=== PATIENT | male | born 1995 | race Caucasian/White ===

== ENCOUNTER 2020-08-20 22:21 | Outpatient (CLI) | payer OTHER | END 2020-08-20 22:22 | disposition EMS.NT | LOC: EMS 22:21 | PROVIDERS: ATTEND Surgery | DX: R06.02 Shortness of breath (principal) ==

== ENCOUNTER 2020-08-20 23:36 | Inpatient (IN) | payer OTHER ==
--- NOTE | 2020-08-20 23:47 | ED Physician Documentation ---
History of Present Illness - Stated complaint Stated Complaint: SOA,VOMITING - History obtained from History obtained from: Patient - Additonal information Additional information: Patient is a 24-year-old male brought in by his father after he is been complaining of weakness and breathing fast and anxiety. The patient reports that he thinks he has anxiety. He also reports that he is a daily heavy drinker and stopped drinking alcohol 2 days ago. He also reports that he uses marijuana multiple times daily. He also complains that he has had a spontaneous pneumothorax on the left as well as the right and describes chest tube decompres hernan with pleurodesis at [facility] last year. Patient reports that he is a student at [employer] in [place] but since COVID he is return home and is been living at for the last 6 months. He also thinks that he might possibly have diabetes but he is not sure.He denies fevers or abdominal pain or headache or cough but reports dry heaving and noticed that his been breathing fast. Review of Systems Constitutional: reports: Reviewed and negative Eyes: reports: Reviewed and negative Ears: reports: Reviewed and negative Nose: reports: Reviewed and negative Throat: reports: Reviewed and negative Cardiac: reports: Reviewed and negative Respiratory: reports: Dyspnea GI: reports: Nausea, Vomiting : reports: Reviewed and negative Skin: reports: Reviewed and negative Musculoskeletal: reports: Reviewed and negative Neurologic: reports: Generalized weakness Psychiatric: reports: Reviewed and negative Endocrine: reports: Reviewed and negative Immunocompromised: reports: Reviewed and negative PD PAST MEDICAL HISTORY - Allergies Allergies/Adverse Reactions: Allergies Allergy/AdvReac Type Severity Reaction Status Date / Time No Known Drug Allergies Allergy Verified 08/20/20 23:52 PD ED PE NORMAL - General General: Other (This is a sick and ill appearing 24-year-old male who has obvious supply chain coordinator small breathing he is awake he is alert he is oriented he does appear to be anxious as well.) - HEENT HEENT: Atraumatic, PERRL, EOMI, Ears normal, Pharynx benign, Dentition benign, Other (Dry mucous membranes noted) - Neck Neck: Supple, no meningeal sign, No bony TTP, No adenopathy, Thyroid normal, No JVD - Cardiac Cardiac: Other (Tachycardic and regular rhythm no murmurs rubs or gallops) - Respiratory Respiratory: Other (Tachypneic with supply chain coordinator small breathing no use of accessory muscles trachea midline breath sounds are present in bilateral lung smith throughout) - Abdomen Abdomen: Normal bowel sounds, Soft, Non tender, Non distended, No organomegaly, Other (Abdominal striae noted) - Male Male : Deferred - Rectal Rectal: Deferred - Back Back: No CVA TTP, No spinal TTP - Derm Derm: Normal color, Warm and dry, No rash - Neuro Neuro: Alert and oriented X 3, respiratory equipment assistant 2-12 intact, No motor deficit, No sensory deficit, Normal speech - Psych Psych: Other (Anxious appearing) Results - Vitals Vitals: Vital Signs - 24 hr 08/20/20 08/21/20 23:40 00:40 Temperature 36.3 C L Heart Rate 96 113 H Respiratory 32 H 30 H Rate Blood Pressure 151/102 H 157/103 H O2 Saturation 100 100 Oxygen O2 Source Room air - EKG (time done) 00:13 Rate: Other (no stemi) - Labs Labs: Laboratory Tests 08/21/20 08/21/20 08/21/20 00:10 00:10 00:10 WBC 34.4 H RBC 4.85 Hgb 15.6 Hct 48.2 MCV 99.4 H MCH 32.2 H MCHC 32.4 RDW 12.0 Plt Count 370 MPV 9.9 Neut # (Auto) Not Reportable Lymph # (Auto) Not Reportable [place] # (Auto) Not Reportable Eos # (Auto) Not Reportable Baso # (Auto) Not Reportable Absolute Nucleated RBC Not Reportable Total Counted 100 Band Neuts % (Manual) 3 Abnorm Lymph % (Manual) 0 Metamyelocytes % 1 H Myelocytes % 10 H Nucleated RBC % Not Reportable Neutrophils # (Manual) 19.3 H Lymphocytes # (Manual) 6.5 H Monocytes # (Manual) 4.5 H Eosinophils # (Manual) 0.0 Basophils # (Manual) 0.3 H Differential Comment MANUAL DIFFERENTIAL WBC Morphology NORMAL APPEARANCE Platelet Estimate NORMAL (130-450,000) Platelet Morphology NORMAL APPEARANCE RBC Morph Micro Appear NORMAL APPEARANCE PT 11.3 INR 1.0 APTT 37.1 H VBG pH VBG pCO2 VBG pO2 VBG HCO3 VBG Total CO2 VBG O2 Saturation VBG Base Excess Sodium 130 L Potassium 4.1 Chloride 97 L Carbon Dioxide < 6 L* Anion Gap 30.0 H BUN 14 Creatinine 1.1 Estimated GFR (MDRD) 82 L Glucose 600 H* Lactic Acid Calcium 8.3 L Phosphorus Magnesium 2.4 Total Bilirubin 1.7 H AST 19 ALT 26 Alkaline Phosphatase 114 Total Creatine Kinase 33 Troponin I High Sens Total Protein 8.9 H Albumin 5.0 Globulin 3.9 Albumin/Globulin Ratio 1.3 Lipase 71 H TSH Urine Color Urine Clarity Urine pH Ur Specific [place] Urine Protein Urine Glucose (UA) Urine Ketones Urine Occult Blood Urine Nitrite Urine Bilirubin Urine Urobilinogen Ur Leukocyte Esterase Urine RBC Urine WBC Ur Squamous Epith Cells Urine Bacteria Urine Casts Ur Microscopic Review Urine Culture Comments Salicylates 6.3 Urine Opiates Screen Ur Oxycodone Screen Urine Methadone Screen Ur Propoxyphene Screen Acetaminophen < 10 L Ur Barbiturates Screen Ur Tricyclics Screen Ur Phencyclidine Scrn Ur Amphetamine Screen U Methamphetamines Scrn U Benzodiazepines Scrn Urine Cocaine Screen U Cannabinoids Screen Ethyl Alcohol < 5.0 Serum Ketones 08/21/20 08/21/20 08/21/20 00:10 00:10 00:10 WBC RBC Hgb Hct MCV MCH MCHC RDW Plt Count MPV Neut # (Auto) Lymph # (Auto) [place] # (Auto) Eos # (Auto) Baso # (Auto) Absolute Nucleated RBC Total Counted Band Neuts % (Manual) Abnorm Lymph % (Manual) Metamyelocytes % Myelocytes % Nucleated RBC % Neutrophils # (Manual) Lymphocytes # (Manual) Monocytes # (Manual) Eosinophils # (Manual) Basophils # (Manual) Differential Comment WBC Morphology Platelet Estimate Platelet Morphology RBC Morph Micro Appear PT INR APTT VBG pH VBG pCO2 VBG pO2 VBG HCO3 VBG Total CO2 VBG O2 Saturation VBG Base Excess Sodium Potassium Chloride Carbon Dioxide Anion Gap BUN Creatinine Estimated GFR (MDRD) Glucose Lactic Acid 2.9 H Calcium Phosphorus Magnesium Total Bilirubin AST ALT Alkaline Phosphatase Total Creatine Kinase Troponin I High Sens 10.1 Total Protein Albumin Globulin Albumin/Globulin Ratio Lipase TSH 1.16 Urine Color Urine Clarity Urine pH Ur Specific [place] Urine Protein Urine Glucose (UA) Urine Ketones Urine Occult Blood Urine Nitrite Urine Bilirubin Urine Urobilinogen Ur Leukocyte Esterase Urine RBC Urine WBC Ur Squamous Epith Cells Urine Bacteria Urine Casts Ur Microscopic Review Urine Culture Comments Salicylates Urine Opiates Screen Ur Oxycodone Screen Urine Methadone Screen Ur Propoxyphene Screen Acetaminophen Ur Barbiturates Screen Ur Tricyclics Screen Ur Phencyclidine Scrn Ur Amphetamine Screen U Methamphetamines Scrn U Benzodiazepines Scrn Urine Cocaine Screen U Cannabinoids Screen Ethyl Alcohol Serum Ketones 08/21/20 08/21/20 08/21/20 00:10 00:10 00:50 WBC RBC Hgb Hct MCV MCH MCHC RDW Plt Count MPV Neut # (Auto) Lymph # (Auto) [place] # (Auto) Eos # (Auto) Baso # (Auto) Absolute Nucleated RBC Total Counted Band Neuts % (Manual) Abnorm Lymph % (Manual) Metamyelocytes % Myelocytes % Nucleated RBC % Neutrophils # (Manual) Lymphocytes # (Manual) Monocytes # (Manual) Eosinophils # (Manual) Basophils # (Manual) Differential Comment WBC Morphology Platelet Estimate Platelet Morphology RBC Morph Micro Appear PT INR APTT VBG pH 6.725 L VBG pCO2 19.7 L VBG pO2 94.5 H VBG HCO3 2.5 L VBG Total CO2 3.1 L VBG O2 Saturation 95.2 H VBG Base Excess -33.2 L Sodium Potassium Chloride Carbon Dioxide Anion Gap BUN Creatinine Estimated GFR (MDRD) Glucose Lactic Acid Calcium Phosphorus 5.8 H Magnesium Total Bilirubin AST ALT Alkaline Phosphatase Total Creatine Kinase Troponin I High Sens Total Protein Albumin Globulin Albumin/Globulin Ratio Lipase TSH Urine Color YELLOW Urine Clarity CLEAR Urine pH 5.0 Ur Specific [place] >=1.030 H Urine Protein 30 H Urine Glucose (UA) >=1000 H Urine Ketones >=80 H Urine Occult Blood MODERATE H Urine Nitrite NEGATIVE Urine Bilirubin NEGATIVE Urine Urobilinogen 0.2 (NORMAL) Ur Leukocyte Esterase NEGATIVE Urine RBC 6-10 H Urine WBC 0-3 Ur Squamous Epith Cells NONE SEEN Urine Bacteria Rare Urine Casts 3-5 Fine Granular Ur Microscopic Review INDICATED Urine Culture Comments NOT INDICATED Salicylates Urine Opiates Screen NEGATIVE Ur Oxycodone Screen NEGATIVE Urine Methadone Screen NEGATIVE Ur Propoxyphene Screen NEGATIVE Acetaminophen Ur Barbiturates Screen NEGATIVE Ur Tricyclics Screen NEGATIVE Ur Phencyclidine Scrn NEGATIVE Ur Amphetamine Screen NEGATIVE U Methamphetamines Scrn NEGATIVE U Benzodiazepines Scrn NEGATIVE Urine Cocaine Screen NEGATIVE U Cannabinoids Screen POSITIVE H Ethyl Alcohol Serum Ketones SMALL H PD MEDICAL DECISION MAKING - ED course Complexity details: reviewed old records, reviewed results, re-evaluated patient, considered differential, d/w patient, d/w family, d/w moving consultant (tt dr. seay, who agreed to admit this patient to the ICU. ), other ED course: 24-year-old male who appears to have new onset diabetic ketoacidosis he has no fever but he is tachypneic with a leukocytosis. 2 L of IV fluids were ordered for him as well as Lactate, blood cultures, IV Rocephin. His initial potassium came back at 4.1.2 L of IV fluids were ordered initially as well as 20 mEq of potassium. Case was discussed with the hospitalist Dr. seay. CT the head CT of the chest and abdomen and pelvis shows no acute process.Patient will be admitted to the ICU. - Consults Consults: Discussed case with (hospitalist. dr. seay who will admit patient to the icu.) - Critical Care Time(min): 30 Time Includes: Direct patient care, Review records, Reassess patient, Document care, Coordinate care, Medical consult, Family consult for tx dec Procedures included in critical care time: Peripheral IV Procedures excluded from critical care time: EKG Departure - Departure Disposition: 66 [facility] DC/Xfer Clinical Impression: DKA (diabetic ketoacidoses) Qualifiers: Diabetes mellitus type: other specified (including FRANKIE) Diabetes mellitus complication detail: without coma Qualified Code(s): E13.10 - Other specified diabetes mellitus with ketoacidosis without coma Condition: Critical Discharge Date/Time: 08/21/20 02:44
[2020-08-21] MEDS ORDERED: LORazepam 2 MG/ML VIAL IVP STA (00:02)
[2020-08-21] MEDS ORDERED: SODIUM CHLORIDE 0.9% 1,000 ML IV STA ×3 (00:02→01:17)
[2020-08-21 00:21] LABS: BASOPHILS % (AUTO) 1.4 %; EOSINOPHILS % (AUTO) 0.3 %; HGB - HEMOGLOBIN 15.6 g/dL (14.0-18.0); LYMPHOCYTES % (AUTO) 10.4 %; MEAN CORPUSCULAR HEMOGLOBIN 32.2 pg (27.0-31.0); MEAN CORPUSCULAR HGB CONC 32.4 g/dL (32.0-36.0); MEAN CORPUSCULAR VOLUME 99.4 fL (80.0-94.0); MEAN PLATELET VOLUME 9.9 fL (7.4-11.4); MONOCYTES % (AUTO) 13.1 %; NEUTROPHILS % (AUTO) 66.7 %; PLT - PLATELET COUNT 370 10^3/uL (130-450); RED BLOOD COUNT 4.85 10^6/uL (4.70-6.10); WHITE BLOOD COUNT 34.4 x10^3/uL (4.8-10.8)
[2020-08-21 00:25] LABS: ABNORMAL LYMPHS % (MANUAL) 0 %; PT - PROTHROMBIN TIME 11.3 secs (9.9-12.6)
[2020-08-21] MEDS ORDERED: cefTRIAXone 1 GM VIAL IVP STA (00:30)
[2020-08-21 00:33] LABS: PARTIAL THROMBOPLASTIN TIME 37.1 secs (24.9-33.3)
[2020-08-21 00:34] LABS: ACETAMINOPHEN < 10 ug/mL (10-30); ALBUMIN/GLOBULIN RATIO 1.3 (1.0-2.2); ALKALINE PHOSPHATASE 114 IU/L (42-121); ALT ALANINE AMINOTRANSFERASE 26 IU/L (10-60); AST ASPARTATE AMINOTRANSFERASE 19 IU/L (10-42); BILIRUBIN,TOTAL 1.7 mg/dL (0.2-1.0); BUN - BLOOD UREA NITROGEN 14 mg/dL (6-20); CALCIUM 8.3 mg/dL (8.5-10.3); CHLORIDE 97 mmol/L (101-111); CK- CREATINE KINASE 33 IU/L (22-269); CREATININE 1.1 mg/dL (0.6-1.2); LIPASE 71 U/L (22-51); MAGNESIUM 2.4 mg/dL (1.7-2.8); SALICYLATE 6.3 mg/dL; SODIUM 130 mmol/L (135-145); TOTAL PROTEIN 8.9 g/dL (6.7-8.2)
[2020-08-21 00:36] LABS: CARBON DIOXIDE - CO2 < 6 mmol/L (21-32); GLUCOSE 600 mg/dL (70-100)
[2020-08-21 00:37] LABS: MUDS CUTOFF CONCENTRATIONS CUTOFF CONC BELOW:
[2020-08-21 00:40] LABS: BILIRUBIN,URINE NEGATIVE (NEGATIVE); GLUCOSE, URINE (UA) >=1000 mg/dL (NEGATIVE); KETONES,URINE (UA) >=80 mg/dL (NEGATIVE); LEUKOCYTE ESTERASE, URINE NEGATIVE (NEGATIVE); NITRITE,URINE NEGATIVE (NEGATIVE); OCCULT BLOOD,URINE MODERATE (NEGATIVE); PROTEIN,URINE 30 mg/dL (NEGATIVE); UROBILINOGEN,URINE 0.2 (NORMAL) E.U./dL (NORMAL)
[2020-08-21 00:44] LABS: BAND NEUTROPHILS % (MANUAL) 3 %; BASOPHILS # (MANUAL) 0.3 10^3/uL (0-0.1); BASOPHILS % (MANUAL) 1 %; LYMPHOCYTES # (MANUAL) 6.5 10^3/uL (1.5-3.5); LYMPHOCYTES % (MANUAL) 19 %; METAMYELOCYTES % (MANUAL) 1 %; MONOCYTES # (MANUAL) 4.5 10^3/uL (0.0-1.0); MYELOCYTES % (MANUAL) 10 %; RBC MORPHOLOGY (MULTIPLE) NORMAL APPEARANCE (NORMAL)
[2020-08-21 00:45] LABS: DIFFERENTIAL COMMENT MANUAL DIFFERENTIAL; PLATELET ESTIMATE, MANUAL NORMAL (130-450,000) (NORMAL); PLATELET MORPHOLOGY NORMAL APPEARANCE (NORMAL)
[2020-08-21 00:49] LABS: BACTERIA,URINE Rare /HPF (None Seen); CLARITY,URINE CLEAR (CLEAR); SQUAMOUS EPITHELIAL CELL,UR NONE SEEN (<= Few)
[2020-08-21] MEDS ORDERED: INSULIN REGULAR HUMAN 100 UNIT in SODIUM CHLORIDE 0.9% 100ML 99 ML IV STA (00:49)
[2020-08-21 00:50] LABS: CASTS, URINE 3-5 Fine Granular /LPF
[2020-08-21] MEDS ORDERED: POTASSIUM CHLOR 20 MEQ/100 ML 20 MEQ/100 ML BAG IV ONE ×7 (00:50→22:58)
[2020-08-21 00:52] LABS: AMPHETAMINE SCREEN,URINE NEGATIVE (NEGATIVE); BENZODIAZEPINES SCREEN, URINE NEGATIVE (NEGATIVE); COCAINE SCREEN URINE NEGATIVE (NEGATIVE); METHADONE SCREEN, URINE NEGATIVE (NEGATIVE); METHAMPHETAMINES SCREEN, URINE NEGATIVE (NEGATIVE); OPIATE SCREEN, URINE NEGATIVE (NEGATIVE); OXYCODONE SCREEN, URINE NEGATIVE (NEGATIVE); PROPOXYPHENE SCREEN, URINE NEGATIVE (NEGATIVE); TRICYCLIC ANTIDEPRESSANT,URINE NEGATIVE (NEGATIVE)
[2020-08-21 00:54] LABS: KETONES, SERUM (ACETEST) SMALL (NEGATIVE)
[2020-08-21 00:55] LABS: PHOSPHORUS 5.8 mg/dL (2.5-4.6)
[2020-08-21 00:56] LABS: VBG PCO2 19.7 mmHg (41-51); VBG PH 6.725 (7.31-7.41)
[2020-08-21 00:57] LABS: VBG BASE EXCESS -33.2 mmol/L (-2 - +2); VBG PO2 94.5 mmHg (25-47); VBG TOTAL CO2 3.1 mmol/L (24-29)
[2020-08-21] MEDS ORDERED: ONDANSETRON 4 MG/2 ML VIAL IVP PRN (01:07)
[2020-08-21] MEDS ORDERED: ACETAMINOPHEN 325 MG TABLET PO PRN (01:07)
[2020-08-21] MEDS ORDERED: INSULIN REGULAR HUMAN 100 UNIT/1 ML 10 ML MDV ONE (01:11)
[2020-08-21] MEDS ORDERED: IOVERSOL 320 100 ML VIAL IVP ONE ×2 (01:12→02:29)
--- NOTE | 2020-08-21 01:22 | HISTORY & PHYSICAL EXAMINATION ---
Chief Complaint - Chief Complaint Chief Complaint: Dyspnea, anxious History of Present Illness - Admitted From Admitted From:: [facility] ED - History Obtained From Records Reviewed: Yes History obtained from: Patient, father and ED physician - History of Present Illness HPI Comment/Other: Patient is a 25-year-old male who was brought to the ED by his father after he complained of breathing too fast and anxiety. He is not a very good historian. It is reported that he drinks heavily daily and stopped drinking 2 days ago. In the ED work-up included a CBC which showed a white blood cell count of 34. He had a VBG done which showed a pH of 6.7. He was also found to have a blood glucose of 600 anion gap of 30 and a bicarb of less than 6. On further questioning he reports that he was diagnosed with diabetes this year. He saw a physician by name Dr. Guerrero at [facility] in [facility]. He his not on insulin or any other medications.He has a remote history of a spontaneous pneumothorax for which he had chest tubes placed at [facility] last year. He is a student at [employer] in [place] but returned home due to the COVID pandemic. He has been living at home for the last 6 months.. At bedside the patient is tachypneic with Kussmaul respirations. He readily awakes to tactile verbal stimuli but also readily falls back to sleep. His toxicology was negative except for cannabinoids. His u rine was negative for infection but positive for glucose and ketones. Imaging included CT of the head, chest, abdomen and pelvis which were all negative. History - Past Medical History Endocrine/Autoimmune: reports: Type 1 diabetes - Past Surgical History General: reports: Other (Continues pneumothorax with chest tube placement) - Family & Social History Family History Comment/Other: Patient's father denies any family history of significant medical conditions. Social History Notes: Patient drinks alcohol daily. It is reported that he is a heavy drinker. He smokes marijuana. He denies use of tobacco products. - POLST Patient has POLST: No POLST Status: Full Code Meds/Allgy - Allergies Allergies/Adverse Reactions: Allergies Allergy/AdvReac Type Severity Reaction Status Date / Time No Known Drug Allergies Allergy Verified 08/20/20 23:52 Review of Systems - Constitutional Constitutional: reports: Fatigue, Chills, Weakness. denies: Fever - Eyes Eyes: denies: Pain - Ears, Nose & Throat Ears, Nose & Throat: denies: Ear pain - Cardiovascular Cariovascular: reports: Palpitations. denies: Irregular heart rate, Chest pain, Lightheadedness, Syncope, Exertional dyspnea - Respiratory Respiratory: denies: Cough, Sputum production, Wheezing, SOB at rest, SOB with exertion - Gastrointestinal Gastrointestinal: reports: Nausea, Vomiting. denies: Abdominal pain, Abdominal distention, Constipation - Genitourinary Genitourinary: denies: Dysuria, Frequency, Urgency, Hematuria - Musculoskeletal Musculoskeletal: denies: Muscle pain, Back pain, Muscle aches, Stiffness - Integumentary Integumentary: denies: Rash, Pruritis, Lesions - Neurological Neurological: denies: General weakness, Focal weakness, Headache, Dizziness - Psychiatric Psychiatric: denies: Depression - Hematologic/Lymphatic Hematologic/Lymphatic: denies: Anemia, Bruising, Petechiae Prior Level of Functionality: Patient is independent of activities of daily living Exam - Vital Signs Vital Signs: Vital Signs x48h Temp Pulse Resp BP Pulse Ox 08/21/20 00:40 113 H 30 H 157/103 H 100 08/20/20 23:40 36.3 C L 96 32 H 151/102 H 100 - Physical Exam General Appearance: positive: Mild distress, Moderate distress, Lethargic Eyes Bilateral: positive: PERRL, EOMI ENT: positive: Dry mucous membranes, Other (Poor dentition) Neck: positive: No JVD, Trachea midline Respiratory: positive: Chest non-tender, No respiratory distress, Breath sounds nml. negative: Wheezes, Rales, Rhonchi Cardiovascular: positive: No murmur, Tachycardia Abdomen: positive: Non-tender, No organomegaly, Nml bowel sounds, No distention. negative: Guarding, Rebound Skin: positive: No rash, Other (Lower extremities appear slightly mottled and are cold to touch) Extremities: positive: Non-tender, Full ROM, Nml appearance, No pedal edema Neurologic/Psychiatric: positive: Other (Lethargic) Conclusion/Plan - Problem List (1) DKA (diabetic ketoacidoses) Conclusion/Plan: Patient reports that he was diagnosed with diabetes this year. However he is not on insulin. His father reports that the patient never had DKA as a minor. There is no family history of diabetes on either side of his family. Patient was placed on the DKA protocol. Insulin drip started. Accu-Cheks every 1 hour. Patient received 3 L of normal saline in the ED. Will administer a fourth bolus of normal saline. Patient's bicarb is less than 6. pH is 6.8 on ABG. Consequently bicarb drip was started. Qualifiers: Diabetes mellitus type: other specified (including FRANKIE) Diabetes mellitus complication detail: without coma Qualified Code(s): E13.10 - Other specified diabetes mellitus with ketoacidosis without coma (2) SIRS (systemic inflammatory response syndrome) Conclusion/Plan: Patient had a white blood cell count of 34. Lactic acid 2.9. Patient was tachy pneic with respiratory rate as high as 35. However work-up has included CT of the head, chest, abdomen, pelvis and urine analysis which have all been negative for infection. There is no sign of erythema or open wounds on the patient's body. Blood cultures were drawn. Patient was initially given Rocephin in the ED. Antibiotics were broadened to vancomycin and Zosyn. We will continue to monitor and treat accordingly. (3) Alcohol abuse Conclusion/Plan: Will place patient on CIWA protocol. - Lab Results Fish Bones: 08/21/20 06:29 08/22/20 00:30 Core Measures - Anticipated LOS I expect patient to be DC'd or transferred within 96 hours.: Yes - DVT/VTE - Prophylaxis VTE/DVT Device ordered at admit?: Yes VTE/DVT Prophylaxis med ordered at admit?: Yes
[2020-08-21] MEDS ORDERED: SODIUM CHLORIDE 0.9% 1,000 ML IV SCH ×2 (02:00)
[2020-08-21] MEDS ORDERED: PIPERACILLIN/TAZOBACTAM 3.375 GM in SODIUM CHLORIDE 0.9% MINIBAG 100 ML IV ONE (02:00)
[2020-08-21] MEDS ORDERED: VANCOMYCIN INJ 1.25 GM in SODIUM CHLORIDE 0.9% 250 ML IV SCH (02:00)
[2020-08-21] MEDS: INSULIN REGULAR HUMAN 100 UNIT in SODIUM CHLORIDE 0.9% 100ML 99 ML IV SCH ×3 (03:00→18:11)
[2020-08-21 03:55] LABS: BUN - BLOOD UREA NITROGEN 13 mg/dL (6-20); CALCIUM 7.7 mg/dL (8.5-10.3); CHLORIDE 111 mmol/L (101-111); CREATININE 0.9 mg/dL (0.6-1.2); GLUCOSE 255 mg/dL (70-100); SODIUM 138 mmol/L (135-145)
[2020-08-21 03:56] LABS: CARBON DIOXIDE - CO2 < 6 mmol/L (21-32)
[2020-08-21] MEDS ORDERED: SODIUM BICARBONATE 150 MEQ in DEXTROSE 5% 1,000 ML IV SCH (04:00)
[2020-08-21] MEDS ORDERED: SODIUM CHLORIDE 0.9% 1,000 ML IV ONE (04:11)
[2020-08-21 04:35] LABS: ABG BASE EXCESS -31.3 mmol/L (-2.0-3.0); ABG HCO3 2.2 mmol/L (22.0-26.0); ABG PCO2 14 mmHg (34-45); ABG PH 6.82 (7.35-7.45); ABG PO2 126 mmHg (80-100); ABG TCO2 2.6 MMOL/L (21.0-29.0)
[2020-08-21 04:36] LABS: ABG FRACTION OF INSPIRED O2 0.21; ABG OXYGEN SATURATION 98 % (94-98); ALLEN TEST POSITIVE
[2020-08-21] MEDS ORDERED: MAGNESIUM SULFATE 2 GRAM 2 GM/50 ML BAG IV ONE ×2 (04:37→23:00)
[2020-08-21] MEDS ORDERED: SODIUM BICARBONATE 8.4% 50 MEQ/50 ML VIAL ONE (04:38)
[2020-08-21] MEDS ORDERED: DEXTROSE 5% 1,000 ML IV ONE (04:42)
[2020-08-21] MEDS ORDERED: DEXTROSE 5%-0.45% NACL 1,000 ML IV SCH (05:00)
[2020-08-21] MEDS ORDERED: DEXTROSE 5%-0.9% NACL 1,000 ML IV SCH (05:00)
[2020-08-21] MEDS: LORazepam 2 MG/ML VIAL IVP PRN ×2 (05:05→06:46)
[2020-08-21] MEDS ORDERED: PIPERACILLIN/TAZOBACTAM 3.375 GM in SODIUM CHLORIDE 0.9% MINIBAG 100 ML IV SCH (06:00)
[2020-08-21 06:40] LABS: BASOPHILS % (AUTO) 0.8 %; HGB - HEMOGLOBIN 14.7 g/dL (14.0-18.0); LYMPHOCYTES % (AUTO) 12.1 %; MEAN CORPUSCULAR HEMOGLOBIN 32.5 pg (27.0-31.0); MEAN CORPUSCULAR HGB CONC 33.5 g/dL (32.0-36.0); MEAN CORPUSCULAR VOLUME 97.1 fL (80.0-94.0); MEAN PLATELET VOLUME 9.9 fL (7.4-11.4); MONOCYTES % (AUTO) 9.9 %; PLT - PLATELET COUNT 241 10^3/uL (130-450); RED BLOOD COUNT 4.52 10^6/uL (4.70-6.10); WHITE BLOOD COUNT 24.6 x10^3/uL (4.8-10.8)
[2020-08-21] MEDS: SODIUM CHLORIDE FLUSH 0.9% 10 ML SYRINGE IVP PRN ×5 (06:47→21:56)
[2020-08-21 06:54] LABS: BUN - BLOOD UREA NITROGEN 12 mg/dL (6-20); CALCIUM 7.9 mg/dL (8.5-10.3); CHLORIDE 113 mmol/L (101-111); GLUCOSE 124 mg/dL (70-100); SODIUM 139 mmol/L (135-145)
[2020-08-21 06:57] LABS: CARBON DIOXIDE - CO2 < 6 mmol/L (21-32)
--- NOTE | 2020-08-21 07:01 | XRAY Report ---
PROCEDURE: Chest 1 View X-Ray INDICATIONS: sob TECHNIQUE: One view of the chest was acquired. COMPARISON: None FINDINGS: Surgical changes and devices: None. Lungs and pleura: No pleural effusions or pneumothorax. Lungs are clear. Mediastinum: Mediastinal contours appear normal. Heart size is normal. Bones and chest wall: No suspicious bony lesions. Overlying soft tissues appear unremarkable. IMPRESSION: No acute cardiopulmonary disease process. Reviewed by: Amanda Pimentel MD, PhD on 08/21/2020 6:59 AM PDT Approved by: Amanda Pimentel MD, PhD on 08/21/2020 6:59 AM PDT Station ID: [id number]
[2020-08-21 07:02] LABS: KETONES, SERUM (ACETEST) SMALL (NEGATIVE)
--- NOTE | 2020-08-21 07:04 | CT Report ---
PROCEDURE: HEAD WO INDICATIONS: Acute altered mental status. TECHNIQUE: Noncontrast 4.5 mm thick angled axial sections acquired from the foramen magnum to the vertex. For r adiation dose reduction, the following was used: automated exposure control, adjustment of mA and/or kV according to patient size. COMPARISON: None. FINDINGS: Image quality: Limited by motion artifact. CSF spaces: Basal cisterns are patent. No extra-axial fluid collections. Ventricles are normal in size and shape. Brain: No midline shift. No intracranial masses or hemorrhage. Gutierres-white matter interface is norm al. Skull and face: Calvarium and visualized facial bones are intact, without suspicious lesions. Sinuses: Visualized sinuses and mastoids are clear. IMPRESSION: No acute intracranial disease process. Reviewed by: Amanda Pimentel MD, PhD on 08/21/2020 7:03 AM PDT Approved by: Amanda Pimentel MD, PhD on 08/21/2020 7:03 AM PDT Station ID: [id number]
[2020-08-21 07:14] LABS: ABNORMAL LYMPHS % (MANUAL) 0 %
[2020-08-21 07:17] LABS: BAND NEUTROPHILS % (MANUAL) 16 %; LYMPHOCYTES # (MANUAL) 4.4 10^3/uL (1.5-3.5); LYMPHOCYTES % (MANUAL) 12 %; MYELOCYTES % (MANUAL) 3 %
[2020-08-21] MEDS: DEXTROSE 5%-0.45% NACL 1,000 ML IV SCH ×2 (07:22→11:36)
[2020-08-21] MEDS: POTASSIUM CHLOR 10 MEQ/100 ML 10 MEQ/100 ML BAG IV SCH ×4 (08:30→11:38)
--- NOTE | 2020-08-21 08:38 | CT Report ---
PROCEDURE: CHEST W INDICATIONS: SOB CONTRAST: IV CONTRAST: Optiray 320 ml: 100 PO CONTRAST: *NO PO CONTRAST TECHNIQUE: After the administration of intravenous contrast, 5 mm thick sections acquired from the pulmonary api kaci to the posterior costophrenic angles. 7 mm thick coronal MIP reformats were acquired. For radia tion dose reduction, the following was used: automated exposure control, adjustment of mA and/or kV according to patient size. COMPARISON: None. FINDINGS: Image quality: Suboptimal with respiratory motion artifact. Lungs and pleura: Small focus of groundglass opacity in the anteromedial left lower lobe between the hilum and descending aorta. Groundglass opacity in the lung bases posteriorly, likely atelectatic alt sharon acute airspace infiltrate would appear similar. No pleural effusion or other significant pleura l abnormality. Mediastinum: Heart size is normal. No pericardial effusion. No mediastinal or hilar adenopathy by size criteria. Thoracic aorta and central pulmonary arteries are normal in size. Esophagus is main l in caliber. No hiatal hernia. Bones and chest wall: No suspicious bony lesions. No vertebral body compression fractures. No axil moira or supraclavicular adenopathy by size criteria. Abdomen: Visualized upper abdominal solid organs appear normal. Upper abdominal bowel loops are nor mal in caliber. IMPRESSION: Limited exam due to greater by patient respiratory motion artifact. Less opacity in the lower lobes w hich may be atelectatic although an acute airspace infiltrate due to viral or other atypical infectio us/inflammatory process but appear similar. Follow-up to resolution should be considered. No signific ant change from preliminary report. Reviewed by: Tin Anderson MD on 08/21/2020 8:36 AM PDT Approved by: Tin Anderson MD on 08/21/2020 8:36 AM PDT Station ID: [id number]
--- NOTE | 2020-08-21 08:40 | CT Report ---
PROCEDURE: Abdomen/Pelvis W INDICATIONS: Abdominal pain CONTRAST: IV CONTRAST: Optiray 320 ml: 100 PO CONTRAST: *NO PO CONTRAST TECHNIQUE: After the administration of intravenous contrast, 5 mm thick sections acquired from the diaphragms to the symphysis. 5 mm thick coronal and sagittal reformats were acquired. For radiation dose reducti on, the following was used: automated exposure control, adjustment of mA and/or kV according to claudia ent size. COMPARISON: None. FINDINGS: Image quality: Excellent. ABDOMEN: Lung bases: Lung bases are clear. Heart size is normal. Solid organs: The liver is enlarged with diffuse moderate hypoattenuation of the liver parenchyma. Sp sammy this normal in size and enhancement. Gallbladder is normal. Biliary system is non dilated. Pa ncreas enhances normally. No adrenal nodules. Kidneys demonstrate normal size and enhancement, with out hydronephrosis. Peritoneum and bowel: Bowel loops demonstrate normal wall thickness and caliber. No free fluid or a ir. Nodes and vessels: No retroperitoneal or mesenteric adenopathy by size criteria. Aorta and inferior vena cava are normal in size. Miscellaneous: No ventral hernias. PELVIS: Genitourinary: Bladder wall thickness is normal. Miscellaneous: No inguinal hernias or adenopathy. Bones: No suspicious bony lesions. No vertebral body compression fractures. IMPRESSION: 1. Hepatomegaly with diffuse hypoattenuation of the liver. This may simply represent diffuse hepatic steatosis although acute hepatic parenchymal edema appear similar (for example due to viral or steato hepatitis). Clinical correlation will be needed. Reviewed by: Tin Anderson MD on 08/21/2020 8:39 AM PDT Approved by: Tin Anderson MD on 08/21/2020 8:39 AM PDT Station ID: [id number]
[2020-08-21] MEDS ORDERED: MULTIVITAMIN 10 ML, THIAMINE INJ 100 MG, FOLIC ACID INJ 1 MG in SODIUM CHLORIDE 0.9% 1,... IV SCH (09:00)
[2020-08-21] MEDS: THIAMINE 100 MG TABLET PO SCH (10:27)
[2020-08-21] MEDS: SODIUM CHLORIDE FLUSH 0.9% 10 ML SYRINGE IVP SCH ×2 (10:29→17:02)
[2020-08-21] MEDS: ENOXAPARIN 40 MG/0.4 ML SYRINGE SUBQ SCH (10:31)
[2020-08-21] MEDS ORDERED: MIDAZOLAM 2 MG/2 ML VIAL ONE (10:44)
[2020-08-21 10:50] LABS: HEMOGLOBIN A1c% 11.7 % (4.27-6.07)
[2020-08-21 11:09] LABS: BUN - BLOOD UREA NITROGEN 12 mg/dL (6-20); CHLORIDE 108 mmol/L (101-111); CREATININE 1.1 mg/dL (0.6-1.2); GLUCOSE 242 mg/dL (70-100); MAGNESIUM 2.1 mg/dL (1.7-2.8); PHOSPHORUS 1.4 mg/dL (2.5-4.6); SODIUM 136 mmol/L (135-145)
[2020-08-21 11:11] LABS: CARBON DIOXIDE - CO2 < 6 mmol/L (21-32)
--- NOTE | 2020-08-21 11:33 | XRAY Report ---
PROCEDURE: Chest for Line Placement INDICATIONS: Central line placement TECHNIQUE: One view of the chest was acquired. COMPARISON: 08/21/2020 at 1205 hours. FINDINGS: Surgical changes and devices: Central venous line projects the distal SVC via right IJ approach. Mult iple sutures in the apex of the right lung are stable. Lungs and pleura: No pleural effusions or pneumothorax. Lungs are clear. Mediastinum: Mediastinal contours appear normal. Heart size is normal. Bones and chest wall: No suspicious bony lesions. Overlying soft tissues appear unremarkable. IMPRESSION: Central venous line projects the distal SVC. Reviewed by: Amanda Pimentel MD, PhD on 08/21/2020 11:32 AM PDT Approved by: Amanda Pimentel MD, PhD on 08/21/2020 11:32 AM PDT Station ID: [id number]
--- NOTE | 2020-08-21 11:33 | ANESTHESIA PROCEDURE NOTE ---
Anesth Central Line Template - Central Line Central Line Preparation: Consent Obtained, Time out completed, Ultrasound used, Sterile prep and drape Central line location: Right IJ Central line type: Triple lumen Central line catheter tip site resides: Superior vena cava (SVC) Central line aftercare: Chlorhexidine disc placed, Secured, Placement confirmed, No pneumothorax, No complications, Bundle checklist complete, Pt tolerated well Other Info/Details: Called for Central line placement. Full sterile gown/gloves, mask, and sterile drape utilized. Right neck prepped with chlorhexadine. Timeout completed. Skin was localized with 4ml of 1% lidocaine. Right IJ accessed with 18 G needle under ultrasound guidance and wire advanced with ease. A triple lumen central line was placed over the wire and wire was removed. Line sutured in place and secured with tegraderm. Chest x-ray shows tip in cavoatrial junction. Patient tolerated well.
[2020-08-21] MEDS: PIPERACILLIN/TAZOBACTAM 3.375 GM in SODIUM CHLORIDE 0.9% MINIBAG 100 ML IV SCH ×2 (12:17→20:13)
[2020-08-21] MEDS ORDERED: POTASSIUM PHOSPHATE 21 MMOL in SODIUM CHLORIDE 0.9% 250 ML IV ONE (12:30)
[2020-08-21 14:18] LABS: CALCIUM 7.5 mg/dL (8.5-10.3); CREATININE 0.9 mg/dL (0.6-1.2); MAGNESIUM 1.8 mg/dL (1.7-2.8); PHOSPHORUS 1.2 mg/dL (2.5-4.6)
[2020-08-21] MEDS: POTASSIUM CHLORIDE INJ 40 MEQ in DEXTROSE 5%-0.45% NACL 980 ML IV SCH ×2 (14:21→19:24)
[2020-08-21 14:53] LABS: CALCIUM 7.6 mg/dL (8.5-10.3)
[2020-08-21 15:59] LABS: VBG PH 7.204 (7.31-7.41)
[2020-08-21] MEDS ORDERED: VANCOMYCIN IV SCH (17:00)
[2020-08-21] MEDS ORDERED: SODIUM CHLORIDE 0.9% IV SCH (17:00)
[2020-08-21] MEDS: VANCOMYCIN INJ 1 GM, VANCOMYCIN INJ 500 MG in SODIUM CHLORIDE 0.9% 500 ML IV SCH (17:51)
[2020-08-21 18:31] LABS: BUN - BLOOD UREA NITROGEN 9 mg/dL (6-20); CALCIUM 7.7 mg/dL (8.5-10.3); CARBON DIOXIDE - CO2 13 mmol/L (21-32); CHLORIDE 114 mmol/L (101-111); CREATININE 0.8 mg/dL (0.6-1.2); GLUCOSE 156 mg/dL (70-100); MAGNESIUM 1.7 mg/dL (1.7-2.8); SODIUM 136 mmol/L (135-145)
[2020-08-21 18:34] LABS: PHOSPHORUS < 1.0 mg/dL (2.5-4.6)
[2020-08-21] MEDS: POTASSIUM PHOSPHATE 15 MMOL in SODIUM CHLORIDE 0.9% 250 ML IV SCH (20:11)
[2020-08-21] MEDS ORDERED: POTASSIUM CHLOR 10 MEQ/100 ML 10 MEQ/100 ML BAG IV ONE (20:34)
[2020-08-21] MEDS: SODIUM CHLORIDE 0.9% 500 ML IV PRN (21:12)
[2020-08-21 22:35] LABS: CALCIUM 7.9 mg/dL (8.5-10.3); CREATININE 0.8 mg/dL (0.6-1.2); MAGNESIUM 1.6 mg/dL (1.7-2.8)
[2020-08-22] MEDS: POTASSIUM PHOSPHATE 15 MMOL in SODIUM CHLORIDE 0.9% 250 ML IV SCH (00:14)
[2020-08-22] MEDS: POTASSIUM CHLORIDE INJ 40 MEQ in DEXTROSE 5%-0.45% NACL 980 ML IV SCH ×4 (00:30→20:55)
[2020-08-22] MEDS: SODIUM CHLORIDE FLUSH 0.9% 10 ML SYRINGE IVP PRN ×10 (00:30→23:14)
[2020-08-22] MEDS: SODIUM CHLORIDE FLUSH 0.9% 10 ML SYRINGE IVP SCH ×5 (01:17→23:14)
[2020-08-22] MEDS ORDERED: POTASSIUM CHLOR 10 MEQ/100 ML 10 MEQ/100 ML BAG IV ONE ×2 (01:21→21:30)
[2020-08-22] MEDS ORDERED: POTASSIUM CHLOR 20 MEQ/100 ML 20 MEQ/100 ML BAG IV ONE ×2 (03:55→06:05)
[2020-08-22] MEDS: PIPERACILLIN/TAZOBACTAM 3.375 GM in SODIUM CHLORIDE 0.9% MINIBAG 100 ML IV SCH (04:17)
[2020-08-22] MEDS: VANCOMYCIN INJ 1 GM, VANCOMYCIN INJ 500 MG in SODIUM CHLORIDE 0.9% 500 ML IV SCH (04:22)
[2020-08-22 05:40] LABS: BASOPHILS % (AUTO) 0.4 %; EOSINOPHILS % (AUTO) 0.1 %; HGB - HEMOGLOBIN 12.6 g/dL (14.0-18.0); LYMPHOCYTES # (AUTO) 1.1 10^3/uL (1.5-3.5); LYMPHOCYTES % (AUTO) 12.6 %; MEAN CORPUSCULAR HEMOGLOBIN 32.8 pg (27.0-31.0); MEAN CORPUSCULAR HGB CONC 36.3 g/dL (32.0-36.0); MEAN CORPUSCULAR VOLUME 90.4 fL (80.0-94.0); MEAN PLATELET VOLUME 9.1 fL (7.4-11.4); MONOCYTES # (AUTO) 1.1 10^3/uL (0.0-1.0); MONOCYTES % (AUTO) 13.4 %; NEUTROPHILS # (AUTO) 6.1 10^3/uL (1.5-6.6); NEUTROPHILS % (AUTO) 72.3 %; PLT - PLATELET COUNT 154 10^3/uL (130-450); RED BLOOD COUNT 3.84 10^6/uL (4.70-6.10); RED CELL DISTRIBUTION WIDTH 12.4 % (12.0-15.0); WHITE BLOOD COUNT 8.5 x10^3/uL (4.8-10.8)
[2020-08-22 05:46] LABS: ABG BASE EXCESS -15.6 mmol/L (-2.0-3.0); ABG HCO3 8.7 mmol/L (22.0-26.0); ABG OXYGEN SATURATION 98 % (94-98); ABG PH 7.28 (7.35-7.45); ABG PO2 112 mmHg (80-100); ALLEN TEST POSITIVE
[2020-08-22 05:47] LABS: ABG FRACTION OF INSPIRED O2 0.21
[2020-08-22 05:48] LABS: ABG PCO2 19 mmHg (34-45); ABG TCO2 9.3 MMOL/L (21.0-29.0)
[2020-08-22 06:00] LABS: CALCIUM 8.1 mg/dL (8.5-10.3); CREATININE 0.8 mg/dL (0.6-1.2); MAGNESIUM 2.1 mg/dL (1.7-2.8); PHOSPHORUS 1.4 mg/dL (2.5-4.6)
[2020-08-22] MEDS ORDERED: POTASSIUM CHLORIDE 20 MEQ TABLET PO STA (06:47)
[2020-08-22] MEDS: ONDANSETRON 4 MG/2 ML VIAL IVP PRN ×2 (07:05→14:00)
--- NOTE | 2020-08-22 07:45 | PROVIDER PROGRESS NOTE ---
Subjective - Prog Note Date Prog Note Date: 08/22/20 - Subjective Subjective: Reports feeling better today. Reports no nausea. Denies any dyspnea, chest pain, abdominal pain. Current Medications - Current Medications Current Medications: Active Medications Acetaminophen (Tylenol) 650 mg PO Q4HR PRN PRN Reason: Pain 1 to 4 Enoxaparin Sodium (Lovenox) 40 mg SUBQ DAILY [facility] Last Admin: 08/21/20 10:31 Dose: 40 mg Documented by: Heparin Sodium (Beef Lung) () 30 - 50 unit IVP PRN PRN PRN Reason: Central Line Protocol (<24 hr) Multivitamins 10 ml/ Thiamine HCl 100 mg/ Folic Acid 1 mg/Sodium Chloride 1,011.2 mls @ 100 mls/hr IV DAILY [facility] Last Infusion: 08/21/20 21:44 Dose: Infused Documented by: Insulin Human Regular 100 unit (/ Sodium Chloride) 100 mls @ 6 mls/hr IV .[id number] [facility]; Protocol Last Titration: 08/22/20 08:35 Dose: 10 unit/hr, 10 mls/hr Documented by: Sodium Chloride (Normal Saline 0.9%) 500 mls @ 0 mls/hr IV Q24H PRN PRN Reason: TKO RATE Last Admin: 08/21/20 21:12 Dose: 20 mls/hr Documented by: Potassium Phosphate 21 mmol/ (Sodium Chloride) 257 mls @ 64 mls/hr IV ONCE ONE; Protocol Stop: 08/22/20 12:00 Last Admin: 08/22/20 09:09 Dose: 64 mls/hr Documented by: Potassium Chloride/Sodium Chloride (Normal Saline 0.9% W/20 Meq Kcl) 1,000 mls @ 150 mls/hr IV .[id number] [facility] Last Admin: 08/22/20 09:11 Dose: 150 mls/hr Documented by: Lorazepam (Ativan Inj (Vial)) 1 mg IVP Q30M PRN; Protocol PRN Reason: CIWA >8 Last Admin: 08/21/20 06:46 Dose: 1 mg Documented by: Ondansetron HCl (Zofran Inj) 4 mg IVP Q4HR PRN PRN Reason: Nausea / Vomiting Last Admin: 08/22/20 07:05 Dose: 4 mg Documented by: Sodium Chloride (Normal Saline Flush 0.9%) 10 ml IVP 0100,0900,1700 [facility] Last Admin: 08/22/20 01:17 Dose: 10 ml Documented by: Sodium Chloride (Normal Saline Flush 0.9%) 10 ml IVP PRN PRN PRN Reason: NEEDED PER PROVIDER ORDERS Last Admin: 08/22/20 05:22 Dose: 10 ml Documented by: Sodium Chloride (Normal Saline Flush 0.9%) 20 ml IVP PRN PRN PRN Reason: After Blood Draw Last Admin: 08/22/20 05:22 Dose: 20 ml Documented by: Thiamine HCl (Vitamin B-1) 100 mg PO DAILY [facility] Last Admin: 08/21/20 10:27 Dose: Not Given Documented by: Objective - Vital Signs/Intake & Output Reviewed Vital Signs: Yes Vital Signs: Vital Signs Pulse Resp BP Pulse Ox 08/22/20 07:00 110 H 30 H 141/87 H 98 08/22/20 05:00 110 H 27 H 130/87 H 100 Intake & Output: Intake & Output 08/19/20 08/20/20 08/21/20 08/22/20 23:59 23:59 23:59 23:59 Intake Total 29716.034 4196.533 Output Total 5875 2325 Balance 6772.034 1871.533 - Objective General Appearance: positive: No acute distress, Alert Eyes Bilateral: positive: Normal inspection, Conjunctivae nml ENT: positive: ENT inspection nml Neck: positive: Nml inspection Respiratory: positive: No respiratory distress, Other (He is tachypneic but not in distress.). negative: Wheezes, Rales Cardiovascular: positive: Tachycardia. negative: Regular rate & rhythm, Irregularly irregular, Bradycardia, Systolic murmur Abdomen: positive: Non-tender, No distention. negative: Tenderness, Guarding, Rebound Skin: positive: No rash, Warm, Dry Extremities: positive: Full ROM, No pedal edema Neurologic/Psychiatric: positive: Oriented x3, Motor nml. negative: Disoriented to person, Disoriented to place, Disoriented to time - Lab Results Fish Bones: 08/22/20 05:27 08/22/20 16:11 Other Labs: Lab Results x24hrs 08/22/20 08/22/20 08/22/20 Range/Units 06:12 05:33 05:30 WBC (4.8-10.8) x10^3/uL RBC (4.70-6.10) 10^6/uL Hgb (14.0-18.0) g/dL Hct (42.0-52.0) % MCV (80.0-94.0) fL MCH (27.0-31.0) pg MCHC (32.0-36.0) g/dL RDW (12.0-15.0) % Plt Count (130-450) 10^3/uL MPV (7.4-11.4) fL Neut # (Auto) (1.5-6.6) 10^3/uL Lymph # (Auto) (1.5-3.5) 10^3/uL [place] # (Auto) (0.0-1.0) 10^3/uL Eos # (Auto) (0.0-0.7) 10^3/uL Baso # (Auto) (0.0-0.1) 10^3/uL Absolute Nucleated RBC x10^3/uL Nucleated RBC % /100WBC Bld Gas Analysis Time 0547 Sample Site RIGHT RADIAL ABG pH 7.28 L (7.35-7.45) ABG pCO2 19 L* (34-45) mmHg ABG pO2 112 H (80-100) mmHg ABG HCO3 8.7 L (22.0-26.0) mmol/L ABG Total CO2 9.3 L* (21.0-29.0) MMOL/L ABG O2 Saturation 98 (94-98) % ABG Base Excess -15.6 L (-2.0-3.0) mmol/L Rusty Test POSITIVE VBG pH (7.31-7.41) Ionized Calcium (1.15-1.33) mmol/L O2 Delivery Device RA FiO2 0.21 Sodium (135-145) mmol/L Potassium (3.5-5.0) mmol/L Chloride (101-111) mmol/L Carbon Dioxide (21-32) mmol/L Anion Gap (6-13) BUN (6-20) mg/dL Creatinine (0.6-1.2) mg/dL Estimated GFR (MDRD) (>89) Glucose (70-100) mg/dL POC Whole Bld Glucose 206 H 210 H (70 - 100) mg/dL Estimat Average Glucose (70-100) mg/dL Hemoglobin A1c % (4.27-6.07) % Calcium (8.5-10.3) mg/dL Phosphorus (2.5-4.6) mg/dL Magnesium (1.7-2.8) mg/dL Albumin (3.2-5.5) g/dL Nasal Screen MRSA (PCR) (NEGATIVE) 08/22/20 08/22/20 08/22/20 Range/Units 05:27 05:27 04:02 WBC 8.5 (4.8-10.8) x10^3/uL RBC 3.84 L (4.70-6.10) 10^6/uL Hgb 12.6 L (14.0-18.0) g/dL Hct 34.7 L (42.0-52.0) % MCV 90.4 (80.0-94.0) fL MCH 32.8 H (27.0-31.0) pg MCHC 36.3 H (32.0-36.0) g/dL RDW 12.4 (12.0-15.0) % Plt Count 154 (130-450) 10^3/uL MPV 9.1 (7.4-11.4) fL Neut # (Auto) 6.1 (1.5-6.6) 10^3/uL Lymph # (Auto) 1.1 L (1.5-3.5) 10^3/uL [place] # (Auto) 1.1 H (0.0-1.0) 10^3/uL Eos # (Auto) 0.0 (0.0-0.7) 10^3/uL Baso # (Auto) 0.0 (0.0-0.1) 10^3/uL Absolute Nucleated RBC 0.00 x10^3/uL Nucleated RBC % 0.0 /100WBC Bld Gas Analysis Time Sample Site ABG pH (7.35-7.45) ABG pCO2 (34-45) mmHg ABG pO2 (80-100) mmHg ABG HCO3 (22.0-26.0) mmol/L ABG Total CO2 (21.0-29.0) MMOL/L ABG O2 Saturation (94-98) % ABG Base Excess (-2.0-3.0) mmol/L Rusty Test VBG pH (7.31-7.41) Ionized Calcium (1.15-1.33) mmol/L O2 Delivery Device FiO2 Sodium 136 (135-145) mmol/L Potassium 3.2 L (3.5-5.0) mmol/L Chloride 110 (101-111) mmol/L Carbon Dioxide 10 L* (21-32) mmol/L Anion Gap 16.0 H (6-13) BUN 6 (6-20) mg/dL Creatinine 0.8 (0.6-1.2) mg/dL Estimated GFR (MDRD) 119 (>89) Glucose 228 H (70-100) mg/dL POC Whole Bld Glucose 197 H (70 - 100) mg/dL Estimat Average Glucose (70-100) mg/dL Hemoglobin A1c % (4.27-6.07) % Calcium 8.1 L (8.5-10.3) mg/dL Phosphorus 1.4 L (2.5-4.6) mg/dL Magnesium 2.1 (1.7-2.8) mg/dL Albumin (3.2-5.5) g/dL Nasal Screen MRSA (PCR) (NEGATIVE) 08/22/20 08/22/20 08/22/20 Range/Units 03:18 03:18 02:12 WBC (4.8-10.8) x10^3/uL RBC (4.70-6.10) 10^6/uL Hgb (14.0-18.0) g/dL Hct (42.0-52.0) % MCV (80.0-94.0) fL MCH (27.0-31.0) pg MCHC (32.0-36.0) g/dL RDW (12.0-15.0) % Plt Count (130-450) 10^3/uL MPV (7.4-11.4) fL Neut # (Auto) (1.5-6.6) 10^3/uL Lymph # (Auto) (1.5-3.5) 10^3/uL [place] # (Auto) (0.0-1.0) 10^3/uL Eos # (Auto) (0.0-0.7) 10^3/uL Baso # (Auto) (0.0-0.1) 10^3/uL Absolute Nucleated RBC x10^3/uL Nucleated RBC % /100WBC Bld Gas Analysis Time Sample Site ABG pH (7.35-7.45) ABG pCO2 (34-45) mmHg ABG pO2 (80-100) mmHg ABG HCO3 (22.0-26.0) mmol/L ABG Total CO2 (21.0-29.0) MMOL/L ABG O2 Saturation (94-98) % ABG Base Excess (-2.0-3.0) mmol/L Rusty Test VBG pH (7.31-7.41) Ionized Calcium (1.15-1.33) mmol/L O2 Delivery Device FiO2 Sodium (135-145) mmol/L Potassium 3.0 L (3.5-5.0) mmol/L Chloride (101-111) mmol/L Carbon Dioxide (21-32) mmol/L Anion Gap (6-13) BUN (6-20) mg/dL Creatinine (0.6-1.2) mg/dL Estimated GFR (MDRD) (>89) Glucose (70-100) mg/dL POC Whole Bld Glucose 219 H 239 H (70 - 100) mg/dL Estimat Average Glucose (70-100) mg/dL Hemoglobin A1c % (4.27-6.07) % Calcium (8.5-10.3) mg/dL Phosphorus (2.5-4.6) mg/dL Magnesium (1.7-2.8) mg/dL Albumin (3.2-5.5) g/dL Nasal Screen MRSA (PCR) (NEGATIVE) 08/22/20 08/22/20 08/22/20 Range/Units 02:11 02:11 01:11 WBC (4.8-10.8) x10^3/uL RBC (4.70-6.10) 10^6/uL Hgb (14.0-18.0) g/dL Hct (42.0-52.0) % MCV (80.0-94.0) fL MCH (27.0-31.0) pg MCHC (32.0-36.0) g/dL RDW (12.0-15.0) % Plt Count (130-450) 10^3/uL MPV (7.4-11.4) fL Neut # (Auto) (1.5-6.6) 10^3/uL Lymph # (Auto) (1.5-3.5) 10^3/uL [place] # (Auto) (0.0-1.0) 10^3/uL Eos # (Auto) (0.0-0.7) 10^3/uL Baso # (Auto) (0.0-0.1) 10^3/uL Absolute Nucleated RBC x10^3/uL Nucleated RBC % /100WBC Bld Gas Analysis Time Sample Site ABG pH (7.35-7.45) ABG pCO2 (34-45) mmHg ABG pO2 (80-100) mmHg ABG HCO3 (22.0-26.0) mmol/L ABG Total CO2 (21.0-29.0) MMOL/L ABG O2 Saturation (94-98) % ABG Base Excess (-2.0-3.0) mmol/L Rusty Test VBG pH (7.31-7.41) Ionized Calcium (1.15-1.33) mmol/L O2 Delivery Device FiO2 Sodium (135-145) mmol/L Potassium (3.5-5.0) mmol/L Chloride (101-111) mmol/L Carbon Dioxide (21-32) mmol/L Anion Gap (6-13) BUN (6-20) mg/dL Creatinine (0.6-1.2) mg/dL Estimated GFR (MDRD) (>89) Glucose (70-100) mg/dL POC Whole Bld Glucose 240 H (70 - 100) mg/dL Estimat Average Glucose (70-100) mg/dL Hemoglobin A1c % (4.27-6.07) % Calcium (8.5-10.3) mg/dL Phosphorus 1.8 L (2.5-4.6) mg/dL Magnesium 2.4 (1.7-2.8) mg/dL Albumin (3.2-5.5) g/dL Nasal Screen MRSA (PCR) (NEGATIVE) 08/22/20 08/22/20 08/21/20 Range/Units 00:30 00:12 22:56 WBC (4.8-10.8) x10^3/uL RBC (4.70-6.10) 10^6/uL Hgb (14.0-18.0) g/dL Hct (42.0-52.0) % MCV (80.0-94.0) fL MCH (27.0-31.0) pg MCHC (32.0-36.0) g/dL RDW (12.0-15.0) % Plt Count (130-450) 10^3/uL MPV (7.4-11.4) fL Neut # (Auto) (1.5-6.6) 10^3/uL Lymph # (Auto) (1.5-3.5) 10^3/uL [place] # (Auto) (0.0-1.0) 10^3/uL Eos # (Auto) (0.0-0.7) 10^3/uL Baso # (Auto) (0.0-0.1) 10^3/uL Absolute Nucleated RBC x10^3/uL Nucleated RBC % /100WBC Bld Gas Analysis Time Sample Site ABG pH (7.35-7.45) ABG pCO2 (34-45) mmHg ABG pO2 (80-100) mmHg ABG HCO3 (22.0-26.0) mmol/L ABG Total CO2 (21.0-29.0) MMOL/L ABG O2 Saturation (94-98) % ABG Base Excess (-2.0-3.0) mmol/L Rusty Test VBG pH (7.31-7.41) Ionized Calcium (1.15-1.33) mmol/L O2 Delivery Device FiO2 Sodium (135-145) mmol/L Potassium 3.6 (3.5-5.0) mmol/L Chloride (101-111) mmol/L Carbon Dioxide (21-32) mmol/L Anion Gap (6-13) BUN (6-20) mg/dL Creatinine (0.6-1.2) mg/dL Estimated GFR (MDRD) (>89) Glucose 241 H (70-100) mg/dL POC Whole Bld Glucose 217 H 194 H (70 - 100) mg/dL Estimat Average Glucose (70-100) mg/dL Hemoglobin A1c % (4.27-6.07) % Calcium (8.5-10.3) mg/dL Phosphorus (2.5-4.6) mg/dL Magnesium (1.7-2.8) mg/dL Albumin (3.2-5.5) g/dL Nasal Screen MRSA (PCR) (NEGATIVE) 08/21/20 08/21/20 08/21/20 Range/Units 22:00 21:57 20:59 WBC (4.8-10.8) x10^3/uL RBC (4.70-6.10) 10^6/uL Hgb (14.0-18.0) g/dL Hct (42.0-52.0) % MCV (80.0-94.0) fL MCH (27.0-31.0) pg MCHC (32.0-36.0) g/dL RDW (12.0-15.0) % Plt Count (130-450) 10^3/uL MPV (7.4-11.4) fL Neut # (Auto) (1.5-6.6) 10^3/uL Lymph # (Auto) (1.5-3.5) 10^3/uL [place] # (Auto) (0.0-1.0) 10^3/uL Eos # (Auto) (0.0-0.7) 10^3/uL Baso # (Auto) (0.0-0.1) 10^3/uL Absolute Nucleated RBC x10^3/uL Nucleated RBC % /100WBC Bld Gas Analysis Time Sample Site ABG pH (7.35-7.45) ABG pCO2 (34-45) mmHg ABG pO2 (80-100) mmHg ABG HCO3 (22.0-26.0) mmol/L ABG Total CO2 (21.0-29.0) MMOL/L ABG O2 Saturation (94-98) % ABG Base Excess (-2.0-3.0) mmol/L Rusty Test VBG pH (7.31-7.41) Ionized Calcium (1.15-1.33) mmol/L O2 Delivery Device FiO2 Sodium 137 (135-145) mmol/L Potassium 3.0 L (3.5-5.0) mmol/L Chloride 112 H (101-111) mmol/L Carbon Dioxide 10 L* (21-32) mmol/L Anion Gap 15.0 H (6-13) BUN 8 (6-20) mg/dL Creatinine 0.8 (0.6-1.2) mg/dL Estimated GFR (MDRD) 119 (>89) Glucose 207 H (70-100) mg/dL POC Whole Bld Glucose 195 H 196 H (70 - 100) mg/dL Estimat Average Glucose (70-100) mg/dL Hemoglobin A1c % (4.27-6.07) % Calcium 7.9 L (8.5-10.3) mg/dL Phosphorus 1.0 L* (2.5-4.6) mg/dL Magnesium 1.6 L (1.7-2.8) mg/dL Albumin (3.2-5.5) g/dL Nasal Screen MRSA (PCR) (NEGATIVE) 08/21/20 08/21/20 08/21/20 Range/Units 19:45 19:43 18:00 WBC (4.8-10.8) x10^3/uL RBC (4.70-6.10) 10^6/uL Hgb (14.0-18.0) g/dL Hct (42.0-52.0) % MCV (80.0-94.0) fL MCH (27.0-31.0) pg MCHC (32.0-36.0) g/dL RDW (12.0-15.0) % Plt Count (130-450) 10^3/uL MPV (7.4-11.4) fL Neut # (Auto) (1.5-6.6) 10^3/uL Lymph # (Auto) (1.5-3.5) 10^3/uL [place] # (Auto) (0.0-1.0) 10^3/uL Eos # (Auto) (0.0-0.7) 10^3/uL Baso # (Auto) (0.0-0.1) 10^3/uL Absolute Nucleated RBC x10^3/uL Nucleated RBC % /100WBC Bld Gas Analysis Time Sample Site ABG pH (7.35-7.45) ABG pCO2 (34-45) mmHg ABG pO2 (80-100) mmHg ABG HCO3 (22.0-26.0) mmol/L ABG Total CO2 (21.0-29.0) MMOL/L ABG O2 Saturation (94-98) % ABG Base Excess (-2.0-3.0) mmol/L Rusty Test VBG pH (7.31-7.41) Ionized Calcium (1.15-1.33) mmol/L O2 Delivery Device FiO2 Sodium 136 (135-145) mmol/L Potassium 3.4 L 3.0 L (3.5-5.0) mmol/L Chloride 114 H (101-111) mmol/L Carbon Dioxide 13 L (21-32) mmol/L Anion Gap 9.0 (6-13) BUN 9 (6-20) mg/dL Creatinine 0.8 (0.6-1.2) mg/dL Estimated GFR (MDRD) 119 (>89) Glucose 156 H (70-100) mg/dL POC Whole Bld Glucose 154 H (70 - 100) mg/dL Estimat Average Glucose (70-100) mg/dL Hemoglobin A1c % (4.27-6.07) % Calcium 7.7 L (8.5-10.3) mg/dL Phosphorus < 1.0 L* (2.5-4.6) mg/dL Magnesium 1.7 (1.7-2.8) mg/dL Albumin (3.2-5.5) g/dL Nasal Screen MRSA (PCR) (NEGATIVE) 08/21/20 08/21/20 08/21/20 Range/Units 17:43 17:00 16:48 WBC (4.8-10.8) x10^3/uL RBC (4.70-6.10) 10^6/uL Hgb (14.0-18.0) g/dL Hct (42.0-52.0) % MCV (80.0-94.0) fL MCH (27.0-31.0) pg MCHC (32.0-36.0) g/dL RDW (12.0-15.0) % Plt Count (130-450) 10^3/uL MPV (7.4-11.4) fL Neut # (Auto) (1.5-6.6) 10^3/uL Lymph # (Auto) (1.5-3.5) 10^3/uL [place] # (Auto) (0.0-1.0) 10^3/uL Eos # (Auto) (0.0-0.7) 10^3/uL Baso # (Auto) (0.0-0.1) 10^3/uL Absolute Nucleated RBC x10^3/uL Nucleated RBC % /100WBC Bld Gas Analysis Time Sample Site ABG pH (7.35-7.45) ABG pCO2 (34-45) mmHg ABG pO2 (80-100) mmHg ABG HCO3 (22.0-26.0) mmol/L ABG Total CO2 (21.0-29.0) MMOL/L ABG O2 Saturation (94-98) % ABG Base Excess (-2.0-3.0) mmol/L Rusty Test VBG pH (7.31-7.41) Ionized Calcium (1.15-1.33) mmol/L O2 Delivery Device FiO2 Sodium (135-145) mmol/L Potassium 2.8 L (3.5-5.0) mmol/L Chloride (101-111) mmol/L Carbon Dioxide (21-32) mmol/L Anion Gap (6-13) BUN (6-20) mg/dL Creatinine (0.6-1.2) mg/dL Estimated GFR (MDRD) (>89) Glucose (70-100) mg/dL POC Whole Bld Glucose 141 H 154 H (70 - 100) mg/dL Estimat Average Glucose (70-100) mg/dL Hemoglobin A1c % (4.27-6.07) % Calcium (8.5-10.3) mg/dL Phosphorus (2.5-4.6) mg/dL Magnesium (1.7-2.8) mg/dL Albumin (3.2-5.5) g/dL Nasal Screen MRSA (PCR) (NEGATIVE) 08/21/20 08/21/20 08/21/20 Range/Units 16:00 15:39 14:33 WBC (4.8-10.8) x10^3/uL RBC (4.70-6.10) 10^6/uL Hgb (14.0-18.0) g/dL Hct (42.0-52.0) % MCV (80.0-94.0) fL MCH (27.0-31.0) pg MCHC (32.0-36.0) g/dL RDW (12.0-15.0) % Plt Count (130-450) 10^3/uL MPV (7.4-11.4) fL Neut # (Auto) (1.5-6.6) 10^3/uL Lymph # (Auto) (1.5-3.5) 10^3/uL [place] # (Auto) (0.0-1.0) 10^3/uL Eos # (Auto) (0.0-0.7) 10^3/uL Baso # (Auto) (0.0-0.1) 10^3/uL Absolute Nucleated RBC x10^3/uL Nucleated RBC % /100WBC Bld Gas Analysis Time Sample Site ABG pH (7.35-7.45) ABG pCO2 (34-45) mmHg ABG pO2 (80-100) mmHg ABG HCO3 (22.0-26.0) mmol/L ABG Total CO2 (21.0-29.0) MMOL/L ABG O2 Saturation (94-98) % ABG Base Excess (-2.0-3.0) mmol/L Rusty Test VBG pH (7.31-7.41) Ionized Calcium (1.15-1.33) mmol/L O2 Delivery Device FiO2 Sodium (135-145) mmol/L Potassium 3.0 L (3.5-5.0) mmol/L Chloride (101-111) mmol/L Carbon Dioxide (21-32) mmol/L Anion Gap (6-13) BUN (6-20) mg/dL Creatinine (0.6-1.2) mg/dL Estimated GFR (MDRD) (>89) Glucose (70-100) mg/dL POC Whole Bld Glucose 194 H 183 H (70 - 100) mg/dL Estimat Average Glucose (70-100) mg/dL Hemoglobin A1c % (4.27-6.07) % Calcium (8.5-10.3) mg/dL Phosphorus (2.5-4.6) mg/dL Magnesium (1.7-2.8) mg/dL Albumin (3.2-5.5) g/dL Nasal Screen MRSA (PCR) (NEGATIVE) 08/21/20 08/21/20 08/21/20 Range/Units 14:25 14:25 13:50 WBC (4.8-10.8) x10^3/uL RBC (4.70-6.10) 10^6/uL Hgb (14.0-18.0) g/dL Hct (42.0-52.0) % MCV (80.0-94.0) fL MCH (27.0-31.0) pg MCHC (32.0-36.0) g/dL RDW (12.0-15.0) % Plt Count (130-450) 10^3/uL MPV (7.4-11.4) fL Neut # (Auto) (1.5-6.6) 10^3/uL Lymph # (Auto) (1.5-3.5) 10^3/uL [place] # (Auto) (0.0-1.0) 10^3/uL Eos # (Auto) (0.0-0.7) 10^3/uL Baso # (Auto) (0.0-0.1) 10^3/uL Absolute Nucleated RBC x10^3/uL Nucleated RBC % /100WBC Bld Gas Analysis Time Sample Site ABG pH (7.35-7.45) ABG pCO2 (34-45) mmHg ABG pO2 (80-100) mmHg ABG HCO3 (22.0-26.0) mmol/L ABG Total CO2 (21.0-29.0) MMOL/L ABG O2 Saturation (94-98) % ABG Base Excess (-2.0-3.0) mmol/L Rusty Test VBG pH 7.204 L (7.31-7.41) Ionized Calcium 1.13 L YES (1.15-1.33) mmol/L O2 Delivery Device FiO2 Sodium 134 L (135-145) mmol/L Potassium 2.9 L (3.5-5.0) mmol/L Chloride 110 (101-111) mmol/L Carbon Dioxide 9 L* (21-32) mmol/L Anion Gap 15.0 H (6-13) BUN 10 (6-20) mg/dL Creatinine 0.9 (0.6-1.2) mg/dL Estimated GFR (MDRD) 104 (>89) Glucose 206 H (70-100) mg/dL POC Whole Bld Glucose (70 - 100) mg/dL Estimat Average Glucose (70-100) mg/dL Hemoglobin A1c % (4.27-6.07) % Calcium 7.6 L 7.5 L (8.5-10.3) mg/dL Phosphorus 1.2 L (2.5-4.6) mg/dL Magnesium 1.8 (1.7-2.8) mg/dL Albumin (3.2-5.5) g/dL Nasal Screen MRSA (PCR) (NEGATIVE) 08/21/20 08/21/20 08/21/20 Range/Units 13:37 12:50 12:30 WBC (4.8-10.8) x10^3/uL RBC (4.70-6.10) 10^6/uL Hgb (14.0-18.0) g/dL Hct (42.0-52.0) % MCV (80.0-94.0) fL MCH (27.0-31.0) pg MCHC (32.0-36.0) g/dL RDW (12.0-15.0) % Plt Count (130-450) 10^3/uL MPV (7.4-11.4) fL Neut # (Auto) (1.5-6.6) 10^3/uL Lymph # (Auto) (1.5-3.5) 10^3/uL [place]ne # (Auto) (0.0-1.0) 10^3/uL Eos # (Auto) (0.0-0.7) 10^3/uL Baso # (Auto) (0.0-0.1) 10^3/uL Absolute Nucleated RBC x10^3/uL Nucleated RBC % /100WBC Bld Gas Analysis Time Sample Site ABG pH (7.35-7.45) ABG pCO2 (34-45) mmHg ABG pO2 (80-100) mmHg ABG HCO3 (22.0-26.0) mmol/L ABG Total CO2 (21.0-29.0) MMOL/L ABG O2 Saturation (94-98) % ABG Base Excess (-2.0-3.0) mmol/L Rusty Test VBG pH (7.31-7.41) Ionized Calcium (1.15-1.33) mmol/L O2 Delivery Device FiO2 Sodium (135-145) mmol/L Potassium 2.9 L (3.5-5.0) mmol/L Chloride (101-111) mmol/L Carbon Dioxide (21-32) mmol/L Anion Gap (6-13) BUN (6-20) mg/dL Creatinine (0.6-1.2) mg/dL Estimated GFR (MDRD) (>89) Glucose (70-100) mg/dL POC Whole Bld Glucose 188 H 192 H (70 - 100) mg/dL Estimat Average Glucose (70-100) mg/dL Hemoglobin A1c % (4.27-6.07) % Calcium (8.5-10.3) mg/dL Phosphorus (2.5-4.6) mg/dL Magnesium (1.7-2.8) mg/dL Albumin (3.2-5.5) g/dL Nasal Screen MRSA (PCR) (NEGATIVE) 08/21/20 08/21/20 08/21/20 Range/Units 11:30 11:30 11:28 WBC (4.8-10.8) x10^3/uL RBC (4.70-6.10) 10^6/uL Hgb (14.0-18.0) g/dL Hct (42.0-52.0) % MCV (80.0-94.0) fL MCH (27.0-31.0) pg MCHC (32.0-36.0) g/dL RDW (12.0-15.0) % Plt Count (130-450) 10^3/uL MPV (7.4-11.4) fL Neut # (Auto) (1.5-6.6) 10^3/uL Lymph # (Auto) (1.5-3.5) 10^3/uL [place] # (Auto) (0.0-1.0) 10^3/uL Eos # (Auto) (0.0-0.7) 10^3/uL Baso # (Auto) (0.0-0.1) 10^3/uL Absolute Nucleated RBC x10^3/uL Nucleated RBC % /100WBC Bld Gas Analysis Time Sample Site ABG pH (7.35-7.45) ABG pCO2 (34-45) mmHg ABG pO2 (80-100) mmHg ABG HCO3 (22.0-26.0) mmol/L ABG Total CO2 (21.0-29.0) MMOL/L ABG O2 Saturation (94-98) % ABG Base Excess (-2.0-3.0) mmol/L Rusty Test VBG pH (7.31-7.41) Ionized Calcium (1.15-1.33) mmol/L O2 Delivery Device FiO2 Sodium (135-145) mmol/L Potassium 2.8 L (3.5-5.0) mmol/L Chloride (101-111) mmol/L Carbon Dioxide (21-32) mmol/L Anion Gap (6-13) BUN (6-20) mg/dL Creatinine (0.6-1.2) mg/dL Estimated GFR (MDRD) (>89) Glucose (70-100) mg/dL POC Whole Bld Glucose 209 H (70 - 100) mg/dL Estimat Average Glucose (70-100) mg/dL Hemoglobin A1c % (4.27-6.07) % Calcium (8.5-10.3) mg/dL Phosphorus (2.5-4.6) mg/dL Magnesium (1.7-2.8) mg/dL Albumin 3.6 (3.2-5.5) g/dL Nasal Screen MRSA (PCR) (NEGATIVE) 08/21/20 08/21/20 08/21/20 Range/Units 10:25 10:20 09:27 WBC (4.8-10.8) x10^3/uL RBC (4.70-6.10) 10^6/uL Hgb (14.0-18.0) g/dL Hct (42.0-52.0) % MCV (80.0-94.0) fL MCH (27.0-31.0) pg MCHC (32.0-36.0) g/dL RDW (12.0-15.0) % Plt Count (130-450) 10^3/uL MPV (7.4-11.4) fL Neut # (Auto) (1.5-6.6) 10^3/uL Lymph # (Auto) (1.5-3.5) 10^3/uL [place] # (Auto) (0.0-1.0) 10^3/uL Eos # (Auto) (0.0-0.7) 10^3/uL Baso # (Auto) (0.0-0.1) 10^3/uL Absolute Nucleated RBC x10^3/uL Nucleated RBC % /100WBC Bld Gas Analysis Time Sample Site ABG pH (7.35-7.45) ABG pCO2 (34-45) mmHg ABG pO2 (80-100) mmHg ABG HCO3 (22.0-26.0) mmol/L ABG Total CO2 (21.0-29.0) MMOL/L ABG O2 Saturation (94-98) % ABG Base Excess (-2.0-3.0) mmol/L Rusty Test VBG pH (7.31-7.41) Ionized Calcium (1.15-1.33) mmol/L O2 Delivery Device FiO2 Sodium 136 (135-145) mmol/L Potassium 3.2 L 3.3 L (3.5-5.0) mmol/L Chloride 108 (101-111) mmol/L Carbon Dioxide < 6 L* (21-32) mmol/L Anion Gap 22.0 H (6-13) BUN 12 (6-20) mg/dL Creatinine 1.1 (0.6-1.2) mg/dL Estimated GFR (MDRD) 82 L (>89) Glucose 242 H (70-100) mg/dL POC Whole Bld Glucose 243 H (70 - 100) mg/dL Estimat Average Glucose (70-100) mg/dL Hemoglobin A1c % (4.27-6.07) % Calcium 8.0 L (8.5-10.3) mg/dL Phosphorus 1.4 L (2.5-4.6) mg/dL Magnesium 2.1 (1.7-2.8) mg/dL Albumin (3.2-5.5) g/dL Nasal Screen MRSA (PCR) (NEGATIVE) 08/21/20 08/21/20 08/21/20 Range/Units 09:10 08:02 06:29 WBC (4.8-10.8) x10^3/uL RBC (4.70-6.10) 10^6/uL Hgb (14.0-18.0) g/dL Hct (42.0-52.0) % MCV (80.0-94.0) fL MCH (27.0-31.0) pg MCHC (32.0-36.0) g/dL RDW (12.0-15.0) % Plt Count (130-450) 10^3/uL MPV (7.4-11.4) fL Neut # (Auto) (1.5-6.6) 10^3/uL Lymph # (Auto) (1.5-3.5) 10^3/uL [place] # (Auto) (0.0-1.0) 10^3/uL Eos # (Auto) (0.0-0.7) 10^3/uL Baso # (Auto) (0.0-0.1) 10^3/uL Absolute Nucleated RBC x10^3/uL Nucleated RBC % /100WBC Bld Gas Analysis Time Sample Site ABG pH (7.35-7.45) ABG pCO2 (34-45) mmHg ABG pO2 (80-100) mmHg ABG HCO3 (22.0-26.0) mmol/L ABG Total CO2 (21.0-29.0) MMOL/L ABG O2 Saturation (94-98) % ABG Base Excess (-2.0-3.0) mmol/L Rusty Test VBG pH (7.31-7.41) Ionized Calcium (1.15-1.33) mmol/L O2 Delivery Device FiO2 Sodium (135-145) mmol/L Potassium (3.5-5.0) mmol/L Chloride (101-111) mmol/L Carbon Dioxide (21-32) mmol/L Anion Gap (6-13) BUN (6-20) mg/dL Creatinine (0.6-1.2) mg/dL Estimated GFR (MDRD) (>89) Glucose (70-100) mg/dL POC Whole Bld Glucose 235 H 192 H (70 - 100) mg/dL Estimat Average Glucose (70-100) mg/dL Hemoglobin A1c % (4.27-6.07) % Calcium (8.5-10.3) mg/dL Phosphorus (2.5-4.6) mg/dL Magnesium 1.8 (1.7-2.8) mg/dL Albumin (3.2-5.5) g/dL Nasal Screen MRSA (PCR) (NEGATIVE) 08/21/20 08/21/20 Range/Units 03:27 03:10 WBC (4.8-10.8) x10^3/uL RBC (4.70-6.10) 10^6/uL Hgb (14.0-18.0) g/dL Hct (42.0-52.0) % MCV (80.0-94.0) fL MCH (27.0-31.0) pg MCHC (32.0-36.0) g/dL RDW (12.0-15.0) % Plt Count (130-450) 10^3/uL MPV (7.4-11.4) fL Neut # (Auto) (1.5-6.6) 10^3/uL Lymph # (Auto) (1.5-3.5) 10^3/uL [place] # (Auto) (0.0-1.0) 10^3/uL Eos # (Auto) (0.0-0.7) 10^3/uL Baso # (Auto) (0.0-0.1) 10^3/uL Absolute Nucleated RBC x10^3/uL Nucleated RBC % /100WBC Bld Gas Analysis Time Sample Site ABG pH (7.35-7.45) ABG pCO2 (34-45) mmHg ABG pO2 (80-100) mmHg ABG HCO3 (22.0-26.0) mmol/L ABG Total CO2 (21.0-29.0) MMOL/L ABG O2 Saturation (94-98) % ABG Base Excess (-2.0-3.0) mmol/L Rusty Test VBG pH (7.31-7.41) Ionized Calcium (1.15-1.33) mmol/L O2 Delivery Device FiO2 Sodium (135-145) mmol/L Potassium (3.5-5.0) mmol/L Chloride (101-111) mmol/L Carbon Dioxide (21-32) mmol/L Anion Gap (6-13) BUN (6-20) mg/dL Creatinine (0.6-1.2) mg/dL Estimated GFR (MDRD) (>89) Glucose (70-100) mg/dL POC Whole Bld Glucose (70 - 100) mg/dL Estimat Average Glucose 289 H (70-100) mg/dL Hemoglobin A1c % 11.7 H (4.27-6.07) % Calcium (8.5-10.3) mg/dL Phosphorus (2.5-4.6) mg/dL Magnesium (1.7-2.8) mg/dL Albumin (3.2-5.5) g/dL Nasal Screen MRSA (PCR) NEGATIVE (NEGATIVE) - Diagnostic Imaging Diagnostic Imaging Results: positive: Final report reviewed Assessment/Plan - Problem List (1) DKA (diabetic ketoacidoses) Impression: He had clinically improved yesterday and started on a clear liquid diet but this morning his anion gap is increasing his bicarbonate is decreasing once again. His blood glucose is greater than 250. We will continue him on the IV insulin with a DKA protocol. We will discontinue dextrose infusion and start him back on normal saline with potassium. We will make him n.p.o. again except for sips of water. Once his blood glucose less than 200 we will start him back on the D5 infusion until his anion gap is closed. Then we will start him on a diet as tolerated. We will continue to check labs every 4 hours and continue with aggressive electrolyte replacement. Qualifiers: Diabetes mellitus type: other specified (including FRANKIE) Diabetes mellitus complication detail: without coma Qualified Code(s): E13.10 - Other specified diabetes mellitus with ketoacidosis without coma (2) Diabetes mellitus treated with insulin Impression: Suspect that he is likely a type I diabetic. We will check a TSH and lipid panel as well. Discussed with the family and the patient and he will need to be discharged on insulin. We will have the school vocational educator see him. Also d iscussed with the family he will need close outpatient follow-up and may benefit from an endocrinology consult. (3) Leukocytosis Impression: Size resolved. This was likely reactive in nature. There has been no obvious source of infection. We will discontinue antibiotics and monitor his white count. (4) Alcohol abuse Impression: Continue multivitamin and folate. He has not shown evidence of withdrawal but we will continue to monitor.
[2020-08-22] MEDS ORDERED: POTASSIUM PHOSPHATE 21 MMOL in SODIUM CHLORIDE 0.9% 250 ML IV ONE ×2 (08:00→21:32)
[2020-08-22 08:10] LABS: CALCIUM 7.9 mg/dL (8.5-10.3); CREATININE 0.7 mg/dL (0.6-1.2); MAGNESIUM 1.9 mg/dL (1.7-2.8); PHOSPHORUS 1.6 mg/dL (2.5-4.6)
[2020-08-22] MEDS ORDERED: NS W/20 MEQ KCL 1,000 ML IV SCH (09:00)
[2020-08-22] MEDS: ENOXAPARIN 40 MG/0.4 ML SYRINGE SUBQ SCH (11:39)
--- NOTE | 2020-08-22 12:52 | PHARMACY PROGRESS NOTE ---
- Best Possible Medication History Admit Date and Time: 08/21/20 0107 Processed by: Pharmacy Medication History completed: Yes Patient Interview: Completed Secondary Source(s): Physician records (PATIENT INTERVIED BY CIRCUIT BREAKER ASSEMBLER. PATIENT CONFIRMS HE DOES NOT TAKE HOME MEDICATIONS ), Pharmacy records, Insurance records As the person ultimately responsible for medication therapy, providers are able to order a medication from an existing home medication list in [facility] via the "Reconcile Routine" prior to Confirmation of that medication by support services tech. Such practice is discouraged except when the physician, in their clinical judgme nt, deems that a medical need exists for a medication without regard to previous use.
[2020-08-22 13:32] LABS: BUN - BLOOD UREA NITROGEN < 5 mg/dL (6-20); CALCIUM 8.1 mg/dL (8.5-10.3); CARBON DIOXIDE - CO2 15 mmol/L (21-32); CHLORIDE 112 mmol/L (101-111); CREATININE 0.7 mg/dL (0.6-1.2); GLUCOSE 71 mg/dL (70-100); MAGNESIUM 1.9 mg/dL (1.7-2.8); PHOSPHORUS 1.6 mg/dL (2.5-4.6); SODIUM 141 mmol/L (135-145)
[2020-08-22] MEDS ORDERED: POTASSIUM CHLORIDE 20 MEQ TABLET PO ONE (13:38)
[2020-08-22] MEDS: POTASSIUM CHLOR 20 MEQ/100 ML 20 MEQ/100 ML BAG IV SCH ×4 (13:57→17:22)
[2020-08-22] MEDS: THIAMINE 100 MG TABLET PO SCH (14:01)
[2020-08-22] MEDS ORDERED: POTASSIUM PHOSPHATE 15 MMOL in SODIUM CHLORIDE 0.9% 250 ML IV ONE (14:12)
[2020-08-22 16:30] LABS: BUN - BLOOD UREA NITROGEN < 5 mg/dL (6-20); CALCIUM 8.2 mg/dL (8.5-10.3); CHLORIDE 106 mmol/L (101-111); CREATININE 0.7 mg/dL (0.6-1.2); GLUCOSE 217 mg/dL (70-100); MAGNESIUM 1.7 mg/dL (1.7-2.8); PHOSPHORUS 2.8 mg/dL (2.5-4.6); SODIUM 133 mmol/L (135-145)
[2020-08-22] MEDS: INSULIN REGULAR HUMAN 100 UNIT in SODIUM CHLORIDE 0.9% 100ML 99 ML IV SCH (16:30)
[2020-08-22 16:32] LABS: CARBON DIOXIDE - CO2 9 mmol/L (21-32)
[2020-08-22] MEDS ORDERED: MAGNESIUM SULFATE 2 GRAM 2 GM/50 ML BAG IV ONE (16:43)
[2020-08-22] MEDS: MULTIVITAMIN TABLET PO SCH (18:18)
[2020-08-22 21:21] LABS: BUN - BLOOD UREA NITROGEN < 5 mg/dL (6-20); CALCIUM 8.4 mg/dL (8.5-10.3); CARBON DIOXIDE - CO2 19 mmol/L (21-32); CHLORIDE 107 mmol/L (101-111); CREATININE 0.7 mg/dL (0.6-1.2); GLUCOSE 160 mg/dL (70-100); MAGNESIUM 2.2 mg/dL (1.7-2.8); PHOSPHORUS 1.5 mg/dL (2.5-4.6); SODIUM 138 mmol/L (135-145)
[2020-08-23] MEDS: SODIUM CHLORIDE FLUSH 0.9% 10 ML SYRINGE IVP PRN ×4 (01:04→05:00)
[2020-08-23 01:27] LABS: MAGNESIUM 2.1 mg/dL (1.7-2.8); PHOSPHORUS 2.9 mg/dL (2.5-4.6)
[2020-08-23] MEDS: INSULIN REGULAR HUMAN 100 UNIT in SODIUM CHLORIDE 0.9% 100ML 99 ML IV SCH (04:05)
[2020-08-23 05:17] LABS: BASOPHILS % (AUTO) 0.5 %; EOSINOPHILS # (AUTO) 0.1 10^3/uL (0.0-0.7); EOSINOPHILS % (AUTO) 1.1 %; HGB - HEMOGLOBIN 12.5 g/dL (14.0-18.0); LYMPHOCYTES # (AUTO) 1.4 10^3/uL (1.5-3.5); LYMPHOCYTES % (AUTO) 24.1 %; MEAN CORPUSCULAR VOLUME 88.7 fL (80.0-94.0); MONOCYTES # (AUTO) 0.8 10^3/uL (0.0-1.0); MONOCYTES % (AUTO) 13.5 %; NEUTROPHILS # (AUTO) 3.4 10^3/uL (1.5-6.6); NEUTROPHILS % (AUTO) 60.1 %; PLT - PLATELET COUNT 148 10^3/uL (130-450); RED BLOOD COUNT 3.91 10^6/uL (4.70-6.10); RED CELL DISTRIBUTION WIDTH 12.3 % (12.0-15.0); WHITE BLOOD COUNT 5.7 x10^3/uL (4.8-10.8)
[2020-08-23 05:28] LABS: BUN - BLOOD UREA NITROGEN < 5 mg/dL (6-20); CALCIUM 8.7 mg/dL (8.5-10.3); CARBON DIOXIDE - CO2 23 mmol/L (21-32); CHLORIDE 105 mmol/L (101-111); CREATININE 0.5 mg/dL (0.6-1.2); GLUCOSE 143 mg/dL (70-100); SODIUM 137 mmol/L (135-145)
[2020-08-23] MEDS ORDERED: POTASSIUM CHLOR 10 MEQ/100 ML 10 MEQ/100 ML BAG IV ONE (05:38)
[2020-08-23 05:46] LABS: CHOL/HDL RATIO 3.1 (<5.0); CHOLESTEROL 129 mg/dL; HDL CHOLESTEROL 41 mg/dL; LDL CHOLESTEROL,CALCULATED 78 mg/dL; LDL/HDL RATIO 1.9 (<3.6); VLDL CHOLESTEROL 10 mg/dL
[2020-08-23 06:03] LABS: PHOSPHORUS 1.7 mg/dL (2.5-4.6)
[2020-08-23] MEDS: POTASSIUM CHLORIDE INJ 40 MEQ in DEXTROSE 5%-0.45% NACL 980 ML IV SCH (06:11)
[2020-08-23] MEDS: SODIUM CHLORIDE 0.9% 500 ML IV PRN (06:57)
[2020-08-23] MEDS: NEUTRA-PHOS 250 MG TABLET PO SCH ×2 (07:20→08:52)
[2020-08-23] MEDS: MULTIVITAMIN TABLET PO SCH (08:52)
[2020-08-23] MEDS: THIAMINE 100 MG TABLET PO SCH (08:52)
[2020-08-23] MEDS: INSULIN GLARGINE 300 UNIT/3 ML PEN SUBQ SCH (09:11)
[2020-08-23] MEDS: ENOXAPARIN 40 MG/0.4 ML SYRINGE SUBQ SCH (09:20)
[2020-08-23] MEDS: INSULIN ASPART 300 UNIT/3 ML PEN SUBQ SCH ×5 (09:32→20:57)
[2020-08-23] MEDS: SODIUM CHLORIDE FLUSH 0.9% 10 ML SYRINGE IVP SCH ×2 (09:46→20:10)
--- NOTE | 2020-08-23 11:23 | PROVIDER PROGRESS NOTE ---
Subjective - Prog Note Date Prog Note Date: 08/23/20 - Subjective Subjective: Reports feeling quite well today. He is happy that he is now able to eat. Reports no nausea or vomiting. Denies any abdominal pain. Current Medications - Current Medications Current Medications: Active Medications Acetaminophen (Tylenol) 650 mg PO Q4HR PRN PRN Reason: Pain 1 to 4 Enoxaparin Sodium (Lovenox) 40 mg SUBQ DAILY [facility] Last Admin: 08/23/20 09:20 Dose: 40 mg Documented by: Heparin Sodium (Beef Lung) () 30 - 50 unit IVP PRN PRN PRN Reason: Central Line Protocol (<24 hr) Sodium Chloride (Normal Saline 0.9%) 500 mls @ 0 mls/hr IV Q24H PRN PRN Reason: TKO RATE Last Infusion: 08/23/20 09:30 Dose: 0 mls/hr Documented by: Insulin Aspart (Novolog) 5 unit SUBQ TIDWM [facility] Last Admin: 08/23/20 09:32 Dose: 5 unit Documented by: Insulin Glargine (Lantus Solostar) 17 unit SUBQ DAILY [facility] Last Admin: 08/23/20 09:11 Dose: 17 unit Documented by: Lorazepam (Ativan Inj (Vial)) 1 mg IVP Q30M PRN; Protocol PRN Reason: CIWA >8 Last Admin: 08/21/20 06:46 Dose: 1 mg Documented by: Multivitamins (Theragran) 1 tab PO DAILYWM [facility] Last Admin: 08/23/20 08:52 Dose: 1 tab Documented by: Ondansetron HCl (Zofran Inj) 4 mg IVP Q4HR PRN PRN Reason: Nausea / Vomiting Last Admin: 08/22/20 14:00 Dose: 4 mg Documented by: Sodium Chloride (Normal Saline Flush 0.9%) 10 ml IVP 0100,0900,1700 [facility] Last Admin: 08/23/20 09:46 Dose: 10 ml Documented by: Sodium Chloride (Normal Saline Flush 0.9%) 10 ml IVP PRN PRN PRN Reason: NEEDED PER PROVIDER ORDERS Last Admin: 08/23/20 05:00 Dose: 10 ml Documented by: Sodium Chloride (Normal Saline Flush 0.9%) 20 ml IVP PRN PRN PRN Reason: After Blood Draw Last Admin: 08/23/20 05:00 Dose: 20 ml Documented by: Thiamine HCl (Vitamin B-1) 100 mg PO DAILY [facility] Last Admin: 08/23/20 08:52 Dose: 100 mg Documented by: No Known Home Medications 08/22/20 Objective - Vital Signs/Intake & Output Reviewed Vital Signs: Yes Vital Signs: Vital Signs x48h Temp Pulse Resp BP Pulse Ox 08/23/20 09:00 95 25 H 128/83 H 100 08/23/20 07:00 93 22 142/85 H 08/23/20 05:00 36.2 C L 97 23 116/76 100 Intake & Output: Intake & Output 08/20/20 08/21/20 08/22/20 08/23/20 23:59 23:59 23:59 23:59 Intake Total 87834.034 7741.584 2696.783 Output Total 5882 7025 1750 Balance 6772.034 716.584 946.783 - Objective General Appearance: positive: No acute distress, Alert Eyes Bilateral: positive: Conjunctivae nml ENT: positive: ENT inspection nml Neck: positive: Nml inspection Respiratory: positive: No respiratory distress. negative: Wheezes, Rales Cardiovascular: positive: Tachycardia. negative: Irregularly irregular, Bradycardia, Systolic murmur Abdomen: positive: Non-tender, No distention. negative: Tenderness, Guarding, Rebound Skin: positive: Warm, Dry Extremities: positive: Full ROM, No pedal edema Neurologic/Psychiatric: positive: Oriented x3, Motor nml - Lab Results Fish Bones: 08/23/20 05:00 08/23/20 05:00 Other Labs: Lab Results x24hrs 08/23/20 08/23/20 08/23/20 Range/Units 09:14 07:00 06:08 WBC (4.8-10.8) x10^3/uL RBC (4.70-6.10) 10^6/uL Hgb (14.0-18.0) g/dL Hct (42.0-52.0) % MCV (80.0-94.0) fL MCH (27.0-31.0) pg MCHC (32.0-36.0) g/dL RDW (12.0-15.0) % Plt Count (130-450) 10^3/uL MPV (7.4-11.4) fL Neut # (Auto) (1.5-6.6) 10^3/uL Lymph # (Auto) (1.5-3.5) 10^3/uL [place] # (Auto) (0.0-1.0) 10^3/uL Eos # (Auto) (0.0-0.7) 10^3/uL Baso # (Auto) (0.0-0.1) 10^3/uL Absolute Nucleated RBC x10^3/uL Nucleated RBC % /100WBC Sodium (135-145) mmol/L Potassium (3.5-5.0) mmol/L Chloride (101-111) mmol/L Carbon Dioxide (21-32) mmol/L Anion Gap (6-13) BUN (6-20) mg/dL Creatinine (0.6-1.2) mg/dL Estimated GFR (MDRD) (>89) Glucose (70-100) mg/dL POC Whole Bld Glucose 248 H 118 H 130 H (70 - 100) mg/dL Calcium (8.5-10.3) mg/dL Phosphorus (2.5-4.6) mg/dL Magnesium (1.7-2.8) mg/dL Triglycerides ( - 149) mg/dL Cholesterol ( - 199) mg/dL LDL Cholesterol, Calc ( - 129) mg/dL VLDL Cholesterol mg/dL HDL Cholesterol (60 - ) mg/dL LDL/HDL Ratio (<3.6) Cholesterol/HDL Ratio (<5.0) 08/23/20 08/23/20 08/23/20 Range/Units 05:05 05:00 05:00 WBC (4.8-10.8) x10^3/uL RBC (4.70-6.10) 10^6/uL Hgb (14.0-18.0) g/dL Hct (42.0-52.0) % MCV (80.0-94.0) fL MCH (27.0-31.0) pg MCHC (32.0-36.0) g/dL RDW (12.0-15.0) % Plt Count (130-450) 10^3/uL MPV (7.4-11.4) fL Neut # (Auto) (1.5-6.6) 10^3/uL Lymph # (Auto) (1.5-3.5) 10^3/uL [place] # (Auto) (0.0-1.0) 10^3/uL Eos # (Auto) (0.0-0.7) 10^3/uL Baso # (Auto) (0.0-0.1) 10^3/uL Absolute Nucleated RBC x10^3/uL Nucleated RBC % /100WBC Sodium (135-145) mmol/L Potassium (3.5-5.0) mmol/L Chloride (101-111) mmol/L Carbon Dioxide (21-32) mmol/L Anion Gap (6-13) BUN (6-20) mg/dL Creatinine (0.6-1.2) mg/dL Estimated GFR (MDRD) (>89) Glucose (70-100) mg/dL POC Whole Bld Glucose 131 H (70 - 100) mg/dL Calcium (8.5-10.3) mg/dL Phosphorus 1.7 L (2.5-4.6) mg/dL Magnesium 2.0 (1.7-2.8) mg/dL Triglycerides 50 ( - 149) mg/dL Cholesterol 129 ( - 199) mg/dL LDL Cholesterol, Calc 78 ( - 129) mg/dL VLDL Cholesterol 10 mg/dL HDL Cholesterol 41 L (60 - ) mg/dL LDL/HDL Ratio 1.9 (<3.6) Cholesterol/HDL Ratio 3.1 (<5.0) 08/23/20 08/23/20 08/23/20 Range/Units 05:00 05:00 04:03 WBC 5.7 (4.8-10.8) x10^3/uL RBC 3.91 L (4.70-6.10) 10^6/uL Hgb 12.5 L (14.0-18.0) g/dL Hct 34.7 L (42.0-52.0) % MCV 88.7 (80.0-94.0) fL MCH 32.0 H (27.0-31.0) pg MCHC 36.0 (32.0-36.0) g/dL RDW 12.3 (12.0-15.0) % Plt Count 148 (130-450) 10^3/uL MPV 9.0 (7.4-11.4) fL Neut # (Auto) 3.4 (1.5-6.6) 10^3/uL Lymph # (Auto) 1.4 L (1.5-3.5) 10^3/uL [place] # (Auto) 0.8 (0.0-1.0) 10^3/uL Eos # (Auto) 0.1 (0.0-0.7) 10^3/uL Baso # (Auto) 0.0 (0.0-0.1) 10^3/uL Absolute Nucleated RBC 0.00 x10^3/uL Nucleated RBC % 0.0 /100WBC Sodium 137 (135-145) mmol/L Potassium 3.4 L (3.5-5.0) mmol/L Chloride 105 (101-111) mmol/L Carbon Dioxide 23 (21-32) mmol/L Anion Gap 9.0 (6-13) BUN < 5 L (6-20) mg/dL Creatinine 0.5 L (0.6-1.2) mg/dL Estimated GFR (MDRD) 204 (>89) Glucose 143 H (70-100) mg/dL POC Whole Bld Glucose 161 H (70 - 100) mg/dL Calcium 8.7 (8.5-10.3) mg/dL Phosphorus (2.5-4.6) mg/dL Magnesium (1.7-2.8) mg/dL Triglycerides ( - 149) mg/dL Cholesterol ( - 199) mg/dL LDL Cholesterol, Calc ( - 129) mg/dL VLDL Cholesterol mg/dL HDL Cholesterol (60 - ) mg/dL LDL/HDL Ratio (<3.6) Cholesterol/HDL Ratio (<5.0) 08/23/20 08/23/20 08/23/20 Range/Units 03:04 01:56 01:07 WBC (4.8-10.8) x10^3/uL RBC (4.70-6.10) 10^6/uL Hgb (14.0-18.0) g/dL Hct (42.0-52.0) % MCV (80.0-94.0) fL MCH (27.0-31.0) pg MCHC (32.0-36.0) g/dL RDW (12.0-15.0) % Plt Count (130-450) 10^3/uL MPV (7.4-11.4) fL Neut # (Auto) (1.5-6.6) 10^3/uL Lymph # (Auto) (1.5-3.5) 10^3/uL [place] # (Auto) (0.0-1.0) 10^3/uL Eos # (Auto) (0.0-0.7) 10^3/uL Baso # (Auto) (0.0-0.1) 10^3/uL Absolute Nucleated RBC x10^3/uL Nucleated RBC % /100WBC Sodium (135-145) mmol/L Potassium (3.5-5.0) mmol/L Chloride (101-111) mmol/L Carbon Dioxide (21-32) mmol/L Anion Gap (6-13) BUN (6-20) mg/dL Creatinine (0.6-1.2) mg/dL Estimated GFR (MDRD) (>89) Glucose (70-100) mg/dL POC Whole Bld Glucose 176 H 181 H 188 H (70 - 100) mg/dL Calcium (8.5-10.3) mg/dL Phosphorus (2.5-4.6) mg/dL Magnesium (1.7-2.8) mg/dL Triglycerides ( - 149) mg/dL Cholesterol ( - 199) mg/dL LDL Cholesterol, Calc ( - 129) mg/dL VLDL Cholesterol mg/dL HDL Cholesterol (60 - ) mg/dL LDL/HDL Ratio (<3.6) Cholesterol/HDL Ratio (<5.0) 08/23/20 08/22/20 08/22/20 Range/Units 01:04 23:18 23:15 WBC (4.8-10.8) x10^3/uL RBC (4.70-6.10) 10^6/uL Hgb (14.0-18.0) g/dL Hct (42.0-52.0) % MCV (80.0-94.0) fL MCH (27.0-31.0) pg MCHC (32.0-36.0) g/dL RDW (12.0-15.0) % Plt Count (130-450) 10^3/uL MPV (7.4-11.4) fL Neut # (Auto) (1.5-6.6) 10^3/uL Lymph # (Auto) (1.5-3.5) 10^3/uL [place] # (Auto) (0.0-1.0) 10^3/uL Eos # (Auto) (0.0-0.7) 10^3/uL Baso # (Auto) (0.0-0.1) 10^3/uL Absolute Nucleated RBC x10^3/uL Nucleated RBC % /100WBC Sodium (135-145) mmol/L Potassium 4.2 (3.5-5.0) mmol/L Chloride (101-111) mmol/L Carbon Dioxide (21-32) mmol/L Anion Gap (6-13) BUN (6-20) mg/dL Creatinine (0.6-1.2) mg/dL Estimated GFR (MDRD) (>89) Glucose (70-100) mg/dL POC Whole Bld Glucose 180 H (70 - 100) mg/dL Calcium (8.5-10.3) mg/dL Phosphorus 2.9 (2.5-4.6) mg/dL Magnesium 2.1 (1.7-2.8) mg/dL Triglycerides ( - 149) mg/dL Cholesterol ( - 199) mg/dL LDL Cholesterol, Calc ( - 129) mg/dL VLDL Cholesterol mg/dL HDL Cholesterol (60 - ) mg/dL LDL/HDL Ratio (<3.6) Cholesterol/HDL Ratio (<5.0) 08/22/20 08/22/20 08/22/20 Range/Units 21:00 21:00 20:00 WBC (4.8-10.8) x10^3/uL RBC (4.70-6.10) 10^6/uL Hgb (14.0-18.0) g/dL Hct (42.0-52.0) % MCV (80.0-94.0) fL MCH (27.0-31.0) pg MCHC (32.0-36.0) g/dL RDW (12.0-15.0) % Plt Count (130-450) 10^3/uL MPV (7.4-11.4) fL Neut # (Auto) (1.5-6.6) 10^3/uL Lymph # (Auto) (1.5-3.5) 10^3/uL [place] # (Auto) (0.0-1.0) 10^3/uL Eos # (Auto) (0.0-0.7) 10^3/uL Baso # (Auto) (0.0-0.1) 10^3/uL Absolute Nucleated RBC x10^3/uL Nucleated RBC % /100WBC Sodium 138 (135-145) mmol/L Potassium 3.3 L (3.5-5.0) mmol/L Chloride 107 (101-111) mmol/L Carbon Dioxide 19 L (21-32) mmol/L Anion Gap 12.0 (6-13) BUN < 5 L (6-20) mg/dL Creatinine 0.7 (0.6-1.2) mg/dL Estimated GFR (MDRD) 139 (>89) Glucose 160 H (70-100) mg/dL POC Whole Bld Glucose 149 H 170 H (70 - 100) mg/dL Calcium 8.4 L (8.5-10.3) mg/dL Phosphorus 1.5 L (2.5-4.6) mg/dL Magnesium 2.2 (1.7-2.8) mg/dL Triglycerides ( - 149) mg/dL Cholesterol ( - 199) mg/dL LDL Cholesterol, Calc ( - 129) mg/dL VLDL Cholesterol mg/dL HDL Cholesterol (60 - ) mg/dL LDL/HDL Ratio (<3.6) Cholesterol/HDL Ratio (<5.0) 08/22/20 08/22/20 08/22/20 Range/Units 18:56 17:59 17:08 WBC (4.8-10.8) x10^3/uL RBC (4.70-6.10) 10^6/uL Hgb (14.0-18.0) g/dL Hct (42.0-52.0) % MCV (80.0-94.0) fL MCH (27.0-31.0) pg MCHC (32.0-36.0) g/dL RDW (12.0-15.0) % Plt Count (130-450) 10^3/uL MPV (7.4-11.4) fL Neut # (Auto) (1.5-6.6) 10^3/uL Lymph # (Auto) (1.5-3.5) 10^3/uL [place] # (Auto) (0.0-1.0) 10^3/uL Eos # (Auto) (0.0-0.7) 10^3/uL Baso # (Auto) (0.0-0.1) 10^3/uL Absolute Nucleated RBC x10^3/uL Nucleated RBC % /100WBC Sodium (135-145) mmol/L Potassium (3.5-5.0) mmol/L Chloride (101-111) mmol/L Carbon Dioxide (21-32) mmol/L Anion Gap (6-13) BUN (6-20) mg/dL Creatinine (0.6-1.2) mg/dL Estimated GFR (MDRD) (>89) Glucose (70-100) mg/dL POC Whole Bld Glucose 185 H 199 H 213 H (70 - 100) mg/dL Calcium (8.5-10.3) mg/dL Phosphorus (2.5-4.6) mg/dL Magnesium (1.7-2.8) mg/dL Triglycerides ( - 149) mg/dL Cholesterol ( - 199) mg/dL LDL Cholesterol, Calc ( - 129) mg/dL VLDL Cholesterol mg/dL HDL Cholesterol (60 - ) mg/dL LDL/HDL Ratio (<3.6) Cholesterol/HDL Ratio (<5.0) 08/22/20 08/22/20 08/22/20 Range/Units 16:11 16:06 15:02 WBC (4.8-10.8) x10^3/uL RBC (4.70-6.10) 10^6/uL Hgb (14.0-18.0) g/dL Hct (42.0-52.0) % MCV (80.0-94.0) fL MCH (27.0-31.0) pg MCHC (32.0-36.0) g/dL RDW (12.0-15.0) % Plt Count (130-450) 10^3/uL MPV (7.4-11.4) fL Neut # (Auto) (1.5-6.6) 10^3/uL Lymph # (Auto) (1.5-3.5) 10^3/uL [place] # (Auto) (0.0-1.0) 10^3/uL Eos # (Auto) (0.0-0.7) 10^3/uL Baso # (Auto) (0.0-0.1) 10^3/uL Absolute Nucleated RBC x10^3/uL Nucleated RBC % /100WBC Sodium 133 L (135-145) mmol/L Potassium 4.2 (3.5-5.0) mmol/L Chloride 106 (101-111) mmol/L Carbon Dioxide 9 L* (21-32) mmol/L Anion Gap 18.0 H (6-13) BUN < 5 L (6-20) mg/dL Creatinine 0.7 (0.6-1.2) mg/dL Estimated GFR (MDRD) 139 (>89) Glucose 217 H (70-100) mg/dL POC Whole Bld Glucose 196 H 179 H (70 - 100) mg/dL Calcium 8.2 L (8.5-10.3) mg/dL Phosphorus 2.8 (2.5-4.6) mg/dL Magnesium 1.7 (1.7-2.8) mg/dL Triglycerides ( - 149) mg/dL Cholesterol ( - 199) mg/dL LDL Cholesterol, Calc ( - 129) mg/dL VLDL Cholesterol mg/dL HDL Cholesterol (60 - ) mg/dL LDL/HDL Ratio (<3.6) Cholesterol/HDL Ratio (<5.0) 08/22/20 08/22/20 08/22/20 Range/Units 14:05 13:08 12:45 WBC (4.8-10.8) x10^3/uL RBC (4.70-6.10) 10^6/uL Hgb (14.0-18.0) g/dL Hct (42.0-52.0) % MCV (80.0-94.0) fL MCH (27.0-31.0) pg MCHC (32.0-36.0) g/dL RDW (12.0-15.0) % Plt Count (130-450) 10^3/uL MPV (7.4-11.4) fL Neut # (Auto) (1.5-6.6) 10^3/uL Lymph # (Auto) (1.5-3.5) 10^3/uL [place] # (Auto) (0.0-1.0) 10^3/uL Eos # (Auto) (0.0-0.7) 10^3/uL Baso # (Auto) (0.0-0.1) 10^3/uL Absolute Nucleated RBC x10^3/uL Nucleated RBC % /100WBC Sodium (135-145) mmol/L Potassium (3.5-5.0) mmol/L Chloride (101-111) mmol/L Carbon Dioxide (21-32) mmol/L Anion Gap (6-13) BUN (6-20) mg/dL Creatinine (0.6-1.2) mg/dL Estimated GFR (MDRD) (>89) Glucose (70-100) mg/dL POC Whole Bld Glucose 156 H 92 61 L (70 - 100) mg/dL Calcium (8.5-10.3) mg/dL Phosphorus (2.5-4.6) mg/dL Magnesium (1.7-2.8) mg/dL Triglycerides ( - 149) mg/dL Cholesterol ( - 199) mg/dL LDL Cholesterol, Calc ( - 129) mg/dL VLDL Cholesterol mg/dL HDL Cholesterol (60 - ) mg/dL LDL/HDL Ratio (<3.6) Cholesterol/HDL Ratio (<5.0) 08/22/20 08/22/20 Range/Units 12:45 11:34 WBC (4.8-10.8) x10^3/uL RBC (4.70-6.10) 10^6/uL Hgb (14.0-18.0) g/dL Hct (42.0-52.0) % MCV (80.0-94.0) fL MCH (27.0-31.0) pg MCHC (32.0-36.0) g/dL RDW (12.0-15.0) % Plt Count (130-450) 10^3/uL MPV (7.4-11.4) fL Neut # (Auto) (1.5-6.6) 10^3/uL Lymph # (Auto) (1.5-3.5) 10^3/uL [place] # (Auto) (0.0-1.0) 10^3/uL Eos # (Auto) (0.0-0.7) 10^3/uL Baso # (Auto) (0.0-0.1) 10^3/uL Absolute Nucleated RBC x10^3/uL Nucleated RBC % /100WBC Sodium 141 (135-145) mmol/L Potassium 2.8 L (3.5-5.0) mmol/L Chloride 112 H (101-111) mmol/L Carbon Dioxide 15 L (21-32) mmol/L Anion Gap 14.0 H (6-13) BUN < 5 L (6-20) mg/dL Creatinine 0.7 (0.6-1.2) mg/dL Estimated GFR (MDRD) 139 (>89) Glucose 71 (70-100) mg/dL POC Whole Bld Glucose 95 (70 - 100) mg/dL Calcium 8.1 L (8.5-10.3) mg/dL Phosphorus 1.6 L (2.5-4.6) mg/dL Magnesium 1.9 (1.7-2.8) mg/dL Triglycerides ( - 149) mg/dL Cholesterol ( - 199) mg/dL LDL Cholesterol, Calc ( - 129) mg/dL VLDL Cholesterol mg/dL HDL Cholesterol (60 - ) mg/dL LDL/HDL Ratio (<3.6) Cholesterol/HDL Ratio (<5.0) ABX Reporting Has patient been on IV antibiotics over the past 48 hours?: No Assessment/Plan - Problem List (1) Diabetes mellitus treated with insulin Impression: He is likely a type I diabetic. Fortunately, his DKA has now resolved. We will start him on a carb controlled diet. We will discontinue the IV insulin and start him on subcutaneous insulin. We will use 0.5 units/kg. We will start him on 17 units of Lantus in the morning and 5 units of NovoLog with meals plus low- dose sliding scale. He is already been evaluated by nurse informatics educator. He will be seen by the dietitian today. We will hope to discharge him tomorrow with outpatient follow-up. (2) DKA (diabetic ketoacidoses) Impression: This has resolved. His bicarbonate is now within normal limits and anion gap has closed. We will transition him to subcutaneous insulins continue the IV insulin. We will start him on a carb controlled diet. Qualifiers: Diabetes mellitus type: other specified (including FRANKIE) Diabetes mellitus complication detail: without coma Qualified Code(s): E13.10 - Other specified diabetes mellitus with ketoacidosis without coma (3) Leukocytosis Impression: This has resolved. This was likely reactive in nature. There has been no evidence of infection. (4) Alcohol abuse Impression: He has not shown evidence of withdrawal during this hospitalization. We will continue oral multivitamin and thiamine.
[2020-08-23] MEDS ORDERED: INSULIN GLARGINE 300 UNIT/3 ML PEN SUBQ SCH (12:00)
[2020-08-24] MEDS: SODIUM CHLORIDE FLUSH 0.9% 10 ML SYRINGE IVP SCH ×2 (04:39→09:17)
[2020-08-24 05:48] LABS: BASOPHILS % (AUTO) 1.2 %; EOSINOPHILS # (AUTO) 0.1 10^3/uL (0.0-0.7); HGB - HEMOGLOBIN 12.4 g/dL (14.0-18.0); LYMPHOCYTES # (AUTO) 1.5 10^3/uL (1.5-3.5); LYMPHOCYTES % (AUTO) 44.5 %; MEAN CORPUSCULAR HGB CONC 35.3 g/dL (32.0-36.0); MEAN CORPUSCULAR VOLUME 90.7 fL (80.0-94.0); MEAN PLATELET VOLUME 9.9 fL (7.4-11.4); MONOCYTES # (AUTO) 0.4 10^3/uL (0.0-1.0); MONOCYTES % (AUTO) 12.7 %; NEUTROPHILS # (AUTO) 1.4 10^3/uL (1.5-6.6); PLT - PLATELET COUNT 169 10^3/uL (130-450); RED BLOOD COUNT 3.87 10^6/uL (4.70-6.10); RED CELL DISTRIBUTION WIDTH 12.1 % (12.0-15.0); WHITE BLOOD COUNT 3.5 x10^3/uL (4.8-10.8)
[2020-08-24 05:51] LABS: CALCIUM 8.8 mg/dL (8.5-10.3); CREATININE 0.6 mg/dL (0.6-1.2)
--- NOTE | 2020-08-24 08:01 | Discharge Plan ---
Discharge Plan Problem Reviewed?: Yes Disposition: Home, Self Care Condition: Stable Prescriptions: Insulin Lispro [Humalog Kwikpen U-100] 7 unit SUBQ TIDWM #5 each Insulin Degludec [Tresiba Flextouch U-100] 17 unit SUBQ DAILY #5 each Diet: Diabetic Activity Restrictions: No Restrictions Shower Restrictions: No Driving Restrictions: No Instruction Topics: Diabetes Type 1 Coping, Diabetes Type 1 Health Concerns: You were admitted to the hospital because you had diabetic ketoacidosis. This occurs due to elevated glucose which can cause buildup of acid in your body. This happened because you are likely a type I diabetic. You were treated with insulin and IV fluids with improvement in your symptoms. Plan of Treatment: You will need to take the insulin as prescribed. Please take the Tresiba insulin 17 units every morning. This is a long acting insulin which will cover you throughout the day. Please take the Humalog 7 units with every meal. This is a short acting insulin and works much quicker. You should only take this when you are eating. Do not take this if you do not have a meal as this can cause you to have a low blood sugar. Please check your blood sugar in the morning and with meals as well as at night. Please contact your primary care provider or sports apparel internship if your blood glucose is elevated above 200 as you would need adjustment of your insulin dose. Please keep a daily log of your blood glucose as this can help assist your providers and adjusting your insulin. Care Goals: Please keep an eye out for symptoms of low blood glucose. The symptoms can include tremors, anxiety, sweating, numbness, weakness, dizziness and confusion. If you have any of these symptoms he should immediately check your blood glucose. If your blood glucose is less than 70 you should immediately drink some juice and have some food to help increase your blood glucose. Given your blood sugars have been high for quite some time, you may even develop such symptoms if your blood glucose is in the low normal range. Assessment: The patient and family expressed understanding of the treatment plan. Additional Instructions or Follow Up instructions: Please follow-up with your primary care provider in about 1 week. It is also recommended that you see an sports apparel internship. No Smoking: If you smoke, Please STOP! Call for help.
[2020-08-24] MEDS: INSULIN ASPART 300 UNIT/3 ML PEN SUBQ SCH ×4 (08:46→12:03)
[2020-08-24] MEDS: INSULIN GLARGINE 300 UNIT/3 ML PEN SUBQ SCH (08:47)
[2020-08-24] MEDS: THIAMINE 100 MG TABLET PO SCH (08:48)
[2020-08-24] MEDS: MULTIVITAMIN TABLET PO SCH (08:48)
[2020-08-24] MEDS: ENOXAPARIN 40 MG/0.4 ML SYRINGE SUBQ SCH (08:49)
--- NOTE | 2020-08-24 11:02 | DISCHARGE SUMMARY ---
"Discharge Summary Admit Date: 08/20/20 Discharge Date: 08/24/20 Discharging Provider: Mk Acosta Primary Care Provider: [facility] Code Status: Attempt Resuscitation Condition at Discharge: Stable Discharge Disposition: 01 Home, Self Care - DIAGNOSES Admission Diagnoses: Diabetic ketoacidosis SIRS Alcohol abuse Discharge Diagnoses with Status of Each Condition: Diabetes mellitus treated with insulin - stable. Diabetic ketoacidosis - resolved. Leukocytosis - resolved. Alcohol abuse - stable. - HPI History of Present Illness: H&P per Dr. Coreas: Patient is a 25-year-old male who was brought to the ED by his father after he complained of breathing too fast and anxiety. He is not a very good historian. It is reported that he drinks heavily daily and stopped drinking 2 days ago. In the ED work-up included a CBC which showed a white blood cell count of 34. He had a VBG done which showed a pH of 6.7. He was also found to have a blood glucose of 600 anion gap of 30 and a bicarb of less than 6. On further questioning he reports that he was diagnosed with diabetes this year. He saw a physician by name Dr. Guerrero at [facility] in [facility]. He his not on insulin or any other medications.He has a remote history of a spontaneous pneumothorax for which he had chest tubes placed at [facility] last year. He is a student at [employer] in [place] but returned home due to the COVID pandemic. He has been living at home for the last 6 months.. At bedside the patient is tachypneic with Kussmaul respirations. He readily awakes to tactile verbal stimuli but also readily falls back to sleep. His toxicology was negative except for cannabinoids. His urine was negative for infection but positive for glucose and ketones. Imaging included CT of the head, chest, abdomen and pelvis which were all negative. - CONSULTS | PROCEDURES Consultations: Facility Worker, Dietian Procedures: Right IJ central line was placed by anesthesia on August 21. - HOSPITAL COURSE Hospital Course: The patient was admitted to the intensive care unit for severe diabetic ketoacidosis. His pH was 6.7 on admission. He was treated with multiple liters of IV fluids and IV insulin. He was also started on empiric IV antibiotics with Zosyn and vancomycin given his significantly elevated white count. There is no obvious source of infection as chest x-ray, urinalysis, CT of the abdomen pelvis were unremarkable. His white count improved throughout the hospitalization and the antibiotics were discontinued. It was felt that this leukocytosis was likely reactive in nature. He required to be in intensive care unit for 2 days for IV insulin as his anion gap was slow to close. On hospital day 3, he was transitioned to subcutaneous insulin that was weight-based. He was started on 17 units of Lantus in the morning along with 6 units of NovoLog with meals. He was seen by hand i blocker as well as a dietitian. The plan was for him to see an landscape nurseryman next week if this would be approved by his insurance otherwise he will follow-up with the [facility] and his primary care provider and an endocrinology referral will be placed at that time. He was discharged on 17 units of Tresiba in the morning and 7 units of Humalog with meals. We discussed the importance of compliance with the insulin given he is likely a type I diabetic. We did not obtain work-up for type 1 diabetes as the hand i blocker informed us that the landscape nurseryman he likely will be seeing will obtain those labs. His TSH and lipid panel were all unremarkable. He did not go through alcohol withdrawal during this hospitalization. He was counseled on the importance of alcohol cessation. - ALLERGIES Allergies/Adverse Reactions: Allergies Allergy/AdvReac Type Severity Reaction Status Date / Time No Known Drug Allergies Allergy Verified 08/20/20 23:52 - MEDICATIONS Home Medications: Ambulatory Orders Medication Instructions Recorded Confirmed Insulin Degludec [Tresiba 17 unit SUBQ DAILY #5 each 08/24/20 Flextouch U-100] Insulin Lispro [Humalog Kwikpen 7 unit SUBQ TIDWM #5 each 08/24/20 U-100] - PHYSICAL EXAM AT DISCHARGE General Appearance: positive: No acute distress, Alert Eyes Bilateral: positive: Normal inspection, Conjunctivae nml ENT: positive: ENT inspection nml Neck: positive: Nml inspection Respiratory: positive: No respiratory distress. negative: Rales Cardiovascular: positive: Regular rate & rhythm, No murmur. negative: Irregularly irregular, Tachycardia, Bradycardia, Systolic murmur Abdomen: positive: Non-tender, No distention. negative: Tenderness, Guarding, Rebound Skin: positive: No rash, Warm, Dry Extremities: positive: Full ROM Neurologic/Psychiatric: positive: Oriented x3, Motor nml. negative: Disoriented to person, Disoriented to place, Disoriented to time Physical Exam Other/Comments: Vital Signs - 24 hr 08/23/20 08/24/20 08/24/20 23:00 09:24 13:56 Temperature 36.8 C 36.9 C 37.1 C Heart Rate [ 110 H 103 H Brachial] Heart Rate [ 92 Monitoring electrodes] Respiratory 20 18 20 Rate Blood Pressure 143/94 H 132/89 H 125/76 [Right Brachial artery] O2 Saturation 98 98 97 Oxygen O2 Source Room air - LABS Result Diagrams: 08/24/20 04:30 08/24/20 04:30 Other Lab Results: Laboratory Results - last 24 hr 08/23/20 08/23/20 08/24/20 20:28 22:29 04:30 WBC 3.5 L RBC 3.87 L Hgb 12.4 L Hct 35.1 L MCV 90.7 MCH 32.0 H MCHC 35.3 RDW 12.1 Plt Count 169 MPV 9.9 Neut # (Auto) 1.4 L Lymph # (Auto) 1.5 [place] # (Auto) 0.4 Eos # (Auto) 0.1 Baso # (Auto) 0.0 Absolute Nucleated RBC 0.00 Nucleated RBC % 0.0 Sodium Potassium Chloride Carbon Dioxide Anion Gap BUN Creatinine Estimated GFR (MDRD) Glucose POC Whole Bld Glucose 167 H 197 H Calcium 08/24/20 08/24/20 08/24/20 04:30 07:53 11:34 WBC RBC Hgb Hct MCV MCH MCHC RDW Plt Count MPV Neut # (Auto) Lymph # (Auto) [place] # (Auto) Eos # (Auto) Baso # (Auto) Absolute Nucleated RBC Nucleated RBC % Sodium 141 Potassium 3.6 Chloride 103 Carbon Dioxide 25 Anion Gap 13.0 BUN 10 Creatinine 0.6 Estimated GFR (MDRD) 166 Glucose 246 H POC Whole Bld Glucose 220 H 172 H Calcium 8.8 - DIAGNOSTIC IMAGING Diagnostic Imaging Results: Final report reviewed - FOLLOW UP Follow Up: He was asked to follow-up with his primary care provider in 1 week. associate artistic director has arranged an appointment with landscape nurseryman if this will be covered by his insurance. If not, he will see an landscape nurseryman once he is referred by his primary care provider. - TIME SPENT Time Spent in Discharge (Minutes): 36"
[2020-08-24 13:58] VITALS: BP 125/76
== END 2020-08-24 14:30 | disposition home or self-care (01) | DRG 639 ==
LOC: ED 23:36 → ICU 08-21 01:07
PROVIDERS: ADMIT Internal Medicine; ATTEND Internal Medicine
PROC: 02HV33Z Insertion of Infusion Device into Superior Vena Cava, Percutaneous Approach (ICD-10-PCS; principal; 2020-08-21)
DX: E10.10 Type 1 diabetes mellitus with ketoacidosis without coma (principal); F10.10 Alcohol abuse, uncomplicated; D70.8 Other neutropenia; Z72.89 Other problems related to lifestyle
CPT/HCPCS: 36415; 36600; 70450; 71045; 71260; 74177; 80048; 80053; 80061; 80306; 80307; 80320; 80329; 81001; 82009; 82040; 82310; 82330; 82550; 82803; 82947; 83036; 83605; 83690; 83735; 84100; 84132; 84443; 84484; 85025; 85610; 85730; 87040; 87150; 93005; 96361; 96374; 96375; 99285; 99291; A9270; J1650; J1815; J2060; J3370; J3411; Q9967; 80202; 81003; 83721; 87086

== ENCOUNTER 2022-11-20 19:12 | Emergency (ER) | payer OTHER ==
[2022-11-20] MEDS ORDERED: ONDANSETRON 4 MG/2 ML VIAL IVP STA ×2 (19:38→23:16)
[2022-11-20] MEDS ORDERED: SODIUM CHLORIDE 0.9% 1,000 ML IV STA (19:38)
[2022-11-20 19:47] LABS: BASOPHILS # (AUTO) 0.1 10^3/uL (0.0-0.1); BASOPHILS % (AUTO) 1.2 %; EOSINOPHILS % (AUTO) 0.2 %; HCT - HEMATOCRIT 54.6 % (42.0-52.0); HGB - HEMOGLOBIN 17.9 g/dL (14.0-18.0); LYMPHOCYTES # (AUTO) 1.1 10^3/uL (1.5-3.5); LYMPHOCYTES % (AUTO) 16.2 %; MEAN CORPUSCULAR HEMOGLOBIN 32.1 pg (27.0-31.0); MEAN CORPUSCULAR HGB CONC 32.8 g/dL (32.0-36.0); MEAN CORPUSCULAR VOLUME 97.8 fL (80.0-94.0); MEAN PLATELET VOLUME 9.5 fL (7.4-11.4); MONOCYTES # (AUTO) 0.4 10^3/uL (0.0-1.0); NEUTROPHILS # (AUTO) 4.9 10^3/uL (1.5-6.6); NEUTROPHILS % (AUTO) 75.3 %; PLT - PLATELET COUNT 280 10^3/uL (130-450); RED BLOOD COUNT 5.58 10^6/uL (4.70-6.10); WHITE BLOOD COUNT 6.5 x10^3/uL (4.8-10.8)
[2022-11-20] MEDS ORDERED: LORazepam 2 MG/ML VIAL IVP STA (20:01)
--- NOTE | 2022-11-20 20:04 | ED Physician Documentation ---
History of Present Illness - Stated complaint Stated Complaint: NAUSEA,SOA - Chief complaint Chief Complaint: Abd Pain - History obtained from History obtained from: Patient - Additonal information Additional information: The patient comes to the emergency department chief complaint of nausea, vomiting, and "feeling like I am in DKA". Patient states that symptoms started yesterday and felt a little bit better after drink some alcohol. However, symptoms recurred in the pre fabricator and has not been able to hold anything down today. The patient states he is an insulin-dependent diabetic and has had DKA in number of times before. The patient states that he has been breathing in and out deeply, but also feels anxious to. However, he states he does not feel as though he is withdrawing from alcohol. The patient states his blood sugars have been in the mid 200s at home. No other complaints at this time. He states his only other medical problem has been a spontaneous pneumothorax some years back. The patient does state that he drinks about 6 drinks per day, whether beer or otherwise. Review of Systems Ten Systems: 10 systems reviewed and negative Constitutional: reports: Reviewed and negative Eyes: reports: Reviewed and negative Ears: reports: Reviewed and negative Nose: reports: Reviewed and negative Throat: reports: Reviewed and negative Cardiac: reports: Reviewed and negative Respiratory: reports: Reviewed and negative GI: reports: Nausea, Vomiting : reports: Reviewed and negative Skin: reports: Reviewed and negative Musculoskeletal: reports: Reviewed and negative Neurologic: reports: Reviewed and negative Psychiatric: reports: Reviewed and negative Endocrine: reports: Reviewed and negative Immunocompromised: reports: Reviewed and negative PD PAST MEDICAL HISTORY - Past Medical History Endocrine/Autoimmune: Type 1 diabetes - Past Surgical History General: Other (Continues pneumothorax with chest tube placement) - Present Medications Home Medications: Ambulatory Orders Medication Instructions Recorded Confirmed Insulin Degludec [Tresiba 17 unit SUBQ DAILY #5 each 08/24/20 Flextouch U-100] Insulin Lispro [Humalog Kwikpen 7 unit SUBQ TIDWM #5 each 08/24/20 U-100] - Allergies Allergies/Adverse Reactions: Allergies Allergy/AdvReac Type Severity Reaction Status Date / Time No Known Drug Allergies Allergy Verified 11/20/22 19:29 - Social History Does the pt smoke?: No Smoking Status: Never smoker - POLST Patient has POLST: No POLST Status: Full Code PD ED PE NORMAL - Vitals Vital signs reviewed: Yes - General General: Alert and oriented X 3, No acute distress, Well developed/nourished - HEENT HEENT: Atraumatic, PERRL, EOMI, Moist mucous membranes - Neck Neck: Supple, no meningeal sign - Cardiac Cardiac: RRR, No murmur, Strong equal pulses - Respiratory Respiratory: No respiratory distress, Clear bilaterally, Other (Kussmaul respirations, though patient is able to speak despite the rapid deep breaths.) - Abdomen Abdomen: Soft, Non tender, Non distended - Derm Derm: Normal color, Warm and dry, No rash - Extremities Extremities: No deformity, No edema - Neuro Neuro: Alert and oriented X 3, sleep technician 2-12 intact, No motor deficit, No sensory deficit, Normal speech - Psych Psych: Normal mood, Normal affect Results - Vitals Vitals: Vital Signs - 24 hr 11/20/22 11/20/22 11/20/22 19:22 21:28 23:00 Temperature 36.3 C L Heart Rate 118 H 110 H 107 H Respiratory 34 H 18 18 Rate Blood Pressure 157/112 H 138/98 H 134/77 H O2 Saturation 100 100 100 11/21/22 11/21/22 11/21/22 01:00 03:00 05:00 Temperature Heart Rate 110 H 115 H 108 H Respiratory 20 21 13 Rate Blood Pressure 145/97 H 137/97 H 130/81 H O2 Saturation 100 100 98 Oxygen O2 Source Room air - Labs Labs: Laboratory Tests 11/20/22 11/20/22 11/20/22 19:27 19:43 19:43 WBC 6.5 RBC 5.58 Hgb 17.9 Hct 54.6 H MCV 97.8 H MCH 32.1 H MCHC 32.8 RDW 12.0 Plt Count 280 MPV 9.5 Neut # (Auto) 4.9 Lymph # (Auto) 1.1 L [place] # (Auto) 0.4 Eos # (Auto) 0.0 Baso # (Auto) 0.1 Absolute Nucleated RBC 0.00 Nucleated RBC % 0.0 VBG pH VBG pCO2 VBG pO2 VBG HCO3 VBG Total CO2 VBG O2 Saturation VBG Base Excess Sodium 136 Potassium 3.1 L Chloride 100 L Carbon Dioxide 8 L* Anion Gap 28.0 H BUN 13 Creatinine 0.9 Estimated GFR (MDRD) 102 Glucose 224 H POC Whole Bld Glucose 236 H Calcium 9.0 Magnesium Total Bilirubin 1.7 H AST 61 H ALT 77 H Alkaline Phosphatase 115 Total Protein 10.3 H Albumin 5.6 H Globulin 4.7 H Albumin/Globulin Ratio 1.2 Lipase 74 H Urine Color Urine Clarity Urine pH Ur Specific [place] Urine Protein Urine Glucose (UA) Urine Ketones Urine Occult Blood Urine Nitrite Urine Bilirubin Urine Urobilinogen Ur Leukocyte Esterase Urine RBC Urine WBC Ur Squamous Epith Cells Urine Bacteria Ur Microscopic Review Urine Culture Comments Urine HCG, Qual Nasal Adenovirus (PCR) Nasal B. parapertussis DNA (PCR) Nasal Coronavir 229E PCR Nasal Coronavir HKU1 PCR Nasal Coronavir NL63 PCR Nasal Coronavir OC43 PCR Nasal Enterovir/Rhinovir PCR Nasal Influenza B PCR Nasal Influenza A PCR Nasal Parainfluen 1 PCR Nasal Parainfluen 2 PCR Nasal Parainfluen 3 PCR Nasal Parainfluen 4 PCR Nasal RSV (PCR) Nasal B.pertussis DNA PCR Nasal C.pneumoniae (PCR) Ney Human Metapneumo PCR Nasal M.pneumoniae (PCR) Nasal SARS-CoV-2 (PCR) Serum Ketones SMALL H 11/20/22 11/20/22 11/20/22 19:45 21:39 21:39 WBC RBC Hgb Hct MCV MCH MCHC RDW Plt Count MPV Neut # (Auto) Lymph # (Auto) [place] # (Auto) Eos # (Auto) Baso # (Auto) Absolute Nucleated RBC Nucleated RBC % VBG pH 7.066 L 7.080 L VBG pCO2 25.4 L 20.0 L VBG pO2 23.8 L 51.5 H VBG HCO3 7.1 L 5.8 L VBG Total CO2 7.9 L 6.4 L VBG O2 Saturation 46.1 L 84.2 H VBG Base Excess -21.5 L -22.3 L Sodium 136 Potassium 3.4 L Chloride 105 Carbon Dioxide 6 L* Anion Gap 25.0 H BUN 12 Creatinine 0.8 Estimated GFR (MDRD) 117 Glucose 197 H POC Whole Bld Glucose Calcium 8.0 L Magnesium 2.1 Total Bilirubin AST ALT Alkaline Phosphatase Total Protein Albumin Globulin Albumin/Globulin Ratio Lipase Urine Color Urine Clarity Urine pH Ur Specific [place] Urine Protein Urine Glucose (UA) Urine Ketones Urine Occult Blood Urine Nitrite Urine Bilirubin Urine Urobilinogen Ur Leukocyte Esterase Urine RBC Urine WBC Ur Squamous Epith Cells Urine Bacteria Ur Microscopic Review Urine Culture Comments Urine HCG, Qual Nasal Adenovirus (PCR) Nasal B. parapertussis DNA (PCR) Nasal Coronavir 229E PCR Nasal Coronavir HKU1 PCR Nasal Coronavir NL63 PCR Nasal Coronavir OC43 PCR Nasal Enterovir/Rhinovir PCR Nasal Influenza B PCR Nasal Influenza A PCR Nasal Parainfluen 1 PCR Nasal Parainfluen 2 PCR Nasal Parainfluen 3 PCR Nasal Parainfluen 4 PCR Nasal RSV (PCR) Nasal B.pertussis DNA PCR Nasal C.pneumoniae (PCR) Ney Human Metapneumo PCR Nasal M.pneumoniae (PCR) Nasal SARS-CoV-2 (PCR) Serum Ketones 11/20/22 11/20/22 11/20/22 21:50 21:54 23:15 WBC RBC Hgb Hct MCV MCH MCHC RDW Plt Count MPV Neut # (Auto) Lymph # (Auto) [place] # (Auto) Eos # (Auto) Baso # (Auto) Absolute Nucleated RBC Nucleated RBC % VBG pH VBG pCO2 VBG pO2 VBG HCO3 VBG Total CO2 VBG O2 Saturation VBG Base Excess Sodium 138 Potassium 3.6 Chloride 107 Carbon Dioxide < 6 L* Anion Gap 25.0 H BUN 11 Creatinine 0.9 Estimated GFR (MDRD) 102 Glucose 194 H POC Whole Bld Glucose 197 H Calcium 8.1 L Magnesium 2.2 Total Bilirubin AST ALT Alkaline Phosphatase Total Protein Albumin Globulin Albumin/Globulin Ratio Lipase Urine Color YELLOW Urine Clarity CLEAR Urine pH 6.0 Ur Specific [place] >=1.030 H Urine Protein 30 H Urine Glucose (UA) 250 H Urine Ketones >=80 H Urine Occult Blood TRACE-INTA Urine Nitrite NEGATIVE Urine Bilirubin NEGATIVE Urine Urobilinogen 0.2 (NORMAL) Ur Leukocyte Esterase NEGATIVE Urine RBC 0-5 Urine WBC 0-3 Ur Squamous Epith Cells RARE Squamous Urine Bacteria None Seen Ur Microscopic Review INDICATED Urine Culture Comments NOT INDICATED Urine HCG, Qual Cancelled Nasal Adenovirus (PCR) Nasal B. parapertussis DNA (PCR) Nasal Coronavir 229E PCR Nasal Coronavir HKU1 PCR Nasal Coronavir NL63 PCR Nasal Coronavir OC43 PCR Nasal Enterovir/Rhinovir PCR Nasal Influenza B PCR Nasal Influenza A PCR Nasal Parainfluen 1 PCR Nasal Parainfluen 2 PCR Nasal Parainfluen 3 PCR Nasal Parainfluen 4 PCR Nasal RSV (PCR) Nasal B.pertussis DNA PCR Nasal C.pneumoniae (PCR) Ney Human Metapneumo PCR Nasal M.pneumoniae (PCR) Nasal SARS-CoV-2 (PCR) Serum Ketones 11/21/22 11/21/22 11/21/22 00:31 00:31 01:19 WBC RBC Hgb Hct MCV MCH MCHC RDW Plt Count MPV Neut # (Auto) Lymph # (Auto) [place] # (Auto) Eos # (Auto) Baso # (Auto) Absolute Nucleated RBC Nucleated RBC % VBG pH VBG pCO2 VBG pO2 VBG HCO3 VBG Total CO2 VBG O2 Saturation VBG Base Excess Sodium 137 Potassium 3.1 L Chloride 108 Carbon Dioxide < 6 L* Anion Gap 23.0 H BUN 11 Creatinine 0.9 Estimated GFR (MDRD) 102 Glucose 198 H POC Whole Bld Glucose 215 H Calcium 8.2 L Magnesium 2.1 Total Bilirubin AST ALT Alkaline Phosphatase Total Protein Albumin Globulin Albumin/Globulin Ratio Lipase Urine Color Urine Clarity Urine pH Ur Specific [place] Urine Protein Urine Glucose (UA) Urine Ketones Urine Occult Blood Urine Nitrite Urine Bilirubin Urine Urobilinogen Ur Leukocyte Esterase Urine RBC Urine WBC Ur Squamous Epith Cells Urine Bacteria Ur Microscopic Review Urine Culture Comments Urine HCG, Qual Nasal Adenovirus (PCR) NOT DETECTED Nasal B. parapertussis DNA (PCR) NOT DETECTED Nasal Coronavir 229E PCR NOT DETECTED Nasal Coronavir HKU1 PCR NOT DETECTED Nasal Coronavir NL63 PCR NOT DETECTED Nasal Coronavir OC43 PCR NOT DETECTED Nasal Enterovir/Rhinovir PCR NOT DETECTED Nasal Influenza B PCR NOT DETECTED Nasal Influenza A PCR NOT DETECTED Nasal Parainfluen 1 PCR NOT DETECTED Nasal Parainfluen 2 PCR NOT DETECTED Nasal Parainfluen 3 PCR NOT DETECTED Nasal Parainfluen 4 PCR NOT DETECTED Nasal RSV (PCR) NOT DETECTED Nasal B.pertussis DNA PCR NOT DETECTED Nasal C.pneumoniae (PCR) NOT DETECTED Ney Human Metapneumo PCR NOT DETECTED Nasal M.pneumoniae (PCR) NOT DETECTED Nasal SARS-CoV-2 (PCR) NOT DETECTED Serum Ketones 11/21/22 11/21/22 11/21/22 01:43 02:54 04:15 WBC RBC Hgb Hct MCV MCH MCHC RDW Plt Count MPV Neut # (Auto) Lymph # (Auto) [place] # (Auto) Eos # (Auto) Baso # (Auto) Absolute Nucleated RBC Nucleated RBC % VBG pH VBG pCO2 VBG pO2 VBG HCO3 VBG Total CO2 VBG O2 Saturation VBG Base Excess Sodium Potassium Chloride Carbon Dioxide Anion Gap BUN Creatinine Estimated GFR (MDRD) Glucose POC Whole Bld Glucose 154 H 182 H 105 H Calcium Magnesium Total Bilirubin AST ALT Alkaline Phosphatase Total Protein Albumin Globulin Albumin/Globulin Ratio Lipase Urine Color Urine Clarity Urine pH Ur Specific [place] Urine Protein Urine Glucose (UA) Urine Ketones Urine Occult Blood Urine Nitrite Urine Bilirubin Urine Urobilinogen Ur Leukocyte Esterase Urine RBC Urine WBC Ur Squamous Epith Cells Urine Bacteria Ur Microscopic Review Urine Culture Comments Urine HCG, Qual Nasal Adenovirus (PCR) Nasal B. parapertussis DNA (PCR) Nasal Coronavir 229E PCR Nasal Coronavir HKU1 PCR Nasal Coronavir NL63 PCR Nasal Coronavir OC43 PCR Nasal Enterovir/Rhinovir PCR Nasal Influenza B PCR Nasal Influenza A PCR Nasal Parainfluen 1 PCR Nasal Parainfluen 2 PCR Nasal Parainfluen 3 PCR Nasal Parainfluen 4 PCR Nasal RSV (PCR) Nasal B.pertussis DNA PCR Nasal C.pneumoniae (PCR) Ney Human Metapneumo PCR Nasal M.pneumoniae (PCR) Nasal SARS-CoV-2 (PCR) Serum Ketones 11/21/22 11/21/22 11/21/22 04:50 04:50 05:25 WBC 8.0 RBC 4.79 Hgb 15.4 Hct 46.3 MCV 96.7 H MCH 32.2 H MCHC 33.3 RDW 11.9 L Plt Count 215 MPV 9.7 Neut # (Auto) 5.8 Lymph # (Auto) 1.4 L [place] # (Auto) 0.6 Eos # (Auto) 0.0 Baso # (Auto) 0.0 Absolute Nucleated RBC 0.00 Nucleated RBC % 0.0 VBG pH VBG pCO2 VBG pO2 VBG HCO3 VBG Total CO2 VBG O2 Saturation VBG Base Excess Sodium 138 Potassium 2.7 L Chloride 110 Carbon Dioxide 9 L* Anion Gap 19.0 H BUN 12 Creatinine 0.8 Estimated GFR (MDRD) 117 Glucose 91 POC Whole Bld Glucose 87 Calcium 8.6 Magnesium Total Bilirubin AST ALT Alkaline Phosphatase Total Protein Albumin Globulin Albumin/Globulin Ratio Lipase Urine Color Urine Clarity Urine pH Ur Specific [place] Urine Protein Urine Glucose (UA) Urine Ketones Urine Occult Blood Urine Nitrite Urine Bilirubin Urine Urobilinogen Ur Leukocyte Esterase Urine RBC Urine WBC Ur Squamous Epith Cells Urine Bacteria Ur Microscopic Review Urine Culture Comments Urine HCG, Qual Nasal Adenovirus (PCR) Nasal B. parapertussis DNA (PCR) Nasal Coronavir 229E PCR Nasal Coronavir HKU1 PCR Nasal Coronavir NL63 PCR Nasal Coronavir OC43 PCR Nasal Enterovir/Rhinovir PCR Nasal Influenza B PCR Nasal Influenza A PCR Nasal Parainfluen 1 PCR Nasal Parainfluen 2 PCR Nasal Parainfluen 3 PCR Nasal Parainfluen 4 PCR Nasal RSV (PCR) Nasal B.pertussis DNA PCR Nasal C.pneumoniae (PCR) Ney Human Metapneumo PCR Nasal M.pneumoniae (PCR) Nasal SARS-CoV-2 (PCR) Serum Ketones 11/21/22 11/21/22 06:00 06:21 WBC RBC Hgb Hct MCV MCH MCHC RDW Plt Count MPV Neut # (Auto) Lymph # (Auto) [place] # (Auto) Eos # (Auto) Baso # (Auto) Absolute Nucleated RBC Nucleated RBC % VBG pH 7.207 L VBG pCO2 23.9 L VBG pO2 143.9 H VBG HCO3 9.3 L VBG Total CO2 10.0 L VBG O2 Saturation 99.0 H VBG Base Excess -16.6 L Sodium Potassium Chloride Carbon Dioxide Anion Gap BUN Creatinine Estimated GFR (MDRD) Glucose POC Whole Bld Glucose 122 H Calcium Magnesium Total Bilirubin AST ALT Alkaline Phosphatase Total Protein Albumin Globulin Albumin/Globulin Ratio Lipase Urine Color Urine Clarity Urine pH Ur Specific [place] Urine Protein Urine Glucose (UA) Urine Ketones Urine Occult Blood Urine Nitrite Urine Bilirubin Urine Urobilinogen Ur Leukocyte Esterase Urine RBC Urine WBC Ur Squamous Epith Cells Urine Bacteria Ur Microscopic Review Urine Culture Comments Urine HCG, Qual Nasal Adenovirus (PCR) Nasal B. parapertussis DNA (PCR) Nasal Coronavir 229E PCR Nasal Coronavir HKU1 PCR Nasal Coronavir NL63 PCR Nasal Coronavir OC43 PCR Nasal Enterovir/Rhinovir PCR Nasal Influenza B PCR Nasal Influenza A PCR Nasal Parainfluen 1 PCR Nasal Parainfluen 2 PCR Nasal Parainfluen 3 PCR Nasal Parainfluen 4 PCR Nasal RSV (PCR) Nasal B.pertussis DNA PCR Nasal C.pneumoniae (PCR) Ney Human Metapneumo PCR Nasal M.pneumoniae (PCR) Nasal SARS-CoV-2 (PCR) Serum Ketones PD Medical Decision Making - ED course Complexity details: reviewed old records, reviewed results, re-evaluated patient, considered differential, d/w patient ED course: The patient was not reporting very high blood sugars at home, certainly not in the range we generally would expect with DKA. He was alert with good mentation, but was tachycardic and BP was elevated. I did work him up with laboratory studies including ABG to further evaluate. He was given a liter 0.9 normal saline initially, as well as Zofran and a milligram of Ativan. Despite a relatively low blood sugar at 2 just over 200, the patient was found to be acidotic and he had an anion gap of 28. He had a small amount of ketones in his blood as well. His pH was 7.06. The patient was started on an insulin drip and over the course the evening, his gap was noted to have significantly narrowed, down to 19. As we did not have ICU beds all night, the patient was kept in the emergency department, pending treatment until Improvement in his numbers, And signed out to the oncoming emergency physician. Ideally, if a bed becomes available, this patient will be admitted, as transfer is highly unlikely given the current situation with hospitals filled beyond capacity throughout the state.
[2022-11-20 20:14] LABS: ALBUMIN 5.6 g/dL (3.2-5.5); ALBUMIN/GLOBULIN RATIO 1.2 (1.0-2.2); ALKALINE PHOSPHATASE 115 IU/L (42-121); ALT ALANINE AMINOTRANSFERASE 77 IU/L (10-60); AST ASPARTATE AMINOTRANSFERASE 61 IU/L (10-42); BILIRUBIN,TOTAL 1.7 mg/dL (0.2-1.0); BUN - BLOOD UREA NITROGEN 13 mg/dL (6-20); CHLORIDE 100 mmol/L (101-111); CREATININE 0.9 mg/dL (0.6-1.2); GFR - MDRD 102 (>89); GLUCOSE 224 mg/dL (70-100); LIPASE 74 U/L (22-51); POTASSIUM 3.1 mmol/L (3.5-5.0); SODIUM 136 mmol/L (135-145); TOTAL PROTEIN 10.3 g/dL (6.7-8.2)
[2022-11-20 20:17] LABS: CARBON DIOXIDE - CO2 8 mmol/L (21-32)
[2022-11-20 20:19] LABS: KETONES, SERUM (ACETEST) SMALL (NEGATIVE)
[2022-11-20] MEDS ORDERED: DEXTROSE 5%-0.45% NACL 1,000 ML IV SCH (21:00)
[2022-11-20 21:21] LABS: VBG HCO3 7.1 mmol/L (23-28); VBG PCO2 25.4 mmHg (41-51); VBG PO2 23.8 mmHg (25-47); VBG TOTAL CO2 7.9 mmol/L (24-29)
[2022-11-20 21:22] LABS: VBG BASE EXCESS -21.5 mmol/L (-2 - +2); VBG OXYGEN SATURATION 46.1 % (60-80)
[2022-11-20 21:23] LABS: VBG PH 7.066 (7.31-7.41)
[2022-11-20 21:46] LABS: VBG BASE EXCESS -22.3 mmol/L (-2 - +2); VBG HCO3 5.8 mmol/L (23-28); VBG OXYGEN SATURATION 84.2 % (60-80); VBG PO2 51.5 mmHg (25-47); VBG TOTAL CO2 6.4 mmol/L (24-29)
[2022-11-20] MEDS ORDERED: INSULIN REGULAR HUMAN 100 UNIT/1 ML 10 ML MDV ONE (21:56)
[2022-11-20 21:57] LABS: BILIRUBIN,URINE NEGATIVE (NEGATIVE); GLUCOSE, URINE (UA) 250 mg/dL (NEGATIVE); KETONES,URINE (UA) >=80 mg/dL (NEGATIVE); LEUKOCYTE ESTERASE, URINE NEGATIVE (NEGATIVE); NITRITE,URINE NEGATIVE (NEGATIVE); OCCULT BLOOD,URINE TRACE-INTA (NEGATIVE); PROTEIN,URINE 30 mg/dL (NEGATIVE); UROBILINOGEN,URINE 0.2 (NORMAL) E.U./dL (NORMAL)
[2022-11-20 21:59] LABS: CLARITY,URINE CLEAR (CLEAR)
[2022-11-20] MEDS ORDERED: POTASSIUM CHLORIDE INJ 40 MEQ in DEXTROSE 5%-0.45% NACL 980 ML IV SCH (22:00)
[2022-11-20 22:03] LABS: CREATININE 0.8 mg/dL (0.6-1.2); MAGNESIUM 2.1 mg/dL (1.7-2.8); POTASSIUM 3.4 mmol/L (3.5-5.0); VBG PH 7.08 (7.31-7.41)
[2022-11-20 22:06] LABS: BACTERIA,URINE None Seen /HPF (None Seen); RBC,URINE 0-5 /HPF (0-5); SQUAMOUS EPITHELIAL CELL,UR RARE Squamous (<= Few); WBC,URINE 0-3 /HPF (0-3)
[2022-11-20] MEDS: D5.45NS W/20 MEQ KCL 1,000 ML IV SCH (23:29)
[2022-11-20] MEDS: INSULIN REGULAR HUMAN 100 UNIT in SODIUM CHLORIDE 0.9% 100ML 99 ML IV SCH (23:32)
[2022-11-20 23:40] LABS: BUN - BLOOD UREA NITROGEN 11 mg/dL (6-20); CALCIUM 8.1 mg/dL (8.5-10.3); CHLORIDE 107 mmol/L (101-111); CREATININE 0.9 mg/dL (0.6-1.2); GFR - MDRD 102 (>89); GLUCOSE 194 mg/dL (70-100); MAGNESIUM 2.2 mg/dL (1.7-2.8); POTASSIUM 3.6 mmol/L (3.5-5.0); SODIUM 138 mmol/L (135-145)
[2022-11-20 23:42] LABS: CARBON DIOXIDE - CO2 < 6 mmol/L (21-32)
[2022-11-21 01:38] LABS: BUN - BLOOD UREA NITROGEN 11 mg/dL (6-20); CALCIUM 8.2 mg/dL (8.5-10.3); CHLORIDE 108 mmol/L (101-111); CREATININE 0.9 mg/dL (0.6-1.2); GFR - MDRD 102 (>89); GLUCOSE 198 mg/dL (70-100); MAGNESIUM 2.1 mg/dL (1.7-2.8); POTASSIUM 3.1 mmol/L (3.5-5.0); SODIUM 137 mmol/L (135-145)
[2022-11-21 01:40] LABS: CARBON DIOXIDE - CO2 < 6 mmol/L (21-32)
[2022-11-21] MEDS ORDERED: LORazepam 2 MG/ML VIAL IVP STA ×2 (01:54→08:34)
[2022-11-21] MEDS ORDERED: DROPERIDOL 5 MG/2 ML VIAL IVP STA ×2 (01:54→07:44)
[2022-11-21] MEDS ORDERED: LIDOCAINE VISCOUS 2% 15 ML UDC MM STA (01:55)
[2022-11-21] MEDS ORDERED: MAG HYDROX/AL HYDROX/SIMETH 30 ML UDC PO STA (01:55)
[2022-11-21 02:10] LABS: B. PARAPERTUSSIS- RESP PCR PAN NOT DETECTED; B. PERTUSSIS- RESP PCR PANEL NOT DETECTED; C. PNEUMONIAE- RESP PCR PANEL NOT DETECTED; CORONAVIRUS 229E-RESP PCR NOT DETECTED; CORONAVIRUS HKU1-RESP PCR NOT DETECTED; CORONAVIRUS NL63-RESP PCR NOT DETECTED; CORONAVIRUS OC43-RESP PCR NOT DETECTED; HUMAN METAPNEUMOVIRUS NOT DETECTED; INFLUENZA A- RESP PCR PANEL NOT DETECTED; INFLUENZA B - RESP PCR PANEL NOT DETECTED; M. PNEUMONIAE- RESP PCR PANEL NOT DETECTED; PARAINFLUENZA VIRUS 1 NOT DETECTED; PARAINFLUENZA VIRUS 2 NOT DETECTED; PARAINFLUENZA VIRUS 3 NOT DETECTED; PARAINFLUENZA VIRUS 4 NOT DETECTED; RHINOVIRUS/ENTEROVIRUS NOT DETECTED; RSV- RESP PCR PANEL NOT DETECTED; SARS-CoV-2 -RESP PCR PANEL NOT DETECTED
[2022-11-21] MEDS ORDERED: D5.45NS W/20 MEQ KCL 1,000 ML IV STA (04:37)
[2022-11-21 05:00] LABS: BASOPHILS % (AUTO) 0.5 %; HCT - HEMATOCRIT 46.3 % (42.0-52.0); HGB - HEMOGLOBIN 15.4 g/dL (14.0-18.0); LYMPHOCYTES # (AUTO) 1.4 10^3/uL (1.5-3.5); LYMPHOCYTES % (AUTO) 17.9 %; MEAN CORPUSCULAR HEMOGLOBIN 32.2 pg (27.0-31.0); MEAN CORPUSCULAR HGB CONC 33.3 g/dL (32.0-36.0); MEAN CORPUSCULAR VOLUME 96.7 fL (80.0-94.0); MEAN PLATELET VOLUME 9.7 fL (7.4-11.4); MONOCYTES # (AUTO) 0.6 10^3/uL (0.0-1.0); MONOCYTES % (AUTO) 7.7 %; NEUTROPHILS # (AUTO) 5.8 10^3/uL (1.5-6.6); NEUTROPHILS % (AUTO) 72.9 %; PLT - PLATELET COUNT 215 10^3/uL (130-450); RED BLOOD COUNT 4.79 10^6/uL (4.70-6.10); RED CELL DISTRIBUTION WIDTH 11.9 % (12.0-15.0)
[2022-11-21 05:12] LABS: CALCIUM 8.6 mg/dL (8.5-10.3); CREATININE 0.8 mg/dL (0.6-1.2); POTASSIUM 2.7 mmol/L (3.5-5.0)
[2022-11-21 06:12] LABS: VBG BASE EXCESS -16.6 mmol/L (-2 - +2); VBG HCO3 9.3 mmol/L (23-28); VBG PCO2 23.9 mmHg (41-51); VBG PH 7.207 (7.31-7.41); VBG PO2 143.9 mmHg (25-47)
[2022-11-21] MEDS: D5.45NS W/20 MEQ KCL 1,000 ML IV SCH ×4 (07:39→21:08)
[2022-11-21] MEDS ORDERED: FAMOTIDINE 20 MG/2 ML VIAL IVP STA (08:34)
--- NOTE | 2022-11-21 08:41 | ED Physician Documentation ---
ED Addendum - Addendum Addendum: 11/21/22 08:36 Patient seen this morning. Is awake alert and conversant. He does complain of some anxiety and also nausea. His labs this morning had shown an improvement in his pH now up to 7.2. Blood sugars had run a little bit low so the insulin drip was stopped briefly and now is resumed. He maintains on a D5 half-normal infusion as well. This has potassium in it. Lungs are clear. Abdomen is soft. He is awake and conversant. We will continue with the current therapies and recheck labs at 10 AM. Fingerstick blood sugar every hour. We can add famotidine for presumed some irritated stomach with the vomiting. He states he drinks 3-6 drinks daily and denies any binge drinking prior to the DKA episode. However there could be some element of alcohol withdrawal and even consider a combination of DKA with alcoholic ketoacidosis since his blood sugars were relatively lower. He is not in any of the newer insulin medications SGLT2 ("flozins") that might cause DKA at lower sugar levels.
[2022-11-21 10:11] LABS: VBG BASE EXCESS -24.9 mmol/L (-2 - +2); VBG HCO3 4.1 mmol/L (23-28); VBG OXYGEN SATURATION 91.6 % (60-80); VBG PCO2 16.1 mmHg (41-51); VBG PO2 64.3 mmHg (25-47); VBG TOTAL CO2 4.6 mmol/L (24-29)
[2022-11-21 10:12] LABS: VBG PH 7.027 (7.31-7.41)
[2022-11-21 10:42] LABS: BUN - BLOOD UREA NITROGEN 12 mg/dL (6-20); CALCIUM 8.4 mg/dL (8.5-10.3); CHLORIDE 107 mmol/L (101-111); CREATININE 0.8 mg/dL (0.6-1.2); GFR - MDRD 117 (>89); GLUCOSE 253 mg/dL (70-100); MAGNESIUM 2.1 mg/dL (1.7-2.8); POTASSIUM 3.1 mmol/L (3.5-5.0); SODIUM 136 mmol/L (135-145)
[2022-11-21 10:43] LABS: CARBON DIOXIDE - CO2 < 6 mmol/L (21-32)
[2022-11-21] MEDS: INSULIN REGULAR HUMAN 100 UNIT in SODIUM CHLORIDE 0.9% 100ML 99 ML IV SCH (11:30)
[2022-11-21] MEDS ORDERED: SODIUM CHLORIDE 0.9% 1,000 ML IV STA ×2 (12:00→13:12)
[2022-11-21 15:00] LABS: VBG BASE EXCESS 16.2 mmol/L (-2 - +2); VBG HCO3 10.5 mmol/L (23-28); VBG PCO2 28.3 mmHg (41-51); VBG PO2 36.6 mmHg (25-47); VBG TOTAL CO2 11.4 mmol/L (24-29)
[2022-11-21 15:01] LABS: VBG OXYGEN SATURATION 79.9 % (60-80)
[2022-11-21 15:04] LABS: VBG PH 7.189 (7.31-7.41)
[2022-11-21 15:09] LABS: CALCIUM 7.8 mg/dL (8.5-10.3); CREATININE 0.8 mg/dL (0.6-1.2); MAGNESIUM 1.8 mg/dL (1.7-2.8)
[2022-11-21] MEDS ORDERED: ONDANSETRON 4 MG/2 ML VIAL IVP PRN (17:33)
[2022-11-21] MEDS ORDERED: ACETAMINOPHEN 500 MG TABLET PO PRN (17:33)
[2022-11-21 18:03] LABS: VBG HCO3 13.6 mmol/L (23-28); VBG PH 7.259 (7.31-7.41); VBG PO2 37.2 mmHg (25-47)
[2022-11-21 18:04] LABS: VBG BASE EXCESS -12.2 mmol/L (-2 - +2); VBG OXYGEN SATURATION 82.5 % (60-80); VBG TOTAL CO2 14.5 mmol/L (24-29)
[2022-11-21 18:09] LABS: CALCIUM 7.9 mg/dL (8.5-10.3); CREATININE 0.6 mg/dL (0.6-1.2); POTASSIUM 3.1 mmol/L (3.5-5.0)
[2022-11-21] MEDS ORDERED: POTASSIUM CHLOR 10 MEQ/100 ML 10 MEQ/100 ML BAG IV STA (18:25)
[2022-11-21] MEDS ORDERED: LORazepam 1 MG TABLET PO PRN (19:51)
[2022-11-21] MEDS ORDERED: INSULIN GLARGINE-YFGN 300 UNIT/3 ML PEN SUBQ STA (19:51)
--- NOTE | 2022-11-21 19:53 | ED Physician Documentation ---
ED Addendum - Addendum Addendum: 11/21/22 19:53 He is feeling a lot better than this morning. His labs are starting to normalize significantly, the gap is closed. He is receiving supplemental potassium. His bicarb is going up. He ate dinner tonight and did not require any nausea medicine. I have ordered a half dose of his long-acting insulin for tonight, with the hope that may be overnight the drip can be tapered off and then he can go back to his usual routine in the morning and may be discharged midday tomorrow.
[2022-11-21] MEDS: FAMOTIDINE 20 MG/2 ML VIAL IVP SCH ×2 (20:35→20:56)
[2022-11-21 23:52] LABS: VBG BASE EXCESS -8.8 mmol/L (-2 - +2); VBG OXYGEN SATURATION 95.4 % (60-80); VBG PCO2 27.2 mmHg (41-51); VBG PH 7.36 (7.31-7.41); VBG PO2 65.8 mmHg (25-47); VBG TOTAL CO2 15.9 mmol/L (24-29)
[2022-11-22] MEDS ORDERED: INSULIN REGULAR HUMAN 100 UNIT/1 ML 10 ML MDV ONE (01:24)
[2022-11-22] MEDS: D5.45NS W/20 MEQ KCL 1,000 ML IV SCH ×4 (01:50→12:32)
[2022-11-22] MEDS: INSULIN REGULAR HUMAN 100 UNIT in SODIUM CHLORIDE 0.9% 100ML 99 ML IV SCH ×2 (02:09→10:56)
[2022-11-22] MEDS ORDERED: INSULIN REGULAR HUMAN 100 UNIT/1 ML 10 ML MDV SUBQ STA ×2 (04:26→10:38)
[2022-11-22 05:02] LABS: BASOPHILS % (AUTO) 0.7 %; EOSINOPHILS % (AUTO) 0.7 %; HCT - HEMATOCRIT 37.7 % (42.0-52.0); HGB - HEMOGLOBIN 12.8 g/dL (14.0-18.0); LYMPHOCYTES % (AUTO) 21.1 %; MEAN CORPUSCULAR HEMOGLOBIN 32.4 pg (27.0-31.0); MEAN CORPUSCULAR VOLUME 95.4 fL (80.0-94.0); MEAN PLATELET VOLUME 9.3 fL (7.4-11.4); MONOCYTES # (AUTO) 0.4 10^3/uL (0.0-1.0); MONOCYTES % (AUTO) 9.1 %; NEUTROPHILS # (AUTO) 3.1 10^3/uL (1.5-6.6); NEUTROPHILS % (AUTO) 67.7 %; PLT - PLATELET COUNT 158 10^3/uL (130-450); RED BLOOD COUNT 3.95 10^6/uL (4.70-6.10); WHITE BLOOD COUNT 4.5 x10^3/uL (4.8-10.8)
[2022-11-22 05:08] LABS: CALCIUM 7.9 mg/dL (8.5-10.3); CREATININE 0.7 mg/dL (0.6-1.2)
[2022-11-22] MEDS ORDERED: PANTOPRAZOLE 40 MG TABLET PO SCH (07:00)
[2022-11-22 07:36] LABS: VBG HCO3 14.3 mmol/L (23-28); VBG PCO2 26.9 mmHg (41-51); VBG PH 7.342 (7.31-7.41); VBG PO2 127.4 mmHg (25-47); VBG TOTAL CO2 15.1 mmol/L (24-29)
[2022-11-22 07:37] LABS: VBG BASE EXCESS -9.8 mmol/L (-2 - +2); VBG OXYGEN SATURATION 98.7 % (60-80)
[2022-11-22 07:55] LABS: ALBUMIN 3.4 g/dL (3.2-5.5); ALBUMIN/GLOBULIN RATIO 1.3 (1.0-2.2); BILIRUBIN,TOTAL 1.7 mg/dL (0.2-1.0); CALCIUM 7.9 mg/dL (8.5-10.3); CREATININE 0.7 mg/dL (0.6-1.2); POTASSIUM 2.7 mmol/L (3.5-5.0); TOTAL PROTEIN 6.1 g/dL (6.7-8.2)
[2022-11-22] MEDS ORDERED: POTASSIUM CHLOR 10 MEQ/100 ML 10 MEQ/100 ML BAG IV STA ×2 (08:14)
[2022-11-22] MEDS ORDERED: LACTATED RINGERS 1,000 ML IV STA (08:14)
[2022-11-22] MEDS: INSULIN LISPRO 300 UNIT/3 ML PEN SUBQ SCH ×2 (08:55→12:08)
[2022-11-22 08:59] LABS: MAGNESIUM 1.9 mg/dL (1.7-2.8)
[2022-11-22] MEDS ORDERED: INSULIN GLARGINE-YFGN 300 UNIT/3 ML PEN SUBQ SCH (09:00)
[2022-11-22] MEDS: FAMOTIDINE 20 MG/2 ML VIAL IVP SCH (09:13)
[2022-11-22] MEDS ORDERED: SODIUM PHOSPHATE 15 MMOL in SODIUM CHLORIDE 0.9% 250 ML IV ONE (10:38)
[2022-11-22] MEDS ORDERED: LORazepam 1 MG TABLET PO STA ×2 (11:38→14:50)
[2022-11-22] MEDS ORDERED: NEUTRA-PHOS 250 MG TABLET PO SCH (12:00)
--- NOTE | 2022-11-22 12:36 | Ultrasound Report ---
PROCEDURE: Abdomen Limited INDICATIONS: elevated lipase TECHNIQUE: Real-time focused scanning was performed of the abdomen, with image documentation. COMPARISON: None FINDINGS: Liver: Liver shows diffusely increased echogenicity without focal mass lesion. No intrahepatic duct al dilation. Liver is enlarged at 21.3 cm. No focal mass lesion Gallbladder: Sonolucent without cholelithiasis. No gallbladder wall thickening. No pericholecystic fluid or Hough's sign. Contracted. Common Bile Duct: 3.5 mm. Pancreas: There is a suggestion of a focal hypoechoic focus in the head of the pancreas measuring ap proximately 2 x 2.2 cm in diameter Right Kidney: Appropriate in size and echotexture. No evidence of hydronephrosis. No shadowing calc vu. No solid or cystic mass lesion. IMPRESSION: 1. Suggestion of focal hypoechogenicity in the pancreatic head may be artifactual, however, consider follow-up contrast CT abdomen pelvis with thin sections through the pancreas to exclude mass lesion 2. Hepatic fatty infiltration Reviewed by: Alverto Artis MD on 11/22/2022 11:34 AM [facility] Approved by: Alverto Artis MD on 11/22/2022 11:34 AM [facility] Station ID: [id number]
[2022-11-22] MEDS ORDERED: ADENOSINE 6 MG/2 ML VIAL IVP STA (13:21)
--- NOTE | 2022-11-22 13:23 | ED Physician Documentation ---
ED Addendum - Addendum Addendum: 11/22/22 13:22 At approximately 1 PM he went into rapid narrow complex rhythm. He was relatively asymptomatic with it. It was exquisitely regular with a heart rate of about 150. I attempted a vagal maneuver with no change. Subsequently did an EKG which is as follows,: Twelve-lead EKG done at 1310 hrs. discloses a narrow complex exquisitely regular tachycardia. The computer reads as sinus tachycardia but I think it safe to treat it is more of a nonspecific SVT. He did have a prolonged QTC at 517 with some very mild lateral ST depression. 6 mg of IV adenosine was ordered for both diagnosis and therapy 11/22/22 13:31 The adenosine did nothing, he says he is just very anxious waiting for the ultrasound results. The ultrasound was done because of the elevated lipase and there is a potential pancreatic head lesion. Discussed need for follow-up for this, but probably can be done as an outpatient.
[2022-11-22] MEDS ORDERED: LORazepam 2 MG/ML VIAL IVP STA (13:30)
[2022-11-22 13:43] LABS: ALBUMIN 3.6 g/dL (3.2-5.5); ALBUMIN/GLOBULIN RATIO 1.3 (1.0-2.2); BILIRUBIN,TOTAL 1.5 mg/dL (0.2-1.0); CALCIUM 8.4 mg/dL (8.5-10.3); CREATININE 0.7 mg/dL (0.6-1.2); POTASSIUM 3.1 mmol/L (3.5-5.0); TOTAL PROTEIN 6.3 g/dL (6.7-8.2)
[2022-11-22 14:12] VITALS: BP 108/84
--- NOTE | 2022-11-22 14:38 | ED Physician Documentation ---
ED Addendum - Addendum Addendum: 11/22/22 14:34 The patient is feeling back to normal through most of the day today. He is not having any nausea. He is not had any vomiting. He has been eating well. He states his mother brought him hamburger that tasted good. He is drinking fluids. He has been on subcutaneous insulin since last night. His sugars are holding well. He had had electrolyte replacements with potassium and phosphorus. Recheck on the labs at 1:00 today was reasonably improved with now potassium of 3.1 and a phosphorus of 1.6. These are still low but improved. Is resting heart rate decreased to approximately 110 with just relaxing and some Ativan. It went back up to 140 as I came in to talk to him. He states he is just feeling anxious. It does seem to be a sinus tachycardia. Consideration could also be some element of withdrawal perhaps as he has been 2 days here in the hospital and states he usually drinks about 6 drinks a day. He does not seem to be shaky. He denies any history of withdrawal. At this point the patient still has some electrolyte abnormalities. His ultrasound showed a suggestion of a hypoechoic area that needs follow-up imaging. This may be just some edema related to mild pancreatitis. Consideration would be that of this as a precipitant for his DKA episode. He is aware of need in the follow-up for that. He feels more relaxed about it. He really would like to be discharged. Clinically he seems well enough I think he can be discharged with electrolyte supplements. He does need a refill for his Lantus insulin pen. He states [facility] did not cover it for the [facility]. We will all try [facility] instead. I will also provide him a p rescription written so he could just go over to the [facility] in [place] if needed. Disposition: The patient discharged home in stable condition Diagnoses: 1. Acute DKA 2. Mild pancreatitis 3. Electrolyte abnormalities
== END 2022-11-22 14:58 | disposition home or self-care (01) ==
LOC: ED 19:12
DX: E10.10 Type 1 diabetes mellitus with ketoacidosis without coma (principal); K85.90 Acute pancreatitis without necrosis or infection, unspecified; E87.6 Hypokalemia; E83.39 Other disorders of phosphorus metabolism; R00.0 Tachycardia, unspecified; F41.9 Anxiety disorder, unspecified; R11.0 Nausea; Z79.4 Long term (current) use of insulin; Z20.822 Contact with and (suspected) exposure to COVID-19
CPT/HCPCS: 36415; 76705; 80048; 80053; 81001; 82009; 82803; 83690; 83735; 84100; 85025; 87633; 93005; 96361; 96365; 96366; 96375; 96376; 99283; 99285; A9270; J0153; J1815; J2060; J7120; J8499; 81003; 81025; 82947; 87086

== ENCOUNTER 2023-05-21 01:10 | Inpatient (IN) | payer OTHER ==
[2023-05-21] MEDS ORDERED: SODIUM CHLORIDE 0.9% 1,000 ML IV STA (01:25)
[2023-05-21] MEDS ORDERED: ONDANSETRON 4 MG/2 ML VIAL IVP STA (01:25)
[2023-05-21 01:32] LABS: BASOPHILS % (AUTO) 1.9 %; EOSINOPHILS % (AUTO) 0.5 %; HCT - HEMATOCRIT 52.6 % (42.0-52.0); HGB - HEMOGLOBIN 17.3 g/dL (14.0-18.0); LYMPHOCYTES % (AUTO) 13.1 %; MEAN CORPUSCULAR HEMOGLOBIN 31.7 pg (27.0-31.0); MEAN CORPUSCULAR HGB CONC 32.9 g/dL (32.0-36.0); MEAN CORPUSCULAR VOLUME 96.3 fL (80.0-94.0); MEAN PLATELET VOLUME 10.1 fL (7.4-11.4); MONOCYTES % (AUTO) 5.9 %; NEUTROPHILS % (AUTO) 73.2 %; PLT - PLATELET COUNT 375 10^3/uL (130-450); RED BLOOD COUNT 5.46 10^6/uL (4.70-6.10); RED CELL DISTRIBUTION WIDTH 12.3 % (12.0-15.0); WHITE BLOOD COUNT 16.3 x10^3/uL (4.8-10.8)
[2023-05-21] MEDS ORDERED: LORazepam 2 MG/ML VIAL IVP STA ×2 (01:34→02:42)
[2023-05-21 01:35] LABS: KETONES, SERUM (ACETEST) SMALL (NEGATIVE)
[2023-05-21 01:39] LABS: ABNORMAL LYMPHS % (MANUAL) 0 %
--- NOTE | 2023-05-21 01:41 | ED Physician Documentation ---
History of Present Illness - Stated complaint Stated Complaint: SOA/NAUSEA - Chief complaint Chief Complaint: General - History obtained from History obtained from: Patient - Additonal information Additional information: The patient comes to the emergency department chief complaint of anxiety, nausea, and breathing hard. He states he had a dental infection that he thinks started a couple of days ago and was started on antibiotics for this. He noticed that after taking his antibiotics The day before yesterday, he woke up the next morning just feeling "sick". He states he developed nausea and began vomiting. His breathing got increasingly deep and fast and he feels like when he has been in DKA previously. Patient also states that he gets anxious when he realizes he is getting sick. The patient has vomited multiple times. He has not measured a fever. He denies any respiratory symptoms otherwise. No other complaints at this time. He is a known type I diabetic. PD PAST MEDICAL HISTORY - Past Medical History Endocrine/Autoimmune: Type 1 diabetes - Past Surgical History General: Other (Continues pneumothorax with chest tube placement) - Present Medications Home Medications: Ambulatory Orders Medication Instructions Recorded Confirmed Insulin Degludec [Tresiba 17 unit SUBQ DAILY #5 each 08/24/20 Flextouch U-100] Insulin Lispro [Humalog Kwikpen 7 unit SUBQ TIDWM #5 each 08/24/20 U-100] Insulin Glargine [Lantus Solostar] 20 unit SQ DAILY #1 pkt 11/22/22 Potassium Phosphate,Monobasic 500 mg PO BID 10 Days #20 tab 11/22/22 [K-Phos Original] - Allergies Allergies/Adverse Reactions: Allergies Allergy/AdvReac Type Severity Reaction Status Date / Time No Known Drug Allergies Allergy Verified 11/20/22 19:29 - Social History Does the pt smoke?: No Smoking Status: Never smoker - POLST Patient has POLST: No POLST Status: Full Code PD ED PE NORMAL - Vitals Vital signs reviewed: Yes - General General: Alert and oriented X 3, Well developed/nourished, Other (The patient appears anxious and is breathing deeply and rapidly.) - HEENT HEENT: Atraumatic, PERRL, EOMI, Moist mucous membranes - Neck Neck: Supple, no meningeal sign - Cardiac Cardiac: RRR, No murmur - Respiratory Respiratory: Clear bilaterally, Other (Tachypnea with deep respirations.) - Abdomen Abdomen: Soft, Non tender, Non distended - Derm Derm: Normal color, Warm and dry, No rash - Extremities Extremities: No deformity, No edema - Neuro Neuro: Alert and oriented X 3, Other (Grossly intact) - Psych Psych: Normal affect, Other (Anxious mood) Results - Vitals Vitals: Vital Signs - 24 hr 05/21/23 05/21/23 01:16 01:19 Temperature 35.7 C L Heart Rate 116 H 116 H Respiratory 27 H 22 Rate Blood Pressure 166/111 H 163/110 H O2 Saturation 100 100 Oxygen O2 Source Room air - Labs Labs: Laboratory Tests 05/21/23 05/21/23 05/21/23 01:17 01:23 01:23 WBC 16.3 H RBC 5.46 Hgb 17.3 Hct 52.6 H MCV 96.3 H MCH 31.7 H MCHC 32.9 RDW 12.3 Plt Count 375 MPV 10.1 Neut # (Auto) Not Reportable Lymph # (Auto) Not Reportable Gibson # (Auto) Not Reportable Eos # (Auto) Not Reportable Baso # (Auto) Not Reportable Absolute Nucleated RBC Not Reportable Total Counted 100 Band Neuts % (Manual) 1 Abnorm Lymph % (Manual) 0 Metamyelocytes % 3 H Myelocytes % 4 H Nucleated RBC % Not Reportable Neutrophils # (Manual) 10.6 H Lymphocytes # (Manual) 3.7 H Monocytes # (Manual) 0.7 Eosinophils # (Manual) 0.0 Basophils # (Manual) 0.2 H Differential Comment MANUAL DIFFERENTIAL WBC Morphology NORMAL APPEARANCE Platelet Estimate NORMAL (130-450,000) Platelet Morphology NORMAL APPEARANCE RBC Morph Micro Appear NORMAL APPEARANCE VBG pH VBG pCO2 VBG pO2 VBG HCO3 VBG Total CO2 VBG O2 Saturation VBG Base Excess Sodium 138 Potassium 4.0 Chloride 102 Carbon Dioxide < 6 L* Anion Gap 30.0 H BUN 13 Creatinine 1.2 Estimated GFR (MDRD) 73 L Glucose 304 H POC Whole Bld Glucose 329 H Calcium 8.9 Total Bilirubin 1.7 H AST 25 ALT 35 Alkaline Phosphatase 116 Total Protein 9.8 H Albumin 5.0 Globulin 4.8 H Albumin/Globulin Ratio 1.0 Lipase 23 Serum Ketones SMALL H 05/21/23 01:35 WBC RBC Hgb Hct MCV MCH MCHC RDW Plt Count MPV Neut # (Auto) Lymph # (Auto) Gibson # (Auto) Eos # (Auto) Baso # (Auto) Absolute Nucleated RBC Total Counted Band Neuts % (Manual) Abnorm Lymph % (Manual) Metamyelocytes % Myelocytes % Nucleated RBC % Neutrophils # (Manual) Lymphocytes # (Manual) Monocytes # (Manual) Eosinophils # (Manual) Basophils # (Manual) Differential Comment WBC Morphology Platelet Estimate Platelet Morphology RBC Morph Micro Appear VBG pH 6.933 L VBG pCO2 19.0 L VBG pO2 59.9 H VBG HCO3 3.9 L VBG Total CO2 4.5 L VBG O2 Saturation 83.1 H VBG Base Excess -27.3 L Sodium Potassium Chloride Carbon Dioxide Anion Gap BUN Creatinine Estimated GFR (MDRD) Glucose POC Whole Bld Glucose Calcium Total Bilirubin AST ALT Alkaline Phosphatase Total Protein Albumin Globulin Albumin/Globulin Ratio Lipase Serum Ketones PD Medical Decision Making - ED course Complexity details: reviewed old records, reviewed results, re-evaluated patient, considered differential, d/w patient ED course: Post was treated symptomatically with IV fluids, Zofran, and Ativan initially. He was worked up with CBC, ER abdominal panel, serum acetone, and venous blood gas. The patient was found to have a blood glucose of 329, which was not terribly high, but his anion gap was 30 and pH on venous blood gas was 6.9. He was started on an insulin drip and after the initial liter of 0.9 normal saline, was switched to D5 half-normal saline, due to his blood sugar being only moderately elevated. I discussed the case with Dr. Escobar, the telehospitalist on-call, and he did agree to admit the patient to his service. Departure - Departure Disposition: [facility] DC/Xfer Clinical Impression: DKA (diabetic ketoacidoses) Qualifiers: Diabetes mellitus type: type 1 Diabetes mellitus complication detail: without coma Qualified Code(s): E10.10 - Type 1 diabetes mellitus with ketoacidosis without coma Condition: Critical
[2023-05-21 01:49] LABS: VBG BASE EXCESS -27.3 mmol/L (-2 - +2); VBG HCO3 3.9 mmol/L (23-28); VBG OXYGEN SATURATION 83.1 % (60-80); VBG PO2 59.9 mmHg (25-47); VBG TOTAL CO2 4.5 mmol/L (24-29)
[2023-05-21 01:50] LABS: ALKALINE PHOSPHATASE 116 IU/L (42-121); ALT ALANINE AMINOTRANSFERASE 35 IU/L (10-60); AST ASPARTATE AMINOTRANSFERASE 25 IU/L (10-42); BILIRUBIN,TOTAL 1.7 mg/dL (0.2-1.0); BUN - BLOOD UREA NITROGEN 13 mg/dL (6-20); CALCIUM 8.9 mg/dL (8.5-10.3); CHLORIDE 102 mmol/L (101-111); CREATININE 1.2 mg/dL (0.6-1.2); GFR - MDRD 73 (>89); GLUCOSE 304 mg/dL (70-100); LIPASE 23 U/L (22-51); SODIUM 138 mmol/L (135-145); TOTAL PROTEIN 9.8 g/dL (6.7-8.2)
[2023-05-21 01:51] LABS: CARBON DIOXIDE - CO2 < 6 mmol/L (21-32)
[2023-05-21 01:51] LABS: VBG PH 6.933 (7.31-7.41)
[2023-05-21 01:55] LABS: BAND NEUTROPHILS % (MANUAL) 1 %; BASOPHILS # (MANUAL) 0.2 10^3/uL (0-0.1); BASOPHILS % (MANUAL) 1 %; LYMPHOCYTES # (MANUAL) 3.7 10^3/uL (1.5-3.5); LYMPHOCYTES % (MANUAL) 23 %; METAMYELOCYTES % (MANUAL) 3 %; MONOCYTES # (MANUAL) 0.7 10^3/uL (0.0-1.0); MYELOCYTES % (MANUAL) 4 %; NEUTROPHILS # (MANUAL) 10.6 10^3/uL (1.5-6.6)
[2023-05-21 01:56] LABS: DIFFERENTIAL COMMENT MANUAL DIFFERENTIAL; PLATELET ESTIMATE, MANUAL NORMAL (130-450,000) (NORMAL); PLATELET MORPHOLOGY NORMAL APPEARANCE (NORMAL); RBC MORPHOLOGY (MULTIPLE) NORMAL APPEARANCE (NORMAL); WBC MORPHOLOGY (MULTIPLE) NORMAL APPEARANCE (NORMAL)
[2023-05-21] MEDS ORDERED: DROPERIDOL 5 MG/2 ML VIAL IVP STA (02:05)
--- OUTSIDE RECORDS SUMMARY | 2023-05-21 02:12 | EXTERNAL MEDICAL SUMMARY RPT | Continuity of Care Document ---
Author Name Unknown Address [address] [place] [address] Phone Organization [facility] Address [address] [place] [address] Phone Care Team Providers Care Maintenance Service Dispatcher Name Role Phone Unavailable Unavailable Unavailable Viviana Betancourt Md Unavailable Unavailable Medications date description facility 2023-05-20 00:00 amoxicillin-pot clavulanate [facility] [place] 2023-05-20 00:00 insulin glargine [facility] [place] 2023-05-20 00:00 amoxicillin-pot clavulanate [facility] [place] 2023-05-20 00:00 insulin glargine [facility] [place] 2023-05-20 00:00 insulin glargine [facility] [place] 2023-05-20 00:00 amoxicillin-pot clavulanate [facility] [place] 2023-05-20 00:00 insulin glargine [facility] [place] 2023-05-20 00:00 amoxicillin-pot clavulanate [facility] [place] Problems date description facility 2023-05-20 00:00 Dental abscess [facility] [place] 2023-05-20 00:00 Periapical abscess without sinu s [facility] [place] Procedures date description facility 2023-05-20 00:00 Visit Code Hold [facility] [place] Social History date description facility 2023-05-20 00:00 Never smoker [facility] [place] Vital Signs date measurement value units 2023-05-20 00:00 BMI 23.17 kg/m2 2023-05-20 00:00 BP_diastolic 94 mmHg 2023-05-20 00:00 BP_systolic 132 mmHg 2023-05-20 00:00 heart_rate 116 /min 2023-05-20 00:00 height_metric 185.42 cm 2023-05-20 00:00 height_standard 73 in 2023-05-20 00:00 respiration_rate 16 /min 2023-05-20 00:00 temperature_metric 36.11 C 2023-05-20 00:00 temperature_standard 97 F 2023-05-20 00:00 weight_metric 79.38 kg 2023-05-20 00:00 weight_standard 175 lb
[2023-05-21] MEDS ORDERED: INSULIN REGULAR HUMAN 300 UNIT/3 ML VIAL IVP ONE (02:27)
[2023-05-21] MEDS ORDERED: ACETAMINOPHEN 325 MG TABLET PO PRN (02:27)
[2023-05-21] MEDS ORDERED: SODIUM CHLORIDE FLUSH 0.9% 10 ML SYRINGE IVP PRN (02:27)
[2023-05-21] MEDS: INSULIN REGULAR IN 0.9 % NS 100 UNIT/100 ML BAG IV STA ×2 (02:38→03:39)
[2023-05-21] MEDS ORDERED: diphenhydrAMINE INJ 50 MG/ML VIAL IVP STA (02:45)
[2023-05-21] MEDS ORDERED: SODIUM BICARBONATE ABBOJECT 50 MEQ/50 ML SYRINGE IVP ONE (03:02)
--- NOTE | 2023-05-21 03:09 | HISTORY & PHYSICAL EXAMINATION ---
Chief Complaint - Chief Complaint Chief Complaint: Pateint woke up in morning just feeling "sick". History of Present Illness - Admitted From Admitted From:: Home - History Obtained From Records Reviewed: Yes History obtained from: ER team and review of records Exam Limitations: Pateint in moderate distress and not participating or answeering questions - History of Present Illness HPI Comment/Other: Mr Snowden comes to the emergency department chief complaint of anxiety, nausea, and breathing hard. He states he had a dental infection that he thinks started a couple of days ago and was started on antibiotics for this. He noticed that after taking his antibiotics The day before yesterday, he woke up the next morning just feeling "sick". He states he developed nausea and began vomiting. His breathing got increasingly deep and fast and he feels like when he has been in DKA previously. Patient also states that he gets anxious when he realizes he is getting sick. The patient has vomited multiple times. He has not measured a fever. He denies any respiratory symptoms otherwise. No other complaints at this time. He is a known type I diabetic. Pateint when seen by me not able to participate in conversation in moderate distress and very sleepy, as per review of records has had DKA multiple times in the past, recently had dental work, is acidotic, although his glucose level is not very high he has a wide anion gap and is in severe acidosis History - Past Medical History Respiratory: reports: Other (Hx of pneumothorax in 2019) Endocrine/Autoimmune: reports: Type 1 diabetes - Past Surgical History General: reports: Other (Continues pneumothorax with chest tube placement) - Family & Social History Family History Comment/Other: Patient's father denies any family history of significant medical conditions. Social History Notes: Patient drinks alcohol daily. It is reported that he is a heavy drinker. He smokes marijuana. He denies use of tobacco products. - POLST Patient has POLST: No POLST Status: Full Code Meds/Allgy - Home Medications Home Medications: Ambulatory Orders Medication Instructions Recorded Confirmed Insulin Degludec [Tresiba 17 unit SUBQ DAILY #5 each 08/24/20 Flextouch U-100] Insulin Lispro [Humalog Kwikpen 7 unit SUBQ TIDWM #5 each 08/24/20 U-100] Insulin Glargine [Lantus Solostar] 20 unit SQ DAILY #1 pkt 11/22/22 Potassium Phosphate,Monobasic 500 mg PO BID 10 Days #20 tab 11/22/22 [K-Phos Original] - Allergies Allergies/Adverse Reactions: Allergies Allergy/AdvReac Type Severity Reaction Status Date / Time No Known Drug Allergies Allergy Verified 11/20/22 19:29 Review of Systems - Constitutional Constitutional: reports: Weakness - Gastrointestinal Gastrointestinal: reports: Nausea, Vomiting - Endocrine Endocrine: reports: Other (DKA symptoms like in past) Prior Level of Functionality: Independent with ADL Exam - Vital Signs Vital Signs: Vital Signs x48h Temp Pulse Resp BP Pulse Ox 05/21/23 01:19 116 H 22 163/110 H 100 05/21/23 01:16 35.7 C L 116 H 27 H 166/111 H 100 - Physical Exam General Appearance: positive: Moderate distress Eyes Bilateral: positive: Normal inspection, PERRL Respiratory: positive: Chest non-tender, Other (Breathing Tachypneic) Cardiovascular: positive: Tachycardia Neurologic/Psychiatric: positive: Other ( very sleepy) Sepsis Event Note (H) - Evaluation Current Stage of Sepsis: Ruled out Conclusion/Plan - Problem List (1) Leukocytosis Conclusion/Plan: Continue empiric Zosyn Follow up cultures Could be reactive from being in DKA repeat CBC in am (2) SIRS (systemic inflammatory response syndrome) Conclusion/Plan: IVF and supportive care, Monitor urine output On IV zosyn (3) DKA (diabetic ketoacidoses) Conclusion/Plan: Patient will be started on DKA protocol Admit to ICU IVF Insulin drip electrolytes to be closely monitored Keep electrolytes optimized Will give 1 amp of Bicarb as VBG shows ph of 6.9 and HCO3 of <6 Monitor strict in and out Switch to D5 1/2 NS with insulin drip once blood sugar close to 250 or less DM education Outpatient referral to Endocrine Qualifiers: Diabetes mellitus type: type 1 Diabetes mellitus complication detail: without coma Qualified Code(s): E10.10 - Type 1 diabetes mellitus with ketoacidosis without coma - Lab Results Fish Bones: 05/21/23 01:23 05/21/23 01:23 - Diagnostic Imaging Results Diagnostic Imaging Results: positive: Prelim report reviewed - EKG Results EKG Interpreted Independently: No
[2023-05-21 03:20] LABS: MUDS CUTOFF CONCENTRATIONS CUTOFF CONC BELOW:
[2023-05-21 03:22] LABS: VBG HCO3 3.3 mmol/L (23-28); VBG OXYGEN SATURATION 92.8 % (60-80); VBG PCO2 18.1 mmHg (41-51); VBG PO2 84.8 mmHg (25-47); VBG TOTAL CO2 3.9 mmol/L (24-29)
[2023-05-21 03:25] LABS: BILIRUBIN,URINE NEGATIVE (NEGATIVE); GLUCOSE, URINE (UA) 500 mg/dL (NEGATIVE); KETONES,URINE (UA) >=80 mg/dL (NEGATIVE); LEUKOCYTE ESTERASE, URINE NEGATIVE (NEGATIVE); NITRITE,URINE NEGATIVE (NEGATIVE); OCCULT BLOOD,URINE SMALL (NEGATIVE); PH,URINE 5.5 PH (5.0-7.5); PROTEIN,URINE 100 mg/dL (NEGATIVE); UROBILINOGEN,URINE 0.2 (NORMAL) E.U./dL (NORMAL)
[2023-05-21 03:30] LABS: BUN - BLOOD UREA NITROGEN 13 mg/dL (6-20); CALCIUM 8.1 mg/dL (8.5-10.3); CHLORIDE 109 mmol/L (101-111); CREATININE 1.1 mg/dL (0.6-1.2); GFR - MDRD 80 (>89); GLUCOSE 291 mg/dL (70-100); MAGNESIUM 2.1 mg/dL (1.7-2.8); POTASSIUM 3.9 mmol/L (3.5-5.0); SODIUM 140 mmol/L (135-145)
[2023-05-21 03:32] LABS: CARBON DIOXIDE - CO2 < 6 mmol/L (21-32); VBG PH 6.882 (7.31-7.41)
[2023-05-21 03:33] LABS: CLARITY,URINE CLEAR (CLEAR)
[2023-05-21 03:38] LABS: AMPHETAMINE SCREEN,URINE NEGATIVE (NEGATIVE); BACTERIA,URINE None Seen /HPF (None Seen); BARBITURATE SCREEN,UR NEGATIVE (NEGATIVE); BENZODIAZEPINES SCREEN, URINE NEGATIVE (NEGATIVE); CASTS, URINE 0-2 Hyaline Casts /LPF; COCAINE SCREEN URINE NEGATIVE (NEGATIVE); METHADONE SCREEN, URINE NEGATIVE (NEGATIVE); METHAMPHETAMINES SCREEN, URINE NEGATIVE (NEGATIVE); OPIATE SCREEN, URINE NEGATIVE (NEGATIVE); OXYCODONE SCREEN, URINE NEGATIVE (NEGATIVE); PROPOXYPHENE SCREEN, URINE NEGATIVE (NEGATIVE); RBC,URINE 0-5 /HPF (0-5); SQUAMOUS EPITHELIAL CELL,UR FEW Squamous (<= Few); THC CANNABINOID SCREEN, URINE POSITIVE (NEGATIVE); TRICYCLIC ANTIDEPRESSANT,URINE NEGATIVE (NEGATIVE); WBC,URINE 0-3 /HPF (0-3)
[2023-05-21] MEDS: SODIUM CHLORIDE 0.9% 1,000 ML IV SCH (03:40)
[2023-05-21] MEDS ORDERED: INSULIN REGULAR IN 0.9 % NS 100 UNIT/100 ML BAG IV SCH ×2 (04:01→15:00)
[2023-05-21] MEDS: DEXTROSE 5%-0.45% NACL 1,000 ML IV SCH ×3 (05:18→20:01)
[2023-05-21] MEDS: POTASSIUM CHLOR 10 MEQ/100 ML 10 MEQ/100 ML BAG IV SCH ×8 (05:19→21:15)
[2023-05-21 05:40] LABS: EOSINOPHILS % (AUTO) 0.1 %; HCT - HEMATOCRIT 48.8 % (42.0-52.0); HGB - HEMOGLOBIN 15.9 g/dL (14.0-18.0); LYMPHOCYTES % (AUTO) 7.6 %; MEAN CORPUSCULAR HEMOGLOBIN 31.8 pg (27.0-31.0); MEAN CORPUSCULAR HGB CONC 32.6 g/dL (32.0-36.0); MEAN CORPUSCULAR VOLUME 97.6 fL (80.0-94.0); MEAN PLATELET VOLUME 9.4 fL (7.4-11.4); MONOCYTES % (AUTO) 7.7 %; NEUTROPHILS % (AUTO) 78.6 %; PLT - PLATELET COUNT 249 10^3/uL (130-450); RED CELL DISTRIBUTION WIDTH 12.4 % (12.0-15.0); WHITE BLOOD COUNT 14.3 x10^3/uL (4.8-10.8)
[2023-05-21 05:43] LABS: CALCIUM, IONIZED 1.21 mmol/L (1.15-1.33)
[2023-05-21 05:45] LABS: ABNORMAL LYMPHS % (MANUAL) 0 %
[2023-05-21 05:54] LABS: CALCIUM 8.3 mg/dL (8.5-10.3); CREATININE 1.1 mg/dL (0.6-1.2); MAGNESIUM 2.1 mg/dL (1.7-2.8); POTASSIUM 3.5 mmol/L (3.5-5.0); VBG PH 7.073 (7.31-7.41)
[2023-05-21 06:02] LABS: BAND NEUTROPHILS % (MANUAL) 7 %; BASOPHILS # (MANUAL) 0.1 10^3/uL (0-0.1); BASOPHILS % (MANUAL) 1 %; LYMPHOCYTES # (MANUAL) 1.3 10^3/uL (1.5-3.5); LYMPHOCYTES % (MANUAL) 9 %; METAMYELOCYTES % (MANUAL) 1 %; MYELOCYTES % (MANUAL) 6 %; NEUTROPHILS # (MANUAL) 10.9 10^3/uL (1.5-6.6)
[2023-05-21 06:03] LABS: DIFFERENTIAL COMMENT MANUAL DIFFERENTIAL; PLATELET ESTIMATE, MANUAL NORMAL (130-450,000) (NORMAL); PLATELET MORPHOLOGY NORMAL APPEARANCE (NORMAL); RBC MORPHOLOGY (MULTIPLE) NORMAL APPEARANCE (NORMAL); WBC MORPHOLOGY (MULTIPLE) NORMAL APPEARANCE (NORMAL)
[2023-05-21] MEDS ORDERED: POTASSIUM PHOSPHATE 15 MMOL in SODIUM CHLORIDE 0.9% 250 ML IV ONE (08:00)
[2023-05-21] MEDS: PIPERACILLIN/TAZOBACTAM 3.375 GM in SODIUM CHLORIDE 0.9% MINIBAG 100 ML IV SCH ×2 (08:29→17:05)
[2023-05-21] MEDS: SODIUM CHLORIDE FLUSH 0.9% 10 ML SYRINGE IVP SCH ×2 (08:31→17:05)
--- NOTE | 2023-05-21 09:56 | XRAY Report ---
PROCEDURE: Chest 1 View X-Ray INDICATIONS: SOB and had recent URI TECHNIQUE: One view of the chest was acquired. COMPARISON: None. FINDINGS: Surgical changes and devices: None. Lungs and pleura: No pleural effusions or pneumothorax. Lungs are clear. Mediastinum: Mediastinal contours appear normal. Heart size is normal. Bones and chest wall: No suspicious bony lesions. Overlying soft tissues appear unremarkable. IMPRESSION: No acute cardiopulmonary process. Reviewed by: Jozef Zamora MD on 05/21/2023 9:55 AM PDT Approved by: Jozef Zamora MD on 05/21/2023 9:55 AM PDT Station ID: [id number]
[2023-05-21 09:59] LABS: KETONES, SERUM (ACETEST) SMALL (NEGATIVE)
[2023-05-21 10:00] LABS: BUN - BLOOD UREA NITROGEN 14 mg/dL (6-20); CALCIUM 8.5 mg/dL (8.5-10.3); CARBON DIOXIDE - CO2 14 mmol/L (21-32); CHLORIDE 114 mmol/L (101-111); CREATININE 0.9 mg/dL (0.6-1.2); GFR - MDRD 101 (>89); GLUCOSE 155 mg/dL (70-100); POTASSIUM 3.7 mmol/L (3.5-5.0); SODIUM 140 mmol/L (135-145)
[2023-05-21 11:31] LABS: ESTIMATED AVERAGE GLUCOSE 266 mg/dL (70-100); HEMOGLOBIN A1c% 10.9 % (4.27-6.07)
--- NOTE | 2023-05-21 13:33 | PHARMACY PROGRESS NOTE ---
- Best Possible Medication History Admit Date and Time: 05/21/23 0229 Processed by: Pharmacy Medication History completed: Yes Patient Interview: Completed Secondary Source(s): Pharmacy records (bd is 1995 in the [facility] system ([id number])) As the person ultimately responsible for medication therapy, providers are able to order a medication from an existing home medication list in [facility] via the "Reconcile Routine" prior to Confirmation of that medication by decision support manager. Such practice is discouraged except when the physician, in their clinical judgment, deems that a medical need exists for a medication without regard to previous use.
[2023-05-21 13:57] LABS: KETONES, SERUM (ACETEST) MODERATE (NEGATIVE)
[2023-05-21 13:58] LABS: BUN - BLOOD UREA NITROGEN 15 mg/dL (6-20); CALCIUM 8.1 mg/dL (8.5-10.3); CHLORIDE 111 mmol/L (101-111); CREATININE 0.7 mg/dL (0.6-1.2); GFR - MDRD 135 (>89); GLUCOSE 194 mg/dL (70-100); POTASSIUM 3.6 mmol/L (3.5-5.0); SODIUM 137 mmol/L (135-145)
[2023-05-21 14:02] LABS: CARBON DIOXIDE - CO2 12 mmol/L (21-32)
[2023-05-21] MEDS ORDERED: POTASSIUM CHLORIDE 20 MEQ TABLET PO ONE (15:02)
[2023-05-21] MEDS ORDERED: INSULIN LISPRO 300 UNIT/3 ML PEN SUBQ SCH (17:00)
[2023-05-21 17:39] LABS: KETONES, SERUM (ACETEST) MODERATE (NEGATIVE)
[2023-05-21 17:40] LABS: BUN - BLOOD UREA NITROGEN 13 mg/dL (6-20); CALCIUM 8.3 mg/dL (8.5-10.3); CARBON DIOXIDE - CO2 16 mmol/L (21-32); CHLORIDE 111 mmol/L (101-111); CREATININE 0.7 mg/dL (0.6-1.2); GFR - MDRD 135 (>89); GLUCOSE 192 mg/dL (70-100); SODIUM 136 mmol/L (135-145)
[2023-05-21] MEDS ORDERED: INSULIN REGULAR HUMAN 100 UNIT in SODIUM CHLORIDE 0.9% 100ML 99 ML IV ONE (18:00)
[2023-05-21 19:43] LABS: MAGNESIUM 1.6 mg/dL (1.7-2.8); PHOSPHORUS 1.3 mg/dL (2.5-4.6)
[2023-05-21] MEDS: LORazepam 1 MG TABLET PO PRN (21:10)
[2023-05-21] MEDS ORDERED: MAGNESIUM OXIDE 400 MG TABLET PO ONE (21:20)
[2023-05-21 21:28] LABS: BUN - BLOOD UREA NITROGEN 13 mg/dL (6-20); CALCIUM 8.1 mg/dL (8.5-10.3); CARBON DIOXIDE - CO2 19 mmol/L (21-32); CHLORIDE 113 mmol/L (101-111); CREATININE 0.6 mg/dL (0.6-1.2); GFR - MDRD 162 (>89); GLUCOSE 125 mg/dL (70-100); KETONES, SERUM (ACETEST) SMALL (NEGATIVE); POTASSIUM 2.9 mmol/L (3.5-5.0); SODIUM 138 mmol/L (135-145)
[2023-05-21] MEDS ORDERED: NEUTRA-PHOS 250 MG TABLET PO SCH (23:00)
[2023-05-21] MEDS ORDERED: NEUTRA-PHOS 250 MG TABLET PO ONE (23:00)
[2023-05-22] MEDS ORDERED: POTASSIUM CHLOR 10 MEQ/100 ML 10 MEQ/100 ML BAG IV ONE ×2 (01:23→23:00)
[2023-05-22] MEDS: SODIUM CHLORIDE FLUSH 0.9% 10 ML SYRINGE IVP SCH ×4 (01:26→20:37)
[2023-05-22] MEDS: PIPERACILLIN/TAZOBACTAM 3.375 GM in SODIUM CHLORIDE 0.9% MINIBAG 100 ML IV SCH ×3 (01:38→16:52)
[2023-05-22] MEDS: LORazepam 1 MG TABLET PO PRN ×4 (01:58→21:17)
[2023-05-22] MEDS: POTASSIUM CHLOR 10 MEQ/100 ML 10 MEQ/100 ML BAG IV SCH ×10 (04:00→23:35)
[2023-05-22 04:11] LABS: CALCIUM, IONIZED 1.11 mmol/L (1.15-1.33); VBG PH 7.319 (7.31-7.41)
[2023-05-22 04:21] LABS: BUN - BLOOD UREA NITROGEN 14 mg/dL (6-20); CALCIUM 7.8 mg/dL (8.5-10.3); CARBON DIOXIDE - CO2 14 mmol/L (21-32); CHLORIDE 109 mmol/L (101-111); CREATININE 0.7 mg/dL (0.6-1.2); GFR - MDRD 135 (>89); GLUCOSE 235 mg/dL (70-100); MAGNESIUM 1.9 mg/dL (1.7-2.8); PHOSPHORUS 2.9 mg/dL (2.5-4.6); POTASSIUM 3.3 mmol/L (3.5-5.0); SODIUM 137 mmol/L (135-145)
[2023-05-22 04:26] LABS: KETONES, SERUM (ACETEST) MODERATE (NEGATIVE)
[2023-05-22 05:49] LABS: CALCIUM, IONIZED 1.13 mmol/L (1.15-1.33); VBG PH 7.309 (7.31-7.41)
[2023-05-22 06:00] LABS: MAGNESIUM 1.9 mg/dL (1.7-2.8); PHOSPHORUS 2.2 mg/dL (2.5-4.6)
[2023-05-22] MEDS: DEXTROSE 5%-0.45% NACL 1,000 ML IV SCH ×2 (06:10→16:08)
[2023-05-22] MEDS: NEUTRA-PHOS 250 MG TABLET PO SCH ×2 (06:45→08:12)
[2023-05-22] MEDS: THIAMINE 100 MG TABLET PO SCH (08:26)
[2023-05-22] MEDS ORDERED: SODIUM CHLORIDE 0.9% 500 ML IV ONE (08:32)
--- NOTE | 2023-05-22 08:39 | PROVIDER PROGRESS NOTE ---
Subjective - Subjective Pt reports feeling: No change (Still mostly sleeping, feels tired, no nausea) Objective - Vital Signs/Intake & Output Vital Signs: Vital Signs Temp Pulse Resp BP Pulse Ox 05/22/23 08:00 36.6 C 75 17 117/81 H 99 05/22/23 07:00 84 20 110/76 99 05/22/23 06:00 95 20 105/66 99 05/22/23 05:00 98 20 111/66 99 Intake & Output: Intake & Output 05/19/23 05/20/23 05/21/23 05/22/23 23:59 23:59 23:59 23:59 Intake Total 6625.072 2345.146 Output Total 1850 1000 Balance 4775.072 1345.146 - Objective General Appearance: positive: No acute distress, Lethargic Eyes Bilateral: positive: Normal inspection, EOMI ENT: positive: No signs of dehydration Neck: positive: Nml inspection, No JVD Respiratory: positive: No respiratory distress, Breath sounds nml Cardiovascular: positive: Regular rate & rhythm, No murmur Abdomen: positive: Non-tender, Nml bowel sounds, No distention Skin: positive: Warm, Dry Extremities: positive: Non-tender, No pedal edema Neurologic/Psychiatric: positive: Oriented x3, Motor nml, Other (Lethargic) - Lab Results Fish Bones: 05/22/23 09:35 05/22/23 09:35 Other Labs: Lab Results x24hrs 05/22/23 05/22/23 05/22/23 Range/Units 08:01 07:31 07:04 VBG pH (7.31-7.41) Ionized Calcium (1.15-1.33) mmol/L Sodium (135-145) mmol/L Potassium (3.5-5.0) mmol/L Chloride (101-111) mmol/L Carbon Dioxide (21-32) mmol/L Anion Gap (6-13) BUN (6-20) mg/dL Creatinine (0.6-1.2) mg/dL Estimated GFR (MDRD) (>89) Glucose (70-100) mg/dL POC Whole Bld Glucose 191 H 214 H (70 - 100) mg/dL Estimat Average Glucose (70-100) mg/dL Hemoglobin A1c % (4.27-6.07) % Calcium (8.5-10.3) mg/dL Phosphorus (2.5-4.6) mg/dL Magnesium (1.7-2.8) mg/dL Serum Ketones MODERATE H (NEGATIVE) 05/22/23 05/22/23 05/22/23 Range/Units 06:08 05:15 05:15 VBG pH 7.309 L (7.31-7.41) Ionized Calcium 1.13 L (1.15-1.33) mmol/L Sodium (135-145) mmol/L Potassium (3.5-5.0) mmol/L Chloride (101-111) mmol/L Carbon Dioxide (21-32) mmol/L Anion Gap (6-13) BUN (6-20) mg/dL Creatinine (0.6-1.2) mg/dL Estimated GFR (MDRD) (>89) Glucose (70-100) mg/dL POC Whole Bld Glucose 219 H (70 - 100) mg/dL Estimat Average Glucose (70-100) mg/dL Hemoglobin A1c % (4.27-6.07) % Calcium (8.5-10.3) mg/dL Phosphorus 2.2 L (2.5-4.6) mg/dL Magnesium 1.9 (1.7-2.8) mg/dL Serum Ketones (NEGATIVE) 05/22/23 05/22/23 05/22/23 Range/Units 05:15 04:57 04:01 VBG pH (7.31-7.41) Ionized Calcium (1.15-1.33) mmol/L Sodium (135-145) mmol/L Potassium (3.5-5.0) mmol/L Chloride (101-111) mmol/L Carbon Dioxide (21-32) mmol/L Anion Gap (6-13) BUN (6-20) mg/dL Creatinine (0.6-1.2) mg/dL Estimated GFR (MDRD) (>89) Glucose (70-100) mg/dL POC Whole Bld Glucose 254 H 228 H (70 - 100) mg/dL Estimat Average Glucose (70-100) mg/dL Hemoglobin A1c % (4.27-6.07) % Calcium (8.5-10.3) mg/dL Phosphorus (2.5-4.6) mg/dL Magnesium (1.7-2.8) mg/dL Serum Ketones MODERATE H (NEGATIVE) 05/22/23 05/22/23 05/22/23 Range/Units 03:30 03:30 01:51 VBG pH 7.319 (7.31-7.41) Ionized Calcium 1.11 L (1.15-1.33) mmol/L Sodium 137 (135-145) mmol/L Potassium 3.3 L (3.5-5.0) mmol/L Chloride 109 (101-111) mmol/L Carbon Dioxide 14 L (21-32) mmol/L Anion Gap 14.0 H (6-13) BUN 14 (6-20) mg/dL Creatinine 0.7 (0.6-1.2) mg/dL Estimated GFR (MDRD) 135 (>89) Glucose 235 H (70-100) mg/dL POC Whole Bld Glucose 159 H (70 - 100) mg/dL Estimat Average Glucose (70-100) mg/dL Hemoglobin A1c % (4.27-6.07) % Calcium 7.8 L (8.5-10.3) mg/dL Phosphorus 2.9 (2.5-4.6) mg/dL Magnesium 1.9 (1.7-2.8) mg/dL Serum Ketones MODERATE H (NEGATIVE) 05/22/23 05/22/23 05/21/23 Range/Units 01:38 01:00 23:56 VBG pH (7.31-7.41) Ionized Calcium (1.15-1.33) mmol/L Sodium (135-145) mmol/L Potassium (3.5-5.0) mmol/L Chloride (101-111) mmol/L Carbon Dioxide (21-32) mmol/L Anion Gap (6-13) BUN (6-20) mg/dL Creatinine (0.6-1.2) mg/dL Estimated GFR (MDRD) (>89) Glucose (70-100) mg/dL POC Whole Bld Glucose 131 H 90 (70 - 100) mg/dL Estimat Average Glucose (70-100) mg/dL Hemoglobin A1c % (4.27-6.07) % Calcium (8.5-10.3) mg/dL Phosphorus (2.5-4.6) mg/dL Magnesium (1.7-2.8) mg/dL Serum Ketones SMALL H (NEGATIVE) 05/21/23 05/21/23 05/21/23 Range/Units 23:49 23:49 22:00 VBG pH (7.31-7.41) Ionized Calcium (1.15-1.33) mmol/L Sodium (135-145) mmol/L Potassium 2.9 L (3.5-5.0) mmol/L Chloride (101-111) mmol/L Carbon Dioxide (21-32) mmol/L Anion Gap (6-13) BUN (6-20) mg/dL Creatinine (0.6-1.2) mg/dL Estimated GFR (MDRD) (>89) Glucose (70-100) mg/dL POC Whole Bld Glucose 112 H (70 - 100) mg/dL Estimat Average Glucose (70-100) mg/dL Hemoglobin A1c % (4.27-6.07) % Calcium (8.5-10.3) mg/dL Phosphorus (2.5-4.6) mg/dL Magnesium (1.7-2.8) mg/dL Serum Ketones SMALL H (NEGATIVE) 05/21/23 05/21/23 05/21/23 Range/Units 21:14 19:59 19:21 VBG pH (7.31-7.41) Ionized Calcium (1.15-1.33) mmol/L Sodium 138 (135-145) mmol/L Potassium 2.9 L (3.5-5.0) mmol/L Chloride 113 H (101-111) mmol/L Carbon Dioxide 19 L (21-32) mmol/L Anion Gap 6.0 (6-13) BUN 13 (6-20) mg/dL Creatinine 0.6 (0.6-1.2) mg/dL Estimated GFR (MDRD) 162 (>89) Glucose 125 H (70-100) mg/dL POC Whole Bld Glucose 146 H (70 - 100) mg/dL Estimat Average Glucose (70-100) mg/dL Hemoglobin A1c % (4.27-6.07) % Calcium 8.1 L (8.5-10.3) mg/dL Phosphorus 1.3 L (2.5-4.6) mg/dL Magnesium 1.6 L (1.7-2.8) mg/dL Serum Ketones SMALL H (NEGATIVE) 05/21/23 05/21/23 05/21/23 Range/Units 19:21 19:12 18:01 VBG pH (7.31-7.41) Ionized Calcium (1.15-1.33) mmol/L Sodium (135-145) mmol/L Potassium (3.5-5.0) mmol/L Chloride (101-111) mmol/L Carbon Dioxide (21-32) mmol/L Anion Gap (6-13) BUN (6-20) mg/dL Creatinine (0.6-1.2) mg/dL Estimated GFR (MDRD) (>89) Glucose (70-100) mg/dL POC Whole Bld Glucose 178 H 225 H (70 - 100) mg/dL Estimat Average Glucose (70-100) mg/dL Hemoglobin A1c % (4.27-6.07) % Calcium (8.5-10.3) mg/dL Phosphorus (2.5-4.6) mg/dL Magnesium (1.7-2.8) mg/dL Serum Ketones SMALL H (NEGATIVE) 05/21/23 05/21/23 05/21/23 Range/Units 17:27 17:06 15:52 VBG pH (7.31-7.41) Ionized Calcium (1.15-1.33) mmol/L Sodium 136 (135-145) mmol/L Potassium 3.0 L (3.5-5.0) mmol/L Chloride 111 (101-111) mmol/L Carbon Dioxide 16 L (21-32) mmol/L Anion Gap 9.0 (6-13) BUN 13 (6-20) mg/dL Creatinine 0.7 (0.6-1.2) mg/dL Estimated GFR (MDRD) 135 (>89) Glucose 192 H (70-100) mg/dL POC Whole Bld Glucose 216 H 232 H (70 - 100) mg/dL Estimat Average Glucose (70-100) mg/dL Hemoglobin A1c % (4.27-6.07) % Calcium 8.3 L (8.5-10.3) mg/dL Phosphorus (2.5-4.6) mg/dL Magnesium (1.7-2.8) mg/dL Serum Ketones MODERATE H (NEGATIVE) 06/05/21/23 05/21/23 Range/Units 15:22 14:59 14:04 VBG pH (7.31-7.41) Ionized Calcium (1.15-1.33) mmol/L Sodium (135-145) mmol/L Potassium (3.5-5.0) mmol/L Chloride (101-111) mmol/L Carbon Dioxide (21-32) mmol/L Anion Gap (6-13) BUN (6-20) mg/dL Creatinine (0.6-1.2) mg/dL Estimated GFR (MDRD) (>89) Glucose (70-100) mg/dL POC Whole Bld Glucose 256 H 204 H (70 - 100) mg/dL Estimat Average Glucose (70-100) mg/dL Hemoglobin A1c % (4.27-6.07) % Calcium (8.5-10.3) mg/dL Phosphorus (2.5-4.6) mg/dL Magnesium (1.7-2.8) mg/dL Serum Ketones MODERATE H (NEGATIVE) 05/21/23 05/21/23 05/21/23 Range/Units 13:37 13:10 11:58 VBG pH (7.31-7.41) Ionized Calcium (1.15-1.33) mmol/L Sodium 137 (135-145) mmol/L Potassium 3.6 (3.5-5.0) mmol/L Chloride 111 (101-111) mmol/L Carbon Dioxide 12 L* (21-32) mmol/L Anion Gap 14.0 H (6-13) BUN 15 (6-20) mg/dL Creatinine 0.7 (0.6-1.2) mg/dL Estimated GFR (MDRD) 135 (>89) Glucose 194 H (70-100) mg/dL POC Whole Bld Glucose 162 H 81 (70 - 100) mg/dL Estimat Average Glucose (70-100) mg/dL Hemoglobin A1c % (4.27-6.07) % Calcium 8.1 L (8.5-10.3) mg/dL Phosphorus (2.5-4.6) mg/dL Magnesium (1.7-2.8) mg/dL Serum Ketones MODERATE H (NEGATIVE) 05/21/23 05/21/23 05/21/23 Range/Units 11:19 10:11 09:43 VBG pH (7.31-7.41) Ionized Calcium (1.15-1.33) mmol/L Sodium 140 (135-145) mmol/L Potassium 3.7 (3.5-5.0) mmol/L Chloride 114 H (101-111) mmol/L Carbon Dioxide 14 L (21-32) mmol/L Anion Gap 12.0 (6-13) BUN 14 (6-20) mg/dL Creatinine 0.9 (0.6-1.2) mg/dL Estimated GFR (MDRD) 101 (>89) Glucose 155 H (70-100) mg/dL POC Whole Bld Glucose 142 H (70 - 100) mg/dL Estimat Average Glucose (70-100) mg/dL Hemoglobin A1c % (4.27-6.07) % Calcium 8.5 (8.5-10.3) mg/dL Phosphorus (2.5-4.6) mg/dL Magnesium (1.7-2.8) mg/dL Serum Ketones SMALL H SMALL H (NEGATIVE) 05/21/23 05/21/23 Range/Units 09:02 05:31 VBG pH (7.31-7.41) Ionized Calcium (1.15-1.33) mmol/L Sodium (135-145) mmol/L Potassium (3.5-5.0) mmol/L Chloride (101-111) mmol/L Carbon Dioxide (21-32) mmol/L Anion Gap (6-13) BUN (6-20) mg/dL Creatinine (0.6-1.2) mg/dL Estimated GFR (MDRD) (>89) Glucose (70-100) mg/dL POC Whole Bld Glucose 178 H (70 - 100) mg/dL Estimat Average Glucose 266 H (70-100) mg/dL Hemoglobin A1c % 10.9 H (4.27-6.07) % Calcium (8.5-10.3) mg/dL Phosphorus (2.5-4.6) mg/dL Magnesium (1.7-2.8) mg/dL Serum Ketones (NEGATIVE) Sepsis Event Note (H) - Evaluation Current Stage of Sepsis: Ruled out Assessment/Plan - Problem List (1) DKA (diabetic ketoacidoses) Impression: All labs were reviewed. He had low serum ketones that have inceased to moderate serum ketones this morning. He has been on IV insulin drip since admission (it was off briefly for 2 hours yesterday when his serum glucose was 80 and at that point D5W was started and then the insulin drip was resumed). He is getting NS at 125 an hour The etiology of going into DKA is not definitely established. He is on empiric IV antibiotics because of his leukocytosis, but he has no fever. A chest x-ray was negative. Plan: We will continue with the IV insulin drip today to treat his DKA. Remain in the ICU Continue with IV D5W to prevent hypoglycemia again Continue with NS at 125 cc an hour. I will also give a saline bolus of 500 cc today. Continue to follow his serum glucose and his serum ketones every 2 hours. The insulin drip will be discontinued when serum ketones are neg. Diabetic diet started since he is not nauseated Qualifiers: Diabetes mellitus type: type 1 Diabetes mellitus complication detail: without coma Qualified Code(s): E10.10 - Type 1 diabetes mellitus with ketoacidosis without coma (2) DM type 1 (diabetes mellitus, type 1) Impression: The details of being a diabetic are not known, he has been too lethargic to get a complete history. He does not even remember who his PCP is that gives him his insulin prescriptions His A1c came back at 10.9 indicating very poor control Plan: As in #1 above (3) Leukocytosis Impression: He has no fever. There are no localizing symptoms. A chest x-ray was negative. He did not have abdominal imaging It is unclear why he has thus white count elevation He was put on empiric Zosyn In review of the admission notes, the patient stated he had a dental infection for which she was on oral antibiotics recently. Plan: Given the elevated bilirubin and history of alcohol abuse, I will order CT imaging of his abdomen/pelvis today. Given the history of recent dental infection, I will order a maxillofacial CT also Remain on empiric antibiotics, adjust based on suspected source Follow WBC daily Unfortunately there were no blood cultures taken at admission to await results Qualifiers: Leukocytosis type: bandemia Qualified Code(s): D72.825 - Bandemia (4) Alcohol abuse Impression: Patient has been somnolent therefore not able to get a detailed history of his alcohol intake but from chart review he has heavy alcohol use. Per his RN, he drinks 10 beers a day At admission he had normal LFTs except elevated bilirubin of 1.7. A CIWA protocol was started. He scored as high as 9 on the CIWA protocol and did need added iv Ativan. Social work met with him and he was not interested in any resources for alcohol abuse cessation Plan: Continue with empiric thiamine, multivitamin. Cont the CIWA protocol and prn Ativan We will follow his LFTs daily.
[2023-05-22 09:13] LABS: ALBUMIN 2.6 g/dL (3.2-5.5); BILIRUBIN,DIRECT 0.1 mg/dL (0.1-0.5); TOTAL PROTEIN 4.8 g/dL (6.7-8.2)
[2023-05-22] MEDS: SODIUM CHLORIDE 0.9% 1,000 ML IV SCH ×2 (09:36→17:23)
[2023-05-22 09:44] LABS: BASOPHILS # (AUTO) 0.1 10^3/uL (0.0-0.1); BASOPHILS % (AUTO) 1.3 %; EOSINOPHILS # (AUTO) 0.1 10^3/uL (0.0-0.7); EOSINOPHILS % (AUTO) 1.1 %; HGB - HEMOGLOBIN 12.1 g/dL (14.0-18.0); LYMPHOCYTES # (AUTO) 1.4 10^3/uL (1.5-3.5); LYMPHOCYTES % (AUTO) 29.6 %; MEAN CORPUSCULAR HEMOGLOBIN 32.4 pg (27.0-31.0); MEAN CORPUSCULAR HGB CONC 35.6 g/dL (32.0-36.0); MEAN CORPUSCULAR VOLUME 91.2 fL (80.0-94.0); MEAN PLATELET VOLUME 9.3 fL (7.4-11.4); MONOCYTES # (AUTO) 0.5 10^3/uL (0.0-1.0); MONOCYTES % (AUTO) 10.4 %; NEUTROPHILS # (AUTO) 2.7 10^3/uL (1.5-6.6); PLT - PLATELET COUNT 177 10^3/uL (130-450); RED BLOOD COUNT 3.73 10^6/uL (4.70-6.10); RED CELL DISTRIBUTION WIDTH 12.2 % (12.0-15.0); WHITE BLOOD COUNT 4.7 x10^3/uL (4.8-10.8)
[2023-05-22 09:50] LABS: CALCIUM 7.5 mg/dL (8.5-10.3); CREATININE 0.6 mg/dL (0.6-1.2); POTASSIUM 2.7 mmol/L (3.5-5.0)
[2023-05-22] MEDS: PRENATAL VITAMIN TABLET PO SCH (11:07)
[2023-05-22 13:42] LABS: CALCIUM, IONIZED 1.1 mmol/L (1.15-1.33); VBG PH 7.35 (7.31-7.41)
[2023-05-22] MEDS: CALCIUM CARBONATE CHEW 500 MG TABLET PO SCH ×2 (14:43→19:04)
[2023-05-22] MEDS ORDERED: iohexoL-300 100 ML VIAL ONE (19:44)
[2023-05-22] MEDS ORDERED: iohexoL-300 100 ML VIAL IVP ONE (20:23)
--- NOTE | 2023-05-22 20:35 | CT Report ---
PROCEDURE: MAXILLOFACIAL W INDICATIONS: Tooth infected,R upper jaw tender, has caused DKA CONTRAST: 100 ML OMNI 300 TECHNIQUE: After the administration of intravenous contrast, 3.0 mm axial sections acquired from the mid-neck to the frontal sinuses, with coronal reformatting. For radiation dose reduction, the following was use d: automated exposure control, adjustment of mA and/or kV according to patient size. COMPARISON: None. FINDINGS: Image quality: Excellent. Soft tissues: No edema, masses, or fluid collections. Borderline enlarged lymph nodes.. Vascular: Visualized vascular structures appear patent throughout. Bony vascular foramina and canal s appear normal. Bones: Facial bones appear intact, without fractures, erosions, or destruction. Visualized portions of the skull base and auditory canals also appear normal. Lucency is present surrounding the fourth and fifth right upper teeth from the front. Lucency is present surrounding the fifth left upper tooth from the front. No surrounding soft tissue abscess. Mild subcutaneous fat stranding. Sinuses: Paranasal sinuses are aerated without fluid levels, mucosal thickening, or mucoceles. Mast oid air cells are aerated. IMPRESSION: Lucency surrounding teeth as described above possibly related to dental disease. No abscess is identi fied. Reviewed by: Gabriela Alfonso MD on 05/22/2023 8:34 PM PDT Approved by: Gabriela Alfonso MD on 05/22/2023 8:34 PM PDT Station ID: [id number]
[2023-05-22] MEDS: INSULIN REGULAR HUMAN 100 UNIT in SODIUM CHLORIDE 0.9% 100ML 99 ML IV SCH (23:33)
[2023-05-22 23:48] LABS: CALCIUM, IONIZED 1.08 mmol/L (1.15-1.33); VBG PH 7.492 (7.31-7.41)
[2023-05-23] MEDS: CALCIUM CARBONATE CHEW 500 MG TABLET PO SCH ×4 (00:34→19:25)
[2023-05-23] MEDS: POTASSIUM CHLOR 10 MEQ/100 ML 10 MEQ/100 ML BAG IV SCH ×12 (00:35→22:05)
[2023-05-23] MEDS: PIPERACILLIN/TAZOBACTAM 3.375 GM in SODIUM CHLORIDE 0.9% MINIBAG 100 ML IV SCH (00:35)
[2023-05-23] MEDS: SODIUM CHLORIDE 0.9% 1,000 ML IV SCH ×4 (02:04→19:28)
[2023-05-23] MEDS: DEXTROSE 5%-0.45% NACL 1,000 ML IV SCH ×3 (03:07→23:09)
[2023-05-23] MEDS: LORazepam 1 MG TABLET PO PRN (04:47)
[2023-05-23 04:49] LABS: BASOPHILS # (AUTO) 0.1 10^3/uL (0.0-0.1); BASOPHILS % (AUTO) 1.5 %; EOSINOPHILS % (AUTO) 0.9 %; HCT - HEMATOCRIT 34.8 % (42.0-52.0); HGB - HEMOGLOBIN 12.3 g/dL (14.0-18.0); LYMPHOCYTES # (AUTO) 1.3 10^3/uL (1.5-3.5); LYMPHOCYTES % (AUTO) 28.7 %; MEAN CORPUSCULAR HGB CONC 35.3 g/dL (32.0-36.0); MEAN CORPUSCULAR VOLUME 90.6 fL (80.0-94.0); MEAN PLATELET VOLUME 9.4 fL (7.4-11.4); MONOCYTES # (AUTO) 0.5 10^3/uL (0.0-1.0); MONOCYTES % (AUTO) 11.7 %; NEUTROPHILS # (AUTO) 2.6 10^3/uL (1.5-6.6); NEUTROPHILS % (AUTO) 56.5 %; PLT - PLATELET COUNT 202 10^3/uL (130-450); RED BLOOD COUNT 3.84 10^6/uL (4.70-6.10); RED CELL DISTRIBUTION WIDTH 12.1 % (12.0-15.0); WHITE BLOOD COUNT 4.5 x10^3/uL (4.8-10.8)
[2023-05-23 05:10] LABS: BUN - BLOOD UREA NITROGEN < 5 mg/dL (6-20); CARBON DIOXIDE - CO2 26 mmol/L (21-32); CHLORIDE 107 mmol/L (101-111); CREATININE 0.5 mg/dL (0.6-1.2); GFR - MDRD 199 (>89); GLUCOSE 116 mg/dL (70-100); MAGNESIUM 1.6 mg/dL (1.7-2.8); PHOSPHORUS 2.6 mg/dL (2.5-4.6); POTASSIUM 2.8 mmol/L (3.5-5.0); SODIUM 139 mmol/L (135-145)
[2023-05-23] MEDS: INSULIN REGULAR HUMAN 100 UNIT in SODIUM CHLORIDE 0.9% 100ML 99 ML IV SCH ×2 (08:00→10:09)
[2023-05-23] MEDS ORDERED: MAGNESIUM SULFATE 2 GRAM 2 GM/50 ML BAG IV ONE (08:00)
--- NOTE | 2023-05-23 08:02 | PROVIDER PROGRESS NOTE ---
Subjective - Subjective Pt reports feeling: Improved (Is more awake and alert. No further high scores on CIWA) Objective - Vital Signs/Intake & Output Reviewed Vital Signs: Yes Vital Signs: Vital Signs Temp Pulse Resp BP Pulse Ox 05/23/23 07:00 76 19 124/81 H 97 05/23/23 06:00 36.8 C 81 25 H 144/98 H 97 05/23/23 05:00 94 15 142/97 H 96 Intake & Output: Intake & Output 05/20/23 05/21/23 05/22/23 05/23/23 23:59 23:59 23:59 23:59 Intake Total 6625.072 8109.026 2418.812 Output Total 1850 5100 2450 Balance 4775.072 3009.026 -31.188 - Objective General Appearance: positive: No acute distress, Alert Eyes Bilateral: positive: Normal inspection, EOMI ENT: positive: ENT inspection nml, No signs of dehydration Neck: positive: Nml inspection, No JVD Respiratory: positive: No respiratory distress, Breath sounds nml Cardiovascular: positive: Regular rate & rhythm, No murmur Abdomen: positive: Non-tender, Nml bowel sounds, No distention Skin: positive: Warm, Dry Extremities: positive: Non-tender, No pedal edema Neurologic/Psychiatric: positive: Oriented x3, Motor nml - Lab Results Fish Bones: 05/23/23 04:26 05/23/23 04:26 Other Labs: Lab Results x24hrs 05/23/23 05/23/23 05/23/23 Range/Units 07:48 06:59 05:56 WBC (4.8-10.8) x10^3/uL RBC (4.70-6.10) 10^6/uL Hgb (14.0-18.0) g/dL Hct (42.0-52.0) % MCV (80.0-94.0) fL MCH (27.0-31.0) pg MCHC (32.0-36.0) g/dL RDW (12.0-15.0) % Plt Count (130-450) 10^3/uL MPV (7.4-11.4) fL Neut # (Auto) (1.5-6.6) 10^3/uL Lymph # (Auto) (1.5-3.5) 10^3/uL Het[place] # (Auto) (0.0-1.0) 10^3/uL Eos # (Auto) (0.0-0.7) 10^3/uL Baso # (Auto) (0.0-0.1) 10^3/uL Absolute Nucleated RBC x10^3/uL Nucleated RBC % /100WBC VBG pH (7.31-7.41) Ionized Calcium (1.15-1.33) mmol/L Sodium (135-145) mmol/L Potassium (3.5-5.0) mmol/L Chloride (101-111) mmol/L Carbon Dioxide (21-32) mmol/L Anion Gap (6-13) BUN (6-20) mg/dL Creatinine (0.6-1.2) mg/dL Estimated GFR (MDRD) (>89) Glucose (70-100) mg/dL POC Whole Bld Glucose 211 H 178 H 162 H (70 - 100) mg/dL Calcium (8.5-10.3) mg/dL Phosphorus (2.5-4.6) mg/dL Magnesium (1.7-2.8) mg/dL Total Bilirubin (0.2-1.0) mg/dL Direct Bilirubin (0.1-0.5) mg/dL AST (10-42) IU/L ALT (10-60) IU/L Alkaline Phosphatase (42-121) IU/L Total Protein (6.7-8.2) g/dL Albumin (3.2-5.5) g/dL Globulin (2.1-4.2) g/dL Serum Ketones (NEGATIVE) 05/23/23 05/23/23 05/23/23 Range/Units 04:26 04:26 04:26 WBC 4.5 L (4.8-10.8) x10^3/uL RBC 3.84 L (4.70-6.10) 10^6/uL Hgb 12.3 L (14.0-18.0) g/dL Hct 34.8 L (42.0-52.0) % MCV 90.6 (80.0-94.0) fL MCH 32.0 H (27.0-31.0) pg MCHC 35.3 (32.0-36.0) g/dL RDW 12.1 (12.0-15.0) % Plt Count 202 (130-450) 10^3/uL MPV 9.4 (7.4-11.4) fL Neut # (Auto) 2.6 (1.5-6.6) 10^3/uL Lymph # (Auto) 1.3 L (1.5-3.5) 10^3/uL Hetting[place] # (Auto) 0.5 (0.0-1.0) 10^3/uL Eos # (Auto) 0.0 (0.0-0.7) 10^3/uL Baso # (Auto) 0.1 (0.0-0.1) 10^3/uL Absolute Nucleated RBC 0.00 x10^3/uL Nucleated RBC % 0.0 /100WBC VBG pH (7.31-7.41) Ionized Calcium (1.15-1.33) mmol/L Sodium 139 (135-145) mmol/L Potassium 2.8 L (3.5-5.0) mmol/L Chloride 107 (101-111) mmol/L Carbon Dioxide 26 (21-32) mmol/L Anion Gap 6.0 (6-13) BUN < 5 L (6-20) mg/dL Creatinine 0.5 L (0.6-1.2) mg/dL Estimated GFR (MDRD) 199 (>89) Glucose 116 H (70-100) mg/dL POC Whole Bld Glucose 109 H (70 - 100) mg/dL Calcium 8.0 L (8.5-10.3) mg/dL Phosphorus 2.6 (2.5-4.6) mg/dL Magnesium 1.6 L (1.7-2.8) mg/dL Total Bilirubin (0.2-1.0) mg/dL Direct Bilirubin (0.1-0.5) mg/dL AST (10-42) IU/L ALT (10-60) IU/L Alkaline Phosphatase (42-121) IU/L Total Protein (6.7-8.2) g/dL Albumin (3.2-5.5) g/dL Globulin (2.1-4.2) g/dL Serum Ketones (NEGATIVE) 05/23/23 05/23/23 05/22/23 Range/Units 03:01 01:58 23:40 WBC (4.8-10.8) x10^3/uL RBC (4.70-6.10) 10^6/uL Hgb (14.0-18.0) g/dL Hct (42.0-52.0) % MCV (80.0-94.0) fL MCH (27.0-31.0) pg MCHC (32.0-36.0) g/dL RDW (12.0-15.0) % Plt Count (130-450) 10^3/uL MPV (7.4-11.4) fL Neut # (Auto) (1.5-6.6) 10^3/uL Lymph # (Auto) (1.5-3.5) 10^3/uL Hettinger # (Auto) (0.0-1.0) 10^3/uL Eos # (Auto) (0.0-0.7) 10^3/uL Baso # (Auto) (0.0-0.1) 10^3/uL Absolute Nucleated RBC x10^3/uL Nucleated RBC % /100WBC VBG pH (7.31-7.41) Ionized Calcium (1.15-1.33) mmol/L Sodium (135-145) mmol/L Potassium (3.5-5.0) mmol/L Chloride (101-111) mmol/L Carbon Dioxide (21-32) mmol/L Anion Gap (6-13) BUN (6-20) mg/dL Creatinine (0.6-1.2) mg/dL Estimated GFR (MDRD) (>89) Glucose (70-100) mg/dL POC Whole Bld Glucose 98 85 126 H (70 - 100) mg/dL Calcium (8.5-10.3) mg/dL Phosphorus (2.5-4.6) mg/dL Magnesium (1.7-2.8) mg/dL Total Bilirubin (0.2-1.0) mg/dL Direct Bilirubin (0.1-0.5) mg/dL AST (10-42) IU/L ALT (10-60) IU/L Alkaline Phosphatase (42-121) IU/L Total Protein (6.7-8.2) g/dL Albumin (3.2-5.5) g/dL Globulin (2.1-4.2) g/dL Serum Ketones (NEGATIVE) 05/22/23 05/22/23 05/22/23 Range/Units 23:40 22:06 21:40 WBC (4.8-10.8) x10^3/uL RBC (4.70-6.10) 10^6/uL Hgb (14.0-18.0) g/dL Hct (42.0-52.0) % MCV (80.0-94.0) fL MCH (27.0-31.0) pg MCHC (32.0-36.0) g/dL RDW (12.0-15.0) % Plt Count (130-450) 10^3/uL MPV (7.4-11.4) fL Neut # (Auto) (1.5-6.6) 10^3/uL Lymph # (Auto) (1.5-3.5) 10^3/uL Hettinger # (Auto) (0.0-1.0) 10^3/uL Eos # (Auto) (0.0-0.7) 10^3/uL Baso # (Auto) (0.0-0.1) 10^3/uL Absolute Nucleated RBC x10^3/uL Nucleated RBC % /100WBC VBG pH 7.492 H (7.31-7.41) Ionized Calcium 1.08 L (1.15-1.33) mmol/L Sodium (135-145) mmol/L Potassium (3.5-5.0) mmol/L Chloride (101-111) mmol/L Carbon Dioxide (21-32) mmol/L Anion Gap (6-13) BUN (6-20) mg/dL Creatinine (0.6-1.2) mg/dL Estimated GFR (MDRD) (>89) Glucose (70-100) mg/dL POC Whole Bld Glucose 176 H (70 - 100) mg/dL Calcium (8.5-10.3) mg/dL Phosphorus (2.5-4.6) mg/dL Magnesium (1.7-2.8) mg/dL Total Bilirubin (0.2-1.0) mg/dL Direct Bilirubin (0.1-0.5) mg/dL AST (10-42) IU/L ALT (10-60) IU/L Alkaline Phosphatase (42-121) IU/L Total Protein (6.7-8.2) g/dL Albumin (3.2-5.5) g/dL Globulin (2.1-4.2) g/dL Serum Ketones SMALL H (NEGATIVE) 05/22/23 05/22/23 05/22/23 Range/Units 21:00 20:15 19:24 WBC (4.8-10.8) x10^3/uL RBC (4.70-6.10) 10^6/uL Hgb (14.0-18.0) g/dL Hct (42.0-52.0) % MCV (80.0-94.0) fL MCH (27.0-31.0) pg MCHC (32.0-36.0) g/dL RDW (12.0-15.0) % Plt Count (130-450) 10^3/uL MPV (7.4-11.4) fL Neut # (Auto) (1.5-6.6) 10^3/uL Lymph # (Auto) (1.5-3.5) 10^3/uL Hettinger # (Auto) (0.0-1.0) 10^3/uL Eos # (Auto) (0.0-0.7) 10^3/uL Baso # (Auto) (0.0-0.1) 10^3/uL Absolute Nucleated RBC x10^3/uL Nucleated RBC % /100WBC VBG pH (7.31-7.41) Ionized Calcium (1.15-1.33) mmol/L Sodium (135-145) mmol/L Potassium 3.2 L (3.5-5.0) mmol/L Chloride (101-111) mmol/L Carbon Dioxide (21-32) mmol/L Anion Gap (6-13) BUN (6-20) mg/dL Creatinine (0.6-1.2) mg/dL Estimated GFR (MDRD) (>89) Glucose (70-100) mg/dL POC Whole Bld Glucose 202 H 215 H (70 - 100) mg/dL Calcium (8.5-10.3) mg/dL Phosphorus (2.5-4.6) mg/dL Magnesium (1.7-2.8) mg/dL Total Bilirubin (0.2-1.0) mg/dL Direct Bilirubin (0.1-0.5) mg/dL AST (10-42) IU/L ALT (10-60) IU/L Alkaline Phosphatase (42-121) IU/L Total Protein (6.7-8.2) g/dL Albumin (3.2-5.5) g/dL Globulin (2.1-4.2) g/dL Serum Ketones (NEGATIVE) 05/22/23 05/22/23 05/22/23 Range/Units 19:24 19:02 18:04 WBC (4.8-10.8) x10^3/uL RBC (4.70-6.10) 10^6/uL Hgb (14.0-18.0) g/dL Hct (42.0-52.0) % MCV (80.0-94.0) fL MCH (27.0-31.0) pg MCHC (32.0-36.0) g/dL RDW (12.0-15.0) % Plt Count (130-450) 10^3/uL MPV (7.4-11.4) fL Neut # (Auto) (1.5-6.6) 10^3/uL Lymph # (Auto) (1.5-3.5) 10^3/uL Hettinger # (Auto) (0.0-1.0) 10^3/uL Eos # (Auto) (0.0-0.7) 10^3/uL Baso # (Auto) (0.0-0.1) 10^3/uL Absolute Nucleated RBC x10^3/uL Nucleated RBC % /100WBC VBG pH (7.31-7.41) Ionized Calcium (1.15-1.33) mmol/L Sodium (135-145) mmol/L Potassium (3.5-5.0) mmol/L Chloride (101-111) mmol/L Carbon Dioxide (21-32) mmol/L Anion Gap (6-13) BUN (6-20) mg/dL Creatinine (0.6-1.2) mg/dL Estimated GFR (MDRD) (>89) Glucose (70-100) mg/dL POC Whole Bld Glucose 212 H 258 H (70 - 100) mg/dL Calcium (8.5-10.3) mg/dL Phosphorus (2.5-4.6) mg/dL Magnesium (1.7-2.8) mg/dL Total Bilirubin (0.2-1.0) mg/dL Direct Bilirubin (0.1-0.5) mg/dL AST (10-42) IU/L ALT (10-60) IU/L Alkaline Phosphatase (42-121) IU/L Total Protein (6.7-8.2) g/dL Albumin (3.2-5.5) g/dL Globulin (2.1-4.2) g/dL Serum Ketones SMALL H (NEGATIVE) 05/22/23 05/22/23 05/22/23 Range/Units 17:28 17:03 16:01 WBC (4.8-10.8) x10^3/uL RBC (4.70-6.10) 10^6/uL Hgb (14.0-18.0) g/dL Hct (42.0-52.0) % MCV (80.0-94.0) fL MCH (27.0-31.0) pg MCHC (32.0-36.0) g/dL RDW (12.0-15.0) % Plt Count (130-450) 10^3/uL MPV (7.4-11.4) fL Neut # (Auto) (1.5-6.6) 10^3/uL Lymph # (Auto) (1.5-3.5) 10^3/uL Hetting[place] # (Auto) (0.0-1.0) 10^3/uL Eos # (Auto) (0.0-0.7) 10^3/uL Baso # (Auto) (0.0-0.1) 10^3/uL Absolute Nucleated RBC x10^3/uL Nucleated RBC % /100WBC VBG pH (7.31-7.41) Ionized Calcium (1.15-1.33) mmol/L Sodium (135-145) mmol/L Potassium (3.5-5.0) mmol/L Chloride (101-111) mmol/L Carbon Dioxide (21-32) mmol/L Anion Gap (6-13) BUN (6-20) mg/dL Creatinine (0.6-1.2) mg/dL Estimated GFR (MDRD) (>89) Glucose (70-100) mg/dL POC Whole Bld Glucose 182 H 208 H (70 - 100) mg/dL Calcium (8.5-10.3) mg/dL Phosphorus (2.5-4.6) mg/dL Magnesium (1.7-2.8) mg/dL Total Bilirubin (0.2-1.0) mg/dL Direct Bilirubin (0.1-0.5) mg/dL AST (10-42) IU/L ALT (10-60) IU/L Alkaline Phosphatase (42-121) IU/L Total Protein (6.7-8.2) g/dL Albumin (3.2-5.5) g/dL Globulin (2.1-4.2) g/dL Serum Ketones SMALL H (NEGATIVE) 05/22/23 05/22/23 05/22/23 Range/Units 15:24 15:10 14:10 WBC (4.8-10.8) x10^3/uL RBC (4.70-6.10) 10^6/uL Hgb (14.0-18.0) g/dL Hct (42.0-52.0) % MCV (80.0-94.0) fL MCH (27.0-31.0) pg MCHC (32.0-36.0) g/dL RDW (12.0-15.0) % Plt Count (130-450) 10^3/uL MPV (7.4-11.4) fL Neut # (Auto) (1.5-6.6) 10^3/uL Lymph # (Auto) (1.5-3.5) 10^3/uL Hetting[place] # (Auto) (0.0-1.0) 10^3/uL Eos # (Auto) (0.0-0.7) 10^3/uL Baso # (Auto) (0.0-0.1) 10^3/uL Absolute Nucleated RBC x10^3/uL Nucleated RBC % /100WBC VBG pH (7.31-7.41) Ionized Calcium (1.15-1.33) mmol/L Sodium (135-145) mmol/L Potassium (3.5-5.0) mmol/L Chloride (101-111) mmol/L Carbon Dioxide (21-32) mmol/L Anion Gap (6-13) BUN (6-20) mg/dL Creatinine (0.6-1.2) mg/dL Estimated GFR (MDRD) (>89) Glucose (70-100) mg/dL POC Whole Bld Glucose 216 H 257 H (70 - 100) mg/dL Calcium (8.5-10.3) mg/dL Phosphorus (2.5-4.6) mg/dL Magnesium (1.7-2.8) mg/dL Total Bilirubin (0.2-1.0) mg/dL Direct Bilirubin (0.1-0.5) mg/dL AST (10-42) IU/L ALT (10-60) IU/L Alkaline Phosphatase (42-121) IU/L Total Protein (6.7-8.2) g/dL Albumin (3.2-5.5) g/dL Globulin (2.1-4.2) g/dL Serum Ketones SMALL H (NEGATIVE) 05/22/23 05/22/23 05/22/23 Range/Units 13:36 13:36 12:57 WBC (4.8-10.8) x10^3/uL RBC (4.70-6.10) 10^6/uL Hgb (14.0-18.0) g/dL Hct (42.0-52.0) % MCV (80.0-94.0) fL MCH (27.0-31.0) pg MCHC (32.0-36.0) g/dL RDW (12.0-15.0) % Plt Count (130-450) 10^3/uL MPV (7.4-11.4) fL Neut # (Auto) (1.5-6.6) 10^3/uL Lymph # (Auto) (1.5-3.5) 10^3/uL Hettinger # (Auto) (0.0-1.0) 10^3/uL Eos # (Auto) (0.0-0.7) 10^3/uL Baso # (Auto) (0.0-0.1) 10^3/uL Absolute Nucleated RBC x10^3/uL Nucleated RBC % /100WBC VBG pH 7.350 (7.31-7.41) Ionized Calcium 1.10 L (1.15-1.33) mmol/L Sodium (135-145) mmol/L Potassium (3.5-5.0) mmol/L Chloride (101-111) mmol/L Carbon Dioxide (21-32) mmol/L Anion Gap (6-13) BUN (6-20) mg/dL Creatinine (0.6-1.2) mg/dL Estimated GFR (MDRD) (>89) Glucose (70-100) mg/dL POC Whole Bld Glucose 226 H (70 - 100) mg/dL Calcium (8.5-10.3) mg/dL Phosphorus (2.5-4.6) mg/dL Magnesium (1.7-2.8) mg/dL Total Bilirubin (0.2-1.0) mg/dL Direct Bilirubin (0.1-0.5) mg/dL AST (10-42) IU/L ALT (10-60) IU/L Alkaline Phosphatase (42-121) IU/L Total Protein (6.7-8.2) g/dL Albumin (3.2-5.5) g/dL Globulin (2.1-4.2) g/dL Serum Ketones SMALL H (NEGATIVE) 05/22/23 05/22/23 05/22/23 Range/Units 12:04 11:29 11:02 WBC (4.8-10.8) x10^3/uL RBC (4.70-6.10) 10^6/uL Hgb (14.0-18.0) g/dL Hct (42.0-52.0) % MCV (80.0-94.0) fL MCH (27.0-31.0) pg MCHC (32.0-36.0) g/dL RDW (12.0-15.0) % Plt Count (130-450) 10^3/uL MPV (7.4-11.4) fL Neut # (Auto) (1.5-6.6) 10^3/uL Lymph # (Auto) (1.5-3.5) 10^3/uL Hetting[place] # (Auto) (0.0-1.0) 10^3/uL Eos # (Auto) (0.0-0.7) 10^3/uL Baso # (Auto) (0.0-0.1) 10^3/uL Absolute Nucleated RBC x10^3/uL Nucleated RBC % /100WBC VBG pH (7.31-7.41) Ionized Calcium (1.15-1.33) mmol/L Sodium (135-145) mmol/L Potassium (3.5-5.0) mmol/L Chloride (101-111) mmol/L Carbon Dioxide (21-32) mmol/L Anion Gap (6-13) BUN (6-20) mg/dL Creatinine (0.6-1.2) mg/dL Estimated GFR (MDRD) (>89) Glucose (70-100) mg/dL POC Whole Bld Glucose 120 H 117 H (70 - 100) mg/dL Calcium (8.5-10.3) mg/dL Phosphorus (2.5-4.6) mg/dL Magnesium (1.7-2.8) mg/dL Total Bilirubin (0.2-1.0) mg/dL Direct Bilirubin (0.1-0.5) mg/dL AST (10-42) IU/L ALT (10-60) IU/L Alkaline Phosphatase (42-121) IU/L Total Protein (6.7-8.2) g/dL Albumin (3.2-5.5) g/dL Globulin (2.1-4.2) g/dL Serum Ketones MODERATE H (NEGATIVE) 05/22/23 05/22/23 05/22/23 Range/Units 10:03 09:35 09:35 WBC 4.7 L (4.8-10.8) x10^3/uL RBC 3.73 L (4.70-6.10) 10^6/uL Hgb 12.1 L (14.0-18.0) g/dL Hct 34.0 L (42.0-52.0) % MCV 91.2 (80.0-94.0) fL MCH 32.4 H (27.0-31.0) pg MCHC 35.6 (32.0-36.0) g/dL RDW 12.2 (12.0-15.0) % Plt Count 177 (130-450) 10^3/uL MPV 9.3 (7.4-11.4) fL Neut # (Auto) 2.7 (1.5-6.6) 10^3/uL Lymph # (Auto) 1.4 L (1.5-3.5) 10^3/uL Hettinger # (Auto) 0.5 (0.0-1.0) 10^3/uL Eos # (Auto) 0.1 (0.0-0.7) 10^3/uL Baso # (Auto) 0.1 (0.0-0.1) 10^3/uL Absolute Nucleated RBC 0.00 x10^3/uL Nucleated RBC % 0.0 /100WBC VBG pH (7.31-7.41) Ionized Calcium (1.15-1.33) mmol/L Sodium 140 (135-145) mmol/L Potassium 2.7 L (3.5-5.0) mmol/L Chloride 112 H (101-111) mmol/L Carbon Dioxide 23 (21-32) mmol/L Anion Gap 5.0 L (6-13) BUN 12 (6-20) mg/dL Creatinine 0.6 (0.6-1.2) mg/dL Estimated GFR (MDRD) 162 (>89) Glucose 154 H (70-100) mg/dL POC Whole Bld Glucose 136 H (70 - 100) mg/dL Calcium 7.5 L (8.5-10.3) mg/dL Phosphorus (2.5-4.6) mg/dL Magnesium (1.7-2.8) mg/dL Total Bilirubin (0.2-1.0) mg/dL Direct Bilirubin (0.1-0.5) mg/dL AST (10-42) IU/L ALT (10-60) IU/L Alkaline Phosphatase (42-121) IU/L Total Protein (6.7-8.2) g/dL Albumin (3.2-5.5) g/dL Globulin (2.1-4.2) g/dL Serum Ketones (NEGATIVE) 05/22/23 05/22/23 05/22/23 Range/Units 09:35 08:57 08:01 WBC (4.8-10.8) x10^3/uL RBC (4.70-6.10) 10^6/uL Hgb (14.0-18.0) g/dL Hct (42.0-52.0) % MCV (80.0-94.0) fL MCH (27.0-31.0) pg MCHC (32.0-36.0) g/dL RDW (12.0-15.0) % Plt Count (130-450) 10^3/uL MPV (7.4-11.4) fL Neut # (Auto) (1.5-6.6) 10^3/uL Lymph # (Auto) (1.5-3.5) 10^3/uL Hettinger # (Auto) (0.0-1.0) 10^3/uL Eos # (Auto) (0.0-0.7) 10^3/uL Baso # (Auto) (0.0-0.1) 10^3/uL Absolute Nucleated RBC x10^3/uL Nucleated RBC % /100WBC VBG pH (7.31-7.41) Ionized Calcium (1.15-1.33) mmol/L Sodium (135-145) mmol/L Potassium (3.5-5.0) mmol/L Chloride (101-111) mmol/L Carbon Dioxide (21-32) mmol/L Anion Gap (6-13) BUN (6-20) mg/dL Creatinine (0.6-1.2) mg/dL Estimated GFR (MDRD) (>89) Glucose (70-100) mg/dL POC Whole Bld Glucose 164 H 191 H (70 - 100) mg/dL Calcium (8.5-10.3) mg/dL Phosphorus (2.5-4.6) mg/dL Magnesium (1.7-2.8) mg/dL Total Bilirubin (0.2-1.0) mg/dL Direct Bilirubin (0.1-0.5) mg/dL AST (10-42) IU/L ALT (10-60) IU/L Alkaline Phosphatase (42-121) IU/L Total Protein (6.7-8.2) g/dL Albumin (3.2-5.5) g/dL Globulin (2.1-4.2) g/dL Serum Ketones MODERATE H (NEGATIVE) 05/22/23 05/22/23 Range/Units 07:31 07:31 WBC (4.8-10.8) x10^3/uL RBC (4.70-6.10) 10^6/uL Hgb (14.0-18.0) g/dL Hct (42.0-52.0) % MCV (80.0-94.0) fL MCH (27.0-31.0) pg MCHC (32.0-36.0) g/dL RDW (12.0-15.0) % Plt Count (130-450) 10^3/uL MPV (7.4-11.4) fL Neut # (Auto) (1.5-6.6) 10^3/uL Lymph # (Auto) (1.5-3.5) 10^3/uL Hettinger # (Auto) (0.0-1.0) 10^3/uL Eos # (Auto) (0.0-0.7) 10^3/uL Baso # (Auto) (0.0-0.1) 10^3/uL Absolute Nucleated RBC x10^3/uL Nucleated RBC % /100WBC VBG pH (7.31-7.41) Ionized Calcium (1.15-1.33) mmol/L Sodium (135-145) mmol/L Potassium (3.5-5.0) mmol/L Chloride (101-111) mmol/L Carbon Dioxide (21-32) mmol/L Anion Gap (6-13) BUN (6-20) mg/dL Creatinine (0.6-1.2) mg/dL Estimated GFR (MDRD) (>89) Glucose (70-100) mg/dL POC Whole Bld Glucose (70 - 100) mg/dL Calcium (8.5-10.3) mg/dL Phosphorus (2.5-4.6) mg/dL Magnesium (1.7-2.8) mg/dL Total Bilirubin 1.0 (0.2-1.0) mg/dL Direct Bilirubin 0.1 (0.1-0.5) mg/dL AST 16 (10-42) IU/L ALT 19 (10-60) IU/L Alkaline Phosphatase 52 (42-121) IU/L Total Protein 4.8 L (6.7-8.2) g/dL Albumin 2.6 L (3.2-5.5) g/dL Globulin 2.2 (2.1-4.2) g/dL Serum Ketones MODERATE H (NEGATIVE) Sepsis Event Note (H) - Evaluation Current Stage of Sepsis: Ruled out Assessment/Plan - Problem List (1) DKA (diabetic ketoacidoses) Impression: All labs were reviewed. He had low serum ketones>> moderate serum ketones yesterday. This morning ketones are small He has been on IV insulin drip since admission (Except stopped briefly when glucose was 80) He was also getting NS at 125 an hour The etiology of going into DKA was not definitely established. He has been on empiric IV Zosyn because of his leukocytosis, WBC of 14 at admission, but the had no fever. And chest x-ray was negative. When he was more alert yesterday 05/22, he described his recent tooth infection and that is there is still pain and even swelling of the upper right jaw over several teeth. He underwent maxillofacial CT yesterday, to eval for abscess. The CT did show 2 or 3 teeth that have lucency around them, indicating an infection. I updated the patient about yesterday's CT results today Plan: We will continue with the IV insulin drip today to treat his DKA. Remain in the ICU Continue with IV D5W to prevent hypoglycemia again Continue with iv NS until serum ketones are neg. Continue to follow his serum glucose and his serum ketones. The insulin drip will be discontinued when serum ketones are neg. Diabetic diet started since he is not nauseated, but soft texture due to dental pain Qualifiers: Diabetes mellitus type: type 1 Diabetes mellitus complication detail: without coma Qualified Code(s): E10.10 - Type 1 diabetes mellitus with ketoacidosis without coma (2) Tooth infection - K04.7 When he was more alert yesterday 05/22, he described his recent tooth infection and that is there is still pain and even swelling at the upper right jaw over several teeth. He underwent maxillofacial CT. The CT does show 2 or 3 teeth that have lucency around them indicating an infection. Patient had just taken 1 day dose of oral antibiotic prescribed by his dentist, when he then developed DKA and presented to the ER. Plan: I will stop the IV Zosyn I will start Augmentin twice daily (3) DM type 1 (diabetes mellitus, type 1) Impression: The details of his Hx of DM Type 1 are not known, he was too lethargic to get a complete history. He did not even remember who his PCP is that gives him his insulin prescriptions His A1c came back at 10.9 indicating very poor control Plan: As in #1 above (4) Alcohol abuse Impression: Patient had been somnolent therefore not able to get a detailed history of his alcohol intake but from chart review he has heavy alcohol use. Per his RN, he drinks 10 beers a day At admission he had normal LFTs except elevated bilirubin of 1.7. A CIWA protocol was started. He scored as high as 9 on the CIWA protocol and did need added iv Ativan. Social work met with him and he was not interested in any resources for alcohol abuse cessation Plan: Continue with empiric thiamine, multivitamin. I will stop the CIWA protocol and prn Ativan today We will follow his LFTs intermittently. (5) Depression On 05/22, in afternoon, he was more alert than earlier this admission. I had a good honest talk with him about his alcohol abuse. He told me he had no interest in stopping drinking because "it was the only thing to live for". He enjoys it. I asked if he is depressed since he is saying it is the only thing to live for and he admitted readily that he is. He then said he used to be on escitalopram and ran out and just did not refill it I started him on escitalopram, he was very interested in this. Plan: Continue escitalopram He also wants to go see a "therapist", which should be done as an outpatient (6) Leukocytosis Impression: RESOLVED on empric Zosyn He had no fever or localizing symptoms at admission. A chest x-ray was negative. He did not have abdominal imaging. It wa unclear why he had elevated white count of 14 at admission. He was put on empiric Zosyn Given the elevated bilirubin and history of alcohol abuse, I considered ordering CT abdomen/pelvis, but his abd exam was benign. In review of the admission notes, the patient stated he had a dental infection for which she was on oral antibiotics recently. Given the history of recent dental infection, I did order a maxillofacial CT and this showed several teeth with infections at the roots. His elev WBC resolved, on empric Zosyn There were no blood cultures taken at admission to await results Plan: As in # 2 Qualifiers: Leukocytosis type: bandemia Qualified Code(s): D72.825 - Bandemia Qualifiers: Diabetes mellitus type: type 1 Diabetes mellitus complication detail: witho ut coma Qualified Code(s): E10.10 - Type 1 diabetes mellitus with ketoacidosis without coma
[2023-05-23] MEDS: SODIUM CHLORIDE FLUSH 0.9% 10 ML SYRINGE IVP SCH ×3 (09:00→21:05)
[2023-05-23 09:11] LABS: CALCIUM, IONIZED 1.08 mmol/L (1.15-1.33); VBG PH 7.399 (7.31-7.41)
[2023-05-23] MEDS: MAGNESIUM OXIDE 400 MG TABLET PO SCH (09:25)
[2023-05-23] MEDS: THIAMINE 100 MG TABLET PO SCH (09:25)
[2023-05-23] MEDS: AMOX/CLAV 875 MG/125 MG TABLET PO SCH ×2 (09:25→21:00)
[2023-05-23] MEDS: PRENATAL VITAMIN TABLET PO SCH (09:25)
[2023-05-23] MEDS: ESCITALOPRAM 10 MG TABLET PO SCH (09:26)
[2023-05-23] MEDS: ONDANSETRON 4 MG/2 ML VIAL IVP PRN ×2 (09:32→21:05)
[2023-05-23 16:50] LABS: MAGNESIUM 1.8 mg/dL (1.7-2.8); POTASSIUM 3.5 mmol/L (3.5-5.0)
[2023-05-23] MEDS ORDERED: MAGNESIUM OXIDE 400 MG TABLET PO ONE (16:57)
[2023-05-23] MEDS ORDERED: ZOLPIDEM 5 MG TABLET PO PRN (22:01)
[2023-05-23 22:19] LABS: CALCIUM, IONIZED 1.15 mmol/L (1.15-1.33); VBG PH 7.517 (7.31-7.41)
[2023-05-24] MEDS: POTASSIUM CHLOR 10 MEQ/100 ML 10 MEQ/100 ML BAG IV SCH ×6 (01:07→09:17)
[2023-05-24] MEDS: INSULIN REGULAR HUMAN 100 UNIT in SODIUM CHLORIDE 0.9% 100ML 99 ML IV SCH (01:43)
[2023-05-24] MEDS: SODIUM CHLORIDE 0.9% 1,000 ML IV SCH (02:19)
[2023-05-24 04:28] LABS: BASOPHILS # (AUTO) 0.1 10^3/uL (0.0-0.1); BASOPHILS % (AUTO) 1.1 %; EOSINOPHILS # (AUTO) 0.1 10^3/uL (0.0-0.7); EOSINOPHILS % (AUTO) 1.3 %; HCT - HEMATOCRIT 36.8 % (42.0-52.0); HGB - HEMOGLOBIN 12.8 g/dL (14.0-18.0); LYMPHOCYTES # (AUTO) 1.7 10^3/uL (1.5-3.5); LYMPHOCYTES % (AUTO) 37.2 %; MEAN CORPUSCULAR HEMOGLOBIN 31.9 pg (27.0-31.0); MEAN CORPUSCULAR HGB CONC 34.8 g/dL (32.0-36.0); MEAN CORPUSCULAR VOLUME 91.8 fL (80.0-94.0); MEAN PLATELET VOLUME 9.2 fL (7.4-11.4); MONOCYTES # (AUTO) 0.5 10^3/uL (0.0-1.0); MONOCYTES % (AUTO) 11.7 %; NEUTROPHILS # (AUTO) 2.2 10^3/uL (1.5-6.6); NEUTROPHILS % (AUTO) 48.3 %; PLT - PLATELET COUNT 216 10^3/uL (130-450); RED BLOOD COUNT 4.01 10^6/uL (4.70-6.10); RED CELL DISTRIBUTION WIDTH 11.9 % (12.0-15.0); WHITE BLOOD COUNT 4.5 x10^3/uL (4.8-10.8)
[2023-05-24 04:35] LABS: CALCIUM, IONIZED 1.1 mmol/L (1.15-1.33); VBG PH 7.451 (7.31-7.41)
[2023-05-24 04:51] LABS: BUN - BLOOD UREA NITROGEN < 5 mg/dL (6-20); CALCIUM 8.2 mg/dL (8.5-10.3); CARBON DIOXIDE - CO2 29 mmol/L (21-32); CHLORIDE 108 mmol/L (101-111); CREATININE 0.4 mg/dL (0.6-1.2); GFR - MDRD 258 (>89); GLUCOSE 104 mg/dL (70-100); MAGNESIUM 1.8 mg/dL (1.7-2.8); PHOSPHORUS 2.6 mg/dL (2.5-4.6); SODIUM 140 mmol/L (135-145)
[2023-05-24] MEDS: CALCIUM CARBONATE CHEW 500 MG TABLET PO SCH ×2 (06:02→09:13)
[2023-05-24] MEDS: ONDANSETRON 4 MG/2 ML VIAL IVP PRN (08:37)
[2023-05-24] MEDS: MAGNESIUM OXIDE 400 MG TABLET PO SCH (08:40)
[2023-05-24] MEDS: AMOX/CLAV 875 MG/125 MG TABLET PO SCH (08:40)
[2023-05-24] MEDS: THIAMINE 100 MG TABLET PO SCH (08:40)
[2023-05-24] MEDS: PRENATAL VITAMIN TABLET PO SCH (08:40)
[2023-05-24] MEDS: ESCITALOPRAM 10 MG TABLET PO SCH (08:41)
[2023-05-24] MEDS: SODIUM CHLORIDE FLUSH 0.9% 10 ML SYRINGE IVP SCH ×2 (08:41→16:59)
[2023-05-24] MEDS ORDERED: SODIUM CHLORIDE 0.9% 1,000 ML IV SCH (08:52)
[2023-05-24] MEDS ORDERED: INSULIN GLARGINE-YFGN 300 UNIT/3 ML PEN SUBQ SCH ×3 (09:28→21:00)
--- NOTE | 2023-05-24 12:39 | Discharge Plan ---
Discharge Plan Problem Reviewed?: Yes Disposition: Home, Self Care Condition: Stable Prescriptions: Amox/Clav 875/125 [Augmentin 875/125 Tab] 1 tab PO BID #10 tab Insulin Glargine,Hum.rec.anlog [Insulin Glargine] 8 - 12 units SUBQ BID #1 each Escitalopram [Lexapro] 10 mg PO DAILY #30 tab Thiamine [Vitamin B-1] 100 mg PO DAILY #30 tab Diet: Diabetic Activity Restrictions: Activity as Tolerated Shower Restrictions: No Driving Restrictions: No Health Concerns: You were hospitalized to treat DKA. You needed to be on an insulin drip for ove r 2 days. The reason for your going into DKA was probably your teeth infections. I restarted you on an oral antibiotic, which should be continue for several more days, or for the duration of time that your Dentist wanted you on an antibiotic, whichever is longer. I ordered this antibiotic for you to take after discharge, it was electronically sent to your [facility] pharmacy in [place]. You are being discharged home today and I recommend that you take long-acting insulin twice a day now: 8 units in the morning and 12 units at night. In addition, take short acting mealtime or sliding scale coverage insulin, if you have done before. Please see your doctor who normally prescribes your insulin and manages your diabetes, for further adjustments. Please see your primary care provider in the next 1 to 2 weeks for a hospital follow-up visit. You should also see your dentist again soon, since several teeth are showing significant root infections. While you were here, I started you on an antidepressant. I have prescribed the Escitalopram electronically to your [facility] pharmacy in [facility] also. This could take 2 to 4 weeks before you feel a difference, but it should help. You c an get refills from your primary care provider. This is a safer way to manage your depression then looking forward to getting drunk on alcohol. Please stop drinking beer so heavily. Plan of Treatment: As above. Care Goals: Improvement in symptoms and stabilization are the goals. Assessment: These instructions are provided for you as reminders. No Smoking: If you smoke, Please STOP! Call for help. Follow-up with: JONATHAN GROVES MD [Primary Care Provider] -
[2023-05-24] MEDS: INSULIN LISPRO 300 UNIT/3 ML PEN SUBQ SCH ×4 (12:44→16:58)
[2023-05-24 16:35] VITALS: BP 122/86
--- NOTE | 2023-05-24 17:02 | DISCHARGE SUMMARY ---
Discharge Summary Admit Date: 05/21/23 Discharge Date: 05/24/23 Discharging Provider: Dr Laila Zavala Primary Care Provider: Dr. Tracy Barboza Condition at Discharge: Stable Discharge Disposition: 01 Home, Self Care - HPI History of Present Illness: The patient comes to the emergency department w/ chief complaint of "anxiety, nausea, and breathing hard". He states he had a dental infection that he thinks started a couple of days ago and was started on antibiotics for this the day before yesterday. He noticed nausea after taking his antibiotics; he woke up the next morning just feeling "sick". He states he developed nausea and began vomiting. His breathing got increasingly deep and fast and he feels like when he has been in DKA previously. Patient also states that he gets anxious when he realizes he is getting sick. The patient has vomited multiple times. He has not measured a fever. He denies any respiratory symptoms otherwise. No other complaints at this time. He is a known type I diabetic. Patient when seen by me, was not able to participate in conversation, as he was in moderate distress and very sleepy. As per review of records has had DKA multiple times in the past, recently had dental work. He is acidotic on labs, although his glucose level is not very high (400's), but he has a wide anion gap and is in severe acidosis. He will be admitted to the ICU and started on a DKA protocol w/ iv Insulin drip. We learned that patient drinks alcohol daily. It is reported that he is a heavy drinker (10 beers a day). He smokes marijuana. He denies use of tobacco products. - HOSPITAL COURSE Hospital Course: (1) DKA (diabetic ketoacidoses) He was put on IV saline and IV insulin drip and his ketones were closely monitored. He was on insulin drip for 3-1/2 days because of his serum ketones did not turn negative until 05/24/23. (2) Tooth infection - K04.7 The etiology of going into DKA was not definitely established at admission, but he was started on empiric IV Zosyn because of his leukocytosis, WBC of 16 at admission. But he had no fever, his chest x-ray and U/A were negative. When he became more alert on 05/22, he described his recent tooth infection and c/o pain and swelling of the upper right jaw over several teeth. He underwent maxillofacial CT and that did show 3 teeth that had lucency around them, indic ating an infection. His IV Zosyn was changed to Augmentin twice daily. He was discharged on Augmentin. He was advised he needs follow-up with his Dentist. (3) DM type 1 (diabetes mellitus, type 1) The details of his Hx of DM Type 1 were not known, because he was too lethargic to get a complete history. He did not even remember who his PCP was that gives him his insulin prescriptions. His A1c came back at 10.9 indicating very poor control. (4) Alcohol abuse We learned he drinks 10 beers a day. At admission he had normal LFTs except elevated bilirubin of 1.7. A CIWA protocol was started. He scored as high as 9 on the CIWA protocol and did need iv Ativan. Social work met with him and he was not interested in any resources for alcohol abuse cessation. He was put on oral Thiamine and discharged on this. (5) Depression On 05/22, he was more alert and we had a good talk about his alcohol abuse. He told me he had no interest in stopping drinking because "it was the only thing to live for". He said he enjoys it. I asked if he is depressed since he is saying it was the only thing to live for, and he admitted readily that he is. He then said he used to be on Escitalopram and ran out and just did not refill it. I re-started him on Escitalopram here and discharged him on this. He was very interested in "seeing a therapist", which should be done as an outpatient. (6) Leukocytosis He had no fever or localizing symptoms at admission. A chest x-ray was negative. He was put on empiric Zosyn. With the elevated bilirubin and history of alcohol abuse, I considered ordering CT abdomen/pelvis, but his abdomen exam was benign. Since he had the recent dental infection, he underwent a maxillofacial CT and this showed 3 teeth with infections at the roots. His elevated WBC resolved, on empric Zosyn, it went from 16>> 14>> 4.7>> was 4.5 at discharge. There were no blood cultures taken at admission to await results - ALLERGIES Allergies/Adverse Reactions: Allergies Allergy/AdvReac Type Severity Reaction Status Date / Time No Known Drug Allergies Allergy Verified 11/20/22 19:29 - MEDICATIONS Home Medications: Ambulatory Orders Medication Instructions Recorded Confirmed Insulin Lispro [Humalog Kwikpen 1 - 10 units SUBQ TIDWM 05/21/23 05/21/23 U-100] Amox/Clav 875/125 [Augmentin 1 tab PO BID #10 tab 05/24/23 875/125 Tab] Escitalopram [Lexapro] 10 mg PO DAILY #30 tab 05/24/23 Insulin Glargine,Hum.rec.anlog 8 - 12 units SUBQ BID #1 each 05/24/23 [Insulin Glargine] [place], Disposable [Needle] 1 each [facility] #100 ea 05/24/23 Thiamine [Vitamin B-1] 100 mg PO DAILY #30 tab 05/24/23 - PHYSICAL EXAM AT DISCHARGE General Appearance: positive: No acute distress, Alert Eyes Bilateral: positive: Normal inspection, EOMI ENT: positive: ENT inspection nml, Other (No further right cheek swelling) Neck: positive: Nml inspection, No JVD Respiratory: positive: No respiratory distress, Breath sounds nml Cardiovascular: positive: Regular rate & rhythm, No murmur Abdomen: positive: Non-tender, Nml bowel sounds, No distention Skin: positive: Warm, Dry Extremities: positive: Non-tender, No pedal edema Neurologic/Psychiatric: positive: Oriented x3, Motor nml, Other (No nystagmus, no tremor.) - LABS Result Diagrams: 05/24/23 04:20 05/24/23 11:44 - DIAGNOSTIC IMAGING Diagnostic Imaging Results: Final report reviewed - SEPSIS Current Stage of Sepsis: Ruled out - FOLLOW UP Follow Up: See PCP in 1 to 2 weeks for hospital follow-up visit. See dentist in 7 to 10 days for a follow-up visit. - TIME SPENT Time Spent in Discharge (Minutes): 45
== END 2023-05-24 18:00 | disposition home or self-care (01) | DRG 638 ==
LOC: ED 01:10 → ICU 02:29
PROVIDERS: ADMIT Internal Medicine; ATTEND Internal Medicine
DX: E10.10 Type 1 diabetes mellitus with ketoacidosis without coma (principal); R65.10 Systemic inflammatory response syndrome (SIRS) of non-infectious origin without acute organ dysfunction; K04.7 Periapical abscess without sinus; F10.10 Alcohol abuse, uncomplicated; F32.A Depression, unspecified; D72.829 Elevated white blood cell count, unspecified; E10.649 Type 1 diabetes mellitus with hypoglycemia without coma; D72.825 Bandemia; Z79.4 Long term (current) use of insulin
CPT/HCPCS: 36415; 70487; 71045; 80048; 80053; 80076; 80306; 81001; 82009; 82330; 82803; 82947; 83036; 83690; 83735; 84100; 84132; 85025; 87150; 96374; 99284; 99285; A9270; J1200; J1815; J2060; J8499; Q9967; 81003; 87086

== ENCOUNTER 2023-07-29 13:41 | Outpatient (CLI) | payer OTHER ==
[2023-07-29 19:40] LABS: BASOPHILS # (AUTO) 0.2 10^3/uL (0.0-0.1); BASOPHILS % (AUTO) 1.5 %; EOSINOPHILS % (AUTO) 0.2 %; HCT - HEMATOCRIT 51.6 % (42.0-52.0); HGB - HEMOGLOBIN 16.6 g/dL (14.0-18.0); LYMPHOCYTES # (AUTO) 1.2 10^3/uL (1.5-3.5); LYMPHOCYTES % (AUTO) 12.2 %; MEAN CORPUSCULAR HGB CONC 32.2 g/dL (32.0-36.0); MEAN CORPUSCULAR VOLUME 99.6 fL (80.0-94.0); MEAN PLATELET VOLUME 9.7 fL (7.4-11.4); MONOCYTES # (AUTO) 0.9 10^3/uL (0.0-1.0); MONOCYTES % (AUTO) 9.1 %; NEUTROPHILS # (AUTO) 7.3 10^3/uL (1.5-6.6); NEUTROPHILS % (AUTO) 73.2 %; PLT - PLATELET COUNT 331 10^3/uL (130-450); RED BLOOD COUNT 5.18 10^6/uL (4.70-6.10); RED CELL DISTRIBUTION WIDTH 11.6 % (12.0-15.0); WHITE BLOOD COUNT 9.9 x10^3/uL (4.8-10.8)
[2023-07-29 19:59] LABS: ALBUMIN 4.9 g/dL (3.2-5.5)
[2023-07-29 20:20] LABS: ALBUMIN/GLOBULIN RATIO 1.3 (1.0-2.2); BILIRUBIN,TOTAL 0.4 mg/dL (0.2-1.0); CALCIUM 9.4 mg/dL (8.5-10.3); CREATININE 0.9 mg/dL (0.6-1.3); POTASSIUM 4.2 mmol/L (3.5-4.5); TOTAL PROTEIN 8.7 g/dL (6.4-8.9)
== END 2023-07-29 13:42 | disposition home or self-care (01) ==
LOC: LAB.S 13:41
PROVIDERS: ATTEND Nurse Practitioner
DX: R11.2 Nausea with vomiting, unspecified (principal)
CPT/HCPCS: 36415; 80053; 85025

== ENCOUNTER 2023-07-29 21:08 | Emergency (ER) | payer OTHER ==
[2023-07-29] MEDS ORDERED: SODIUM CHLORIDE 0.9% 1,000 ML IV STA ×2 (21:22→21:51)
--- OUTSIDE RECORDS SUMMARY | 2023-07-29 21:30 | EXTERNAL MEDICAL SUMMARY RPT | Continuity of Care Document ---
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 Role Phone Unavailable Unavailable Unavailable Brenna Chao Unavailable Unavailable Viviana Betancourt Md Unavailable Unavailable Medications date description facility 2023-07-29 00:00 insulin lispro [facility] [place] 2023-05-20 00:00 amoxicillin-pot clavulanate [facility] [place] 2023-05-20 00:00 amoxicillin-pot clavulanate [facility] [place] 2023-07-29 00:00 amoxicillin-pot clavulanate [facility] [place] 2023-07-29 00:00 insulin glargine [facility] [place] 2023-05-20 00:00 insulin glargine [facility] [place] 2023-05-21 00:00 insulin glargine [facility] [place] 2023-07-29 00:00 insulin glargine [facility] [place] 2023-05-20 00:00 amoxicillin-pot clavulanate [facility] [place] 2023-05-20 00:00 amoxicillin-pot clavulanate [facility] [place] 2023-07-29 00:00 amoxicillin-pot clavulanate [facility] [place] 2023-07-29 00:00 insulin lispro [facility] [place] 2023-07-29 00:00 insulin lispro [facility] [place] 2023-07-29 00:00 pen needle, diabetic [facility] [place] 2023-07-29 00:00 insulin glargine [facility] [place] 2023-05-20 00:00 insulin glargine [facility] [place] 2023-05-21 00:00 insulin glargine [facility] [place] 2023-07-29 00:00 insulin glargine [facility] [place] 2023-07-29 00:00 insulin glargine [facility] [place] 2023-07-29 00:00 insulin lispro [facility] [place] 2023-05-20 00:00 insulin glargine [facility] [place] 2023-05-21 00:00 insulin glargine [facility] [place] 2023-07-29 00:00 insulin glargine [facility] [place] 2023-05-20 00:00 amoxicillin-pot clavulanate [facility] [place] 2023-05-20 00:00 amoxicillin-pot clavulanate [facility] [place] 2023-07-29 00:00 amoxicillin-pot clavulanate [facility] [place] 2023-05-20 00:00 insulin glargine [facility] [place] 2023-05-21 00:00 insulin glargine [facility] [place] 2023-07-29 00:00 insulin glargine [facility] [place] 2023-05-20 00:00 amoxicillin-pot clavulanate [facility] [place] 2023-05-20 00:00 amoxicillin-pot clavulanate [facility] [place] 2023-07-29 00:00 amoxicillin-pot clavulanate [facility] [place] 2023-07-29 00:00 pen needle, diabetic [facility] [place] 2023-07-29 00:00 pen needle, diabetic [facility] [place] Problems date description facility 2023-05-20 00:00 Dental abscess [facility] [place] 2023-05-20 00:00 Dental abscess [facility] [place] 2023-05-20 00:00 Periapical abscess without sinu s [facility] [place] 2023-05-20 00:00 Periapical abscess without sinu s [facility] [place] 2023-07-29 00:00 Nausea and vomiting [facility] [place] 2023-07-29 00:00 Acute upper respirat ory infections of unspecified site [facility] [place] 2023-07-29 00:00 Acute upper respiratory infecti on [facility] [place] 2023-07-29 00:00 Nausea with vomiting [facility] [place] 2023-07-29 00:00 Acute upper respirat ory infection, unspecified [facility] [place] 2023-07-29 00:00 Nausea with vomiting, unspecifi ed [facility] [place] Procedures date description facility 2023-05-20 00:00 Visit Code Hold [facility] [place] 2023-05-20 00:00 Visit Code Hold [facility] [place] 2023-07-29 00:00 Visit Code Hold [facility] [place] Results/Labs test date facility value unit notes Social History date description facility 2023-05-20 00:00 Never smoker [facility] [place] 2023-05-20 00:00 Never smoker [facility] [place] Vital Signs date measurement value units 2023-05-20 [...]
[2023-07-29 21:45] LABS: BASOPHILS % (AUTO) 1.7 %; HCT - HEMATOCRIT 53.7 % (42.0-52.0); HGB - HEMOGLOBIN 17.3 g/dL (14.0-18.0); LYMPHOCYTES % (AUTO) 10.1 %; MEAN CORPUSCULAR HEMOGLOBIN 31.9 pg (27.0-31.0); MEAN CORPUSCULAR HGB CONC 32.2 g/dL (32.0-36.0); MEAN CORPUSCULAR VOLUME 99.1 fL (80.0-94.0); MEAN PLATELET VOLUME 9.4 fL (7.4-11.4); MONOCYTES % (AUTO) 6.5 %; NEUTROPHILS % (AUTO) 75.8 %; PLT - PLATELET COUNT 383 10^3/uL (130-450); RED BLOOD COUNT 5.42 10^6/uL (4.70-6.10); RED CELL DISTRIBUTION WIDTH 11.8 % (12.0-15.0); WHITE BLOOD COUNT 13.7 x10^3/uL (4.8-10.8)
[2023-07-29 21:47] LABS: ABNORMAL LYMPHS % (MANUAL) 0 %; VBG OXYGEN SATURATION 78.3 % (60-80); VBG PCO2 21.3 mmHg (41-51); VBG PO2 46.9 mmHg (25-47); VBG TOTAL CO2 5.7 mmol/L (24-29)
[2023-07-29] MEDS ORDERED: POTASSIUM CHLORIDE 20 MEQ/15 ML UDC PO STA (21:52)
[2023-07-29] MEDS ORDERED: POTASSIUM CHLOR 10 MEQ/100 ML 10 MEQ/100 ML BAG IV STA (21:52)
[2023-07-29] MEDS ORDERED: INSULIN REGULAR HUMAN 300 UNIT/3 ML VIAL IVP STA ×2 (21:53→23:59)
[2023-07-29 21:55] LABS: VBG PH 6.99 (7.31-7.41)
--- NOTE | 2023-07-29 21:57 | ED Physician Documentation ---
History of Present Illness - Stated complaint Stated Complaint: SOA, FATIGUE, NAUSEA - Chief complaint Chief Complaint: General - History obtained from History obtained from: Patient - Additonal information Additional information: 27yM with pmh DM1, p/w nonproductive cough and URI symptoms last week, followed by nbnb n/v and diffuse abdominal pain today. patient states this is similar to prior episodes of DKA. denies diarrhea or fever. Review of Systems Constitutional: reports: Myalgias, Fatigue. denies: Fever Throat: reports: Sore throat Cardiac: denies: Chest pain / pressure Respiratory: denies: Dyspnea GI: reports: Abdominal Pain, Nausea, Vomiting. denies: Diarrhea : denies: Dysuria, Frequency, Hematuria Musculoskeletal: denies: Back pain Neurologic: reports: Generalized weakness PD PAST MEDICAL HISTORY - Past Medical History Cardiovascular: None Respiratory: Other Neuro: None Endocrine/Autoimmune: Type 1 diabetes GI: Pancreatitis : None Psych: None Derm: None - Past Surgical History General: Other - Present Medications Home Medications: Ambulatory Orders Medication Instructions Recorded Confirmed Insulin Lispro [Humalog Kwikpen 1 - 10 units SUBQ TIDWM 05/21/23 05/21/23 U-100] Amox/Clav 875/125 [Augmentin 1 tab PO BID #10 tab 05/24/23 875/125 Tab] Escitalopram [Lexapro] 10 mg PO DAILY #30 tab 05/24/23 Insulin Glargine,Hum.rec.anlog 8 - 12 units SUBQ BID #1 each 05/24/23 [Insulin Glargine] [place], Disposable [Needle] 1 each [facility] #100 ea 05/24/23 Thiamine [Vitamin B-1] 100 mg PO DAILY #30 tab 05/24/23 - Allergies Allergies/Adverse Reactions: Allergies Allergy/AdvReac Type Severity Reaction Status Date / Time No Known Drug Allergies Allergy Verified 07/29/23 21:21 - Social History Does the pt smoke?: No Smoking Status: Never smoker - POLST Patient has POLST: No POLST Status: Full Code PD ED PE NORMAL - Vitals Vital signs reviewed: Yes - General General: Alert and oriented X 3, No acute distress, Well developed/nourished - HEENT HEENT: Atraumatic, PERRL, EOMI, Other (Dry mm) - Neck Neck: Supple, no meningeal sign - Cardiac Cardiac: Other (tachycardic rate, regular rhythm) - Respiratory Respiratory: No respiratory distress, Clear bilaterally - Abdomen Abdomen: Non tender, Non distended - Back Back: No CVA TTP - Derm Derm: Normal color, Warm and dry - Extremities Extremities: No deformity - Neuro Neuro: Alert and oriented X 3, No motor deficit, No sensory deficit - Psych Psych: Other (anxious mood and affect) Results - Vitals Vitals: Vital Signs - 24 hr 07/29/23 07/29/23 07/29/23 21:13 21:50 22:44 Temperature 36.6 C Heart Rate 109 H 105 H 105 H Respiratory 19 28 H 26 H Rate Blood Pressure 154/108 H 140/106 H 159/108 H O2 Saturation 100 98 100 07/30/23 07/30/23 07/30/23 00:00 00:33 00:59 Temperature Heart Rate 111 H 120 H 112 H Respiratory 18 26 H 24 Rate Blood Pressure 143/97 H 133/97 H 133/62 H O2 Saturation 99 97 100 07/30/23 07/30/23 07/30/23 01:55 02:59 03:36 Temperature Heart Rate 103 H 104 H 110 H Respiratory 18 18 22 Rate Blood Pressure 142/100 H 126/75 126/81 H O2 Saturation 100 98 98 07/30/23 07/30/23 07/30/23 04:17 05:52 06:29 Temperature Heart Rate 100 89 62 Respiratory 20 18 18 Rate Blood Pressure 124/75 123/75 115/72 O2 Saturation 98 100 99 07/30/23 07:02 Temperature Heart Rate 91 Respiratory 18 Rate Blood Pressure 113/70 O2 Saturation 99 Oxygen O2 Source Room air - EKG (time done) 2132 EKG releavant findings:: EKG personally interpreted by author of this note. Relevant findings are: Rate: Rate (enter#) (101) Rhythm: Sinus tachycardia Intervals: Normal MT QRS: Normal Ischemia: Normal ST segments - Labs Labs: Laboratory Tests 07/29/23 07/29/23 07/29/23 21:22 21:40 21:40 WBC 13.7 H RBC 5.42 Hgb 17.3 Hct 53.7 H MCV 99.1 H MCH 31.9 H MCHC 32.2 RDW 11.8 L Plt Count 383 MPV 9.4 Neut # (Auto) Not Reportable Lymph # (Auto) Not Reportable [place] # (Auto) Not Reportable Eos # (Auto) Not Reportable Baso # (Auto) Not Reportable Absolute Nucleated RBC Not Reportable Total Counted 100 Band Neuts % (Manual) 4 Abnorm Lymph % (Manual) 0 Metamyelocytes % 1 H Myelocytes % 3 H Nucleated RBC % Not Reportable Neutrophils # (Manual) 11.4 H Lymphocytes # (Manual) 1.4 L Monocytes # (Manual) 0.3 Eosinophils # (Manual) 0.0 Basophils # (Manual) 0.1 Differential Comment MANUAL DIFFERENTIAL Platelet Estimate NORMAL (130-450,000) Platelet Morphology NORMAL APPEARANCE RBC Morph Micro Appear NORMAL APPEARANCE VBG pH VBG pCO2 VBG pO2 VBG HCO3 VBG Total CO2 VBG O2 Saturation VBG Base Excess Sodium 139 Potassium 3.7 Chloride 104 Carbon Dioxide 6 L* Anion Gap 29.0 H BUN 11 Creatinine 1.1 Estimated GFR (MDRD) 80 L Glucose 288 H POC Whole Bld Glucose 297 H Calcium 8.8 Phosphorus 3.9 Magnesium 2.3 Total Bilirubin 1.1 H AST 15 ALT 20 Alkaline Phosphatase 124 H Total Protein 9.2 H Albumin 4.5 Globulin 4.7 H Albumin/Globulin Ratio 1.0 Serum Ketones LARGE H 07/29/23 07/29/23 07/30/23 21:40 23:29 00:23 WBC RBC Hgb Hct MCV MCH MCHC RDW Plt Count MPV Neut # (Auto) Lymph # (Auto) [place] # (Auto) Eos # (Auto) Baso # (Auto) Absolute Nucleated RBC Total Counted Band Neuts % (Manual) Abnorm Lymph % (Manual) Metamyelocytes % Myelocytes % Nucleated RBC % Neutrophils # (Manual) Lymphocytes # (Manual) Monocytes # (Manual) Eosinophils # (Manual) Basophils # (Manual) Differential Comment Platelet Estimate Platelet Morphology RBC Morph Micro Appear VBG pH 6.990 L* VBG pCO2 21.3 L VBG pO2 46.9 VBG HCO3 5.0 L VBG Total CO2 5.7 L VBG O2 Saturation 78.3 VBG Base Excess -25.0 L Sodium Potassium Chloride Carbon Dioxide Anion Gap BUN Creatinine Estimated GFR (MDRD) Glucose POC Whole Bld Glucose 240 H 203 H Calcium Phosphorus Magnesium Total Bilirubin AST ALT Alkaline Phosphatase Total Protein Albumin Globulin Albumin/Globulin Ratio Serum Ketones 07/30/23 07/30/23 07/30/23 00:36 00:36 01:23 WBC RBC Hgb Hct MCV MCH MCHC RDW Plt Count MPV Neut # (Auto) Lymph # (Auto) [place] # (Auto) Eos # (Auto) Baso # (Auto) Absolute Nucleated RBC Total Counted Band Neuts % (Manual) Abnorm Lymph % (Manual) Metamyelocytes % Myelocytes % Nucleated RBC % Neutrophils # (Manual) Lymphocytes # (Manual) Monocytes # (Manual) Eosinophils # (Manual) Basophils # (Manual) Differential Comment Platelet Estimate Platelet Morphology RBC Morph Micro Appear VBG pH 7.025 L* VBG pCO2 22.7 L VBG pO2 31.6 VBG HCO3 5.8 L VBG Total CO2 6.5 L VBG O2 Saturation 62.7 VBG Base Excess -23.6 L Sodium 141 Potassium 4.0 Chloride 112 H Carbon Dioxide 5 L* Anion Gap 24.0 H BUN 10 Creatinine 0.8 Estimated GFR (MDRD) 116 Glucose 189 H POC Whole Bld Glucose 136 H Calcium 8.3 L Phosphorus Magnesium Total Bilirubin AST ALT Alkaline Phosphatase Total Protein Albumin Globulin Albumin/Globulin Ratio Serum Ketones 07/30/23 07/30/23 07/30/23 02:28 02:30 03:28 WBC RBC Hgb Hct MCV MCH MCHC RDW Plt Count MPV Neut # (Auto) Lymph # (Auto) [place] # (Auto) Eos # (Auto) Baso # (Auto) Absolute Nucleated RBC Total Counted Band Neuts % (Manual) Abnorm Lymph % (Manual) Metamyelocytes % Myelocytes % Nucleated RBC % Neutrophils # (Manual) Lymphocytes # (Manual) Monocytes # (Manual) Eosinophils # (Manual) Basophils # (Manual) Differential Comment Platelet Estimate Platelet Morphology RBC Morph Micro Appear VBG pH VBG pCO2 VBG pO2 VBG HCO3 VBG Total CO2 VBG O2 Saturation VBG Base Excess Sodium 136 Potassium 3.8 Chloride 111 Carbon Dioxide 6 L* Anion Gap 19.0 H BUN 9 Creatinine 0.7 Estimated GFR (MDRD) 135 Glucose 175 H POC Whole Bld Glucose 170 H 221 H Calcium 8.1 L Phosphorus 1.0 L* Magnesium 1.6 L Total Bilirubin AST ALT Alkaline Phosphatase Total Protein Albumin Globulin Albumin/Globulin Ratio Serum Ketones 07/30/23 07/30/23 07/30/23 04:45 04:45 04:49 WBC RBC Hgb Hct MCV MCH MCHC RDW Plt Count MPV Neut # (Auto) Lymph # (Auto) [place] # (Auto) Eos # (Auto) Baso # (Auto) Absolute Nucleated RBC Total Counted Band Neuts % (Manual) Abnorm Lymph % (Manual) Metamyelocytes % Myelocytes % Nucleated RBC % Neutrophils # (Manual) Lymphocytes # (Manual) Monocytes # (Manual) Eosinophils # (Manual) Basophils # (Manual) Differential Comment Platelet Estimate Platelet Morphology RBC Morph Micro Appear VBG pH VBG pCO2 VBG pO2 VBG HCO3 VBG Total CO2 VBG O2 Saturation VBG Base Excess Sodium 133 L Potassium 3.9 Chloride 113 H Carbon Dioxide 8 L* Anion Gap 12.0 BUN 9 Creatinine 0.7 Estimated GFR (MDRD) 135 Glucose 271 H POC Whole Bld Glucose 264 H Calcium 7.8 L Phosphorus < 1.0 L* Magnesium 2.3 Total Bilirubin AST ALT Alkaline Phosphatase Total Protein Albumin Globulin Albumin/Globulin Ratio Serum Ketones 07/30/23 07/30/23 07/30/23 05:03 05:29 06:42 WBC RBC Hgb Hct MCV MCH MCHC RDW Plt Count MPV Neut # (Auto) Lymph # (Auto) [place] # (Auto) Eos # (Auto) Baso # (Auto) Absolute Nucleated RBC Total Counted Band Neuts % (Manual) Abnorm Lymph % (Manual) Metamyelocytes % Myelocytes % Nucleated RBC % Neutrophils # (Manual) Lymphocytes # (Manual) Monocytes # (Manual) Eosinophils # (Manual) Basophils # (Manual) Differential Comment Platelet Estimate Platelet Morphology RBC Morph Micro Appear VBG pH 7.210 L VBG pCO2 23.0 L VBG pO2 122.6 H VBG HCO3 9.0 L VBG Total CO2 9.7 L VBG O2 Saturation 98.2 H VBG Base Excess -17.1 L Sodium Potassium Chloride Carbon Dioxide Anion Gap BUN Creatinine Estimated GFR (MDRD) Glucose POC Whole Bld Glucose 250 H 209 H Calcium Phosphorus Magnesium Total Bilirubin AST ALT Alkaline Phosphatase Total Protein Albumin Globulin Albumin/Globulin Ratio Serum Ketones PD Medical Decision Making - ED course ED course: 27yM presents to the ED with n/v and abdominal pain concerning for DKA. initial vbg 6.99 with normal potassium, glucose in 200s, AG 28. No beds available in ICU overnight so we are managing in the ED. CXR showed mild left upper lobe airspace disease concerning for possible pneumonia. rocephin/azithro ordered. RVP pending. DKA improving on repeat labs with AG 12 on most recent labwork. still with some acidosis and persistent low bicarb. plan to endorse to incoming daytime ED MD at 7am shift change. Departure - Departure Clinical Impression: DKA (diabetic ketoacidosis), Nausea and vomiting Condition: Serious Forms: PCP List
[2023-07-29 21:59] LABS: KETONES, SERUM (ACETEST) LARGE (NEGATIVE)
[2023-07-29 22:07] LABS: BAND NEUTROPHILS % (MANUAL) 4 %; BASOPHILS # (MANUAL) 0.1 10^3/uL (0-0.1); BASOPHILS % (MANUAL) 1 %; LYMPHOCYTES # (MANUAL) 1.4 10^3/uL (1.5-3.5); LYMPHOCYTES % (MANUAL) 10 %; METAMYELOCYTES % (MANUAL) 1 %; MONOCYTES # (MANUAL) 0.3 10^3/uL (0.0-1.0); MYELOCYTES % (MANUAL) 3 %; NEUTROPHILS # (MANUAL) 11.4 10^3/uL (1.5-6.6); PLATELET ESTIMATE, MANUAL NORMAL (130-450,000) (NORMAL); PLATELET MORPHOLOGY NORMAL APPEARANCE (NORMAL); RBC MORPHOLOGY (MULTIPLE) NORMAL APPEARANCE (NORMAL)
[2023-07-29 22:08] LABS: DIFFERENTIAL COMMENT MANUAL DIFFERENTIAL
[2023-07-29] MEDS ORDERED: ONDANSETRON 4 MG/2 ML VIAL IVP STA (22:08)
[2023-07-29] MEDS ORDERED: INSULIN REGULAR IN 0.9 % NS 100 UNIT/100 ML BAG IV STA (22:09)
[2023-07-29] MEDS ORDERED: LORazepam 2 MG/ML VIAL IVP STA (22:09)
[2023-07-29 22:15] LABS: ALBUMIN 4.5 g/dL (3.2-5.5); ALKALINE PHOSPHATASE 124 IU/L (42-121); ALT ALANINE AMINOTRANSFERASE 20 IU/L (10-60); AST ASPARTATE AMINOTRANSFERASE 15 IU/L (10-42); BILIRUBIN,TOTAL 1.1 mg/dL (0.2-1.0); BUN - BLOOD UREA NITROGEN 11 mg/dL (6-20); CALCIUM 8.8 mg/dL (8.5-10.3); CHLORIDE 104 mmol/L (101-111); CREATININE 1.1 mg/dL (0.6-1.2); GFR - MDRD 80 (>89); GLUCOSE 288 mg/dL (70-100); MAGNESIUM 2.3 mg/dL (1.7-2.8); PHOSPHORUS 3.9 mg/dL (2.5-4.6); POTASSIUM 3.7 mmol/L (3.5-5.0); SODIUM 139 mmol/L (135-145); TOTAL PROTEIN 9.2 g/dL (6.7-8.2)
[2023-07-29 22:18] LABS: CARBON DIOXIDE - CO2 6 mmol/L (21-32)
[2023-07-30] MEDS ORDERED: BENZOCAINE/MENTHOL LOZENGE MM STA
[2023-07-30 00:39] LABS: VBG HCO3 5.8 mmol/L (23-28); VBG PCO2 22.7 mmHg (41-51); VBG PO2 31.6 mmHg (25-47)
[2023-07-30 00:40] LABS: VBG BASE EXCESS -23.6 mmol/L (-2 - +2); VBG OXYGEN SATURATION 62.7 % (60-80); VBG TOTAL CO2 6.5 mmol/L (24-29)
[2023-07-30 00:42] LABS: VBG PH 7.025 (7.31-7.41)
[2023-07-30] MEDS ORDERED: KETOROLAC 15 MG/ML VIAL IVP STA (00:48)
[2023-07-30] MEDS ORDERED: LORazepam 2 MG/ML VIAL IVP STA (00:48)
[2023-07-30] MEDS ORDERED: ONDANSETRON 4 MG/2 ML VIAL IVP STA (00:49)
[2023-07-30] MEDS ORDERED: guaiFENesin/DEXTROMETHORPHAN 10 ML UDC PO STA (00:50)
[2023-07-30] MEDS ORDERED: POTASSIUM CHLOR 10 MEQ/100 ML 10 MEQ/100 ML BAG IV STA ×4 (00:54→06:59)
[2023-07-30] MEDS ORDERED: SODIUM CHLORIDE 0.9% 1,000 ML IV STA (00:54)
[2023-07-30 00:58] LABS: CALCIUM 8.3 mg/dL (8.5-10.3); CREATININE 0.8 mg/dL (0.6-1.3)
[2023-07-30] MEDS: DEXTROSE 5%-0.45% NACL 1,000 ML IV SCH ×3 (01:47→08:07)
[2023-07-30 02:55] LABS: MAGNESIUM 1.6 mg/dL (1.7-2.3)
[2023-07-30 02:56] LABS: CALCIUM 8.1 mg/dL (8.5-10.3); CREATININE 0.7 mg/dL (0.6-1.3); POTASSIUM 3.8 mmol/L (3.5-4.5)
[2023-07-30] MEDS ORDERED: MAGNESIUM SULFATE 2 GRAM 2 GM/50 ML BAG IV ONE ×2 (03:00→05:48)
[2023-07-30] MEDS ORDERED: POTASSIUM CHLORIDE 20 MEQ/15 ML UDC PO STA ×2 (03:03→05:45)
[2023-07-30] MEDS ORDERED: DEXTROSE 5%-0.9% NACL 1,000 ML IV STA ×2 (03:04→05:46)
[2023-07-30] MEDS: NEUTRA-PHOS 250 MG TABLET PO SCH ×2 (05:00→09:19)
[2023-07-30 05:08] LABS: VBG BASE EXCESS -17.1 mmol/L (-2 - +2); VBG OXYGEN SATURATION 98.2 % (60-80); VBG PH 7.21 (7.31-7.41); VBG PO2 122.6 mmHg (25-47); VBG TOTAL CO2 9.7 mmol/L (24-29)
[2023-07-30 05:29] LABS: MAGNESIUM 2.3 mg/dL (1.7-2.3)
[2023-07-30 05:38] LABS: CALCIUM 7.8 mg/dL (8.5-10.3); CREATININE 0.7 mg/dL (0.6-1.3); PHOSPHORUS < 1.0 mg/dL (2.5-5.0); POTASSIUM 3.9 mmol/L (3.5-4.5)
[2023-07-30] MEDS ORDERED: NEUTRA-PHOS 250 MG TABLET PO STA (05:48)
[2023-07-30] MEDS ORDERED: CALCIUM GLUCONATE IN NS 0.9% 2,000 MG/100 ML BAG IV STA (07:00)
[2023-07-30] MEDS ORDERED: cefTRIAXone 1 GM in SODIUM CHLORIDE 0.9% MINIBAG 100 ML IV STA (07:06)
[2023-07-30] MEDS ORDERED: AZITHROMYCIN INJ 500 MG in SODIUM CHLORIDE 0.9% 250 ML IV STA (07:06)
[2023-07-30] MEDS ORDERED: AZITHROMYCIN 250 MG TABLET PO STA (07:58)
[2023-07-30 08:06] LABS: VBG HCO3 14.7 mmol/L (23-28); VBG PCO2 33.4 mmHg (41-51); VBG PH 7.26 (7.31-7.41); VBG PO2 35.2 mmHg (25-47)
[2023-07-30 08:07] LABS: VBG BASE EXCESS -11.3 mmol/L (-2 - +2); VBG OXYGEN SATURATION 78.4 % (60-80); VBG TOTAL CO2 15.7 mmol/L (24-29)
[2023-07-30 08:37] LABS: BUN - BLOOD UREA NITROGEN 8 mg/dL (6-20); CALCIUM 8.2 mg/dL (8.5-10.3); CARBON DIOXIDE - CO2 14 mmol/L (21-32); CHLORIDE 115 mmol/L (101-111); CREATININE 0.6 mg/dL (0.6-1.3); GFR - MDRD 162 (>89); GLUCOSE 187 mg/dL (74-104); POTASSIUM 3.4 mmol/L (3.5-4.5); SODIUM 137 mmol/L (135-145)
[2023-07-30 08:43] LABS: B. PARAPERTUSSIS- RESP PCR PAN NOT DETECTED; B. PERTUSSIS- RESP PCR PANEL NOT DETECTED; C. PNEUMONIAE- RESP PCR PANEL NOT DETECTED; CORONAVIRUS 229E-RESP PCR NOT DETECTED; CORONAVIRUS HKU1-RESP PCR NOT DETECTED; CORONAVIRUS NL63-RESP PCR NOT DETECTED; CORONAVIRUS OC43-RESP PCR NOT DETECTED; HUMAN METAPNEUMOVIRUS NOT DETECTED; INFLUENZA A- RESP PCR PANEL NOT DETECTED; INFLUENZA B - RESP PCR PANEL NOT DETECTED; M. PNEUMONIAE- RESP PCR PANEL NOT DETECTED; PARAINFLUENZA VIRUS 1 NOT DETECTED; PARAINFLUENZA VIRUS 2 NOT DETECTED; PARAINFLUENZA VIRUS 3 NOT DETECTED; PARAINFLUENZA VIRUS 4 NOT DETECTED; RHINOVIRUS/ENTEROVIRUS NOT DETECTED; RSV- RESP PCR PANEL NOT DETECTED; SARS-CoV-2 -RESP PCR PANEL NOT DETECTED
[2023-07-30 08:46] LABS: PHOSPHORUS < 1.0 mg/dL (2.5-5.0)
--- NOTE | 2023-07-30 08:54 | XRAY Report ---
PROCEDURE: Chest 2 View X-Ray INDICATIONS: cough, uri symptoms TECHNIQUE: 2 views of the chest were acquired. COMPARISON: None. FINDINGS: Surgical changes and devices: None. Lungs and pleura: No pleural effusions or pneumothorax. Lungs are clear. Mediastinum: Mediastinal contours appear normal. Heart size is normal. Bones and chest wall: No suspicious bony lesions. Overlying soft tissues appear unremarkable. IMPRESSION: No acute cardiopulmonary process. Reviewed by: Peña Toussaint on 07/30/2023 8:52 AM PDT Approved by: Peña Toussaint on 07/30/2023 8:52 AM PDT Station ID: [id number]
[2023-07-30 09:26] VITALS: BP 124/68; O2SAT 98
[2023-07-30] MEDS ORDERED: ONDANSETRON ODT 4 MG TABLET TL STA (10:45)
--- NOTE | 2023-08-16 21:41 | ED Physician Documentation ---
ED Addendum - Addendum Addendum: 08/16/23 21:37 The pt was signed out to me at change of shift, pending resolution of DKA and discharge, vs admission. The pt had been quite hyperglycemic upon arrival, and was steadily improving. His anion gap had closed, and he was minimally acidotic. He was overall feeling better. The pt was observed in the ED until resolution of his sx and improvement in the remainder of his findings. His bicarb was still low, but overall, he was otherwise greatly improved, and I felt he was stable for d/c home. We have discussed the usual indications for follow- up and return. Final impression: Diabetic Ketoacidosis Disposition: Home in stable and improved condition.
== END 2023-07-30 11:14 | disposition home or self-care (01) ==
LOC: ED 21:08
DX: E10.10 Type 1 diabetes mellitus with ketoacidosis without coma (principal); Z79.4 Long term (current) use of insulin; R11.2 Nausea with vomiting, unspecified
CPT/HCPCS: 36415; 71046; 80048; 80053; 82009; 82803; 83735; 84100; 85025; 87633; 93005; 96361; 96365; 96366; 96367; 96368; 96375; 96376; 99285; A9270; J1815; J2060; Q0162

== ENCOUNTER 2023-10-28 02:32 | Inpatient (IN) | payer OTHER ==
[2023-10-28] MEDS ORDERED: SODIUM CHLORIDE 0.9% 1,000 ML IV STA ×3 (02:40→03:14)
[2023-10-28 02:51] LABS: VBG BASE EXCESS -18.7 mmol/L (-2 - +2); VBG HCO3 7.3 mmol/L (23-28); VBG OXYGEN SATURATION 97.9 % (60-80); VBG PCO2 20.1 mmHg (41-51); VBG PO2 126.4 mmHg (25-47); VBG TOTAL CO2 7.9 mmol/L (24-29)
[2023-10-28] MEDS ORDERED: ONDANSETRON 4 MG/2 ML VIAL IVP STA (02:51)
[2023-10-28 02:52] LABS: BASOPHILS # (AUTO) 0.1 10^3/uL (0.0-0.1); BASOPHILS % (AUTO) 1.1 %; EOSINOPHILS # (AUTO) 0.1 10^3/uL (0.0-0.7); EOSINOPHILS % (AUTO) 0.4 %; HCT - HEMATOCRIT 48.3 % (42.0-52.0); HGB - HEMOGLOBIN 16.4 g/dL (14.0-18.0); LYMPHOCYTES # (AUTO) 2.3 10^3/uL (1.5-3.5); LYMPHOCYTES % (AUTO) 18.6 %; MEAN CORPUSCULAR HEMOGLOBIN 31.3 pg (27.0-31.0); MEAN CORPUSCULAR VOLUME 92.2 fL (80.0-94.0); MEAN PLATELET VOLUME 10.3 fL (7.4-11.4); MONOCYTES # (AUTO) 0.5 10^3/uL (0.0-1.0); MONOCYTES % (AUTO) 4.4 %; NEUTROPHILS % (AUTO) 73.6 %; PLT - PLATELET COUNT 306 10^3/uL (130-450); RED BLOOD COUNT 5.24 10^6/uL (4.70-6.10); RED CELL DISTRIBUTION WIDTH 11.8 % (12.0-15.0); VBG PH 7.177 (7.31-7.41); WHITE BLOOD COUNT 12.3 x10^3/uL (4.8-10.8)
[2023-10-28] MEDS ORDERED: ONDANSETRON 4 MG/2 ML VIAL ONE (02:54)
[2023-10-28 02:57] LABS: KETONES, SERUM (ACETEST) LARGE (NEGATIVE)
[2023-10-28 03:08] LABS: ALBUMIN 5.4 g/dL (3.2-5.5); LIPASE 11 U/L (11-82); MAGNESIUM 1.8 mg/dL (1.7-2.3); PHOSPHORUS 4.4 mg/dL (2.5-5.0)
[2023-10-28 03:09] LABS: ALBUMIN/GLOBULIN RATIO 1.7 (1.0-2.2); ALKALINE PHOSPHATASE 78 IU/L (42-121); ALT ALANINE AMINOTRANSFERASE 20 IU/L (10-60); AST ASPARTATE AMINOTRANSFERASE 15 IU/L (10-42); BILIRUBIN,TOTAL 0.6 mg/dL (0.2-1.0); BUN - BLOOD UREA NITROGEN 13 mg/dL (6-20); CALCIUM 9.5 mg/dL (8.5-10.3); CARBON DIOXIDE - CO2 6 mmol/L (21-32); CHLORIDE 96 mmol/L (101-111); CREATININE 0.9 mg/dL (0.6-1.3); GFR - MDRD 101 (>89); GLUCOSE 262 mg/dL (74-104); POTASSIUM 3.8 mmol/L (3.5-4.5); SODIUM 135 mmol/L (135-145); TOTAL PROTEIN 8.6 g/dL (6.4-8.9)
[2023-10-28] MEDS ORDERED: LORazepam 2 MG/ML VIAL IVP STA (03:14)
[2023-10-28] MEDS ORDERED: INSULIN REGULAR IN 0.9 % NS 100 UNIT/100 ML BAG IV STA (03:15)
[2023-10-28] MEDS ORDERED: INSULIN REGULAR HUMAN 300 UNIT/3 ML VIAL IVP STA (03:15)
[2023-10-28] MEDS ORDERED: ALBUTEROL NEB 2.5 MG/3 ML INH PRN (03:20)
[2023-10-28] MEDS ORDERED: PROCHLORPERAZINE 10 MG/2 ML VIAL IVP PRN (03:20)
[2023-10-28] MEDS ORDERED: MORPHINE 2 MG/ML CARPUJECT IVP PRN (03:20)
[2023-10-28] MEDS ORDERED: SODIUM CHLORIDE FLUSH 0.9% 10 ML SYRINGE IVP PRN (03:20)
[2023-10-28] MEDS ORDERED: ONDANSETRON 4 MG/2 ML VIAL IVP PRN (03:20)
[2023-10-28] MEDS ORDERED: HYDROcod/ACETAM 5/325 MG TABLET PO PRN (03:20)
[2023-10-28] MEDS ORDERED: PANTOPRAZOLE 40 MG VIAL IVP PRN (03:20)
[2023-10-28] MEDS ORDERED: ACETAMINOPHEN 325 MG TABLET PO PRN (03:20)
--- NOTE | 2023-10-28 03:24 | ED Physician Documentation ---
History of Present Illness - Stated complaint Stated Complaint: SOA/NAUSEA/FATIGUE - Chief complaint Chief Complaint: Abd Pain - History obtained from History obtained from: Patient - Additonal information Additional information: Patient is a 27-year-old insulin-dependent diabetic presenting for evaluation of nausea and vomiting and generalized feeling unwell since this morning. Patient states that he has been rationing his insulin for the last 2 days as he has been running low. He states this feels similar to when he has had DKA in the past. He denies fever, chest pain, recent illness. No dysuria.Reports he feels like he is breathing faster. Review of Systems Constitutional: denies: Fever Cardiac: denies: Chest pain / pressure Respiratory: denies: Cough GI: reports: Nausea, Vomiting. denies: Abdominal Pain : denies: Dysuria PD PAST MEDICAL HISTORY - Past Medical History Cardiovascular: None Respiratory: Other Neuro: None Endocrine/Autoimmune: Type 1 diabetes GI: Pancreatitis : None Psych: None Derm: None - Past Surgical History Past Surgical History: Yes General: Other - Present Medications Home Medications: Ambulatory Orders Medication Instructions Recorded Confirmed Insulin Lispro [Humalog Kwikpen 1 - 10 units SUBQ TIDWM 05/21/23 05/21/23 U-100] Amox/Clav 875/125 [Augmentin 1 tab PO BID #10 tab 05/24/23 875/125 Tab] Escitalopram [Lexapro] 10 mg PO DAILY #30 tab 05/24/23 Insulin Glargine,Hum.rec.anlog 8 - 12 units SUBQ BID #1 each 05/24/23 [Insulin Glargine] [place], Disposable [Needle] 1 each [facility] #100 ea 05/24/23 Thiamine [Vitamin B-1] 100 mg PO DAILY #30 tab 05/24/23 Azithromycin [Zithromax] 0 mg PO DAILY #6 tablet 07/30/23 Calcium Carbonate/Vitamin D3 1 each PO DAILY #20 ea 07/30/23 [Calcium 500 mg Chewable Tablet] Neutra-Phos [K-Phos Neutral] 250 mg PO BIDWM #20 tablet 07/30/23 Ondansetron Odt [Zofran] 4 mg TL Q6H PRN #10 tablet 07/30/23 - Allergies Allergies/Adverse Reactions: Allergies Allergy/AdvReac Type Severity Reaction Status Date / Time No Known Drug Allergies Allergy Verified 07/29/23 21:21 - Social History Does the pt smoke?: No Smoking Status: Never smoker Does the pt drink ETOH?: Yes Does the pt have substance abuse?: Yes - Immunizations Immunizations are current?: Yes - POLST Patient has POLST: No POLST Status: Full Code PD ED PE NORMAL - General General: Alert and oriented X 3, No acute distress, Well developed/nourished - HEENT HEENT: Atraumatic - Neck Neck: Supple, no meningeal sign - Cardiac Cardiac: No murmur (Tachycardic, regular rhythm) - Respiratory Respiratory: No respiratory distress, Clear bilaterally - Abdomen Abdomen: Normal bowel sounds, Soft, Non tender, Non distended - Derm Derm: Warm and dry - Neuro Neuro: Normal speech Results - Vitals Vitals: Vital Signs - 24 hr 10/28/23 10/28/23 02:34 02:57 Temperature 37 C 37 C Heart Rate 112 H 100 Respiratory 20 20 Rate Blood Pressure 147/96 H 134/75 H O2 Saturation 100 96 Oxygen O2 Source Room air - Labs Labs: Laboratory Tests 10/28/23 10/28/23 10/28/23 02:44 02:45 02:45 WBC 12.3 H RBC 5.24 Hgb 16.4 Hct 48.3 MCV 92.2 MCH 31.3 H MCHC 34.0 RDW 11.8 L Plt Count 306 MPV 10.3 Neut # (Auto) 9.0 H Lymph # (Auto) 2.3 [place] # (Auto) 0.5 Eos # (Auto) 0.1 Baso # (Auto) 0.1 Absolute Nucleated RBC 0.00 Nucleated RBC % 0.0 VBG pH VBG pCO2 VBG pO2 VBG HCO3 VBG Total CO2 VBG O2 Saturation VBG Base Excess Sodium 135 Potassium 3.8 Chloride 96 L Carbon Dioxide 6 L* Anion Gap 33.0 H BUN 13 Creatinine 0.9 Estimated GFR (MDRD) 101 Glucose 262 H POC Whole Bld Glucose 286 H Calcium 9.5 Phosphorus 4.4 Magnesium 1.8 Total Bilirubin 0.6 AST 15 ALT 20 Alkaline Phosphatase 78 Total Protein 8.6 Albumin 5.4 Globulin 3.2 Albumin/Globulin Ratio 1.7 Lipase 11 Serum Ketones LARGE H 10/28/23 02:45 WBC RBC Hgb Hct MCV MCH MCHC RDW Plt Count MPV Neut # (Auto) Lymph # (Auto) [place] # (Auto) Eos # (Auto) Baso # (Auto) Absolute Nucleated RBC Nucleated RBC % VBG pH 7.177 L* VBG pCO2 20.1 L VBG pO2 126.4 H VBG HCO3 7.3 L VBG Total CO2 7.9 L VBG O2 Saturation 97.9 H VBG Base Excess -18.7 L Sodium Potassium Chloride Carbon Dioxide Anion Gap BUN Creatinine Estimated GFR (MDRD) Glucose POC Whole Bld Glucose Calcium Phosphorus Magnesium Total Bilirubin AST ALT Alkaline Phosphatase Total Protein Albumin Globulin Albumin/Globulin Ratio Lipase Serum Ketones PD Medical Decision Making - ED course Complexity details: reviewed results, re-evaluated patient, d/w patient ED course: Patient is a 27-year-old male with a history of insulin-dependent diabetes. He is feeling unwell for the last day with nausea vomiting. He has been rationing his insulin for the past 2 days. He is tachycardic. Abdominal exam is benign. Does not appear septic. CBC, chemistry, venous blood glass, ketones were obtained and reviewed and labs are consistent with DKA. Patient was given 2 L of IV fluids and started on an insulin drip. Chest x-ray which I reviewed does not show signs of any consolidation. Patient did be admitted to the ICU. He was given Zofran for nausea and also requested a dose of Ativan to help with his anxiety which he has received here in the past. 0321 - D/W Tele hospitalist who will see the patient and admit to ICU. 0410 - Patient is sleeping. Repeat abdominal exam is benign. Patient to be taken to the ICU here shortly. - Critical Care Time(min): 32 Departure - Departure Disposition: 66 [facility] DC/Xfer Clinical Impression: DKA (diabetic ketoacidoses) Condition: Fair
--- NOTE | 2023-10-28 03:54 | HISTORY & PHYSICAL EXAMINATION ---
Chief Complaint - Chief Complaint Chief Complaint: nausea and vomiting History of Present Illness - Admitted From Admitted From:: ED - History Obtained From Records Reviewed: EMR History obtained from: Patient Exam Limitations: Tele medicine - History of Present Illness HPI Comment/Other: 27M c insulin dependent DM on insulin p/w nausea and vomiting and mild abdominal pain. He has been rationing his insulin. He started to feel ill yesterday am. He went to work and sxs progressed. He has had DKA prior and knows the sxs. He knew he was in DKA and hence came into the ED. No fever. No sore throat. No cough. No chest pain. No n/v/d. History - Past Medical History Cardiovascular: reports: None Respiratory: reports: Other Neuro: reports: None Endocrine/Autoimmune: reports: Type 1 diabetes GI: reports: Pancreatitis : reports: None Psych: reports: None Derm: reports: None - Past Surgical History General: reports: Other - Family & Social History Family History Comment/Other: Patient's father denies any family history of significant medical conditions. Social History Notes: Patient drinks alcohol daily. It is reported that he is a heavy drinker. He smokes marijuana. He denies use of tobacco products. - POLST Patient has POLST: No POLST Status: Full Code Meds/Allgy - Home Medications Home Medications: Ambulatory Orders Medication Instructions Recorded Confirmed Insulin Lispro [Humalog Kwikpen 1 - 10 units SUBQ TIDWM 05/21/23 05/21/23 U-100] Amox/Clav 875/125 [Augmentin 1 tab PO BID #10 tab 05/24/23 875/125 Tab] Escitalopram [Lexapro] 10 mg PO DAILY #30 tab 05/24/23 Insulin Glargine,Hum.rec.anlog 8 - 12 units SUBQ BID #1 each 05/24/23 [Insulin Glargine] [place], Disposable [Needle] 1 each [facility] #100 ea 05/24/23 Thiamine [Vitamin B-1] 100 mg PO DAILY #30 tab 05/24/23 Azithromycin [Zithromax] 0 mg PO DAILY #6 tablet 07/30/23 Calcium Carbonate/Vitamin D3 1 each PO DAILY #20 ea 07/30/23 [Calcium 500 mg Chewable Tablet] Neutra-Phos [K-Phos Neutral] 250 mg PO BIDWM #20 tablet 07/30/23 Ondansetron Odt [Zofran] 4 mg TL Q6H PRN #10 tablet 07/30/23 - Allergies Allergies/Adverse Reactions: Allergies Allergy/AdvReac Type Severity Reaction Status Date / Time No Known Drug Allergies Allergy Verified 07/29/23 21:21 Review of Systems - Other Findings Other Findings: negative unless mentioned different in HPI Exam - Vital Signs Reviewed Vital Signs: Yes Vital Signs: Vital Signs x48h Temp Pulse Resp BP Pulse Ox 10/28/23 02:57 37 C 100 20 134/75 H 96 10/28/23 02:34 37 C 112 H 20 147/96 H 100 - Physical Exam General Appearance: positive: No acute distress Eyes Bilateral: positive: Normal inspection ENT: positive: ENT inspection nml Neck: positive: Nml inspection Back: positive: Nml inspection Skin: positive: Color nml Extremities: positive: Nml appearance Neurologic/Psychiatric: positive: Oriented x3, CN's nml (2-12), Mood/affect nml Conclusion/Plan - Problem List (1) DKA (diabetic ketoacidoses) Conclusion/Plan: DKA 2/2 insufficient insulin. no signs of infection. continue with insulin gtt. iv fluids. monitor c routine BMP and replete electrolytes (2) Diabetes mellitus treated with insulin Conclusion/Plan: treating DM with insulin gtt for now with plan to transition back onto home antoinette men. monitor BG c repeat vital check - Lab Results Fish Bones: 10/28/23 02:45 10/28/23 02:45 Core Measures - Anticipated LOS I expect patient to be DC'd or transferred within 96 hours.: No - Issues Hospital Issues and Management Plan: The patient consented to receive this telemedicine service, which I performed via live two-way audiovisual equipment. The patient is at ([facility]) and I am physically in [facility]. A nurse assisted me in the visit. - DVT/VTE - Prophylaxis VTE/DVT Device ordered at admit?: Yes Telemedicine Consult Details - Provider Location & Consult Time Telemedicine consultation conducted via videoconferencing?: Yes List names and roles of persons who participated in consult:: ED staff and patient Telemedicine provider location:: [facility] Time Telemedicine consult began:: 03:18 Time Telemedicine consult completed:: 04:25
[2023-10-28] MEDS: SODIUM CHLORIDE 0.9% 1,000 ML IV SCH ×3 (03:57→22:15)
[2023-10-28 05:30] LABS: BASOPHILS # (AUTO) 0.1 10^3/uL (0.0-0.1); BASOPHILS % (AUTO) 0.4 %; EOSINOPHILS % (AUTO) 0.1 %; HGB - HEMOGLOBIN 14.7 g/dL (14.0-18.0); LYMPHOCYTES % (AUTO) 7.6 %; MEAN CORPUSCULAR HEMOGLOBIN 31.1 pg (27.0-31.0); MEAN CORPUSCULAR HGB CONC 33.4 g/dL (32.0-36.0); MEAN CORPUSCULAR VOLUME 93.2 fL (80.0-94.0); MONOCYTES # (AUTO) 0.8 10^3/uL (0.0-1.0); MONOCYTES % (AUTO) 5.7 %; NEUTROPHILS # (AUTO) 11.4 10^3/uL (1.5-6.6); NEUTROPHILS % (AUTO) 84.9 %; PLT - PLATELET COUNT 233 10^3/uL (130-450); RED BLOOD COUNT 4.72 10^6/uL (4.70-6.10); RED CELL DISTRIBUTION WIDTH 11.6 % (12.0-15.0); WHITE BLOOD COUNT 13.4 x10^3/uL (4.8-10.8)
[2023-10-28] MEDS: DEXTROSE 5%-0.9% NACL 1,000 ML IV SCH ×3 (05:44→20:31)
[2023-10-28 05:57] LABS: MUDS CUTOFF CONCENTRATIONS CUTOFF CONC BELOW:
[2023-10-28 05:59] LABS: BILIRUBIN,URINE NEGATIVE (NEGATIVE); GLUCOSE, URINE (UA) 250 mg/dL (NEGATIVE); KETONES,URINE (UA) >=80 mg/dL (NEGATIVE); LEUKOCYTE ESTERASE, URINE NEGATIVE (NEGATIVE); NITRITE,URINE NEGATIVE (NEGATIVE); OCCULT BLOOD,URINE NEGATIVE (NEGATIVE); PROTEIN,URINE 30 mg/dL (NEGATIVE); UROBILINOGEN,URINE 0.2 (NORMAL) E.U./dL (NORMAL)
[2023-10-28 06:03] LABS: CLARITY,URINE CLEAR (CLEAR)
[2023-10-28 06:06] LABS: BACTERIA,URINE None Seen /HPF (None Seen); RBC,URINE 0-5 /HPF (0-5); SPERM,URINE PRESENT; SQUAMOUS EPITHELIAL CELL,UR NONE SEEN (<= Few); WBC,URINE 0-3 /HPF (0-3)
[2023-10-28 06:07] LABS: AMPHETAMINE SCREEN,URINE NEGATIVE (NEGATIVE); BARBITURATE SCREEN,UR NEGATIVE (NEGATIVE); BENZODIAZEPINES SCREEN, URINE NEGATIVE (NEGATIVE); COCAINE SCREEN URINE NEGATIVE (NEGATIVE); METHADONE SCREEN, URINE NEGATIVE (NEGATIVE); METHAMPHETAMINES SCREEN, URINE NEGATIVE (NEGATIVE); OPIATE SCREEN, URINE NEGATIVE (NEGATIVE); OXYCODONE SCREEN, URINE NEGATIVE (NEGATIVE); PROPOXYPHENE SCREEN, URINE NEGATIVE (NEGATIVE); THC CANNABINOID SCREEN, URINE POSITIVE (NEGATIVE); TRICYCLIC ANTIDEPRESSANT,URINE NEGATIVE (NEGATIVE)
[2023-10-28 07:34] LABS: CALCIUM 7.9 mg/dL (8.5-10.3); CREATININE 0.7 mg/dL (0.6-1.3); MAGNESIUM 1.6 mg/dL (1.7-2.3); PHOSPHORUS 2.4 mg/dL (2.5-5.0); POTASSIUM 3.8 mmol/L (3.5-4.5)
[2023-10-28] MEDS ORDERED: MAGNESIUM OXIDE 400 MG TABLET PO ONE (07:42)
[2023-10-28] MEDS ORDERED: POTASSIUM CHLOR 10 MEQ/100 ML 10 MEQ/100 ML BAG IV ONE ×7 (07:46→23:05)
--- NOTE | 2023-10-28 08:20 | XRAY Report ---
PROCEDURE: Chest 1 View X-Ray INDICATIONS: SOA TECHNIQUE: One view of the chest was acquired. COMPARISON: 07/30/2023. FINDINGS: Surgical changes and devices: None. Lungs and pleura: No pleural effusions or pneumothorax. Lungs are clear. Mediastinum: Mediastinal contours appear normal. Heart size is normal. Bones and chest wall: No suspicious bony lesions. Overlying soft tissues appear unremarkable. IMPRESSION: No acute cardiopulmonary process. Reviewed by: Jozef Zamora MD on 10/28/2023 8:18 AM [facility] Approved by: Jozef Zamora MD on 10/28/2023 8:18 AM [facility] Station ID: [id number]
[2023-10-28] MEDS: NEUTRA-PHOS 250 MG TABLET PO SCH ×2 (08:50→10:26)
[2023-10-28 09:13] LABS: CALCIUM, IONIZED 1.12 mmol/L (1.15-1.33); VBG PH 7.082 (7.31-7.41)
[2023-10-28] MEDS: SODIUM CHLORIDE FLUSH 0.9% 10 ML SYRINGE IVP SCH ×2 (09:17→17:08)
[2023-10-28 09:26] LABS: CALCIUM 7.9 mg/dL (8.5-10.3); CREATININE 0.8 mg/dL (0.6-1.3); POTASSIUM 4.4 mmol/L (3.5-4.5)
[2023-10-28] MEDS ORDERED: LORazepam 1 MG TABLET PO PRN (09:45)
--- NOTE | 2023-10-28 09:49 | PROVIDER PROGRESS NOTE ---
Assessment/Plan - Problem List (1) DKA (diabetic ketoacidoses) Qualifiers: Diabetes mellitus type: type 1 Assessment/Plan: [place] from [facility] and setting up a PCP. He has not been taking his insulin regularly. Patient does not show neurological deficits on exam which decreases the likelihood of metabolic encephalopathy or cerebral edema. He voices no abdominal pain or diarrhea. PE shows no pain with palpations which decreases the likelihood acidosis from gastroenteritis. He vitals show decreased tachycardia, decreased tachypnea, and he voices no nausea or vomiting. This decreases the differential likelihood of alcoholic ketoacidosis. Glucose lvl 262> 60> 211> 110 indicates improvement from hyperglycemic state Anion Gap 33> 21> 24> 13 indicates improvement in blood acidosis CO2 6>10> 7> 14 indicates improvement in blood acidosis DKA most likely due to insufficient insulin as shown in his glucose level and history. Plan Continue with insulin IV Continue iv fluids and electrolyte replenishment. Routine BMP and blood gas monitor Social work will contact [facility] about medication access and PCP arrangement. (2) Diabetes mellitus treated with insulin Conclusion/Plan: treating DM as listed above and transition back onto home regimen during disch arge. (3) Alcohol abuse Conclusion/Plan: Self reports drinking 8 cans of beer a day which indicates alcohol abuse Nursing currently reports CIWA score of 3 which indicating low withdrawal symptoms Plan Monitor for alcohol withdrawal symptoms and initiate Librium DICKSON and Lorazepam PRN when symptoms occur. - Current Meds Current Meds: Current Medications Generic Name Dose Route Start Last Admin Trade Name Freq PRN Reason Stop Dose Admin Insulin Human Regular 100 unit in 100 mls @ 8.4 mls/hr 10/28/23 03:15 10/28/23 09:11 Myxredlin 100 Unit/100 Ml Bag IV 10/28/23 15:09 5.2 mls/hr .[id number] STA 5.2 mls/hr Titration Protocol Sodium Chloride 1,000 mls @ 125 mls/hr 10/28/23 04:00 10/28/23 03:57 Normal Saline 0.9% IV 125 mls/hr .Q8H DICKSON Administration Dextrose/Sodium Chloride 1,000 mls @ 125 mls/hr 10/28/23 04:00 10/28/23 05:44 D5ns IV 125 mls/hr .Q8H DICKSON Administration Ondansetron HCl 4 mg 10/28/23 03:20 10/28/23 09:00 Ondansetron 4 Mg/2 Ml Vial IVP 4 mg Q6HR PRN Administration Nausea / Vomiting Pantoprazole Sodium 40 mg 10/28/23 03:20 10/28/23 09:17 Pantoprazole 40 Mg Vial IVP 40 mg QDAC PRN Administration Heartburn Sodium Chloride 10 ml 10/28/23 09:00 10/28/23 09:17 Sodium Chloride Flush 0.9% 10 Ml Syringe IVP 10 ml 0100,0900,1700 DICKSON Administration Sodium Chloride 10 ml 10/28/23 03:20 10/28/23 09:18 Sodium Chloride Flush 0.9% 10 Ml Syringe IVP 10 ml PRN PRN Administration NEEDED PER PROVIDER ORDERS Sodium Phosphate 250 mg 10/28/23 08:00 10/28/23 08:50 Neutra-Phos 250 Mg Tablet PO 10/28/23 10:01 250 mg Q2H DICKSON Administration Protocol - Lab Result Fish Bone Diagrams: 10/28/23 05:24 10/28/23 12:42 - Additional Planning Condition/Complexity: Stable Time Spent: 15-30 minutes Subjective - Subjective Patient Reports: Resting Comfortably, No Complaints (no pain or discomfort), Nausea (earlier this mornign but no longer feeling nausous after medications.), Other (dry mucosa resolved with ice) Nursing Reports: Other (nursing reports CIWA score of 3) Objective Vital Signs: Vital Signs - 24 hr 10/28/23 10/28/23 10/28/23 02:34 02:57 03:51 Temperature 37 C 37 C Heart Rate 112 H 100 112 H Heart Rate [ Monitoring electrodes] Respiratory 20 20 20 Rate Blood Pressure 147/96 H 134/75 H 137/74 H Blood Pressure [Left Brachial artery] O2 Saturation 100 96 99 10/28/23 10/28/23 10/28/23 05:00 06:00 07:00 Temperature 36.7 C Heart Rate Heart Rate [ 101 H 113 H 111 H Monitoring electrodes] Respiratory 15 21 21 Rate Blood Pressure Blood Pressure 138/91 H 124/65 117/64 [Left Brachial artery] O2 Saturation 99 96 96 10/28/23 08:00 Temperature 37 C Heart Rate Heart Rate [ 102 H Monitoring electrodes] Respiratory 22 Rate Blood Pressure Blood Pressure 121/66 [Left Brachial artery] O2 Saturation 98 Oxygen O2 Source Room air I&O (Last 24 Hrs): Intake and Output Totals x24h 10/26/23 10/27/23 10/28/23 23:59 23:59 23:59 Intake Total 3253.58 Output Total 800 Balance 2453.58 General: Oriented x3, Cooperative, No acute distress, Other (young white man with an average build laying in bed shirtless. lethargic but awakes to questions, but drifts off to sleep while being asked questions.) HEENT: Atraumatic, PERRLA, EOMI, Other (no icterus) Neck: Supple, No JVD Neuro: Alert, Oriented Times 3 Cardiovascular: Regular rate, Normal S1, Normal S2, No murmurs Respiratory: Chest non-tender, No respiratory distress, Breath sounds nml Abdomen: Normal bowel sounds, Soft, No tenderness, No hepatospenomegaly, No masses Extremities: No clubbing, No cyanosis, No edema, Normal pulses, No tenderness/swelling, Other (no skin turgor) Skin: No rashes, No breakdown, No significant lesion - Results Results: Laboratory Results WBC 13.4 x10^3/uL (4.8-10.8) H 10/28/23 05:24 RBC 4.72 10^6/uL (4.70-6.10) 10/28/23 05:24 Hgb 14.7 g/dL (14.0-18.0) 10/28/23 05:24 Hct 44.0 % (42.0-52.0) 10/28/23 05:24 MCV 93.2 fL (80.0-94.0) 10/28/23 05:24 MCH 31.1 pg (27.0-31.0) H 10/28/23 05:24 MCHC 33.4 g/dL (32.0-36.0) 10/28/23 05:24 RDW 11.6 % (12.0-15.0) L 10/28/23 05:24 Plt Count 233 10^3/uL (130-450) 10/28/23 05:24 MPV 10.0 fL (7.4-11.4) 10/28/23 05:24 Neut # (Auto) 11.4 10^3/uL (1.5-6.6) H 10/28/23 05:24 Lymph # (Auto) 1.0 10^3/uL (1.5-3.5) L 10/28/23 05:24 [place] # (Auto) 0.8 10^3/uL (0.0-1.0) 10/28/23 05:24 Eos # (Auto) 0.0 10^3/uL (0.0-0.7) 10/28/23 05:24 Baso # (Auto) 0.1 10^3/uL (0.0-0.1) 10/28/23 05:24 Absolute Nucleated RBC 0.00 x10^3/uL 10/28/23 05:24 Nucleated RBC % 0.0 /100WBC 10/28/23 05:24 VBG pH 7.082 (7.31-7.41) L* 10/28/23 08:49 VBG pCO2 20.1 mmHg (41-51) L 10/28/23 02:45 VBG pO2 126.4 mmHg (25-47) H 10/28/23 02:45 VBG HCO3 7.3 mmol/L (23-28) L 10/28/23 02:45 VBG Total CO2 7.9 mmol/L (24-29) L 10/28/23 02:45 VBG O2 Saturation 97.9 % (60-80) H 10/28/23 02:45 VBG Base Excess -18.7 mmol/L (-2 - +2) L 10/28/23 02:45 Ionized Calcium 1.12 mmol/L (1.15-1.33) L 10/28/23 08:49 Sodium 139 mmol/L (135-145) 10/28/23 05:24 Potassium 3.8 mmol/L (3.5-4.5) 10/28/23 05:24 Chloride 108 mmol/L (101-111) 10/28/23 05:24 Carbon Dioxide 10 mmol/L (21-32) L* 10/28/23 05:24 Anion Gap 21.0 (6-13) H 10/28/23 05:24 BUN 12 mg/dL (6-20) 10/28/23 05:24 Creatinine 0.7 mg/dL (0.6-1.3) 10/28/23 05:24 Estimated GFR (MDRD) 135 (>89) 10/28/23 05:24 Glucose 60 mg/dL (74-104) L* 10/28/23 05:24 POC Whole Bld Glucose 206 mg/dL (70 - 100) H 10/28/23 09:09 Calcium 7.9 mg/dL (8.5-10.3) L 10/28/23 05:24 Phosphorus 2.4 mg/dL (2.5-5.0) L 10/28/23 05:24 Magnesium 1.6 mg/dL (1.7-2.3) L 10/28/23 05:24 Total Bilirubin 0.6 mg/dL (0.2-1.0) 10/28/23 02:45 AST 15 IU/L (10-42) 10/28/23 02:45 ALT 20 IU/L (10-60) 10/28/23 02:45 Alkaline Phosphatase 78 IU/L (42-121) 10/28/23 02:45 Total Protein 8.6 g/dL (6.4-8.9) 10/28/23 02:45 Albumin 5.4 g/dL (3.2-5.5) 10/28/23 02:45 Globulin 3.2 g/dL (2.1-4.2) 10/28/23 02:45 Albumin/Globulin Ratio 1.7 (1.0-2.2) 10/28/23 02:45 Lipase 11 U/L (11-82) 10/28/23 02:45 Urine Color YELLOW 10/28/23 05:34 Urine Clarity CLEAR (CLEAR) 10/28/23 05:34 Urine pH 6.0 PH (5.0-7.5) 10/28/23 05:34 Ur Specific [place] >=1.030 (1.002-1.030) H 10/28/23 05:34 Urine Protein 30 mg/dL (NEGATIVE) H 10/28/23 05:34 Urine Glucose (UA) 250 mg/dL (NEGATIVE) H 10/28/23 05:34 Urine Ketones >=80 mg/dL (NEGATIVE) H 10/28/23 05:34 Urine Occult Blood NEGATIVE (NEGATIVE) 10/28/23 05:34 Urine Nitrite NEGATIVE (NEGATIVE) 10/28/23 05:34 Urine Bilirubin NEGATIVE (NEGATIVE) 10/28/23 05:34 Urine Urobilinogen 0.2 (NORMAL) E.U./dL (NORMAL) 10/28/23 05:34 Ur Leukocyte Esterase NEGATIVE (NEGATIVE) 10/28/23 05:34 Urine RBC 0-5 /HPF (0-5) 10/28/23 05:34 Urine WBC 0-3 /HPF (0-3) 10/28/23 05:34 Ur Squamous Epith Cells NONE SEEN (<= Few) 10/28/23 05:34 Urine Bacteria None Seen /HPF (None Seen) 10/28/23 05:34 Urine Sperm PRESENT 10/28/23 05:34 Ur Microscopic Review INDICATED 10/28/23 05:34 Urine Culture Comments Cancelled 10/28/23 05:34 Urine Opiates Screen NEGATIVE (NEGATIVE) 10/28/23 05:34 Ur Oxycodone Screen NEGATIVE (NEGATIVE) 10/28/23 05:34 Urine Methadone Screen NEGATIVE (NEGATIVE) 10/28/23 05:34 Ur Propoxyphene Screen NEGATIVE (NEGATIVE) 10/28/23 05:34 Ur Barbiturates Screen NEGATIVE (NEGATIVE) 10/28/23 05:34 Ur Tricyclics Screen NEGATIVE (NEGATIVE) 10/28/23 05:34 Ur Phencyclidine Scrn NEGATIVE (NEGATIVE) 10/28/23 05:34 Ur Amphetamine Screen NEGATIVE (NEGATIVE) 10/28/23 05:34 U Methamphetamines Scrn NEGATIVE (NEGATIVE) 10/28/23 05:34 U Benzodiazepines Scrn NEGATIVE (NEGATIVE) 10/28/23 05:34 Urine Cocaine Screen NEGATIVE (NEGATIVE) 10/28/23 05:34 U Cannabinoids Screen POSITIVE (NEGATIVE) H 10/28/23 05:34 Serum Ketones LARGE (NEGATIVE) H 10/28/23 02:45 - Procedures Procedures: Procedures INSERTION OF INFUSION DEV INTO SUP VENA CAVA, PERC APPROACH (08/21/20) ABX Reporting Has patient been on IV antibiotics over the past 48 hours?: No
[2023-10-28] MEDS ORDERED: INSULIN REGULAR HUMAN IV SCH (10:00)
[2023-10-28] MEDS ORDERED: SODIUM CHLORIDE 0.9% IV SCH (10:00)
[2023-10-28] MEDS: HEPARIN 5,000 UNIT/ML VIAL SUBQ SCH ×2 (10:09→20:35)
[2023-10-28] MEDS: PHENOL THROAT SPRAY 177 ML MM PRN ×2 (10:14→19:06)
--- NOTE | 2023-10-28 11:00 | PHARMACY PROGRESS NOTE ---
- Best Possible Medication History Admit Date and Time: 10/28/23 0321 Processed by: Pharmacy Medication History completed: Yes Secondary Source(s): Pharmacy records, Insurance records As the person ultimately responsible for medication therapy, providers are able to order a medication from an existing home medication list in [facility] via the "Reconcile Routine" prior to Confirmation of that medication by account support rep. Such practice is discouraged except when the physician, in their clinical judgment, deems that a medical need exists for a medication without regard to previous use.
[2023-10-28] MEDS: chlordiazePOXIDE 5 MG CAPSULE PO SCH ×3 (12:08→23:31)
[2023-10-28 13:07] LABS: CALCIUM 7.8 mg/dL (8.5-10.3); CREATININE 0.7 mg/dL (0.6-1.3); POTASSIUM 3.6 mmol/L (3.5-4.5)
[2023-10-28 13:22] LABS: MAGNESIUM 1.6 mg/dL (1.7-2.3); POTASSIUM 3.6 mmol/L (3.5-4.5)
[2023-10-28] MEDS ORDERED: MAGNESIUM SULFATE 2 GRAM 2 GM/50 ML BAG IV ONE (13:56)
[2023-10-28 17:54] LABS: CALCIUM, IONIZED 1.12 mmol/L (1.15-1.33)
[2023-10-28 17:55] LABS: CALCIUM 7.9 mg/dL (8.5-10.3); CREATININE 0.7 mg/dL (0.6-1.3); POTASSIUM 4.1 mmol/L (3.5-4.5); VBG PH 7.158 (7.31-7.41)
[2023-10-28 18:08] LABS: MAGNESIUM 2.2 mg/dL (1.7-2.3); PHOSPHORUS 2.7 mg/dL (2.5-5.0)
[2023-10-28 22:10] LABS: CALCIUM 7.4 mg/dL (8.5-10.3); CREATININE 0.6 mg/dL (0.6-1.3); POTASSIUM 3.6 mmol/L (3.5-4.5)
[2023-10-28] MEDS: POTASSIUM CHLOR 10 MEQ/100 ML 10 MEQ/100 ML BAG IV SCH (23:31)
[2023-10-29] MEDS: POTASSIUM CHLOR 10 MEQ/100 ML 10 MEQ/100 ML BAG IV SCH ×3 (00:40→05:04)
[2023-10-29] MEDS: SODIUM CHLORIDE FLUSH 0.9% 10 ML SYRINGE IVP SCH ×3 (00:49→17:19)
[2023-10-29 03:00] LABS: CALCIUM, IONIZED 1.05 mmol/L (1.15-1.33); VBG PH 7.358 (7.31-7.41)
[2023-10-29] MEDS ORDERED: CALCIUM GLUC 1,000MG/50ML-NACL 1,000 MG/50 ML BAG IV ONE (03:06)
[2023-10-29 03:12] LABS: CALCIUM 7.5 mg/dL (8.5-10.3); CREATININE 0.6 mg/dL (0.6-1.3); MAGNESIUM 1.8 mg/dL (1.7-2.3); PHOSPHORUS 1.2 mg/dL (2.5-5.0); POTASSIUM 3.7 mmol/L (3.5-4.5)
[2023-10-29] MEDS ORDERED: MAGNESIUM SULFATE 2 GRAM 2 GM/50 ML BAG IV ONE (03:17)
[2023-10-29] MEDS ORDERED: POTASSIUM CHLOR 10 MEQ/100 ML 10 MEQ/100 ML BAG IV ONE (03:21)
[2023-10-29] MEDS: DEXTROSE 5%-0.9% NACL 1,000 ML IV SCH (04:20)
[2023-10-29] MEDS: chlordiazePOXIDE 5 MG CAPSULE PO SCH ×2 (05:17→11:38)
[2023-10-29] MEDS ORDERED: SODIUM PHOSPHATE 21 MMOL in SODIUM CHLORIDE 0.9% 250 ML IV ONE (05:30)
[2023-10-29 05:59] LABS: CALCIUM 7.9 mg/dL (8.5-10.3); CREATININE 0.6 mg/dL (0.6-1.3); POTASSIUM 3.7 mmol/L (3.5-4.5)
[2023-10-29] MEDS: SODIUM CHLORIDE 0.9% 1,000 ML IV SCH (06:43)
[2023-10-29 07:27] LABS: CALCIUM, IONIZED 1.13 mmol/L (1.15-1.33); VBG PH 7.33 (7.31-7.41)
[2023-10-29 09:42] LABS: CALCIUM 7.8 mg/dL (8.5-10.3); CREATININE 0.6 mg/dL (0.6-1.3); POTASSIUM 3.6 mmol/L (3.5-4.5)
[2023-10-29] MEDS: POTASSIUM CHLORIDE 20 MEQ TABLET PO SCH ×2 (09:43→11:37)
[2023-10-29] MEDS: HEPARIN 5,000 UNIT/ML VIAL SUBQ SCH (09:44)
[2023-10-29] MEDS ORDERED: INSULIN GLARGINE-YFGN 300 UNIT/3 ML PEN SUBQ SCH (10:00)
[2023-10-29] MEDS ORDERED: INSULIN LISPRO 300 UNIT/3 ML PEN SUBQ STA (11:14)
--- NOTE | 2023-10-29 11:52 | PROVIDER PROGRESS NOTE ---
Assessment/Plan - Problem List (1) DKA (diabetic ketoacidoses) Qualifiers: Diabetes mellitus type: type 1 Assessment/Plan: Patient recently moved [place] the [place] and faces difficulty accessing insulin from Xcedex and setting up a PCP. He has not been taking his insulin regularly. Patient does not show neurological deficits on exam which decreases the likelihood of metabolic encephalopathy or cerebral edema. He voices no abdominal pain or diarrhea. PE shows no pain with palpations which decreases the likelihood acidosis from gastroenteritis. He vitals show decreased tachycardia, decreased tachypnea, and he voices no nausea or vomiting. This decreases the differential likelihood of alcoholic ketoacidosis. Glucose lvl 188>173>226 indicates hyperglycemic state Anion Gap 13> 10> 11 indicates improvement in blood acidosis CO2 15>18 indicates improvement in blood acidosis venous blood gas 7.158> 7.358 > 7.330 indicates improvement in blood acidosis DKA most likely due to insufficient insulin as shown in his glucose level and history. Plan Stopped insulin IV and start Insulin Glargine 22 unit on sliding scale Continue iv fluids and electrolyte replenishment. Routine BMP and blood gas monitor Social work will support PCP arrangement. Goal is to discharge patient by today or tomorrow after CO2 stabilizes (2) Diabetes mellitus treated with insulin Conclusion/Plan: treating DM as listed above and transition back onto home regimen during discharge. (3) Alcohol abuse Conclusion/Plan: Self reports drinking 8 cans of beer a day which indicates alcohol abuse PE and ROS shows no withdrawal symptoms Plan Monitor for alcohol withdrawal symptoms and continue Librium DICKSON and Lorazepam PRN for symptoms social work has provided resources for alcohol abuse management but patient has expressed no interest in stopping his alcohol consumption. - Current Meds Current Meds: Current Medications Generic Name Dose Route Start Last Admin Trade Name Freq PRN Reason Stop Dose Admin Chlordiazepoxide HCl 10 mg 10/28/23 12:00 10/29/23 11:38 Chlordiazepoxide 5 Mg Capsule PO 10 mg Q6HR DICKSON Administration Heparin Sodium (Porcine) 5,000 unit 10/28/23 09:00 10/29/23 09:44 Heparin 5,000 Unit/Ml Vial SUBQ 5,000 unit BID DICKSON Administration Sodium Chloride 1,000 mls @ 125 mls/hr 10/28/23 04:00 10/29/23 06:43 Normal Saline 0.9% IV Not Given .Q8H DICKSON Dextrose/Sodium Chloride 1,000 mls @ 125 mls/hr 10/28/23 04:00 10/29/23 11:42 D5ns IV 0 mls/hr .Q8H DICKSON Infusion Insulin Glargine-yfgn 22 unit 10/29/23 10:00 10/29/23 10:25 Insulin Glargine-Yfgn 300 Unit/3 Ml Pen SUBQ 22 unit DAILY DICKSON Administration Lorazepam 2 mg 10/28/23 09:45 10/28/23 10:14 Lorazepam 1 Mg Tablet PO 2 mg Q2H PRN Administration Alcohol Withdrawal Ondansetron HCl 4 mg 10/28/23 03:20 10/28/23 09:00 Ondansetron 4 Mg/2 Ml Vial IVP 4 mg Q6HR PRN Administration Nausea / Vomiting Pantoprazole Sodium 40 mg 10/28/23 03:20 10/28/23 09:17 Pantoprazole 40 Mg Vial IVP 40 mg QDAC PRN Administration Heartburn Phenol/Menthol 2 sprays 10/28/23 09:44 10/28/23 19:06 Phenol Throat [place] 177 Ml MM 2 sprays Q2HR PRN Administration Throat Pain Sodium Chloride 10 ml 10/28/23 09:00 10/29/23 11:43 Sodium Chloride Flush 0.9% 10 Ml Syringe IVP 10 ml 0100,0900,1700 DICKSON Administration Sodium Chloride 10 ml 10/28/23 03:20 10/28/23 09:18 Sodium Chloride Flush 0.9% 10 Ml Syringe IVP 10 ml PRN PRN Administration NEEDED PER PROVIDER ORDERS - Lab Result [place] Diagrams: 10/28/23 05:24 10/29/23 13:02 - Additional Planning Condition/Complexity: Improved Time Spent: 15-30 minutes <Yael Mora - Last Filed: 10/29/23 13:56> - Current Meds Current Meds: Current Medications Generic Name Dose Route Start Last Admin Trade Name Freq PRN Reason Stop Dose Admin Chlordiazepoxide HCl 10 mg 10/28/23 12:00 10/29/23 11:38 Chlordiazepoxide 5 Mg Capsule PO 10 mg Q6HR DICKSON Administration Heparin Sodium (Porcine) 5,000 unit 10/28/23 09:00 10/29/23 09:44 Heparin 5,000 Unit/Ml Vial SUBQ 5,000 unit BID DICKSON Administration Sodium Chloride 1,000 mls @ 125 mls/hr 10/28/23 04:00 10/29/23 06:43 Normal Saline 0.9% IV Not Given .Q8H DICKSON Dextrose/Sodium Chloride 1,000 mls @ 125 mls/hr 10/28/23 04:00 10/29/23 11:42 D5ns IV 0 mls/hr .Q8H DICKSON Infusion Insulin Glargine-yfgn 22 unit 10/29/23 10:00 10/29/23 10:25 Insulin Glargine-Yfgn 300 Unit/3 Ml Pen SUBQ 22 unit DAILY DICKSON Administration Insulin Human Lispro 3 - 11 unit 10/29/23 17:00 10/29/23 13:20 Insulin Lispro 300 Unit/3 Ml Pen SUBQ 4 unit 0800,1200,1700,2100 DICKSON Administration Protocol Lorazepam 2 mg 10/28/23 09:45 10/28/23 10:14 Lorazepam 1 Mg Tablet PO 2 mg Q2H PRN Administration Alcohol Withdrawal Ondansetron HCl 4 mg 10/28/23 03:20 10/28/23 09:00 Ondansetron 4 Mg/2 Ml Vial IVP 4 mg Q6HR PRN Administration Nausea / Vomiting Pantoprazole Sodium 40 mg 10/28/23 03:20 10/28/23 09:17 Pantoprazole 40 Mg Vial IVP 40 mg QDAC PRN Administration Heartburn Phenol/Menthol 2 sprays 10/28/23 09:44 10/28/23 19:06 Phenol Throat [place] 177 Ml MM 2 sprays Q2HR PRN Administration Throat Pain Sodium Chloride 10 ml 10/28/23 09:00 10/29/23 11:43 Sodium Chloride Flush 0.9% 10 Ml Syringe IVP 10 ml 0100,0900,1700 DICKSON Administration Sodium Chloride 10 ml 10/28/23 03:20 10/28/23 09:18 Sodium Chloride Flush 0.9% 10 Ml Syringe IVP 10 ml PRN PRN Administration NEEDED PER PROVIDER ORDERS - Lab Result [place] Diagrams: 10/28/23 05:24 10/29/23 13:02 - Additional Planning My Orders: My Active Orders 10/29/23 10:00 Insulin Glargine-Yfgn [Semglee] 22 unit SUBQ DAILY 10/29/23 13:16 Blood Glucose Checks - Eating [RC] 0800,1200,1700,209910/29/23 17:00 Insulin Lispro [Humalog Kwikpen U-100] 3 - 11 unit SUBQ 0800,1200,1700,209910/30/23 05:00 HEMOGLOBIN A1c% [CHEM] DAILYLAB <Mariama Bee - Last Filed: 10/29/23 16:55> Subjective - Subjective Patient Reports: Feeling Better, Resting Comfortably, No Complaints <Yael Mora - Last Filed: 10/29/23 13:56> Objective Vital Signs: Vital Signs - 24 hr 10/28/23 10/28/23 10/28/23 12:00 13:00 14:00 Temperature 37.1 C Heart Rate [ 98 96 89 Monitoring electrodes] Respiratory 19 20 18 Rate Blood Pressure 114/71 115/68 115/66 [Left Brachial artery] O2 Saturation 96 97 97 10/28/23 10/28/23 10/28/23 15:00 16:00 17:00 Temperature 36.8 C Heart Rate [ 90 81 82 Monitoring electrodes] Respiratory 20 20 18 Rate Blood Pressure 106/60 108/64 108/58 L [Left Brachial artery] O2 Saturation 98 98 99 10/28/23 10/28/23 10/28/23 18:00 19:00 20:00 Temperature 36.8 C Heart Rate [ 90 87 83 Monitoring electrodes] Respiratory 22 24 24 Rate Blood Pressure 113/70 115/71 97/61 [Left Brachial artery] O2 Saturation 100 99 97 10/28/23 10/28/23 10/28/23 21:00 22:00 23:00 Temperature Heart Rate [ 82 86 80 Monitoring electrodes] Respiratory 19 23 14 Rate Blood Pressure 109/69 111/73 117/76 [Left Brachial artery] O2 Saturation 97 98 99 10/29/23 10/29/23 10/29/23 00:00 01:00 02:00 Temperature 36.6 C Heart Rate [ 94 83 84 Monitoring electrodes] Respiratory 17 20 14 Rate Blood Pressure 105/66 107/70 117/77 [Left Brachial artery] O2 Saturation 99 99 98 10/29/23 10/29/23 10/29/23 03:00 04:00 05:00 Temperature 36.7 C Heart Rate [ 82 77 75 Monitoring electrodes] Respiratory 21 21 18 Rate Blood Pressure 115/78 117/77 110/68 [Left Brachial artery] O2 Saturation 96 97 97 10/29/23 10/29/23 10/29/23 06:00 07:00 08:00 Temperature Heart Rate [ 93 64 69 Monitoring electrodes] Respiratory 21 16 17 Rate Blood Pressure 111/73 119/80 116/77 [Left Brachial artery] O2 Saturation 97 97 98 10/29/23 10/29/23 10/29/23 09:00 10:00 11:00 Temperature Heart Rate [ 85 95 92 Monitoring electrodes] Respiratory 25 H 22 28 H Rate Blood Pressure 123/80 122/87 H 122/81 H [Left Brachial artery] O2 Saturation 98 100 98 Oxygen O2 Source Room air I&O (Last 24 Hrs): Intake and Output Totals x24h 10/27/23 10/28/23 10/29/23 23:59 23:59 23:59 Intake Total 7979.373 4134.793 Output Total 2650 1725 Balance 5329.373 2409.793 General: Alert, Oriented x3, Cooperative, No acute distress HEENT: Atraumatic, PERRLA, EOMI, Mucous membr. moist/pink Neck: Supple, No thyromegaly Neuro: Alert, CN 2-12 Grossly Intact, Oriented Times 3 Cardiovascular: Regular rate, Normal S1, Normal S2, No murmurs Respiratory: Chest non-tender, No respiratory distress, Breath sounds nml Abdomen: Normal bowel sounds, Soft, No tenderness, No hepatospenomegaly, No masses Extremities: No clubbing, No cyanosis, No edema, Normal pulses, No tenderness/swelling Skin: No rashes, No breakdown, No significant lesion - Results Results: Laboratory Results WBC 13.4 x10^3/uL (4.8-10.8) H 10/28/23 05:24 RBC 4.72 10^6/uL (4.70-6.10) 10/28/23 05:24 Hgb 14.7 g/dL (14.0-18.0) 10/28/23 05:24 Hct 44.0 % (42.0-52.0) 10/28/23 05:24 MCV 93.2 fL (80.0-94.0) 10/28/23 05:24 MCH 31.1 pg (27.0-31.0) H 10/28/23 05:24 MCHC 33.4 g/dL (32.0-36.0) 10/28/23 05:24 RDW 11.6 % (12.0-15.0) L 10/28/23 05:24 Plt Count 233 10^3/uL (130-450) 10/28/23 05:24 MPV 10.0 fL (7.4-11.4) 10/28/23 05:24 Neut # (Auto) 11.4 10^3/uL (1.5-6.6) H 10/28/23 05:24 Lymph # (Auto) 1.0 10^3/uL (1.5-3.5) L 10/28/23 05:24 [place] # (Auto) 0.8 10^3/uL (0.0-1.0) 10/28/23 05:24 Eos # (Auto) 0.0 10^3/uL (0.0-0.7) 10/28/23 05:24 Baso # (Auto) 0.1 10^3/uL (0.0-0.1) 10/28/23 05:24 Absolute Nucleated RBC 0.00 x10^3/uL 10/28/23 05:24 Nucleated RBC % 0.0 /100WBC 10/28/23 05:24 VBG pH 7.330 (7.31-7.41) 10/29/23 07:10 VBG pCO2 20.1 mmHg (41-51) L 10/28/23 02:45 VBG pO2 126.4 mmHg (25-47) H 10/28/23 02:45 VBG HCO3 7.3 mmol/L (23-28) L 10/28/23 02:45 VBG Total CO2 7.9 mmol/L (24-29) L 10/28/23 02:45 VBG O2 Saturation 97.9 % (60-80) H 10/28/23 02:45 VBG Base Excess -18.7 mmol/L (-2 - +2) L 10/28/23 02:45 Ionized Calcium 1.13 mmol/L (1.15-1.33) L 10/29/23 07:10 Sodium 138 mmol/L (135-145) 10/29/23 09:16 Potassium 3.6 mmol/L (3.5-4.5) 10/29/23 09:16 Chloride 109 mmol/L (101-111) 10/29/23 09:16 Carbon Dioxide 18 mmol/L (21-32) L 10/29/23 09:16 Anion Gap 11.0 (6-13) 10/29/23 09:16 BUN 7 mg/dL (6-20) 10/29/23 09:16 Creatinine 0.6 mg/dL (0.6-1.3) 10/29/23 09:16 Estimated GFR (MDRD) 162 (>89) 10/29/23 09:16 Glucose 226 mg/dL (74-104) H 10/29/23 09:16 POC Whole Bld Glucose 169 mg/dL (70 - 100) H 10/29/23 11:08 Calcium 7.8 mg/dL (8.5-10.3) L 10/29/23 09:16 Phosphorus 1.2 mg/dL (2.5-5.0) L 10/29/23 02:52 Magnesium 2.1 mg/dL (1.7-2.3) 10/29/23 07:10 Total Bilirubin 0.6 mg/dL (0.2-1.0) 10/28/23 02:45 AST 15 IU/L (10-42) 10/28/23 02:45 ALT 20 IU/L (10-60) 10/28/23 02:45 Alkaline Phosphatase 78 IU/L (42-121) 10/28/23 02:45 Total Protein 8.6 g/dL (6.4-8.9) 10/28/23 02:45 Albumin 5.4 g/dL (3.2-5.5) 10/28/23 02:45 Globulin 3.2 g/dL (2.1-4.2) 10/28/23 02:45 Albumin/Globulin Ratio 1.7 (1.0-2.2) 10/28/23 02:45 Lipase 11 U/L (11-82) 10/28/23 02:45 Urine Color YELLOW 10/28/23 05:34 Urine Clarity CLEAR (CLEAR) 10/28/23 05:34 Urine pH 6.0 PH (5.0-7.5) 10/28/23 05:34 Ur Specific [place] >=1.030 (1.002-1.030) H 10/28/23 05:34 Urine Protein 30 mg/dL (NEGATIVE) H 10/28/23 05:34 Urine Glucose (UA) 250 mg/dL (NEGATIVE) H 10/28/23 05:34 Urine Ketones >=80 mg/dL (NEGATIVE) H 10/28/23 05:34 Urine Occult Blood NEGATIVE (NEGATIVE) 10/28/23 05:34 Urine Nitrite NEGATIVE (NEGATIVE) 10/28/23 05:34 Urine Bilirubin NEGATIVE (NEGATIVE) 10/28/23 05:34 Urine Urobilinogen 0.2 (NORMAL) E.U./dL (NORMAL) 10/28/23 05:34 Ur Leukocyte Esterase NEGATIVE (NEGATIVE) 10/28/23 05:34 Urine RBC 0-5 /HPF (0-5) 10/28/23 05:34 Urine WBC 0-3 /HPF (0-3) 10/28/23 05:34 Ur Squamous Epith Cells NONE SEEN (<= Few) 10/28/23 05:34 Urine Bacteria None Seen /HPF (None Seen) 10/28/23 05:34 Urine Sperm PRESENT 10/28/23 05:34 Ur Microscopic Review INDICATED 10/28/23 05:34 Urine Culture Comments Cancelled 10/28/23 05:34 Nasal Screen MRSA (PCR) NEGATIVE (NEGATIVE) 10/28/23 04:50 Urine Opiates Screen NEGATIVE (NEGATIVE) 10/28/23 05:34 Ur Oxycodone Screen NEGATIVE (NEGATIVE) 10/28/23 05:34 Urine Methadone Screen NEGATIVE (NEGATIVE) 10/28/23 05:34 Ur Propoxyphene Screen NEGATIVE (NEGATIVE) 10/28/23 05:34 Ur Barbiturates Screen NEGATIVE (NEGATIVE) 10/28/23 05:34 Ur Tricyclics Screen NEGATIVE (NEGATIVE) 10/28/23 05:34 Ur Phencyclidine Scrn NEGATIVE (NEGATIVE) 10/28/23 05:34 Ur Amphetamine Screen NEGATIVE (NEGATIVE) 10/28/23 05:34 U Methamphetamines Scrn NEGATIVE (NEGATIVE) 10/28/23 05:34 U Benzodiazepines Scrn NEGATIVE (NEGATIVE) 10/28/23 05:34 Urine Cocaine Screen NEGATIVE (NEGATIVE) 10/28/23 05:34 U Cannabinoids Screen POSITIVE (NEGATIVE) H 10/28/23 05:34 Serum Ketones LARGE (NEGATIVE) H 10/28/23 02:45 - Procedures Procedures: Procedures INSERTION OF INFUSION DEV INTO SUP VENA CAVA, PERC APPROACH (08/21/20) <Yael Mora - Last Filed: 10/29/23 13:56> Vital Signs: Vital Signs - 24 hr 10/28/23 10/28/23 10/28/23 17:00 18:00 19:00 Temperature 36.8 C Heart Rate [ 82 90 87 Monitoring electrodes] Respiratory 18 22 24 Rate Blood Pressure 108/58 L 113/70 115/71 [Left Brachial artery] O2 Saturation 99 100 99 10/28/23 10/28/23 10/28/23 20:00 21:00 22:00 Temperature 36.8 C Heart Rate [ 83 82 86 Monitoring electrodes] Respiratory 24 19 23 Rate Blood Pressure 97/61 109/69 111/73 [Left Brachial artery] O2 Saturation 97 97 98 10/28/23 10/29/23 10/29/23 23:00 00:00 01:00 Temperature 36.6 C Heart Rate [ 80 94 83 Monitoring electrodes] Respiratory 14 17 20 Rate Blood Pressure 117/76 105/66 107/70 [Left Brachial artery] O2 Saturation 99 99 99 10/29/23 10/29/23 10/29/23 02:00 03:00 04:00 Temperature 36.7 C Heart Rate [ 84 82 77 Monitoring electrodes] Respiratory 14 21 21 Rate Blood Pressure 117/77 115/78 117/77 [Left Brachial artery] O2 Saturation 98 96 97 10/29/23 10/29/23 10/29/23 05:00 06:00 07:00 Temperature Heart Rate [ 75 93 64 Monitoring electrodes] Respiratory 18 21 16 Rate Blood Pressure 110/68 111/73 119/80 [Left Brachial artery] O2 Saturation 97 97 97 10/29/23 10/29/23 10/29/23 08:00 09:00 10:00 Temperature Heart Rate [ 69 85 95 Monitoring electrodes] Respiratory 17 25 H 22 Rate Blood Pressure 116/77 123/80 122/87 H [Left Brachial artery] O2 Saturation 98 98 100 10/29/23 10/29/23 10/29/23 11:00 12:00 13:00 Temperature Heart Rate [ 92 77 89 Monitoring electrodes] Respiratory 28 H 16 18 Rate Blood Pressure 122/81 H 128/86 H 126/91 H [Left Brachial artery] O2 Saturation 98 97 97 10/29/23 10/29/23 10/29/23 14:00 15:00 16:00 Temperature 36.4 C L Heart Rate [ 96 76 72 Monitoring electrodes] Respiratory 19 10 L 18 Rate Blood Pressure 118/71 129/77 131/82 H [Left Brachial artery] O2 Saturation 98 97 97 Oxygen O2 Source Room air I&O (Last 24 Hrs): Intake and Output Totals x24h 10/27/23 10/28/23 10/29/23 23:59 23:59 23:59 Intake Total 7979.373 4614.793 Output Total 2650 1725 Balance 5329.373 2889.793 - Results Results: Laboratory Results WBC 13.4 x10^3/uL (4.8-10.8) H 10/28/23 05:24 RBC 4.72 10^6/uL (4.70-6.10) 10/28/23 05:24 Hgb 14.7 g/dL (14.0-18.0) 10/28/23 05:24 Hct 44.0 % (42.0-52.0) 10/28/23 05:24 MCV 93.2 fL (80.0-94.0) 10/28/23 05:24 MCH 31.1 pg (27.0-31.0) H 10/28/23 05:24 MCHC 33.4 g/dL (32.0-36.0) 10/28/23 05:24 RDW 11.6 % (12.0-15.0) L 10/28/23 05:24 Plt Count 233 10^3/uL (130-450) 10/28/23 05:24 MPV 10.0 fL (7.4-11.4) 10/28/23 05:24 Neut # (Auto) 11.4 10^3/uL (1.5-6.6) H 10/28/23 05:24 Lymph # (Auto) 1.0 10^3/uL (1.5-3.5) L 10/28/23 05:24 [place] # (Auto) 0.8 10^3/uL (0.0-1.0) 10/28/23 05:24 Eos # (Auto) 0.0 10^3/uL (0.0-0.7) 10/28/23 05:24 Baso # (Auto) 0.1 10^3/uL (0.0-0.1) 10/28/23 05:24 Absolute Nucleated RBC 0.00 x10^3/uL 10/28/23 05:24 Nucleated RBC % 0.0 /100WBC 10/28/23 05:24 VBG pH 7.330 (7.31-7.41) 10/29/23 07:10 VBG pCO2 20.1 mmHg (41-51) L 10/28/23 02:45 VBG pO2 126.4 mmHg (25-47) H 10/28/23 02:45 VBG HCO3 7.3 mmol/L (23-28) L 10/28/23 02:45 VBG Total CO2 7.9 mmol/L (24-29) L 10/28/23 02:45 VBG O2 Saturation 97.9 % (60-80) H 10/28/23 02:45 VBG Base Excess -18.7 mmol/L (-2 - +2) L 10/28/23 02:45 Ionized Calcium 1.13 mmol/L (1.15-1.33) L 10/29/23 07:10 Sodium 138 mmol/L (135-145) 10/29/23 13:02 Potassium 3.5 mmol/L (3.5-4.5) 10/29/23 13:02 Chloride 106 mmol/L (101-111) 10/29/23 13:02 Carbon Dioxide 20 mmol/L (21-32) L 10/29/23 13:02 Anion Gap 12.0 (6-13) 10/29/23 13:02 BUN 6 mg/dL (6-20) 10/29/23 13:02 Creatinine 0.5 mg/dL (0.6-1.3) L 10/29/23 13:02 Estimated GFR (MDRD) 199 (>89) 10/29/23 13:02 Glucose 146 mg/dL (74-104) H 10/29/23 13:02 POC Whole Bld Glucose 187 mg/dL (70 - 100) H 10/29/23 16:38 Calcium 8.1 mg/dL (8.5-10.3) L 10/29/23 13:02 Phosphorus 1.2 mg/dL (2.5-5.0) L 10/29/23 02:52 Magnesium 2.1 mg/dL (1.7-2.3) 10/29/23 07:10 Total Bilirubin 0.6 mg/dL (0.2-1.0) 10/28/23 02:45 AST 15 IU/L (10-42) 10/28/23 02:45 ALT 20 IU/L (10-60) 10/28/23 02:45 Alkaline Phosphatase 78 IU/L (42-121) 10/28/23 02:45 Total Protein 8.6 g/dL (6.4-8.9) 10/28/23 02:45 Albumin 5.4 g/dL (3.2-5.5) 10/28/23 02:45 Globulin 3.2 g/dL (2.1-4.2) 10/28/23 02:45 Albumin/Globulin Ratio 1.7 (1.0-2.2) 10/28/23 02:45 Lipase 11 U/L (11-82) 10/28/23 02:45 Urine Color YELLOW 10/28/23 05:34 Urine Clarity CLEAR (CLEAR) 10/28/23 05:34 Urine pH 6.0 PH (5.0-7.5) 10/28/23 05:34 Ur Specific [place] >=1.030 (1.002-1.030) H 10/28/23 05:34 Urine Protein 30 mg/dL (NEGATIVE) H 10/28/23 05:34 Urine Glucose (UA) 250 mg/dL (NEGATIVE) H 10/28/23 05:34 Urine Ketones >=80 mg/dL (NEGATIVE) H 10/28/23 05:34 Urine Occult Blood NEGATIVE (NEGATIVE) 10/28/23 05:34 Urine Nitrite NEGATIVE (NEGATIVE) 10/28/23 05:34 Urine Bilirubin NEGATIVE (NEGATIVE) 10/28/23 05:34 Urine Urobilinogen 0.2 (NORMAL) E.U./dL (NORMAL) 10/28/23 05:34 Ur Leukocyte Esterase NEGATIVE (NEGATIVE) 10/28/23 05:34 Urine RBC 0-5 /HPF (0-5) 10/28/23 05:34 Urine WBC 0-3 /HPF (0-3) 10/28/23 05:34 Ur Squamous Epith Cells NONE SEEN (<= Few) 10/28/23 05:34 Urine Bacteria None Seen /HPF (None Seen) 10/28/23 05:34 Urine Sperm PRESENT 10/28/23 05:34 Ur Microscopic Review INDICATED 10/28/23 05:34 Urine Culture Comments Cancelled 10/28/23 05:34 Nasal Screen MRSA (PCR) NEGATIVE (NEGATIVE) 10/28/23 04:50 Urine Opiates Screen NEGATIVE (NEGATIVE) 10/28/23 05:34 Ur Oxycodone Screen NEGATIVE (NEGATIVE) 10/28/23 05:34 Urine Methadone Screen NEGATIVE (NEGATIVE) 10/28/23 05:34 Ur Propoxyphene Screen NEGATIVE (NEGATIVE) 10/28/23 05:34 Ur Barbiturates Screen NEGATIVE (NEGATIVE) 10/28/23 05:34 Ur Tricyclics Screen NEGATIVE (NEGATIVE) 10/28/23 05:34 Ur Phencyclidine Scrn NEGATIVE (NEGATIVE) 10/28/23 05:34 Ur Amphetamine Screen NEGATIVE (NEGATIVE) 10/28/23 05:34 U Methamphetamines Scrn NEGATIVE (NEGATIVE) 10/28/23 05:34 U Benzodiazepines Scrn NEGATIVE (NEGATIVE) 10/28/23 05:34 Urine Cocaine Screen NEGATIVE (NEGATIVE) 10/28/23 05:34 U Cannabinoids Screen POSITIVE (NEGATIVE) H 10/28/23 05:34 Serum Ketones LARGE (NEGATIVE) H 10/28/23 02:45 - Procedures Procedures: Procedures INSERTION OF INFUSION DEV INTO SUP VENA CAVA, PERC APPROACH (08/21/20) <Mariama Bee - Last Filed: 10/29/23 16:55> ABX Reporting Has patient been on IV antibiotics over the past 48 hours?: No <Yael Mora - Last Filed: 10/29/23 13:56> Has patient been on IV antibiotics over the past 48 hours?: No <Mariama Bee - Last Filed: 10/29/23 16:55>
[2023-10-29] MEDS: INSULIN LISPRO 300 UNIT/3 ML PEN SUBQ SCH ×2 (13:20→16:55)
[2023-10-29 13:28] LABS: CALCIUM 8.1 mg/dL (8.5-10.3); CREATININE 0.5 mg/dL (0.6-1.3); POTASSIUM 3.5 mmol/L (3.5-4.5)
[2023-10-29 17:22] VITALS: BP 132/89; O2SAT 99
[2023-10-29 17:31] LABS: CALCIUM 8.4 mg/dL (8.5-10.3); CREATININE 0.6 mg/dL (0.6-1.3); POTASSIUM 3.8 mmol/L (3.5-4.5)
--- NOTE | 2023-10-29 17:59 | Discharge Plan ---
Discharge Plan Problem Reviewed?: Yes Disposition: Home, Self Care Condition: Fair Prescriptions: Insulin Lispro [Humalog] 30 unit SUBQ ONCE #9 ml Insulin Glargine-Yfgn [Semglee] 20 units SUBQ DAILY #6 ml Diet: Diabetic Activity Restrictions: Activity as Tolerated Shower Restrictions: No Driving Restrictions: No Health Concerns: You have been rationing your insulin because you were starting to run out of medication. Unfortunately you also drink beer in the face of type 1 diabetes. Between the 2 problems, this caused you to go into DKA. You were placed in the intensive care unit and given an insulin drip with the diabetic ketoacidosis protocol. Your acid level gradually reduced in your bloodstream. Your potassium and calcium and magnesium normalized. We have started you on your normal dose of long-acting insulin at 22 units. We then stop the drip. You have been able to control your sugars throughout the course of the day subsidized by short acting injections before each meal. Plan of Treatment: 1. Please establish yourself with would be community clinics in [place] or [place]. The providers I would look for are Edith Zepeda and Crista Bacon. Their address is [address] [place] [address]. Their phone number is [phone]. 2. I have written prescriptions for your insulin. You should have enough for 90 days. But please, please establish general self way before then to get refills on your next medication. 3. I know that social work and nursing have been speaking to you about this is shannen, but I am going to add my 2 cents and say that you really need to stop drinking. This will only lead to worsening of your diabetes and your diabetic status overall. This will only hasten diabetic complications. This will shorten your life. What ever help you need or what ever opportunities you need to help you stop drinking, please contact our social work department. Care Goals: To get regular care again. So that you can have regular visits to maintain your prescriptions and control of your diabetes. Assessment: Patient is alert, oriented to person place time and situation. No Smoking: If you smoke, Please STOP! Call for help.
--- NOTE | 2023-10-29 18:05 | DISCHARGE SUMMARY ---
"Discharge Summary Admit Date: 10/28/23 Discharge Date: 10/29/23 Discharging Provider: Mariama Bee MD Primary Care Provider: BAKARI Hyde Code Status: Attempt Resuscitation Condition at Discharge: Fair Discharge Disposition: 01 Home, Self Care - DIAGNOSES Discharge Diagnoses with Status of Each Condition: 1. Diabetic ketoacidosis 2. Type 1 diabetes mellitus, uncontrolled, with hyperglycemia, on long-term insulin 3. Alcohol abuse - HPI History of Present Illness: 27M c insulin dependent DM on insulin p/w nausea and vomiting and mild abdominal pain. He has been rationing his insulin. He started to feel ill yesterday am. He went to work and sxs progressed. He has had DKA prior and knows the sxs. He knew he was in DKA and hence came into the ED. No fever. No sore throat. No cough. No chest pain. No n/v/d. - Past Medical History Cardiovascular: reports: None Respiratory: reports: Other Neuro: reports: None Endocrine/Autoimmune: reports: Type 1 diabetes GI: reports: Pancreatitis : reports: None Psych: reports: None Derm: reports: None - Past Surgical History General: reports: Other - CONSULTS | PROCEDURES Procedures: Chest x-ray without acute cardiopulmonary process - HOSPITAL COURSE Hospital Course: ItWe did a little bit of investigating to try and figure out why this gentleman went into DKA. Clear that he has been noncompliant with medication because he has been running out of his insulin and he has been rationing the supply. He [facility] to the [place] and was unable to establish himself with a primary care provider in an expeditious manner. He gone to the walk-in clinic and asked for a refill there but the provider there declined giving him his medication since he was not a regularly established patient. The patient was in the process of making an appointment with an office but was not can to be able to get in till November. He went into DKA, had a generalized abdominal pain, and had to come to the emergency room. We put him in the ICU on an insulin drip. Although his sugars were not severely elevated, he had a very high anion gap, and very low CO2. Once his glucose was stabilized with a normal anion gap, I stopped his insulin. I transitioned him to Lantus 22 units. Started sliding scale before meals. Within 12 to 16 hours his sugars were stable with this regimen and he wanted to go home. I did consider doing a CT of the abdomen because of his presenting history of generalized abdominal pain. But by the time he was on an insulin drip and his anion gap was closing, he had no abdominal pain. As such no CT was done. I have asked him to please establish himself with a primary care provider. [place] he is going to be looking at primary care [place] and we specifically gave him the names of Crista Bacon and Edith Zepeda.I have also written for 90-day prescriptions to be filled at [facility] in [place]. I am hoping that he has enough time to establish himself in the primary care office before he runs out again.I have also asked him to please stop drinking. He drinks up to 8 beers a day. Social work spoke to him and also availed him of some opportunities to stop drinking. At this time he says that he probably will not stop drinking. He is discharged in stable condition with a temperature 36.4, heart rate 98, blood pressure 132/89. Respirations 18. 99% on room air. He is a tall white male, pale, in no acute distress. Eating 100% of his food. No abdominal pain. Clear lungs, regular rate and rhythm, no edema. Greater than 30 minutes was spent coordinating discharge This document was made in part using voice recognition software. While efforts are made to proofread this document, sound alike and grammatical errors may occur. - ALLERGIES Allergies/Adverse Reactions: Allergies Allergy/AdvReac Type Severity Reaction Status Date / Time No Known Drug Allergies Allergy Verified 07/29/23 21:21 - MEDICATIONS Home Medications: Ambulatory Orders Medication Instructions Recorded Confirmed [place], Disposable [Needle] 1 each [facility] #100 ea 05/24/23 10/28/23 Insulin Glargine-Yfgn [Semglee] 20 units SUBQ DAILY #6 ml 10/28/23 Insulin Lispro [Humalog] 30 unit SUBQ ONCE #9 ml 10/28/23 - LABS Result Diagrams: 10/28/23 05:24 10/29/23 16:45"
== END 2023-10-29 18:30 | disposition home or self-care (01) | DRG 639 ==
LOC: ED 02:32 → ICU 03:21
PROVIDERS: ADMIT Internal Medicine; ATTEND Internal Medicine
DX: E10.10 Type 1 diabetes mellitus with ketoacidosis without coma (principal); F10.10 Alcohol abuse, uncomplicated; T38.3X6A Underdosing of insulin and oral hypoglycemic [antidiabetic] drugs, initial encounter; Z79.4 Long term (current) use of insulin; Z79.899 Other long term (current) drug therapy; Z91.128 Patient's intentional underdosing of medication regimen for other reason
CPT/HCPCS: 36415; 71045; 80048; 80053; 80306; 81001; 82009; 82330; 82803; 83690; 83735; 84100; 84132; 85025; 87086; 87150; 96374; 99285; 99291; A9270; J1815; J2060; J8499; 81003; 82947

== ENCOUNTER 2024-08-20 03:32 | Inpatient (IN) | payer OTHER ==
--- NOTE | 2024-08-20 04:01 | ED Physician Documentation ---
History of Present Illness - Stated complaint Stated Complaint: F/N/V - Chief complaint Chief Complaint: Abd Pain - History obtained from History obtained from: Patient - Additonal information Additional information: 20-year-old woman with history of diabetes presents with vomiting and abdominal pain starting 3 hours prior to arrival. Also with sore throat from vomiting. Denies increased urinary frequency, burning with urination, fever, diarrhea. PD PAST MEDICAL HISTORY - Past Medical History Cardiovascular: None Respiratory: Other Neuro: None Endocrine/Autoimmune: Type 1 diabetes GI: Pancreatitis : None Psych: None Derm: None - Past Surgical History Past Surgical History: Yes General: Other - Present Medications Home Medications: Ambulatory Orders Medication Instructions Recorded Confirmed [place], Disposable [Needle] 1 each [facility] #100 ea 05/24/23 10/28/23 Insulin Glargine-Yfgn [Semglee] 20 units SUBQ DAILY #6 ml 10/28/23 Insulin Lispro [Humalog] 30 unit SUBQ ONCE #9 ml 10/28/23 - Allergies Allergies/Adverse Reactions: Allergies Allergy/AdvReac Type Severity Reaction Status Date / Time No Known Drug Allergies Allergy Verified 07/29/23 21:21 - Social History Does the pt smoke?: No Smoking Status: Never smoker Does the pt drink ETOH?: Yes Does the pt have substance abuse?: Yes - Immunizations Immunizations are current?: Yes - POLST Patient has POLST: No POLST Status: Full Code PD ED PE NORMAL - Vitals Vital signs reviewed: Yes - General General: Alert and oriented X 3, No acute distress, Well developed/nourished - HEENT HEENT: Atraumatic, PERRL, EOMI - Neck Neck: Supple, no meningeal sign - Cardiac Cardiac: Other (Tachycardic rate, regular rhythm) - Respiratory Respiratory: No respiratory distress, Clear bilaterally - Abdomen Abdomen: Non tender, Non distended - Back Back: No CVA TTP - Derm Derm: Normal color, Warm and dry Results - Vitals Vitals: Vital Signs - 24 hr 08/20/24 08/20/24 08/20/24 03:40 03:57 04:14 Temperature 36.5 C Heart Rate 116 H 109 H 107 H Respiratory 20 20 20 Rate Blood Pressure 149/96 H O2 Saturation 98 97 97 Oxygen O2 Source Room air - Labs Labs: Laboratory Tests 08/20/24 08/20/24 08/20/24 03:53 03:53 04:06 WBC 10.4 RBC 5.30 Hgb 17.0 Hct 51.4 MCV 97.0 H MCH 32.1 H MCHC 33.1 RDW 11.9 L Plt Count 306 MPV 9.8 Neut # (Auto) 6.2 Lymph # (Auto) 2.9 Emanuel # (Auto) 0.8 Eos # (Auto) 0.2 Baso # (Auto) 0.2 H Absolute Nucleated RBC 0.00 Nucleated RBC % 0.0 VBG pH 7.062 L* VBG pCO2 17.3 L VBG pO2 67.8 H VBG HCO3 4.8 L VBG Total CO2 5.3 L VBG O2 Saturation 89.6 H VBG Base Excess -23.4 L Urine Acetest TNP PD Medical Decision Making - ED course ED course: 28-year-old man presents with vomiting and abdominal pain starting 3 hours prior to arrival. Plan to obtain DKA workup and treat symptomatically with GI cocktail, Zofran, Ativan for anxiety. note that initial vbg shows significant metabolic acidosis c/w DKA. plan to admit ICU for DKA management. Departure - Departure Clinical Impression: Vomiting, Abdominal pain, DKA (diabetic ketoacidosis) Condition: Fair Forms: PCP List
[2024-08-20 04:08] LABS: BASOPHILS # (AUTO) 0.2 10^3/uL (0.0-0.1); BASOPHILS % (AUTO) 1.6 %; EOSINOPHILS # (AUTO) 0.2 10^3/uL (0.0-0.7); EOSINOPHILS % (AUTO) 1.6 %; HCT - HEMATOCRIT 51.4 % (42.0-52.0); LYMPHOCYTES # (AUTO) 2.9 10^3/uL (1.5-3.5); LYMPHOCYTES % (AUTO) 27.7 %; MEAN CORPUSCULAR HEMOGLOBIN 32.1 pg (27.0-31.0); MEAN CORPUSCULAR HGB CONC 33.1 g/dL (32.0-36.0); MEAN PLATELET VOLUME 9.8 fL (7.4-11.4); MONOCYTES # (AUTO) 0.8 10^3/uL (0.0-1.0); MONOCYTES % (AUTO) 7.2 %; NEUTROPHILS # (AUTO) 6.2 10^3/uL (1.5-6.6); NEUTROPHILS % (AUTO) 59.8 %; PLT - PLATELET COUNT 306 10^3/uL (130-450); RED CELL DISTRIBUTION WIDTH 11.9 % (12.0-15.0); WHITE BLOOD COUNT 10.4 x10^3/uL (4.8-10.8)
[2024-08-20] MEDS: LORazepam 2 MG/ML VIAL IVP STA (04:10)
[2024-08-20] MEDS: SODIUM CHLORIDE 0.9% 1,000 ML IV STA ×2 (04:10→04:22)
[2024-08-20] MEDS: ONDANSETRON 4 MG/2 ML VIAL IVP STA (04:10)
[2024-08-20 04:11] LABS: VBG HCO3 4.8 mmol/L (23-28); VBG PCO2 17.3 mmHg (41-51); VBG PO2 67.8 mmHg (25-47); VBG TOTAL CO2 5.3 mmol/L (24-29)
[2024-08-20 04:12] LABS: VBG BASE EXCESS -23.4 mmol/L (-2 - +2); VBG OXYGEN SATURATION 89.6 % (60-80)
[2024-08-20 04:13] LABS: VBG PH 7.062 (7.31-7.41)
[2024-08-20 04:23] LABS: KETONES, SERUM (ACETEST) SMALL (NEGATIVE)
[2024-08-20] MEDS: LIDOCAINE VISCOUS 2% 15 ML UDC MM STA (04:23)
[2024-08-20] MEDS: MAG HYDROX/AL HYDROX/SIMETH 30 ML UDC PO STA (04:23)
[2024-08-20] MEDS: diphenhydrAMINE ELIXIR 25 MG/10 ML UDC PO STA (04:24)
[2024-08-20] MEDS: FAMOTIDINE 20 MG TABLET PO STA (04:25)
[2024-08-20 04:37] LABS: LIPASE 10 U/L (11-82)
[2024-08-20 04:42] LABS: ALBUMIN 5.1 g/dL (3.2-5.5); ALBUMIN/GLOBULIN RATIO 1.6 (1.0-2.2); ALKALINE PHOSPHATASE 92 IU/L (42-121); ALT ALANINE AMINOTRANSFERASE 31 IU/L (10-60); AST ASPARTATE AMINOTRANSFERASE 19 IU/L (10-42); BILIRUBIN,TOTAL 0.5 mg/dL (0.2-1.0); BUN - BLOOD UREA NITROGEN 11 mg/dL (6-20); CALCIUM 9.1 mg/dL (8.5-10.3); CARBON DIOXIDE - CO2 4 mmol/L (21-32); CHLORIDE 99 mmol/L (101-111); CREATININE 0.9 mg/dL (0.6-1.3); GFR - MDRD 100 (>89); GLUCOSE 275 mg/dL (74-104); POTASSIUM 3.4 mmol/L (3.5-4.5); SODIUM 137 mmol/L (135-145); TOTAL PROTEIN 8.3 g/dL (6.4-8.9)
[2024-08-20] MEDS ORDERED: ONDANSETRON 4 MG/2 ML VIAL IVP PRN (05:11)
[2024-08-20] MEDS ORDERED: SODIUM CHLORIDE FLUSH 0.9% 10 ML SYRINGE IVP PRN (05:11)
[2024-08-20] MEDS: POTASSIUM CHLOR 10 MEQ/100 ML 10 MEQ/100 ML BAG IV STA (05:28)
[2024-08-20] MEDS: SODIUM BICARBONATE ABBOJECT 50 MEQ/50 ML SYRINGE IVP STA (05:28)
--- NOTE | 2024-08-20 05:36 | HISTORY & PHYSICAL EXAMINATION ---
Chief Complaint - Chief Complaint Chief Complaint: Vomiting History of Present Illness - History of Present Illness HPI Comment/Other: 26 y old male with PMH DM type 2 , insulin dependent presented to ER due to nausea, vomiting and abdominal pain which started about 3 hours ago. Denies fever, chills, headache, chest pain, SOB, symptoms On presenttaion, pt was afberile Labs showed blood glucose 275, bicarb 4, K 3.4, anion gap 34, ketones positive VBG showed PH 7.0 In ER, Pt was given IVF and started on insulin gtt Sodium bicarb 50 meq iv X 1 was ordered Pt is admitted due to DKA History - Past Medical History Cardiovascular: reports: None Respiratory: reports: Other Neuro: reports: None Endocrine/Autoimmune: reports: Type 1 diabetes GI: reports: Pancreatitis : reports: None Psych: reports: None Derm: reports: None - Past Surgical History General: reports: Other - Family & Social History Family History Comment/Other: Patient's father denies any family history of significant medical conditions. Social History Notes: Patient drinks alcohol daily. It is reported that he is a heavy drinker. He smokes marijuana. He denies use of tobacco products. - POLST Patient has POLST: No POLST Status: Full Code Meds/Allgy - Home Medications Home Medications: Ambulatory Orders Medication Instructions Recorded Confirmed [place], Disposable [Needle] 1 each [facility] #100 ea 05/24/23 10/28/23 Insulin Glargine-Yfgn [Semglee] 20 units SUBQ DAILY #6 ml 10/28/23 Insulin Lispro [Humalog] 30 unit SUBQ ONCE #9 ml 10/28/23 - Allergies Allergies/Adverse Reactions: Allergies Allergy/AdvReac Type Severity Reaction Status Date / Time No Known Drug Allergies Allergy Verified 07/29/23 21:21 Review of Systems - Other Findings Other Findings: 10 point systems were reviewed and were negative except mentioned in HPI Exam - Vital Signs Vital Signs: Vital Signs x48h Temp Pulse Resp BP Pulse Ox 08/20/24 05:04 114 H 20 141/88 H 99 08/20/24 04:14 107 H 20 97 08/20/24 03:57 109 H 20 97 08/20/24 03:40 36.5 C 116 H 20 149/96 H 98 - Physical Exam Eyes Bilateral: positive: Normal inspection ENT: positive: ENT inspection nml Neck: positive: Nml inspection Respiratory: positive: Chest non-tender Abdomen: positive: Non-tender, Nml bowel sounds Skin: positive: No rash Extremities: positive: Non-tender Neurologic/Psychiatric: positive: Oriented x3, Motor nml Conclusion/Plan - Lab Results Fish Bones: 08/20/24 03:53 08/20/24 03:53 - Other Other Results/Comments: A: DKA Nausea, vomiting Hypokalemia Dehydration H/O depression Plan; Admit in ICU DKA protocol Start NS @ 150 cc/h Start insulin gtt monitor blood gluicose Q1H Monitor BMP q2h Monitor I/O , electrolytes DVT prophylaxic: SCD Full code Pt is admitted as inpatient as more than 2 midnight stay is expected
[2024-08-20] MEDS: INSULIN REGULAR IN 0.9 % NS 100 UNIT/100 ML BAG IV STA (05:45)
[2024-08-20] MEDS: INSULIN REGULAR, HUMAN 300 UNIT/3 ML PEN IVP ONE (05:50)
[2024-08-20 06:25] LABS: CALCIUM 7.9 mg/dL (8.5-10.3); CREATININE 0.8 mg/dL (0.6-1.3); POTASSIUM 3.6 mmol/L (3.5-4.5)
[2024-08-20] MEDS: SODIUM CHLORIDE 0.9% 1,000 ML IV SCH (06:31)
[2024-08-20 06:59] LABS: BILIRUBIN,URINE NEGATIVE (NEGATIVE); GLUCOSE, URINE (UA) 500 mg/dL (NEGATIVE); KETONES,URINE (UA) >=80 mg/dL (NEGATIVE); LEUKOCYTE ESTERASE, URINE NEGATIVE (NEGATIVE); NITRITE,URINE NEGATIVE (NEGATIVE); OCCULT BLOOD,URINE TRACE-LYSE (NEGATIVE); PH,URINE 5.5 PH (5.0-7.5); PROTEIN,URINE 30 mg/dL (NEGATIVE); UROBILINOGEN,URINE 0.2 (NORMAL) E.U./dL (NORMAL)
[2024-08-20 07:01] LABS: CLARITY,URINE CLEAR (CLEAR); HCG UR QUAL NEGATIVE
[2024-08-20 07:09] LABS: RBC,URINE 0-5 /HPF (0-5); WBC,URINE 0-3 /HPF (0-3)
[2024-08-20 07:10] LABS: BACTERIA,URINE Rare /HPF (None Seen); CASTS, URINE 0-2 Hyaline Casts /LPF; SQUAMOUS EPITHELIAL CELL,UR NONE SEEN (<= Few)
[2024-08-20] MEDS: DEXTROSE 5%-0.9% NACL 1,000 ML IV SCH (08:03)
[2024-08-20] MEDS: SODIUM CHLORIDE FLUSH 0.9% 10 ML SYRINGE IVP SCH (08:04)
[2024-08-20 08:19] LABS: CALCIUM, IONIZED 1.16 mmol/L (1.15-1.33)
[2024-08-20 08:20] LABS: VBG PH 7.126 (7.31-7.41)
[2024-08-20 08:37] LABS: MAGNESIUM 1.7 mg/dL (1.7-2.3); PHOSPHORUS 1.4 mg/dL (2.5-5.0)
[2024-08-20] MEDS: LIDOCAINE VISCOUS 2% 15 ML UDC MM PRN (08:53)
[2024-08-20 08:56] LABS: CREATININE 0.8 mg/dL (0.6-1.3); POTASSIUM 3.4 mmol/L (3.5-4.5)
--- NOTE | 2024-08-20 09:16 | PROVIDER PROGRESS NOTE ---
Subjective - Prog Note Date Prog Note Date: 08/20/24 Prog Note Time: 09:07 - Subjective Subjective: review of his medical record at the walk-in clinic since he last saw us in July 2023: 1. facial infection secondary to tooth infection April 2023 2. URI July 2023 3. refill of insulin because he ran out of his meds August 2023. [place] 4. refill of insulin October 2023. new PCP appointment supposedly in November 2023 5. Refill of insulin January 2024. PCP appointment supposedly in February 2024 6. March 21, 2024 establish care with PCP office. BAKARI De Oliveira. No show on May 10, 2024. 7. Walk-in clinic visit for left thumb May 23, 2024 Past medical history 1. Type 1 diabetes mellitus 2. Depression and anxiety since age 22. Previously on citalopram but stopped because he ran out years ago 3. Alcohol abuse with 6-10 beers a day 4. Spontaneous pneumothorax 2016 resulting in wedge resection and pleurodesis Social history. Works at [employer] and lives with his parents. Reports good local support with family and friends. never smoker. Drinks 6-10 beers a day. Family history: maternal grandmother had type 2 diabetes and stroke With regards to mom and dad without coronary artery disease, hypertension, hyperlipidemia or cancer this morning his glucose is below 200 but he is still on 8 units of insulin per hour.His carbon dioxide level is still quite low at 6. Anion gap is high at 30. Anion gap was 34 last night. Potassium was 3.4. Phosphorus 1.4. Magnesium 1.7. He complains of a sore throat. this episode started on . Today is Thursday. There is a night he felt feverish, chills. He usually just sleeps in his underwear and that might he does sleep with 3-4 sweaters, 2 pairs of pajamas to get warm. But no localizing sore throat, cough, chest congestion, abdominal pain, diarrhea, rectal pain, or skin changes. Thursday he was able to get up in the morning to go to work for an hour but that was it. Went back home because he felt so awful. Then the nausea and vomiting started yesterday evening and that is what brought him to the emergency room. He wonders if he could please have some broth and diet soda. Current Medications - Current Medications Current Medications: Active Medications Generic Name Dose Route Start Last Admin Trade Name Freq PRN Reason Stop Dose Admin Insulin Human Regular 100 unit in 100 mls @ 8 mls/hr 08/20/24 05:08 08/20/24 05:45 Myxredlin 100 Unit/100 Ml Bag IV 08/20/24 17:37 8 mls/hr .[id number] STA 8 mls/hr Administration Protocol Dextrose/Sodium Chloride 1,000 mls @ 125 mls/hr 08/20/24 08:00 08/20/24 08:03 D5ns IV 125 mls/hr .Q8H DICKSON Administration Potassium Phosphate 21 mmol/ 257 mls @ 64 mls/hr 08/20/24 09:00 Sodium Chloride IV 08/20/24 13:00 ONCE ONE Protocol Lidocaine HCl 5 ml 08/20/24 08:01 08/20/24 08:53 Lidocaine Viscous 2% 15 Ml Udc MM 5 ml Q4H PRN Administration Mouth Sore Pain Ondansetron HCl 4 mg 08/20/24 05:11 Ondansetron 4 Mg/2 Ml Vial IVP Q6HR PRN Nausea / Vomiting Potassium Chloride 20 meq 08/20/24 09:00 Potassium Chloride 20 Meq Tablet PO 08/20/24 11:01 Q2H DICKSON Protocol Sodium Chloride 10 ml 08/20/24 09:00 08/20/24 08:04 Sodium Chloride Flush 0.9% 10 Ml Syringe IVP Not Given 0100,0900,1700 DICKSON Sodium Chloride 10 ml 08/20/24 05:11 Sodium Chloride Flush 0.9% 10 Ml Syringe IVP PRN PRN NEEDED PER PROVIDER ORDERS Escitalopram Oxalate [Lexapro] 5 mg PO DAILY 08/20/24 Insulin Lispro [Humalog] 10 unit SUBQ TIDWM 08/20/24 Objective - Vital Signs/Intake & Output Reviewed Vital Signs: Yes Vital Signs: Vital Signs Temp Pulse Resp BP Pulse Ox 08/20/24 09:00 117 H 22 131/80 H 98 08/20/24 07:29 36.6 C 118 H 24 135/91 H 100 08/20/24 07:00 123 H 22 153/90 H 99 08/20/24 06:10 36.8 C 123 H 22 152/87 H 99 Intake & Output: Intake & Output 08/17/24 08/18/24 08/19/24 08/20/24 23:59 23:59 23:59 23:59 Intake Total 2120 Output Total 750 Balance 1370 - Objective General Appearance: positive: No acute distress, Alert Eyes Bilateral: positive: PERRL, EOMI ENT: positive: Pharyngeal erythema Neck: negative: No JVD, Stiff neck Respiratory: positive: No respiratory distress. negative: Wheezes, Rales, Rhonchi Cardiovascular: positive: Regular rate & rhythm. negative: Tachycardia Abdomen: positive: Non-tender, No organomegaly, Nml bowel sounds, No distention Skin: positive: Warm, Dry Extremities: positive: Full ROM, No pedal edema Neurologic/Psychiatric: positive: Oriented x3, CN's nml (2-12), Motor nml - Lab Results Fish Bones: 08/20/24 03:53 08/20/24 08:09 Other Labs: Lab Results x24hrs 08/20/24 08/20/24 08/20/24 Range/Units 08:09 08:09 08:09 WBC (4.8-10.8) x10^3/uL RBC (4.70-6.10) 10^6/uL Hgb (14.0-18.0) g/dL Hct (42.0-52.0) % MCV (80.0-94.0) fL MCH (27.0-31.0) pg MCHC (32.0-36.0) g/dL RDW (12.0-15.0) % Plt Count (130-450) 10^3/uL MPV (7.4-11.4) fL Neut # (Auto) (1.5-6.6) 10^3/uL Lymph # (Auto) (1.5-3.5) 10^3/uL Archuleta # (Auto) (0.0-1.0) 10^3/uL Eos # (Auto) (0.0-0.7) 10^3/uL Baso # (Auto) (0.0-0.1) 10^3/uL Absolute Nucleated RBC x10^3/uL Nucleated RBC % /100WBC VBG pH 7.126 L* (7.31-7.41) VBG pCO2 (41-51) mmHg VBG pO2 (25-47) mmHg VBG HCO3 (23-28) mmol/L VBG Total CO2 (24-29) mmol/L VBG O2 Saturation (60-80) % VBG Base Excess (-2 - +2) mmol/L Ionized Calcium 1.16 (1.15-1.33) mmol/L Sodium 139 (135-145) mmol/L Potassium 3.4 L (3.5-4.5) mmol/L Chloride 108 (101-111) mmol/L Carbon Dioxide 6 L* (21-32) mmol/L Anion Gap 25.0 H (6-13) BUN 10 (6-20) mg/dL Creatinine 0.8 (0.6-1.3) mg/dL Estimated GFR (MDRD) 115 (>89) Glucose 167 H (74-104) mg/dL POC Whole Bld Glucose (70 - 100) mg/dL Calcium 8.0 L (8.5-10.3) mg/dL Phosphorus 1.4 L (2.5-5.0) mg/dL Magnesium 1.7 (1.7-2.3) mg/dL Total Bilirubin (0.2-1.0) mg/dL AST (10-42) IU/L ALT (10-60) IU/L Alkaline Phosphatase (42-121) IU/L Total Protein (6.4-8.9) g/dL Albumin (3.2-5.5) g/dL Globulin (2.1-4.2) g/dL Albumin/Globulin Ratio (1.0-2.2) Lipase (11-82) U/L Urine Color Urine Clarity (CLEAR) Urine pH (5.0-7.5) PH Ur Specific Riggins (1.002-1.030) Urine Protein (NEGATIVE) mg/dL Urine Glucose (UA) (NEGATIVE) mg/dL Urine Ketones (NEGATIVE) mg/dL Urine Occult Blood (NEGATIVE) Urine Nitrite (NEGATIVE) Urine Bilirubin (NEGATIVE) Urine Acetest Urine Urobilinogen (NORMAL) E.U./dL Ur Leukocyte Esterase (NEGATIVE) Urine RBC (0-5) /HPF Urine WBC (0-3) /HPF Ur Squamous Epith Cells (<= Few) Urine Bacteria (None Seen) /HPF Urine Casts /LPF Ur Microscopic Review Urine Culture Comments Urine HCG, Qual Nasal Screen MRSA (PCR) (NEGATIVE) Serum Ketones (NEGATIVE) 08/20/24 08/20/24 08/20/24 Range/Units 07:28 07:02 06:40 WBC (4.8-10.8) x10^3/uL RBC (4.70-6.10) 10^6/uL Hgb (14.0-18.0) g/dL Hct (42.0-52.0) % MCV (80.0-94.0) fL MCH (27.0-31.0) pg MCHC (32.0-36.0) g/dL RDW (12.0-15.0) % Plt Count (130-450) 10^3/uL MPV (7.4-11.4) fL Neut # (Auto) (1.5-6.6) 10^3/uL Lymph # (Auto) (1.5-3.5) 10^3/uL Archuleta # (Auto) (0.0-1.0) 10^3/uL Eos # (Auto) (0.0-0.7) 10^3/uL Baso # (Auto) (0.0-0.1) 10^3/uL Absolute Nucleated RBC x10^3/uL Nucleated RBC % /100WBC VBG pH (7.31-7.41) VBG pCO2 (41-51) mmHg VBG pO2 (25-47) mmHg VBG HCO3 (23-28) mmol/L VBG Total CO2 (24-29) mmol/L VBG O2 Saturation (60-80) % VBG Base Excess (-2 - +2) mmol/L Ionized Calcium (1.15-1.33) mmol/L Sodium (135-145) mmol/L Potassium (3.5-4.5) mmol/L Chloride (101-111) mmol/L Carbon Dioxide (21-32) mmol/L Anion Gap (6-13) BUN (6-20) mg/dL Creatinine (0.6-1.3) mg/dL Estimated GFR (MDRD) (>89) Glucose (74-104) mg/dL POC Whole Bld Glucose 186 H 210 H (70 - 100) mg/dL Calcium (8.5-10.3) mg/dL Phosphorus (2.5-5.0) mg/dL Magnesium (1.7-2.3) mg/dL Total Bilirubin (0.2-1.0) mg/dL AST (10-42) IU/L ALT (10-60) IU/L Alkaline Phosphatase (42-121) IU/L Total Protein (6.4-8.9) g/dL Albumin (3.2-5.5) g/dL Globulin (2.1-4.2) g/dL Albumin/Globulin Ratio (1.0-2.2) Lipase (11-82) U/L Urine Color Urine Clarity (CLEAR) Urine pH (5.0-7.5) PH Ur Specific Riggins (1.002-1.030) Urine Protein (NEGATIVE) mg/dL Urine Glucose (UA) (NEGATIVE) mg/dL Urine Ketones (NEGATIVE) mg/dL Urine Occult Blood (NEGATIVE) Urine Nitrite (NEGATIVE) Urine Bilirubin (NEGATIVE) Urine Acetest Urine Urobilinogen (NORMAL) E.U./dL Ur Leukocyte Esterase (NEGATIVE) Urine RBC (0-5) /HPF Urine WBC (0-3) /HPF Ur Squamous Epith Cells (<= Few) Urine Bacteria (None Seen) /HPF Urine Casts /LPF Ur Microscopic Review Urine Culture Comments Urine HCG, Qual NEGATIVE Nasal Screen MRSA (PCR) (NEGATIVE) Serum Ketones (NEGATIVE) 08/20/24 08/20/24 08/20/24 Range/Units 06:40 06:30 06:14 WBC (4.8-10.8) x10^3/uL RBC (4.70-6.10) 10^6/uL Hgb (14.0-18.0) g/dL Hct (42.0-52.0) % MCV (80.0-94.0) fL MCH (27.0-31.0) pg MCHC (32.0-36.0) g/dL RDW (12.0-15.0) % Plt Count (130-450) 10^3/uL MPV (7.4-11.4) fL Neut # (Auto) (1.5-6.6) 10^3/uL Lymph # (Auto) (1.5-3.5) 10^3/uL Archuleta # (Auto) (0.0-1.0) 10^3/uL Eos # (Auto) (0.0-0.7) 10^3/uL Baso # (Auto) (0.0-0.1) 10^3/uL Absolute Nucleated RBC x10^3/uL Nucleated RBC % /100WBC VBG pH (7.31-7.41) VBG pCO2 (41-51) mmHg VBG pO2 (25-47) mmHg VBG HCO3 (23-28) mmol/L VBG Total CO2 (24-29) mmol/L VBG O2 Saturation (60-80) % VBG Base Excess (-2 - +2) mmol/L Ionized Calcium (1.15-1.33) mmol/L Sodium (135-145) mmol/L Potassium (3.5-4.5) mmol/L Chloride (101-111) mmol/L Carbon Dioxide (21-32) mmol/L Anion Gap (6-13) BUN (6-20) mg/dL Creatinine (0.6-1.3) mg/dL Estimated GFR (MDRD) (>89) Glucose (74-104) mg/dL POC Whole Bld Glucose 244 H (70 - 100) mg/dL Calcium (8.5-10.3) mg/dL Phosphorus (2.5-5.0) mg/dL Magnesium (1.7-2.3) mg/dL Total Bilirubin (0.2-1.0) mg/dL AST (10-42) IU/L ALT (10-60) IU/L Alkaline Phosphatase (42-121) IU/L Total Protein (6.4-8.9) g/dL Albumin (3.2-5.5) g/dL Globulin (2.1-4.2) g/dL Albumin/Globulin Ratio (1.0-2.2) Lipase (11-82) U/L Urine Color YELLOW Urine Clarity CLEAR (CLEAR) Urine pH 5.5 (5.0-7.5) PH Ur Specific Riggins >=1.030 H (1.002-1.030) Urine Protein 30 H (NEGATIVE) mg/dL Urine Glucose (UA) 500 H (NEGATIVE) mg/dL Urine Ketones >=80 H (NEGATIVE) mg/dL Urine Occult Blood TRACE-LYSE (NEGATIVE) Urine Nitrite NEGATIVE (NEGATIVE) Urine Bilirubin NEGATIVE (NEGATIVE) Urine Acetest Urine Urobilinogen 0.2 (NORMAL) (NORMAL) E.U./dL Ur Leukocyte Esterase NEGATIVE (NEGATIVE) Urine RBC 0-5 (0-5) /HPF Urine WBC 0-3 (0-3) /HPF Ur Squamous Epith Cells NONE SEEN (<= Few) Urine Bacteria Rare (None Seen) /HPF Urine Casts 0-2 Hyaline Casts /LPF Ur Microscopic Review INDICATED Urine Culture Comments NOT INDICATED Urine HCG, Qual Nasal Screen MRSA (PCR) NEGATIVE (NEGATIVE) Serum Ketones (NEGATIVE) 08/20/24 08/20/24 08/20/24 Range/Units 06:02 04:06 03:53 WBC (4.8-10.8) x10^3/uL RBC (4.70-6.10) 10^6/uL Hgb (14.0-18.0) g/dL Hct (42.0-52.0) % MCV (80.0-94.0) fL MCH (27.0-31.0) pg MCHC (32.0-36.0) g/dL RDW (12.0-15.0) % Plt Count (130-450) 10^3/uL MPV (7.4-11.4) fL Neut # (Auto) (1.5-6.6) 10^3/uL Lymph # (Auto) (1.5-3.5) 10^3/uL Archuleta # (Auto) (0.0-1.0) 10^3/uL Eos # (Auto) (0.0-0.7) 10^3/uL Baso # (Auto) (0.0-0.1) 10^3/uL Absolute Nucleated RBC x10^3/uL Nucleated RBC % /100WBC VBG pH 7.062 L* (7.31-7.41) VBG pCO2 17.3 L (41-51) mmHg VBG pO2 67.8 H (25-47) mmHg VBG HCO3 4.8 L (23-28) mmol/L VBG Total CO2 5.3 L (24-29) mmol/L VBG O2 Saturation 89.6 H (60-80) % VBG Base Excess -23.4 L (-2 - +2) mmol/L Ionized Calcium (1.15-1.33) mmol/L Sodium 141 137 (135-145) mmol/L Potassium 3.6 3.4 L (3.5-4.5) mmol/L Chloride 105 99 L (101-111) mmol/L Carbon Dioxide 6 L* 4 L* (21-32) mmol/L Anion Gap 30.0 H 34.0 H (6-13) BUN 11 11 (6-20) mg/dL Creatinine 0.8 0.9 (0.6-1.3) mg/dL Estimated GFR (MDRD) 115 100 (>89) Glucose 252 H 275 H (74-104) mg/dL POC Whole Bld Glucose (70 - 100) mg/dL Calcium 7.9 L 9.1 (8.5-10.3) mg/dL Phosphorus (2.5-5.0) mg/dL Magnesium (1.7-2.3) mg/dL Total Bilirubin 0.5 (0.2-1.0) mg/dL AST 19 (10-42) IU/L ALT 31 (10-60) IU/L Alkaline Phosphatase 92 (42-121) IU/L Total Protein 8.3 (6.4-8.9) g/dL Albumin 5.1 (3.2-5.5) g/dL Globulin 3.2 (2.1-4.2) g/dL Albumin/Globulin Ratio 1.6 (1.0-2.2) Lipase 10 L (11-82) U/L Urine Color Urine Clarity (CLEAR) Urine pH (5.0-7.5) PH Ur Specific Riggins (1.002-1.030) Urine Protein (NEGATIVE) mg/dL Urine Glucose (UA) (NEGATIVE) mg/dL Urine Ketones (NEGATIVE) mg/dL Urine Occult Blood (NEGATIVE) Urine Nitrite (NEGATIVE) Urine Bilirubin (NEGATIVE) Urine Acetest Cancelled Urine Urobilinogen (NORMAL) E.U./dL Ur Leukocyte Esterase (NEGATIVE) Urine RBC (0-5) /HPF Urine WBC (0-3) /HPF Ur Squamous Epith Cells (<= Few) Urine Bacteria (None Seen) /HPF Urine Casts /LPF Ur Microscopic Review Urine Culture Comments Urine HCG, Qual Nasal Screen MRSA (PCR) (NEGATIVE) Serum Ketones SMALL H (NEGATIVE) 08/20/24 Range/Units 03:53 WBC 10.4 (4.8-10.8) x10^3/uL RBC 5.30 (4.70-6.10) 10^6/uL Hgb 17.0 (14.0-18.0) g/dL Hct 51.4 (42.0-52.0) % MCV 97.0 H (80.0-94.0) fL MCH 32.1 H (27.0-31.0) pg MCHC 33.1 (32.0-36.0) g/dL RDW 11.9 L (12.0-15.0) % Plt Count 306 (130-450) 10^3/uL MPV 9.8 (7.4-11.4) fL Neut # (Auto) 6.2 (1.5-6.6) 10^3/uL Lymph # (Auto) 2.9 (1.5-3.5) 10^3/uL Archuleta # (Auto) 0.8 (0.0-1.0) 10^3/uL Eos # (Auto) 0.2 (0.0-0.7) 10^3/uL Baso # (Auto) 0.2 H (0.0-0.1) 10^3/uL Absolute Nucleated RBC 0.00 x10^3/uL Nucleated RBC % 0.0 /100WBC VBG pH (7.31-7.41) VBG pCO2 (41-51) mmHg VBG pO2 (25-47) mmHg VBG HCO3 (23-28) mmol/L VBG Total CO2 (24-29) mmol/L VBG O2 Saturation (60-80) % VBG Base Excess (-2 - +2) mmol/L Ionized Calcium (1.15-1.33) mmol/L Sodium (135-145) mmol/L Potassium (3.5-4.5) mmol/L Chloride (101-111) mmol/L Carbon Dioxide (21-32) mmol/L Anion Gap (6-13) BUN (6-20) mg/dL Creatinine (0.6-1.3) mg/dL Estimated GFR (MDRD) (>89) Glucose (74-104) mg/dL POC Whole Bld Glucose (70 - 100) mg/dL Calcium (8.5-10.3) mg/dL Phosphorus (2.5-5.0) mg/dL Magnesium (1.7-2.3) mg/dL Total Bilirubin (0.2-1.0) mg/dL AST (10-42) IU/L ALT (10-60) IU/L Alkaline Phosphatase (42-121) IU/L Total Protein (6.4-8.9) g/dL Albumin (3.2-5.5) g/dL Globulin (2.1-4.2) g/dL Albumin/Globulin Ratio (1.0-2.2) Lipase (11-82) U/L Urine Color Urine Clarity (CLEAR) Urine pH (5.0-7.5) PH Ur Specific Riggins (1.002-1.030) Urine Protein (NEGATIVE) mg/dL Urine Glucose (UA) (NEGATIVE) mg/dL Urine Ketones (NEGATIVE) mg/dL Urine Occult Blood (NEGATIVE) Urine Nitrite (NEGATIVE) Urine Bilirubin (NEGATIVE) Urine Acetest Urine Urobilinogen (NORMAL) E.U./dL Ur Leukocyte Esterase (NEGATIVE) Urine RBC (0-5) /HPF Urine WBC (0-3) /HPF Ur Squamous Epith Cells (<= Few) Urine Bacteria (None Seen) /HPF Urine Casts /LPF Ur Microscopic Review Urine Culture Comments Urine HCG, Qual Nasal Screen MRSA (PCR) (NEGATIVE) Serum Ketones (NEGATIVE) Assessment/Plan - Problem List (1) DKA (diabetic ketoacidoses) Impression: He is slowly coming under control. Because his anion gap is still too high, and CO2 level is too low, my assessment is that he is still quite a bit of acid low that I need to treat. As such I am starting D5 with his insulin drip and we will keep him on the insulin drip until his anion gap closes and his CO2 level is normal. After that I will transition to his usual Lantus and sliding scale insulin short acting with meals. I Will also order the diet soda and broth that he desires Qualifiers: Diabetes mellitus type: type 1 Diabetes mellitus complication detail: without coma Qualified Code(s): E10.10 - Type 1 diabetes mellitus with ketoacidosis without coma (2) Sore throat Impression: He is asking for lidocaine. As such I will order 5 cc of lidocaine mixed with warm salt water on a one-to-one ratio. Swish and spit. And use that every 4 hours as needed for throat pain. (3) Electrolyte depletion Impression: As anticipated in DKA while we drive potassium into the cells with our insulin, his potassium is low. Magnesium is low. Phosphorus is low. All of these will be repleted and rechecked again
[2024-08-20] MEDS: MAGNESIUM OXIDE 400 MG TABLET PO ONE (09:55)
[2024-08-20] MEDS: POTASSIUM CHLORIDE 20 MEQ TABLET PO SCH (09:55)
[2024-08-20] MEDS: POTASSIUM PHOSPHATE 21 MMOL in SODIUM CHLORIDE 0.9% 250 ML IV ONE (09:56)
[2024-08-20] MEDS: ESCITALOPRAM 10 MG TABLET PO SCH (12:39)
[2024-08-20] MEDS: IBUPROFEN 600 MG TABLET PO SCH (12:40)
[2024-08-20 14:48] LABS: CALCIUM 7.7 mg/dL (8.5-10.3); CREATININE 0.6 mg/dL (0.6-1.3); MAGNESIUM 1.7 mg/dL (1.7-2.3); POTASSIUM 4.2 mmol/L (3.5-4.5)
[2024-08-20] MEDS: INSULIN GLARGINE-YFGN 300 UNIT/3 ML PEN SUBQ SCH (15:20)
[2024-08-20] MEDS: INSULIN LISPRO 300 UNIT/3 ML PEN SUBQ SCH (17:08)
--- NOTE | 2024-08-20 17:55 | Discharge Plan ---
Discharge Plan Problem Reviewed?: Yes Disposition: Home, Self Care Condition: Fair Prescriptions: Insulin Lispro [Humalog] 0 - 20 unit SUBQ TIDWM #6 ml Insulin Glargine-Yfgn [Semglee] 18 units SUBQ DAILY #3 ml Diet: Diabetic Activity Restrictions: Activity as Tolerated Shower Restrictions: No Driving Restrictions: No Health Concerns: You have type 1 diabetes mellitus. You are familiar with DKA and have been admitted before for DKA crisis. Symptoms because you ran out of insulin. Sometimes because of illness leading to DKA. This time you are taking your insulin. You have your refills and are theoretically established with a primary care provider that you saw in January of this year. Your last refill of insulin was May. You became ill on night with chills. Needed sweaters and pajamas to keep you clinical practitioner bed. But no localizing signs of cold, pneumonia, abdominal infection or urinary tract infection. You did not feel well on Thursday but began having nausea and vomiting. With that you came to the emergency room and were found to have DKA. You were placed in the ICU on the protocol requiring an insulin intravenous drip. You have responded to that and your close has gone down, and your acid levels have also gone down. You have been off the insulin drip for a few hours. Have received your Lantus. Short acting insulin before a meal. Tolerated a meal and or ambulating in the hospital and want to go home. Plan of Treatment: 1. Please see your primary care provider in the next 1 to 2 weeks for follow- up. 2. While here you spoke to our social service worker and she has given you some information on psychological counseling. Care Goals: To remain in control of your type 1 diabetes Assessment: patient is alert, oriented to person, place, time, and situation No Smoking: If you smoke, Please STOP! Call for help. Follow-up with: Juliana Seymour ARNP [Credentialed Staff Provider] -
--- NOTE | 2024-08-20 17:59 | DISCHARGE SUMMARY ---
Discharge Summary Admit Date: 08/20/24 Discharge Date: 08/20/24 Discharging Provider: Mariama Bee MD Primary Care Provider: BAKARI De Oliveira Code Status: Attempt Resuscitation Condition at Discharge: Fair Discharge Disposition: 01 Home, Self Care - DIAGNOSES Discharge Diagnoses with Status of Each Condition: 1. Type 1 diabetes mellitus with ketoacidosis without coma 2. Nausea and vomiting due to #1 3. Dehydration 4. Hypokalemia 5. Metabolic acidosis - HPI History of Present Illness: Review of his medical record at the walk-in clinic since he last saw us in July 2023: 1. facial infection secondary to tooth infection April 2023 2. URI July 2023 3. refill of insulin because he ran out of his meds August 2023. [place] 4. refill of insulin October 2023. new PCP appointment supposedly in November 2023 5. Refill of insulin January 2024. PCP appointment supposedly in February 2024 6. March 21, 2024 establish care with PCP office. BAKARI De Oliveira. No show on May 10, 2024. 7. Walk-in clinic visit for left thumb May 23, 2024 Past medical history 1. Type 1 diabetes mellitus 2. Depression and anxiety since age 22. Previously on citalopram but stopped because he ran out years ago 3. Alcohol abuse with 6-10 beers a day 4. Spontaneous pneumothorax 2016 resulting in wedge resection and pleurodesis Social history. Works at a [employer] and lives with his parents. Reports good local support with family and friends. never smoker. Drinks 6-10 beers a day. This current episode started on . Today is Thursday. night he felt feverish, chills. He usually just sleeps in his underwear and that might he does sleep with 3-4 sweaters, 2 pairs of pajamas to get warm. But no localizing sore throat, cough, chest congestion, abdominal pain, diarrhea, rectal pain, or skin changes. Thursday he was able to get up in the morning to go to work for an hour but that was it. Went back home because he felt so awful. Then the nausea and vomiting started in the evening and that is what brought him to the emergency room. - HOSPITAL COURSE Hospital Course: The patient was placed in the intensive care unit with an insulin drip. DKA protocol was followed by nursing. Electrolyte replacement was instituted for potassium, calcium, magnesium and phosphorus. He was started on a drip in the design studio consultant hours of the . Over the course of the next 12 hours the patient's anion gap is slowly closed. He began with an anion gap of 34 and was an anion gap of 13 at discharge. Carbon dioxide levels started a very low for and was 14 by the time of discharge. Lantus was given approximately 4:30 in the afternoon. He also received 5 units of short acting insulin for glucose of 189. He had a meal. He was ambulating in the hallways. No need for assist. He had a short conversation with social work today. There are feelings of de pression, uselessness, sadness. She has given him a contact for counseling. With his glucose normal, and ambulating well, with good p.o. intake, the patient wanted to go home. As such she was discharged in stable condition. With instructions to follow through with seeing his primary care provider in the clinics. And to follow through with getting a counselor. No changes were made in his medications. He is discharged in stable condition. He has asked me to please refill his short acting and long-acting insulin. He says that he is getting low on supplies. He has contacted his primary care provider several times over the last week and there has been no response between her and the pharmacy. He is nervous about running out of medications. I agreed to call in a 1 month supply. Temperature is 36.6. Pulse is 88. Blood pressure 147/97. Respirations 21. 98% on room air. He is a 6 foot 1 inch white male. 79.5 kg. Looks stated age. He is a well-groomed well-nourished bearded male. Neck is supple. Lungs are clear to auscultation and percussion. Regular rate and rhythm. Abdomen soft nontender. Extremities without edema. With ambulation there is no cerebellar ataxia and he does not need any durable medical equipment. - ALLERGIES Allergies/Adverse Reactions: Allergies Allergy/AdvReac Type Severity Reaction Status Date / Time No Known Drug Allergies Allergy Verified 07/29/23 21:21 - MEDICATIONS Home Medications: Ambulatory Orders Medication Instructions Recorded Confirmed Escitalopram Oxalate [Lexapro] 5 mg PO DAILY 08/20/24 08/20/24 Insulin Glargine-Yfgn [Semglee] 18 units SUBQ DAILY 08/20/24 08/20/24 Insulin Lispro [Humalog] 0 - 20 unit SUBQ TIDWM 08/20/24 08/20/24 - LABS Result Diagrams: 08/20/24 03:53 08/20/24 14:08
[2024-08-20 18:25] VITALS: BP 134/92; O2SAT 99
== END 2024-08-20 18:30 | disposition home or self-care (01) | DRG 639 ==
LOC: ED 03:32 → ICU 05:12
PROVIDERS: ADMIT Internal Medicine; ATTEND Specialist
DX: E10.10 Type 1 diabetes mellitus with ketoacidosis without coma (principal); Z79.4 Long term (current) use of insulin; E86.0 Dehydration; E87.6 Hypokalemia; F32.A Depression, unspecified; F41.9 Anxiety disorder, unspecified; J02.9 Acute pharyngitis, unspecified
CPT/HCPCS: 36415; 80048; 80053; 81001; 81025; 82009; 82330; 82803; 83690; 83735; 84100; 85025; 87150; A9270; J1815; J2060; 81002; 81003; 82947; 84132; 87086; 96374; 99285